=== PATIENT | female | born 1960 | race Caucasian/White ===

== ENCOUNTER 2024-04-02 13:42 | Outpatient (AMB) | payer MEDICARE, BC, SELFPAY ==
[2024-04-02 13:50] VITALS: BP 130/80; PULSE 114; RESP 14; O2SAT 95; BMI 37.1
--- NOTE | 2024-04-02 13:50 | MHC.PC.OV ---
Vital Signs 04/02/24 13:50 Height 5 ft 7 in Weight 237 lb BMI 37.1 BP 130/80 Blood Pressure Location Lt brachial Position Sitting Respiration 14 Pulse 114 H Pulse Source Pulse Oximeter Pulse Oximetry (%) 95 Oxygen Delivery Method Room Air Intake Visit Reasons: Cough,follow up Intake Note: Patient is here to follow up for her cough/respiratory concern. Patient takes B-12, unknown dose. Patient takes Ketamine 80mg capsule PRN 1-3 daily (from a compound pharmacy). Patient also takes vitamin C, unsure of dose. Magnesium 400mg daily. and iron 45mg daily. 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 Accompanied by: Self / Same As Patient Allergies semaglutide [From Ozempic] Allergy (Severe, Verified 04/02/24 13:55) Rash Tobacco use date assessed: 04/02/24 Fall risk assessment: 2 + Falls in past year Last assessed Fall Risk: 04/02/24 Dental Screening Dental Screen Date: 04/02/24 Did you have a dental visit in the last 12 months?: No Did you have a dental problem in the last 6 months where you did not have access to dental care?: No Was dental information given to patient?: No HPI HPI Comments History of Present Illness Details The patient is a 63-year-old female with a past medical history of type 2 diabetes, hypertension, hyperlipidemia, RSD, spinal stenosis, post herpetic neuralgia, headaches, IBS/GERD/gastroparesis, prolonged QT presenting for cough Reports onset of cough Mar 16. +sinus congestion, +PND, +fatigue. Has turned bronchial. Some intermittent wheezing. Denies recent fevers Type 2 diabetes: On metformin, Basaglar, lisinopril. Multifactorial neuropathy. Up-to-date on eye exams. Follows regularly with Podiatry. Chronic pain: RSD, spinal stenosis, post herpetic neuralgia, diabetic neuropathy, fibromyalgia. Follows with Dr. Neff ongoing transitional medications GI: Constipation, gastroparesis, IBS, nausea, GERD. Feeling fairly well : Follows with Dr. Mclean who is retiring. on prempro. this has been the only effective medication for her signficant post menopausal symptoms ROS see HPI PHYSICAL EXAM: GENERAL: Alert and oriented x 3. NAD EYES: EOMI. Anicteric. HENT: Maxillary sinus tender to palpation bilateral LUNGS: Coarse anterior rhonchi t/o. good air entry. scattered wheezing CARDIOVASCULAR: Regular rate and rhythm. No murmur. No JVD. ABDOMEN: Soft, non-tender +bs EXTREMITIES: No edema. Non-tender. SKIN: No rashes or lesions. Warm. NEUROLOGIC: No focal neurological deficits. CN II-XII grossly intact PSYCHIATRIC: Cooperative. Appropriate mood and affect COUNTS INCLUDE 234 BEDS AT THE [facility] Social History Household Members: Spouse and Children Housing: House 75 years or older and lives alone: No Alcohol intake: never Patient Tobacco Use Status: Never used Tobacco e-Cigarette/Vaping Use: Never Used Use of substances other than those prescribed or required for medical reasons: No Substance Use Type: Marijuana Have you been hit, kicked, punched, or otherwise hurt by someone within the past year? If so, by whom?: No Do you feel safe in your current relationship?: Yes Is there a partner from a previous relationship who is making you feel unsafe now?: No Are you made to feel afraid or neglected: No service: No Current occupational status: disabled Current occupational exposures/hazards: No Cognitive needs: No Hearing needs: Yes (wears hearing aids) Vision needs: Yes (wears glasses) Physical exam (Primary Care) Vital Signs: Last Vital Signs Pulse 114 H 04/02/24 13:50 Resp 14 04/02/24 13:50 BP 130/80 04/02/24 13:50 Pulse Ox 95 04/02/24 13:50 Oxygen Delivery Method Room Air 04/02/24 13:50 BMI result Body Mass Index 37.1 Tobacco/Smoking Status: Tobacco use Status Tobacco use date assessed 04/02/24 04/02/24 14:22 Patient Tobacco Use Status Never used Tobacco 04/02/24 14:22 e-Cigarette/Vaping Use Never Used 04/02/24 14:22 Assessment and Plan Assessment & Plan (1) Controlled diabetes mellitus with diabetic neuropathy, with long-term current use of insulin: Code(s): E11.40 - Type 2 diabetes mellitus with diabetic neuropathy, unspecified; 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 Qualifiers: Diabetes mellitus type: type 2 Qualified Code(s): E11.40 - Type 2 diabetes mellitus with diabetic neuropathy, unspecified; 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 (2) Diabetic neuropathy: Code(s): E11.40 - Type 2 diabetes mellitus with diabetic neuropathy, unspecified Qualifiers: Diabetes mellitus type: type 2 Diabetes mellitus complication detail: diabetic polyneuropathy Qualified Code(s): E11.42 - Type 2 diabetes mellitus with diabetic polyneuropathy (3) Complex regional pain syndrome I: Code(s): G90.50 - Complex regional pain syndrome I, unspecified Qualifiers: Complex regional pain syndrome affected site: lower extremity Laterality: unspecified laterality Qualified Code(s): G90.529 - Complex regional pain syndrome I of unspecified lower limb (4) Asthma: Code(s): J45.909 - Unspecified asthma, uncomplicated Qualifiers: Asthma severity: moderate Asthma persistence: persistent Asthma complication type: with acute exacerbation Qualified Code(s): J45.41 - Moderate persistent asthma with (acute) exacerbation (5) Sinusitis: Code(s): J32.9 - Chronic sinusitis, unspecified Qualifiers: Sinusitis location: maxillary Chronicity: subacute Qualified Code(s): J01.00 - Acute maxillary sinusitis, unspecified Medications: New prednisone 60mg oral once daily for 3 days then 40mg once oral daily for 3 days then 20mg oral once daily for 3 days orally daily; 18 tabs 0RF doxycycline hyclate 100 mg PO Q12H 20 tabs 0RF 10 days conj estrog-medroxyprogest jen 0.3-1.5 mg (Prempro) 1 tab PO BEDTIME 84 tabs 3RF codeine-guaifenesin 10-100 mg/5 mL 10 mL PO Q4-6H PRN 200 mL 0RF cough Coding Level of Care Code Est Pt Level 5 (98596) Diagnoses Controlled type 2 diabetes mellitus with diabetic neuropathy, with long-term current use of insulin E11.40; Z79.4 Diabetes mellitus type: type 2 Diabetic polyneuropathy associated with type 2 diabetes mellitus E11.42 Diabetes mellitus type: type 2 Diabetes mellitus complication detail: diabetic polyneuropathy Complex regional pain syndrome type 1 of lower extremity, unspecified laterality G90.529 Complex regional pain syndrome affected site: lower extremity Laterality: unspecified laterality Moderate persistent asthma with acute exacerbation J45.41 Asthma severity: moderate Asthma persistence: persistent Asthma complication type: with acute exacerbation Subacute maxillary sinusitis J01.00 Sinusitis location: maxillary Chronicity: subacute
== END 2024-04-02 14:39 | disposition home or self-care (01) ==
PROVIDERS: PCP Internal Medicine; Visit Provider Internal Medicine
DX: E11.40 Type 2 diabetes mellitus with diabetic neuropathy, unspecified (principal); Z79.4 Long term (current) use of insulin; E11.42 Type 2 diabetes mellitus with diabetic polyneuropathy; G90.529 Complex regional pain syndrome I of unspecified lower limb; J45.41 Moderate persistent asthma with (acute) exacerbation; J01.00 Acute maxillary sinusitis, unspecified
CPT/HCPCS: 99214

== ENCOUNTER 2024-04-16 11:36 | Outpatient (AMB) | payer MEDICARE, BC, SELFPAY ==
--- NOTE | 2024-04-16 11:38 | AM.OFFWIN_ITS ---
Intake Vital Signs 04/16/24 11:41 Height 5 ft 7 in Weight 237 lb BMI 37.1 BP 130/84 Blood Pressure Location Rt brachial Position Sitting Respiration 12 Pulse 103 H Pulse Source Pulse Oximeter Pulse Oximetry (%) 97 Oxygen Delivery Method Room Air Intake Visit Reasons: bad Cough and ear pain Intake Note: Patient reports antibiotic and prednisone ended this past week and she reports headache, sinus pressure, cough, and bilateral ear pain with right ear being worse. 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 +sinus congestion, +PND, +fatigue. Has turned bronchial. Some intermittent wheezing. Denies recent fevers. Symptoms improved while on the medication, however rebounded after cessation. Still with a lot of reported post nasal drip and cough Type 2 diabetes: On metformin, Basaglar, lisinopril. Multifactorial neuropathy. Up-to-date on eye exams. Follows regularly with Podiatry. Chronic pain: RSD, spinal stenosis, post herpetic neuralgia, diabetic neuropathy, fibromyalgia. Follows with Dr. Neff ongoing transitional medications GI: Constipation, gastroparesis, IBS, nausea, GERD. Feeling fairly well : Follows with Dr. Mclean who is retiring. on prempro. this has been the only effective medication for her signficant post menopausal symptoms ROS see HPI PHYSICAL EXAM: GENERAL: Alert and oriented x 3. NAD EYES: EOMI. Anicteric. HENT: Maxillary sinus tender to palpation bilateral LUNGS: Good air entry. scattered wheezing CARDIOVASCULAR: Regular rate and rhythm. No murmur. No JVD. ABDOMEN: Soft, non-tender +bs EXTREMITIES: No edema. Non-tender. SKIN: No rashes or lesions. Warm. NEUROLOGIC: No focal neurological deficits. CN II-XII grossly intact PSYCHIATRIC: Cooperative. Appropriate mood and affect [facility] Social History Household Members: Spouse and Children Housing: House 75 years or older and lives alone: No Alcohol intake: never Patient Tobacco Use Status: Never used Tobacco e-Cigarette/Vaping Use: Never Used Substance Use Type: Marijuana service: No Current occupational status: disabled Current occupational exposures/hazards: No Cognitive needs: No Hearing needs: Yes (wears hearing aids) Vision needs: Yes (wears glasses) Physical Exam Vital Signs: Last Vital Signs Pulse 103 H 04/16/24 11:41 Resp 12 04/16/24 11:41 BP 130/84 04/16/24 11:41 Pulse Ox 97 04/16/24 11:41 Oxygen Delivery Method Room Air 04/16/24 11:41 BMI result Body Mass Index 37.1 Assessment & Plan Assessment & Plan (1) Subacute sinusitis: Code(s): J01.90 - Acute sinusitis, unspecified Qualifiers: Sinusitis location: maxillary Qualified Code(s): J01.00 - Acute maxillary sinusitis, unspecified Plan: Repeat treatment course Imaging if symptoms persist (2) Asthma: Code(s): J45.909 - Unspecified asthma, uncomplicated Qualifiers: Asthma complication type: with acute exacerbation Asthma persistence: persistent Asthma severity: moderate Qualified Code(s): J45.41 - Moderate pe rsistent asthma with (acute) exacerbation Plan: with exacerbation Repeat recent treatment course Medications: Refilled doxycycline hyclate 100 mg PO Q12H 20 tabs 0RF 10 days prednisone 60mg oral once daily for 3 days then 40mg once oral daily for 3 days then 20mg oral once daily for 3 days orally daily; 18 tabs 0RF Coding Level of Care Code Est Pt Level 4 (35103) Diagnoses Subacute maxillary sinusitis J01.00 Sinusitis location: maxillary Moderate persistent asthma with acute exacerbation J45.41 Asthma complication type: with acute exacerbation Asthma persistence: persistent Asthma severity: moderate
[2024-04-16 11:41] VITALS: BP 130/84; PULSE 103; RESP 12; O2SAT 97; BMI 37.1
== END 2024-04-16 13:04 | disposition home or self-care (01) ==
PROVIDERS: PCP Internal Medicine; Visit Provider Internal Medicine
DX: J01.00 Acute maxillary sinusitis, unspecified (principal); J45.41 Moderate persistent asthma with (acute) exacerbation
CPT/HCPCS: 99214

== ENCOUNTER 2024-05-14 09:32 | Outpatient (AMB) | payer MEDICARE, SELFPAY ==
--- NOTE | 2024-05-14 09:45 | MHC.PC.OV ---
Vital Signs 05/14/24 09:47 Height 5 ft 7 in Weight 233 lb BMI 36.5 BP 143/78 H Blood Pressure Location Rt brachial Position Sitting Respiration 12 Pulse 85 Pulse Source Pulse Oximeter Pulse Oximetry (%) 98 Oxygen Delivery Method Room Air Intake Visit Reasons: [facility]L from [facility] Intake Note: Patient is here to transfer her care from [facility] to [facility]. Patient is requesting refills for Vitamin D, Lisinopril, Metformin HCL, Montelucast, Nitroglycerin, Albuterol inhaler, and flonase. Patient would also like to discuss B12 injections in the office. 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: No Accompanied by: Self / Same As Patient Allergies semaglutide [From Ozempic] Allergy (Severe, Verified 05/14/24 09:52) Rash Jlvcyor-EVI-MzY Reductase Inhibitor Adverse Reaction (Severe, Verified 05/14/24 10:11) myalgia Tobacco use date assessed: 04/02/24 Fall risk assessment: 1 Fall in past year Last assessed Fall Risk: 05/14/24 Dental Screening Dental Screen Date: 04/02/24 HPI HPI Comments History of Present Illness Details The patient is a 63-year-old female with a past medical history of type 2 diabetes, hypertension, hyperlipidemia, RSD, spinal stenosis, post herpetic neuralgia, headaches, IBS/GERD/gastroparesis, prolonged QT presenting for follow up Type 2 diabetes: On metformin, Basaglar, lisinopril. Due for A1C. Has upcoming visit with endocrine. Multifactorial neuropathy. Up-to-date on eye exams. Follows regularly with Podiatry. Patient developed severe myalgia with multiple statins in the past, she believes atorvastatin, rosuvastatin and pravastatin. LDL goal <100. Tried to have praluent sent but not covered by insurance Chronic pain: RSD, spinal stenosis, post herpetic neuralgia, diabetic neuropathy, fibromyalgia. Follows with Dr. Neff ongoing transitional medications GI: Constipation, gastroparesis, IBS, nausea, GERD. Feeling fairly well : Follows with Dr. Mclean who is retiring. On prempro. this has been the only effective medication for her significant post menopausal symptoms ROS see HPI PHYSICAL EXAM: GENERAL: Alert and oriented x 3. NAD EYES: EOMI. Anicteric. HENT: Maxillary sinus tender to palpation bilateral LUNGS: Good air entry. scattered wheezing CARDIOVASCULAR: Regular rate and rhythm. No murmur. No JVD. ABDOMEN: Soft, non-tender +bs EXTREMITIES: No edema. Non-tender. SKIN: No rashes or lesions. Warm. NEUROLOGIC: No focal neurological deficits. CN II-XII grossly intact PSYCHIATRIC: Cooperative. Appropriate mood and affect [facility] Medical History (Updated 05/14/24 @ 10:21 by Nargis Belcher MD) Depression PTSD (post-traumatic stress disorder) Injury of hand, right Right shoulder injury Neck injury Imbalance Memory loss Fatty liver GERD (gastroesophageal reflux disease) IBS (irritable colon syndrome) Thyroid disease Hypercholesterolemia Hammertoe of left foot Controlled diabetes mellitus with diabetic neuropathy, with long-term current use of insulin Diabetic neuropathy Complex regional pain syndrome I Asthma Subacute sinusitis Surgical History (Updated 05/14/24 @ 10:05 by Alicia Ortiz CMA) Hx of foot surgery Family History (Updated 05/14/24 @ 10:29 by Alicia Ortiz CMA) Mother Colon cancer Father Cardiovascular disease Thyroid disorder Throat cancer Alcoholism Psychiatric disorder Maternal Grandmother Asthma Diabetes Cardiovascular disease Maternal Grandfather Cardiovascular disease Paternal Grandfather Cardiovascular disease Sister Cancer of spine Diabetes Social History Household Members: Spouse and Children Housing: House Alcohol intake: never Patient Tobacco Use Status: Never used Tobacco e-Cigarette/Vaping Use: Never Used Substance Use Type: Marijuana service: No Current occupational status: disabled Current occupational exposures/hazards: No Cognitive needs: No Hearing needs: Yes (wears hearing aids) Vision needs: Yes (wears glasses) Questionnaire PHQ-9 Over the last 2 weeks, how often have you been bothered by any of the following problems? 1. Little interest or pleasure in doing things: several days 2. Feeling down, depressed, or hopeless: several days 3. Trouble falling or staying asleep, or sleeping too much: more than half the days 4. Feeling tired or having little energy: several days 5. Poor appetite or overeating: several days 6. Feeling bad about yourself - or that you are a failure or have let yourself or your family down: not at all 7. Trouble concentrating on things, such as reading the newspaper or watching television: several days 8. Moving or speaking so slowly that other people could have noticed. Or the opposite - being so fidgety or restless that you have been moving around a lot more than usual: not at all 9. Thoughts that you would be better off or of hurting yourself in some way: not at all Total score: 7 Depression Screening Interpretation: Positive Depression Screening Follow-up: Existing condition and Declines treatment Depression Screening Done: Yes 48854 - PHQ-9 Billing: Yes Source: Developed by Drs. Tonio Hawkins, Medina Mcdaniel, Bolivar Denis and colleagues, with an educational luz from [employer]. Thrive Questionnaire Date Thrive assessed: 05/14/24 I am a: Patient What is your living situation today?: I have a steady place to live Within the past 12 months, did the food you bought not last and you didn't have the money to get more?: Never true Within the past 12 months, did you worry whether your food would run out before you got money to buy more?: Never true Do you have trouble paying for medicines?: Yes Do you have trouble getting transportation to medical appointments?: Yes Do you have trouble paying your heating and electricity bill?: Yes Do you have trouble taking care of your child, family member or friend?: No Do you have trouble with day-to-day activities such as bathing, preparing meals, shopping, managing finances, etc.?: Yes Are you currently unemployed and looking for a job?: No Are you interested in more education?: No Please select the resources that you would like help with: Food, Paying for medicine, Transportation, Utilities and Daily support Currently or been in a relationship where the following occur: No concerns reported THRIVE Score: 2 AUDIT C Alcohol Use Questionnaire (AUDIT-C) 1. How often do you have a drink containing alcohol?: Never 3. How often do you have six or more drinks on one occasion?: Never Total Score: 0 OLYA-7 AMB Questionnaire OLYA-7 Date OLYA - 7 assessed: 05/14/24 Feeling nervous, anxious, or on edge: 1 = Several days Not being able to stop or control worryin = Several days Worrying too much about different things: 0 = Not at all Trouble relaxin = Several days Being so restless that it is hard to sit still: 0 = Not at all Becoming easily annoyed or irritable: 1 = Several days Feeling afraid as if something awful might happen: 0 = Not at all Total OLYA-7 score (0-4 normal; 5-9 mild; 10-14 moderate; 15-21 severe): 4 Source: Developed by Drs. Tonio Hawkins, Medina Mcdaniel, Bolivar Denis and colleagues, with an educational luz from [employer]. OLYA-7 Assessment Billing OLYA-7 Assessment Tool: OLYA-7 Assessment 20402 Physical exam (Primary Care) Vital Signs: Last Vital Signs Pulse 85 05/14/24 09:47 Resp 12 05/14/24 09:47 BP 143/78 H 05/14/24 09:47 Pulse Ox 98 05/14/24 09:47 Oxygen Delivery Method Room Air 05/14/24 09:47 BMI result Body Mass Index 36.5 Tobacco/Smoking Status: Tobacco use Status Tobacco use date assessed 04/02/24 05/14/24 09:45 Patient Tobacco Use Status Never used Tobacco 05/14/24 09:45 e-Cigarette/Vaping Use Never Used 05/14/24 09:45 PHQ-9: PHQ-9 Score PHQ-9: Total score 7 05/14/24 10:00 Depression Screening Interpretation: Positive Depression Screening Follow-up: Existing condition and Declines treatment Thrive Assessment: Date of Thrive Assessment Date Thrive assessed 05/14/24 05/14/24 10:00 Currently or been in a relationship where the following occur: No concerns reported Assessment and Plan Assessment & Plan (1) Controlled diabetes mellitus with diabetic neuropathy, with long-term current use of insulin: Code(s): E11.40 - Type 2 diabetes mellitus with diabetic neuropathy, unspecified; 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 Due for A1C Multifactorial neuropathy Upcoming visit with endocrinology. Labs ordered today. Patient has not tolerated multiple statins. Repatha ordered today (2) Diabetic neuropathy: Code(s): E11.40 - Type 2 diabetes mellitus with diabetic neuropathy, unspecified Qualifiers: Diabetes mellitus type: type 2 Diabetes mellitus complication detail: diabetic polyneuropathy Qualified Code(s): E11.42 - Type 2 diabetes mellitus with diabetic polyneuropathy (3) Complex regional pain syndrome I: Code(s): G90.50 - Complex regional pain syndrome I, unspecified Qualifiers: Complex regional pain syndrome affected site: lower extremity Laterality: unspecified laterality Qualified Code(s): G90.529 - Complex regional pain syndrome I of unspecified lower limb Plan: Stable continue follow-up with pain management Orders: Orders Lipid Panel Today E11.40 - Type 2 diabetes mellitus with diabetic neuropathy, unspecified, E11.42 - Type 2 diabetes mellitus with diabetic polyneuropathy, 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 of insulin Hemoglobin A1c Today E11.40 - Type 2 diabetes mellitus with diabetic neuropathy, unspecified, E11.42 - Type 2 diabetes mellitus with diabetic polyneuropathy, Z79.4 - halfway (current) use of insulin Referrals Gastroenterology Referral R13.10 - Dysphagia, unspecified Medications: New cyanocobalamin (vitamin B-12) (Vitamin B-12) 1,000 mcg PO DAILY 90 tabs 3RF lisinopril 2.5 mg PO QPM 90 tabs 3RF montelukast 10 mg PO BEDTIME 90 tabs 3RF Repatha SureClick (evolocumab) 140 mg subcut Q2W 2 mL 3RF NS cholecalciferol (vitamin D3) 25 mcg PO QAM 90 caps 3RF nitroglycerin do not exceed 3 doses per episode 0.4 mg sublingual Q5M PRN 30 tabs 3RF chest pain fluticasone propionate 50 mcg/actuation administer into each nostril 1 spray intranasal DAILY 16 grams 3RF albuterol sulfate 90 mcg/actuation 1 inh inhalation .every 4 hours 30 days PRN 8.5 grams 3RF shortness of breath or wheezing Changed From metformin 500 mg PO BID To metformin 1,000 mg (2 x 500 mg) PO BID 360 tabs 3RF Coding Level of Care Code Est Pt Level 4 (87879) Complex EM visit Add On G2211 Diagnoses Controlled type 2 diabetes mellitus with diabetic neuropathy, with long-term current use of insulin E11.40; Z79.4 Diabetes mellitus type: type 2 Diabetic polyneuropathy associated with type 2 diabetes mellitus E11.42 Diabetes mellitus type: type 2 Diabetes mellitus complication detail: diabetic polyneuropathy Complex regional pain syndrome type 1 of lower extremity, unspecified laterality G90.529 Complex regional pain syndrome affected site: lower extremity Laterality: unspecified laterality Additional Codes OLYA-7 Assessment Billing - OLYA-7 Assessment Tool: OLYA-7 Assessment [id number] ([id number])
[2024-05-14 09:47] VITALS: BP 143/78; PULSE 85; RESP 12; O2SAT 98; BMI 36.5
== END 2024-05-14 10:31 | disposition home or self-care (01) ==
PROVIDERS: PCP Internal Medicine; Visit Provider Internal Medicine
DX: E11.40 Type 2 diabetes mellitus with diabetic neuropathy, unspecified (principal); Z79.4 Long term (current) use of insulin; E11.42 Type 2 diabetes mellitus with diabetic polyneuropathy; G90.529 Complex regional pain syndrome I of unspecified lower limb
CPT/HCPCS: 99214; G2211

== ENCOUNTER 2024-05-14 10:39 | Outpatient (REF) | payer MEDICARE, BC, SELFPAY ==
[2024-05-14 15:10] LABS: Alanine Aminotransferase 15 U/L (0-31); Albumin Level 4.1 g/dL (3.5-5.0); Alkaline Phosphatase 44 U/L (39-117); Anion Gap 10 (12-20); Aspartate Amino Transferase 18 U/L (5-31); Bilirubin Total 0.2 mg/dL (0.0-1.0); Blood Urea Nitrogen 9 mg/dL (9-16); Calcium 9.6 mg/dL (8.4-10.2); Carbon Dioxide 28 mmol/L (22-29); Chloride 108 mmol/L (96-108); Cholesterol 244 mg/dL (<200); Estimated Glomerular Filt Rate > 60; Glucose Random 109 mg/dL (60-115); HDL Cholesterol 65 mg/dL (>40); LDL Cholesterol Calculated 153 mg/dL (<100); Potassium 4.3 mmol/L (3.3-5.1); Sodium 142 mmol/L (135-145); Triglycerides 134 mg/dL (<150)
[2024-05-14 15:13] LABS: Microalbum/Creatinine Ratio Ur 7.7 ug/mg cr (<30)
[2024-05-14 15:22] LABS: Total Protein 7.1 g/dL (6.5-8.0)
[2024-05-14 15:34] LABS: Estimated Average Glucose 128 mg/dL; Hemoglobin A1c % 6.1 % (<6.0)
== END 2024-05-14 10:40 | disposition home or self-care (01) ==
LOC: HO.WFDLDS 10:39
PROVIDERS: Visit Provider Internal Medicine
DX: E11.42 Type 2 diabetes mellitus with diabetic polyneuropathy (principal); E11.40 Type 2 diabetes mellitus with diabetic neuropathy, unspecified; Z79.4 Long term (current) use of insulin
CPT/HCPCS: 36415; 80053; 80061; 82043; 82570; 83036

== ENCOUNTER 2024-12-24 14:20 | Outpatient (AMB) | payer MEDICARE, SELFPAY ==
--- NOTE | 2024-12-24 14:27 | MHC.OFFVIS ---
Vital Signs 12/24/24 14:39 Height 5 ft 7 in Weight 242 lb 8.136 oz BMI 38.0 BP 134/79 Blood Pressure Location Lt brachial Position Sitting Pulse 84 Intake Visit Reasons: Dysphagia r/s 10/22 Allergies semaglutide [From Ozempic] Allergy (Severe, Verified 05/14/24 09:52) Rash Gwcsyfn-[id number]-HzM Reductase Inhibitor Adverse Reaction (Severe, Verified 05/14/24 10:11) myalgia Medication List - Last Reconciled 12/24/24 by MICHAEL Daniels albuterol sulfate 90 mcg/actuation 1 inh inhalation .every 4 hours PRN 30 days Basaglar KwikPen U-100 Insulin (insulin glargine) 24 units (0.24 mL) subcut DAILY 90 days NS 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,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,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 (GuideSparkStyle Soheila 3 [place]) As directed 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 sensor (FreeStyle Soheila 3 Sensor device) As directed cholecalciferol (vitamin D3) 25 mcg PO QAM conj estrog-medroxyprogest jen 0.3-1.5 mg (Prempro) 1 tab PO BEDTIME cyanocobalamin (vitamin B-12) (Vitamin B-12) 1,000 mcg PO DAILY cyproheptadine 4 mg PO .PRN PRN duloxetine 120 mg PO BEDTIME estradiol 0.01%(0.1mg/gram) (Estrace) 1 g vaginal 2XW famotidine (Acid Billing Manager (famotidine)) 20 mg PO DAILY PRN famotidine (Acid Billing Manager (famotidine)) 20 mg PO DAILY PRN fluticasone propionate 50 mcg/actuation 1 spray intranasal DAILY insulin glargine 24 units (0.24 mL) subcut DAILY ipratropium-albuterol 18-103 mcg/actuation 1 spray inhalation Q4-6H PRN ketamine in 0.9 % sod chloride 100 mg/10 mL (10 mg/mL) 8 mL PO BID lamotrigine 100 mg PO TID levocetirizine (Xyzal) 5 mg PO BID levocetirizine (Xyzal) 10 mg PO BID levothyroxine (Levo-T) 50 mcg PO DAILY lidocaine 5% 2 patches topical DAILY lidocaine-prilocaine 2.5-2.5 % 30 grams topical Q12H PRN lisinopril 2.5 mg PO QPM loperamide 2 mg PO Q6H PRN meclizine 25 mg PO BID PRN [Medical cannabis PO] metformin 1,000 mg (2 x 500 mg) PO .qd metoclopramide HCl (Reglan) 5 mg PO QIDACHS montelukast 10 mg PO BEDTIME nitroglycerin 0.4 mg sublingual Q5M PRN ondansetron HCl 16 mg PO Q8H PRN oxazepam 1-2 (10mg tablets orally QD PRN; pen needle, diabetic (BD Lisa 2nd Gen Pen Needle) As directed prochlorperazine 25 mg NC BID PRN Repatha SureClick (evolocumab) 140 mg subcut Q2W NS HPI HPI Dysphagia r/s 10/22: Details: 64-year-old female here for initial evaluation of dysphagia. She is referred by Nargis Belcher PMX Asthma Diabetes Complex regional pain syndrome Subacute sinusitis Depression/PTSD Memory loss Fatty liver GERD IBS Thyroid disease High cholesterol gastroparesis * SURGICAL HISTORY Hammertoe foot correction * ALLERGIES Ozempic Statins * [facility] LABS: NONE SINCE 04/2024 [facility] TODAY'S VISIT She has intermittent dysphagia of things like hamburger and rice, but she choked a few mos ago and she had trouble getting it up and out. This has been a problem for years, but it is happening more often (about a couple times a year.). At times even water will come back up but it is more with solids. She always keeps water with ehr to help pass the food. She has had GERD/HB since her early 30's. FHX of tongue and mouth cancer in fathers side, ? of maternal grandmother having dysphagia. SHe has dentures. She cuts all of her food small. She has seen Dr. Amaral at [place] and she had a swallowing study in [facility] past 5 years. She has been having many years of struggles with diarrhea, worsening over the past year, with fecal incontinence. They cut back her metformin and the accidents stopped but she still has mostly looser stools. HEr mother had CRC at age 54 and she survived. She had a barium swallow in 2022 at [facility] and I printed that report. There does not appear to be any esophageal dysmotility at that time. She does not remember having an upper endoscopy and I can not locate any evidence of that in the charts. I think this will be an important procedure to see what is going on with her swallowing. She has gastroparesis but it does not appear she has ever been on metoclopramide in obviously this would greatly worsen her reflux. Since she does have pain in the epigastrium area this could be an important part of her treatment. She tends to treat her heartburn with it famotidine and Kaopectate. Her mother had CRC, her next scope is due next year. Her asthma is well controlled and she has benign angina but no serious cardiac problems. SHe had severe nausea from general anesthesia and fainted after her shoulder surgery, no trouble with colonoscopy sedation. No ID problems. Start reglan 5mg qid for paresis. ROV next available [facility] Medical History (Updated 12/24/24 @ 15:36 by MICHAEL Daniels) Depression PTSD (post-traumatic stress disorder) Injury of hand, right Right shoulder injury Neck injury Imbalance Memory loss Fatty liver GERD (gastroesophageal reflux disease) IBS (irritable colon syndrome) Thyroid disease Hypercholesterolemia Hammertoe of left foot Controlled diabetes mellitus with diabetic neuropathy, with long-term current use of insulin Diabetic neuropathy Complex regional pain syndrome I Asthma Subacute sinusitis Surgical History (Updated 12/24/24 @ 14:49 by JASKARAN Farnsworth) S/P insertion of spinal cord stimulator H/O Spinal surgery History of esophagogastroduodenoscopy (EGD) H/O colonoscopy Hx of foot surgery Family History (Updated 12/24/24 @ 14:50 by JASKARAN Farnsworth) Mother Colon cancer Father Cardiovascular disease Thyroid disorder Throat cancer Alcoholism Psychiatric disorder Maternal Grandmother Asthma Diabetes Cardiovascular disease Maternal Grandfather Cardiovascular disease Paternal Grandfather Cardiovascular disease Sister Cancer of spine Diabetes Brother Tongue cancer Social History Household Members: Spouse and Children Housing: House 75 years or older and lives alone: No Alcohol intake: never Patient Tobacco Use Status: Never used Tobacco e-Cigarette/Vaping Use: Never Used Substance Use Type: Marijuana service: No Current occupational status: disabled Current occupational exposures/hazards: No Cognitive needs: No Hearing needs: Yes (wears hearing aids) Vision needs: Yes (wears glasses) Review of Systems Const Denies fatigue, Denies fever(s), Denies night sweats, Reports poor appetite and Denies weight loss Eyes Details: glasses Reports requires corrective lenses ENT Reports Normal hearing present, Denies dental pain, Reports dysphagia, Denies hearing loss, Denies mouth pain, Reports odynophagia, Denies throat swelling, Denies tongue swelling and Reports other (Dentition adequate) Card Reports no additional complaints Resp Reports no additional complaints GI Details: Denies abdominal pain, Denies melena, Denies bloating, Denies hematochezia, Denies constipation, Denies GI cramping, Reports dysphagia, Denies excessive flatus, Reports early satiety, Denies heartburn, Reports diarrhea, Denies nausea, Reports odynophagia, Denies vomiting and Denies hematemesis Skin/Breast Denies pruritus, Denies lesions, Denies rash and Denies jaundice Neuro Reports Normal hearing present and Denies Abnormal speech present Endo Denies fatigue Aller/Immun Denies throat swelling and Denies tongue swelling Physical Exam Vital Signs: Last Vital Signs Pulse 84 12/24/24 14:39 BP 134/79 12/24/24 14:39 BMI result Body Mass Index 38.0 Const General: cooperative, no acute distress, well developed and well groomed Nutritional Appearance: well nourished and obese Orientation/consciousness: oriented to person, oriented to place and oriented to time Limitations: No language barrier HEENT Head: Yes normocephalic and Yes atraumatic Eyes General: appearance normal, both eyes and all related structures Pupils: Equal, round and reactive pupils present Neck Neck: Yes normal visual inspection and Yes no lymphadenopathy Thyroid: Thyroid normal Resp Effort & Inspection: normal respiratory effort and able to speak in complete sentences Auscultation: clear to auscultation bilaterally Cardio Rate: regular rate Rhythm: regular rhythm Heart sounds: Normal, physiologic split S2 sound present Peripheral pulses: radial pulses present and posterior tibial pulses present GI Inspection: No distended, Yes Abdominal panniculus present and Yes obesity Palpation (GI): Soft to palpation, nontender, no guarding, not rigid and No hepatosplenomegaly present Percussion: Yes normal to percussion Auscultation: normal bowel sounds Rectal Exam - Female: deferred Skin General skin exam: no rashes or lesions noted, turgor normal, skin not dry, no jaundice, No spider nevi and no striae Rashes: no rashes Nails: normal Neuro General: oriented to person, oriented to place and oriented to time Cranial nerves: Yes Equal, round and reactive pupils present and Yes Normal hearing present Speech: No Abnormal speech present Extrem General: Yes normal to inspection, No clubbing, No cyanosis and No edema Psych Appearance: grossly normal and well kempt Mental Status: mental status grossly normal Speech and movement: Normal speech and movement present Affect: normal affect Attitude: cooperative Thought process: Normal thought process present and not confabulating Thought content: Normal thought content present Insight: Limited insight present (Psych) Judgement: Limited judgement present (Psych) Results Reviewed Results Reviewed: Platelet Count *318https://[employer]/Zapproved/[employer]/reports/Teran[employer]_driver?parameters=^MINE^,3442169.0,781212142.0,62369540.0,006205444.0,1121.0,%22MP_REACH%22,%22../../resources/UnifiedContent%22,%22mp_reach_v5%22,9# 12/14/24 15:15 -- -- WBC 6.2https://[employer]/Zapproved/[employer]/reports/[employer]_driver?parameters=^MINE^,7753030.0,532285757.0,88023008.0,044107027.0,1121.0,%22MP_REACH%22,%22../../resources/UnifiedContent%22,%22mp_reach_v5%22,9# 12/14/24 15:15 -- -- -HEMATOLOGY (9) WBC 6.2https://[employer]/Zapproved/[employer]/reports/[employer]_driver?parameters=^MINE^,2498765.0,566593187.0,49469836.0,443596008.0,1121.0,%22MP_REACH%22,%22../../resources/UnifiedContent%22,%22mp_reach_v5%22,9# 12/14/24 15:15 -- -- RBC 4.29https://[employer]/Zapproved/[employer]/reports/mp_unified_driver?parameters=^MINE^,6191209.0,177403067.0,26282684.0,307179369.0,1121.0,%22MP_REACH%22,%22../../resources/UnifiedContent%22,%22mp_reach_v5%22,9# 12/14/24 15:15 -- -- Hgb 12.0https://[employer]/reports/mp_unified_driver?parameters=^MINE^,0752928.0,959112610.0,98197569.0,723893163.0,1121.0,%22MP_REACH%22,%22../../resources/UnifiedContent%22,%22mp_reach_v5%22,9# 12/14/24 15:15 -- -- Hct 37.3https://[employer]/Zapproved/[employer]/reports/mp_unified_driver?parameters=^MINE^,7495376.0,753786033.0,62184901.0,668387222.0,1121.0,%22MP_REACH%22,%22../../resources/UnifiedContent%22,%22mp_reach_v5%22,9# 12/14/24 15:15 -- -- MCV 87https://[employer]/reports/mp_unified_driver?parameters=^MINE^,6645743.0,963634856.0,62135253.0,924949405.0,1121.0,%22MP_REACH%22,%22../../resources/UnifiedContent%22,%22mp_reach_v5%22,9#? 12/14/24 15:15 -- -- MCH 28.0https://[employer]/Zapproved/[employer]/reports/mp_unified_driver?parameters=^MINE^,4856671.0,139320292.0,13168041.0,035648138.0,1121.0,%22MP_REACH%22,%22../../resources/UnifiedContent%22,%22mp_reach_v5%22,9# 12/14/24 15:15 -- -- MCHC 32.2https://[employer]/Zapproved/[employer]/reports/mp_unified_driver?parameters=^MINE^,1216507.0,805117005.0,10272921.0,676025549.0,1121.0,%22MP_REACH%22,%22../../resources/UnifiedContent%22,%22mp_reach_v5%22,9#? 12/14/24 15:15 -- -- Platelet Count *318https://[employer]/Zapproved/[employer]/reports/mp_unified_driver?parameters=^MINE^,0424059.0,710252132.0,65767318.0,631306938.0,1121.0,%22MP_REACH%22,%22../../resources/UnifiedContent%22,%22mp_reach_v5%22,9# 12/14/24 15:15 -- -- RDW 14.3https://[employer]/Zapproved/[employer]/reports/Teranode_unified_driver?parameters=^MINE^,3270135.0,779383742.0,62610552.0,208761668.0,1121.0,%22MP_REACH%22,%22../../resources/UnifiedContent%22,%22mp_reach_v5%22,9# 12/14/24 15:15 -- -- -CHEMISTRY (24) Sodium 137https://[employer]/Zapproved/[employer]/reports/Teranode_unified_driver?parameters=^MINE^,2344072.0,055601706.0,36061385.0,271746669.0,1121.0,%22MP_REACH%22,%22../../resources/UnifiedContent%22,%22mp_reach_v5%22,9# 12/14/24 15:15 -- -- Potassium 4.5https://[employer]/Zapproved/[employer]/reports/[employer]_driver?parameters=^MINE^,6695488.0,621544588.0,26976108.0,007818984.0,1121.0,%22MP_REACH%22,%22../../resources/UnifiedContent%22,%22mp_reach_v5%22,9#? 12/14/24 15:15 -- -- Chloride 102https://[employer]/Zapproved/[employer]/reports/Teranode_unified_driver?parameters=^MINE^,4448678.0,501465964.0,03628864.0,410151724.0,1121.0,%22MP_REACH%22,%22../../resources/UnifiedContent%22,%22mp_reach_v5%22,9# 12/14/24 15:15 -- -- Bicarbonate Level 22https://[employer]/Zapproved/[employer]/reports/Teranode_unified_driver?parameters=^MINE^,2135086.0,416707678.0,75968318.0,394274550.0,1121.0,%22MP_REACH%22,%22../../resources/UnifiedContent%22,%22mp_reach_v5%22,9#? 12/14/24 15:15 -- -- Anion Gap *13.0https://[employer]/Zapproved/[employer]/reports/[employer]_driver?parameters=^MINE^,3800794.0,305618889.0,61997526.0,567766744.0,1121.0,%22MP_REACH%22,%22../../resources/UnifiedContent%22,%22mp_reach_v5%22,9# 12/14/24 15:15 -- -- Hemoglobin A1C (Monitoring) ?*6.9https://[employer]/Zapproved/[employer]/reports/[employer]_driver?parameters=^MINE^,3386459.0,795009307.0,47492298.0,338845945.0,1121.0,%22MP_REACH%22,%22../../resources/UnifiedContent%22,%22mp_reach_v5%22,9# 12/14/24 15:15 -- -- Magnesium *1.9https://[employer]/Zapproved/[employer]/reports/[employer]_driver?parameters=^MINE^,2802515.0,023260556.0,76370988.0,889512163.0,1121.0,%22MP_REACH%22,%22../../resources/UnifiedContent%22,%22mp_reach_v5%22,9#? 12/14/24 15:15 -- -- Protein, Total 6.6https://[employer]approved/[employer]/reports/[employer]_driver?parameters=^MINE^,8276105.0,013836964.0,55550108.0,843050855.0,1121.0,%22MP_REACH%22,%22../../resources/UnifiedContent%22,%22mp_reach_v5%22,9# 12/14/24 15:15 -- -- AST (SGOT) *17https://[employer]/Zapproved/[employer]/reports/[employer]_driver?parameters=^MINE^,3949719.0,076564630.0,82040544.0,430743889.0,1121.0,%22MP_REACH%22,%22../../resources/UnifiedContent%22,%22mp_reach_v5%22,9#? 12/14/24 15:15 -- -- ALT (SGPT) *11https://[employer]/Zapproved/[employer]/reports/[employer]_driver?parameters=^MINE^,5154578.0,664405928.0,88832436.0,963137223.0,1121.0,%22MP_REACH%22,%22../../resources/UnifiedContent%22,%22mp_reach_v5%22,9#? 12/14/24 15:15 -- -- Vitamin B12 Level *876https://[employer]/Zapproved/[employer]/reports/[employer]_driver?parameters=^MINE^,8969092.0,665169766.0,03624547.0,790786758.0,1121.0,%22MP_REACH%22,%22../../resources/UnifiedContent%22,%22mp_reach_v5%22,9# 12/14/24 15:14 -- -- Ferritin Level *33https://[employer]/Zapproved/[employer]/reports/[employer]_driver?parameters=^MINE^,1580194.0,025864214.0,14680950.0,380369452.0,1121.0,%22MP_REACH%22,%22../../resources/UnifiedContent%22,%22mp_reach_v5%22,9# 12/14/24 15:15 -- -- Globulin, Total, SPE 3.2https://[employer]/Zapproved/[employer]/reports/[employer]_driver?parameters=^MINE^,5940588.0,478489240.0,92640074.0,566571433.0,1121.0,%22MP_REACH%22,%22../../resources/UnifiedContent%22,%22mp_reach_v5%22,9# 12/14/24 15:15 -- -- A/G Ratio, SPE 1.1https://[employer]/Zapproved/[employer]/reports/[employer]_driver?parameters=^MINE^,1177744.0,396142471.0,70750109.0,351646212.0,1121.0,%22MP_REACH%22,%22../../resources/UnifiedContent%22,%22mp_reach_v5%22,9# 12/14/24 15:15 -- -- SPE Note: *Commenthttps://[employer]/Zapproved/[employer]/reports/[employer]_driver?parameters=^MINE^,0071540.0,088401249.0,06347952.0,579699178.0,1121.0,%22MP_REACH%22,%22../../resources/UnifiedContent%22,%22mp_reach_v5%22,9# 12/14/24 15:15 -- -- TSH *0.751https://[employer]approved/[employer]/reports/[employer]_driver?parameters=^MINE^,0443344.0,555756100.0,77726424.0,253410904.0,1121.0,%22MP_REACH%22,%22../../resources/UnifiedContent%22,%22mp_reach_v5%22,9# 12/14/24 15:15 Assessment & Plan Assessment & Plan (1) Dysphagia: Code(s): R13.10 - Dysphagia, unspecified Category: Medical (2) Asthma: Code(s): J45.909 - Unspecified asthma, uncomplicated Category: Medical Qualifiers: Asthma complication type: with acute exacerbation Asthma persistence: persistent Asthma severity: moderate Qualified Code(s): J45.41 - Moderate persistent asthma with (acute) exacerbation (3) Controlled diabetes mellitus with diabetic neuropathy, with long-term current use of insulin: Code(s): E11.40 - Type 2 diabetes mellitus with diabetic neuropathy, unspecified; 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 This has been a problem for years, but it is happening more often (about a couple times a year.). At times even water will come back up but it is more with solids. She always keeps water with ehr to help pass the food. She has had GERD/HB since her early 30's. FHX of tongue and mouth cancer in fathers side, ? of maternal grandmother having dysphagia. SHe has dentures. She cuts all of her food small. She has seen Dr. Amaral at [place] and she had a swallowing study in [facility] past 5 years. She has been having many years of struggles with diarrhea, worsening over the past year, with fecal incontinence. They cut back her metformin and the accidents stopped but she still has mostly looser stools. HEr mother had CRC at age 54 and she survived. She had a barium swallow in 2022 at [facility] and I printed that report. There does not appear to be any esophageal dysmotility at that time. She does not remember having an upper endoscopy and I can not locate any evidence of that in the charts. I think this will be an important procedure to see what is going on with her swallowing. She has gastroparesis but it does not appear she has ever been on metoclopramide in obviously this would greatly worsen her reflux. Since she does have pain in the epigastrium area this could be an important part of her treatment. She tends to treat her heartburn with it famotidine and Kaopectate. Her mother had CRC, her next scope is due next year. Her asthma is well controlled and she has benign angina but no serious cardiac problems. SHe had severe nausea from general anesthesia and fainted after her shoulder surgery, no trouble with colonoscopy sedation. No ID problems. Start reglan 5mg qid for paresis. ROV next availabl Orders: Orders EGD - GI Use Only 12/24/24 R13.10 - Dysphagia, unspecified [place] barium swallow 12/24/24 R13.10 - Dysphagia, unspecified Comprehensive Met. Panel 12/24/24 R13.10 - Dysphagia, unspecified Complete Blood Count Auto Diff 12/24/24 R13.10 - Dysphagia, unspecified Medications: New metoclopramide HCl (Reglan) 5 mg PO QIDACHS 120 tabs 6RF K31.84 - Gastroparesis Changed From metformin 1,000 mg (2 x 500 mg) PO BID 360 tabs 3RF To metformin 1,000 mg (2 x 500 mg) PO .qd 360 tabs 3RF Discontinued doxycycline hyclate Discontinued Reason: Doctor's Order 100 mg PO Q12H 10 days 20 tabs 0RF codeine-guaifenesin 10-100 mg/5 mL Discontinued Reason: Doctor's Order 10 mL PO Q4-6H PRN 200 mL 0RF cough prednisone Discontinued Reason: Doctor's Order 60mg oral once daily for 3 days then 40mg once oral daily for 3 days then 20mg oral once daily for 3 days orally daily; 18 tabs 0RF Coding Level of Care Code New Pt Level 3 (31991) Diagnoses Dysphagia R13.10 Moderate persistent asthma with acute exacerbation J45.41 Asthma complication type: with acute exacerbation Asthma persistence: persistent Asthma severity: moderate Controlled type 2 diabetes mellitus with diabetic neuropathy, with long-term current use of insulin E11.40; Z79.4 Diabetes mellitus type: type 2 GERD (gastroesophageal reflux disease) K21.9 Gastroparesis K31.84
--- NOTE | 2024-12-24 14:31 | A.OFFVIS_ITS ---
Vital Signs 12/24/24 14:39 Height 5 ft 7 in Weight 242 lb 8.136 oz BMI 38.0 BP 134/79 Blood Pressure Location Lt brachial Position Sitting Pulse 84 Intake Visit Reasons: Dysphagia r/s 10/22 Intake Note: CC: Patient states that sometimes she can't get food down or chockes .Patient states that this has been going for years on and off. Patient also states that she was having diarrhea all the time, fecal incontinence, abdominal pain, urine incontinence sometimes. Per patient her metformin was lowered recently and she is doing better. She also reports having diverticulosis and gastroperesis. She also gets nausea and vomits sometimes. Allergies semaglutide [From Ozempic] Allergy (Severe, Verified 05/14/24 09:52) Rash Sdhpown-DXK-VtA Reductase Inhibitor Adverse Reaction (Severe, Verified 05/14/24 10:11) myalgia [facility] Medical History Depression PTSD (post-traumatic stress disorder) Injury of hand, right Right shoulder injury Neck injury Imbalance Memory loss Fatty liver GERD (gastroesophageal reflux disease) IBS (irritable colon syndrome) Thyroid disease Hypercholesterolemia Hammertoe of left foot Controlled diabetes mellitus with diabetic neuropathy, with long-term current use of insulin Diabetic neuropathy Complex regional pain syndrome I Asthma Subacute sinusitis Surgical History (Updated 12/24/24 @ 14:49 by JASKARAN Farnsworth) S/P insertion of spinal cord stimulator H/O Spinal surgery History of esophagogastroduodenoscopy (EGD) H/O colonoscopy Hx of foot surgery Family History (Updated 12/24/24 @ 14:50 by JASKARAN Farnsworth) Mother Colon cancer Father Cardiovascular disease Thyroid disorder Throat cancer Alcoholism Psychiatric disorder Maternal Grandmother Asthma Diabetes Cardiovascular disease Maternal Grandfather Cardiovascular disease Paternal Grandfather Cardiovascular disease Sister Cancer of spine Diabetes Brother Tongue cancer Social History Household Members: Spouse and Children Housing: House 75 years or older and lives alone: No Alcohol intake: never Patient Tobacco Use Status: Never used Tobacco e-Cigarette/Vaping Use: Never Used Substance Use Type: Marijuana service: No Current occupational status: disabled Current occupational exposures/hazards: No Cognitive needs: No Hearing needs: Yes (wears hearing aids) Vision needs: Yes (wears glasses) Physical Exam Vital Signs: Last Vital Signs Pulse 84 12/24/24 14:39 BP 134/79 12/24/24 14:39 BMI result Body Mass Index 38.0 Assessment & Plan Assessment & Plan (1) Dysphagia: Code(s): R13.10 - Dysphagia, unspecified Category: Medical (2) Asthma: Code(s): J45.909 - Unspecified asthma, uncomplicated Category: Medical Qualifiers: Asthma complication type: with acute exacerbation Asthma persistence: persistent Asthma severity: moderate Qualified Code(s): J45.41 - Moderate persistent asthma with (acute) exacerbation (3) Controlled diabetes mellitus with diabetic neuropathy, with long-term current use of insulin: Code(s): E11.40 - Type 2 diabetes mellitus with diabetic neuropathy, unspecified; Z79.4 - detention (current) use of insulin Category: Medical Qualifiers: Diabetes mellitus type: type 2 Qualified Code(s): E11.40 - Type 2 diabetes mellitus with diabetic neuropathy, unspecified; Z79.4 - detention (current) use of insulin (4) GERD (gastroesophageal reflux disease): Code(s): K21.9 - Gastro-esophageal reflux disease without esophagitis Category: Medical Coding Diagnoses Dysphagia R13.10 Moderate persistent asthma with acute exacerbation J45.41 Asthma complication type: with acute exacerbation Asthma persistence: persistent Asthma severity: moderate Controlled type 2 diabetes mellitus with diabetic neuropathy, with long-term current use of insulin E11.40; Z79.4 Diabetes mellitus type: type 2 GERD (gastroesophageal reflux disease) K21.9
[2024-12-24 14:39] VITALS: BP 134/79; PULSE 84; BMI 38.0
--- OUTSIDE RECORDS SUMMARY | 2024-12-24 15:56 | XMS_ITS | Data Portability ---
Author Organization [place] - Reggie Pascual [facility], [facility] Address [address] [place] [address] Assessment Encounter Date Assessment Date Assessment LastModified by Organization Details LastModified Time 12/31/2023 12/31/2023 63-year-old fema le with postlaminectomy syndrome status post implantation and explantation of a spinal cord stimulator years ago. Has persistent back pain symptoms radiating to the hips. Previous imaging unremarkable for any surgical lesions and plain radiographs today are as well. No role for surgical intervention. No red flags. Patient reassured in this regard. Recommended facet blocks and possible radiofrequency evaluation which I will arrange. Natural history reviewed and questions answered. Follow-up to be arranged. This patient has debilitating back and radiating leg pain refractory to conservative care, thus far. I have recommended a referral for injection evaluation. Risks and benefits reviewed. I have explained that I do not perform spinal injections and we will refer the patient to a pain management group that does such injections on a routine basis. [email or web address] Not available 12/31/2023 17:35:16 Plan of Treatment Reminders Order Date Submit Date Provider Last Modified By Organization Details Last Modified Time Details Appointments None recorded. Lab None recorded. Referral pain management referral - eval for ? RFA 2023 024 [email or web address] [facility], [address] [place] [address], [place], [address], 11:38:12 Procedures None recorded. Surgeries None recorded. Imaging None recorded. Medication Orders None recorded. Patient TargetsNo targets recorded. Patient InstructionsNo instructions recorded. Reason for Referral Pain Management Referral for Lumbar radiculopathy eval for ? RFA Referring Physician: Tonio Loza, Orthopedic Surgery, [id number] Encounter Date: 12/31/2023 Medical Equipment None Reported. Allergies Allergen ID Allergen Name Allergen Category Reaction Reaction Severity Criticality Documentation Date Start Date Code Code System Note Provider Name and Address Organization Details Recorded Time [id number] Ozempic medicatio n Not available Not available Not available 12/31/2023 RxNorm ILEANA alcala [place] - [facility] 13:20:26 Medications Name Sig Start Date Stop Date Status Note LastModified by Organization Details LastModified Time ketamine 80mg capsule TAKE 1 CAPSULE BY MOUTH 2 TO 3 TIMES A DAY IF NEEDED FOR MODERATELY SEVERE PAIN active Not Available Not Available Not Available slow release iron 45mg tablets TAKE 1 TABLET BY MOUTH DAILY active Not Available Not Available Not Available oxazepam 10 mg capsule TAKE 1 TO 2 CAPSULES BY MOUTH THREE TIMES DAILY NEEDED FOR MUSCLE SPASMS. MAX 4 CAPSULES DAILY active Not Available Not Available No t Available ondansetron HCl 8 mg tablet TAKE 1 TO 2 TABLETS BY MOUTH DAILY IN THE MORNING NEEDED FOR INTRACTABLE NAUSEA OR VOMITING active Not Available Not Available No t Available prednisone 20 mg tablet TAKE 2 TABLETS BY MOUTH DAILY FOR 3 DAYS active Not Available Not Available N ot Available meclizine 12.5 mg tablet TAKE 1 TO 2 TABLETS BY MOUTH FOUR TIMES DAILY NEEDED NAUSEA / VERTIGO active Not Available Not Available No t Available prochlorpera zine 25 mg rectal suppository UNWRAP AND INSERT 1 SUPPOSITORY RECTALLY TWICE DAILY NEEDED FOR NAUSEA OR VOMITING active Not Available Not Available Not Available levothyroxin e 50 mcg tablet TAKE 1 TABLET BY MOUTH DAILY active Not Available Not Available Not Available omeprazole 20 mg capsule,valerie yed release TAKE 2 CAPSULES BY MOUTH EVERY DAY FOR 7 DAYS THEN TAKE 1 CAPSULE BY MOUTH EVERY DAY FOR 7 DAYS active Not Available Not Available No t Available montelukast 10 mg tablet TAKE 1 TABLET BY MOUTH DAILY IN THE EVENING active Not Available Not Available No t Available estradiol 0.01% (0.1 mg/gram) vaginal cream APPLY 1 GRAMS VAGINALLY NIGHTLY FOR 2 WEEKS AND THEN 1 TO 2 NIGHTS A WEEK THEREAFTER active Not Available Not Available N ot Available methylpredni solone 4 mg tablets in a dose pack FOLLOW PACKAGE DIRECTIONS active Not Available Not Available N ot Available albuterol sulfate HFA 90 mcg/actuatio n aerosol inhaler INHALE 1 PUFF BY MOUTH FOUR TIMES DAILY NEEDED FOR WHEEZING active Not Available Not Available No t Available fluticasone propionate 50 mcg/actuatio n nasal spray,suspen adán SHAKE LIQUID AND USE 2 SPRAYS IN EACH NOSTRIL DAILY IN THE MORNING active Not Available Not Available Not Available metformin ER 500 mg tablet,exten ded release 24 hr TAKE 1 TABLET BY MOUTH FOUR TIMES DAILY active Not Available Not Available Not Available lisinopril 2.5 mg tablet TAKE 1 TABLET BY MOUTH DAILY TAKE 1 TABLET BY MOUTH EVERY DAY active Not Available Not Available No t Available phentermine 37.5 mg capsule TAKE 1 CAPSULE BY MOUTH DAILY IN THE MORNING active Not Available Not Available No t Available Vitamin D3 25 mcg (1,000 unit) capsule TAKE 1 CAPSULE BY MOUTH EVERY DAY active Not Available Not Available No t Available Prempro 0.3 mg-1.5 mg tablet TAKE 1 TABLET BY MOUTH DAILY active Not Available Not Available Not Available duloxetine 60 mg capsule,valerie yed release TAKE 2 CAPSULES BY MOUTH DAILY AT BEDTIME active Not Available Not Available N ot Available Basaglar KwikPen U-100 Insulin 100 unit/mL (3 mL) subcutaneous ADMINISTER 24 UNITS UNDER THE SKIN AT BEDTIME DIRECTED active Not Available Not Available No t Available BD Lisa 2nd Gen Pen Needle 32 gauge x /32 USE 2 NEEDLES ONCE DAILY WITH INSULIN active Not Available Not Available No t Available Vitals Date Recorded Body height Body mass index (BMI) Body weight Provider Name and Address Organization Details Last Updated DateTime 12/31/2023 170.18 cm 36 kg/m2 491709.25 g ILEANA SAN [place] - [facility] 12/31/2023 13:20:09 Social History None recorded. Functional Status None recorded. Mental Status None recorded. Family History Nothing Reported. Medical History No medical history recorded. Gynecological HistoryNo gynecological history recorded. Obstetrics History GPAL:G 0 P 0 0 0 0 Past Encounters Encounter ID Performer Location Encounter Start Date Encounter Closed Date Diagnosis/Indication Diagnosis SNOMED-CT Code Diagnosis ICD10 Code Diagnosis Note [id number] Tonio Loza MD [facility] [address] [place] [address] 12/31/2023 12:42:46 01/21/2024 09:30:27 Lumbar radiculopathy 509173872 M54.16 Health Concerns Section Related Observation LastModified by Organization Camilo blanchard LastModified Time None Recorded Concern Status LastModified by Organization Details LastModified Time None Recorded Advance Directives Directive None Recorded Payers Encounter Date Sequence Insurance Name Policy Number Policy Freitas Covered Member ID Freitas Member ID Guarantor Name 12/31/2023 2 [place] [id number] Billie Kelly [id number] Billie Kelly 12/31/2023 1 [place] [email or web address]@ SERVICES Billie Kelly [id number] Billie Kelly Notes Date Note Type Note Provider Name and Address Organization Details Recorded Time 12/31/2023 text/html HPI: 63-year-old female with ongoing back pain since 1991. Status post multiple procedures including implantation and explantation of a spinal cord stimulator. Symptoms confounded by ongoing neuropathy and chronic regional pain syndrome. Pain today is mostly in her back. Radiates to the hips. Pain 5 out of 10. Mechanical in nature. Worse with standing. No new bowel or bladder complaints are described. PFMSH and ROS has been reviewed, updated and is located in the patient? ? ?s chart. TREATMENT: Full course of operative and nonoperative care. MEDICATIONS: Ketamine cannabis products WORK STATUS: Disabled IMAGING: Plain radiographs of [facility] reviewed. Lumbar spine films notable for spondylosis. Spondylolisthesis L4-5 quite small X-RAY REPORT: X-rays ordered, obtained and reviewed at [facility]. Not indicated Tonio Loza MD [address] [place] [address] [address], [place], [address], [facility] - [facility] 12/31/2023 17:35:35 OBGyn Episode No OBEpisode recorded.
--- OUTSIDE RECORDS SUMMARY | 2024-12-24 15:56 | XMS_ITS | Continuity of Care Document ---
Author Organization [facility] [address] [place] [address] Phone [phone] Care Team Providers Care Customer Care Specialist Name Role Phone Nargis Siegel M.D. 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 [phone] Problems Active Problems Provider Date Type 2 diabetes mellitus CHELA Burton Onse t: 12/03/2023 Memory impairment CHELA Burton Onset: 11/20 Carpal tunnel syndrome CHELA Burton Onset: 12/03/2023 Asthma CHELA Burton Onset: 2023 Hyperlipidemia CHELA Burton Onset: 2023 Essential hypertension CHELA Burton Onset: 12/03/2023 Irritable bowel syndrome CHELA Burton Onse t: 12/03/2023 Gastroesophageal reflux disease CHELA Burton Onset: 12/03/2023 Vertigo CHELA Burton Onset: 2023 Posttraumatic stress disorder CHELA Burton Onset: 12/03/2023 Obstructive sleep apnea syndrome CHELA Burton Onset: 12/03/2023 Uses home continuous positiv e airway pressure ventilation supply CHELA Burton Onset: 12/03/2023 Social History Type Date Description Comments Sex Unknown Tobacco Use Start: Unknown Never Smoked Cigarettes ETOH Use Rarely consumes alcohol Allergies and adverse reactions Active Allergies Criticality Reaction Severity Comments Date Ozempic Unable to assess criticality Rash 12/03/2023 Environmental Unable to assess criticality 12/03/2023 Medications Active Medications SIG Qnty Indications Order ing Provider Date Lmvjxxye97rf Capsules Take 1 To 2 Capsules By Mouth Three Times Daily as Needed For Muscle Spasms. Max Unknown Montelukast Ylwbyc62ru Tablets Take 1 Tablet By Mouth Daily In The Evening Nargis Siegel M.D. Duloxetine PSZ95zm Caps DR Part Take 2 Capsules By Mouth Daily AT Bedtime Unknown Basaglar Gonlqzl231Gucr/ML Solution Pen-Inject Administer 24 Units Under The Skin AT Bedtime as Directed Nargis Siegel M.D. Meclizine HCL12.5mg Tablets Take 1 To 2 Tablets By Mouth Four Times Daily as Needed Nausea / Vertigo Unknown Lisinopril2.5mg Tablets Take 1 Tablet By Mouth Daily Take 1 Tablet By Mouth Every Day Nargis Siegel M.D. BD Pen Needle/Lisa 2ND Gen/32G X 5/32 32G X 4 mm Misc Use 2 [place] Once Daily With Insulin Nargis Siegel M.D. Levothyroxine Lwiqgx13oqn Tablets Take 1 Tablet By Mouth Daily Nargis Siegel M.D. Metformin HCL NX653aw Tablets ER 24HR Take 2 Tablet in Am and one in PM Nargis Siegel M.D. Albuterol Sulfate MWZ113(90Base) mcg/Act Aerosol Inhale 1 puff By Mouth Four Times Daily as Needed For Wheezing Nargis Siegel M.D. Nhsikncdstfgadet20bw Suppository Unwrap And Insert 1 Suppository Rectally Twice Daily as Needed For Nausea Or Vom Unknown Repatha Cnwlrkyqw740kx/ml Solution Auto-Inject Administer 140MG Under The Skin Every 2 Weeks Nargis Siegel M.D. Ouizditgiox473us Tablets Take 1 Tablet By Mouth Daily AT Bedtime Use With 25 MG Tablets For Titration Unknown Vital Signs Date Vital Result Comment 11/01/2024 1:15pm BP Systolic 140 mmHg BP Diastolic 86 mmHg Heart Rate 87 /min Height 67 inches 5'7 Weight 238.12 lb BMI (Body Mass Index) 37.3 kg/m2 Results Test Acquired Date Facility Test Result H/L Range N ote Glucose Fingerstick 11/01/2024 Inhouse Glucose Fingerstick 119 Hemoglobin A1c 11/01/2024 Inhouse Hemoglobin A1c 6.6% Glucose Fingerstick 07/01/2024 Inhouse Glucose Fingerstick 166 Glucose Fingerstick 03/12/2024 Inhouse Glucose Fingerstick 129 Hemoglobin A1c 03/12/2024 Inhouse Hemoglobin A1c 5.9% Glucose Fingerstick 12/03/2023 Inhouse Glucose Fingerstick 135 Medical Devices Description No Information Available Encounters Type Date Location Provider Dx Diagnosis Office Visit 11/01/2024 1:15p Main Office CHELA Burton E78.5 Hyperlipidemi a, unspecified Z79.4 half-way (current) use of insulin I10 Essential (primary) hypertension E11.42 Type 2 diabetes win itus with diabetic polyneuropathy E66.9 Obesity, unspecified Assessments Date Code Description Provider 11/01/2024 E78.5 Hyperlipidemia, unspecified CHELA Burton 11/01/2024 Z79.4 half-way (current) use of i nsulin CHELA Burton 11/01/2024 I10 Essential (primary) hyperten adán CHELA Burton 11/01/2024 E11.42 Type 2 diabetes mellitus with diabetic polyneuropathy CHELA Burton 11/01/2024 E66.9 Obesity, unspecified CHELA Burton Plan of Treatment Future Appointment(s):* 03/01/2025 10:15 am - CHELA Burton at Main Office 11/01/2024 - CHELA Burton* E78.5 Hyperlipidemia, unspecified * 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
--- OUTSIDE RECORDS SUMMARY | 2024-12-24 15:56 | XMS_ITS | Patient Health Record ---
Author Organization [employer] [facility] Address [address] [place] [address] Care Team Providers Care Entry Level Electrician Name Role Phone Lulyashia Rachael Unavailable [phone] REASON FOR REFERRAL No Information Encounters Encounter Location Date Provider Diagnosis [phone] [address] 12/08/2024 Rachael Collins PLAN OF TREATMENT No Information Insurance Providers Payer Name Payer Address Payer Phone Subscriber Number Group Number Insured Name Patient Relationship to Insured Coverage Start Date Coverage End Date Medicare Part B J14 [address] [place] [address] [id number] Billie Kelly Self - patient is the insured MEDEX [address] [place] [address] [id number] Billie Kelly Self - patient is the insured
--- OUTSIDE RECORDS SUMMARY | 2024-12-24 15:57 | XMS_ITS ---
Author Organization [facility] Address [address] [place] [address] Care Team Providers Care Operator [employer] Name Role Phone Rachael Collins Unavailable [phone] Encounters Encounter Location Date Provider Diagnosis [address] [address] 12/08/2024 Rachael Collins PLAN OF TREATMENT No Information Progress Notes * Josse HERNANDEZinDOB:1960 (64 yo F)Acc No.[id number]:12/08/2024 Progress Notes Patient:??MITULJosse Cookin Provider:??Rachael Collins PA-C :1960?Age:64 Y?Sex:Fe male Date:12/08/2024 Address:[address] [place], [place] [id number] Subjective: * Chief Complaints: * ? * Medical History:?? Objective: Assessment: Plan: * Treatment: * Images: Billing Information: * Visit Code:?? * Procedure Codes:?? * Sign off status: Pending * Provider:??Rachael Collins PA-C Date:??11/20
== END 2024-12-24 16:00 | disposition home or self-care (01) ==
LOC: HO.HGI 14:20
PROVIDERS: PCP Internal Medicine; Visit Provider Nurse Practitioner
DX: R13.10 Dysphagia, unspecified (principal); J45.41 Moderate persistent asthma with (acute) exacerbation; E11.40 Type 2 diabetes mellitus with diabetic neuropathy, unspecified; Z79.4 Long term (current) use of insulin; K21.9 Gastro-esophageal reflux disease without esophagitis; K31.84 Gastroparesis
CPT/HCPCS: 99203

== ENCOUNTER → 2024-12-24 14:20 | Outpatient (BNVA) | payer MEDICARE, SELFPAY | PROVIDERS: PCP Internal Medicine; Visit Provider Nurse Practitioner | DX: R13.10 Dysphagia, unspecified (principal); K21.9 Gastro-esophageal reflux disease without esophagitis; J45.41 Moderate persistent asthma with (acute) exacerbation; E11.40 Type 2 diabetes mellitus with diabetic neuropathy, unspecified; E11.43 Type 2 diabetes mellitus with diabetic autonomic (poly)neuropathy; K31.84 Gastroparesis; Z79.4 Long term (current) use of insulin | CPT/HCPCS: 99202 ==

== ENCOUNTER 2025-01-18 10:42 | Outpatient (AMB) | payer MEDICARE, SELFPAY ==
--- NOTE | 2025-01-18 10:49 | AM.OFFVISMDC ---
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 HRA reviewed and entered Type 2 diabetes: On metformin, Basaglar, lisinopril. Follows with endocrine Dr Sandhu at [facility] endocrin. Multifactorial neuropathy. Up-to-date on eye exams. Follows regularly with Podiatry, Dr Ibarra. Patient developed severe myalgia with multiple statins in the past, she believes atorvastatin, rosuvastatin and pravastatin. LDL goal <100. Tried to have praluent sent but not covered by insurance Chronic pain: RSD, spinal stenosis, post herpetic neuralgia, diabetic neuropathy, fibromyalgia. Follows with Dr. Neff ongoing transitional medications GI: Constipation, gastroparesis, IBS, nausea, GERD. Feeling fairly well. Follows with [facility] December Gould. Scheduling for upcoming endoscopy : Follows with Ania Nolen in [place]. On prempro. this has been the only effective medication for her significant post menopausal symptoms BH: Stable-follows with [facility] Also follows in allergy/immunology Dr Consuelo Camarillo: Sep 2024 [facility] ROS see HPI PHYSICAL EXAM: GENERAL: Alert and oriented x 3. NAD EYES: EOMI. Anicteric. HENT: Maxillary sinus tender to palpation bilateral LUNGS: Good air entry. scattered wheezing CARDIOVASCULAR: Regular rate and rhythm. No murmur. No JVD. ABDOMEN: Soft, non-tender +bs EXTREMITIES: No edema. Non-tender. SKIN: No rashes or lesions. Warm. NEUROLOGIC: No focal neurological deficits. CN II-XII grossly intact PSYCHIATRIC: Cooperative. Appropriate mood and affect [facility] Medical History Depression PTSD (post-traumatic stress disorder) Injury of hand, right Right shoulder injury Neck injury Imbalance Memory loss Fatty liver GERD (gastroesophageal reflux disease) IBS (irritable colon syndrome) Thyroid disease Hypercholesterolemia Hammertoe of left foot Controlled diabetes mellitus with diabetic neuropathy, with long-term current use of insulin Diabetic neuropathy Complex regional pain syndrome I Asthma Subacute sinusitis Surgical History S/P insertion of spinal cord stimulator H/O Spinal surgery History of esophagogastroduodenoscopy (EGD) H/O colonoscopy Hx of foot surgery Family History Mother Colon cancer Father Cardiovascular disease Thyroid disorder Throat cancer Alcoholism Psychiatric disorder Maternal Grandmother Asthma Diabetes Cardiovascular disease Maternal Grandfather Cardiovascular disease Paternal Grandfather Cardiovascular disease Sister Cancer of spine Diabetes Brother Tongue cancer Social History Household Members: Spouse and Children Housing: House Alcohol intake: never Patient Tobacco Use Status: Never used Tobacco e-Cigarette/Vaping Use: Never Used Substance Use Type: Marijuana service: No Current occupational status: disabled Current occupational exposures/hazards: No Cognitive needs: No Hearing needs: Yes (wears hearing aids) Vision needs: Yes (wears glasses) Questionnaire Medicare Wellness Checkup What [age] What gender do you identify with?: female During the past 4 weeks, how much have you been bothered by emotional problems such as feeling anxious, depressed, irritable, sad or downhearted, and blue?: slightly During the past 4 weeks, has your physical & emotional health limited your social activities with family, friends, neighbors, or groups?: slightly During the past 4 weeks, how much bodily pain have you generally had?: moderate pain During the past 4 weeks, was someone available to help you if you needed & wanted help?: yes, as much as I wanted During the past 4 weeks, what was the hardest physical activity you could do for at least 2 minutes?: light Can you get to places out of walking distance without help? (For eg., can you travel alone on buses, taxis or drive your car?): Yes Can you go shopping for groceries or clothes without someone's help?: No Can you prepare your own meals?: Yes Can you do your housework without help?: Yes Can you handle your own money without help?: Yes During the past 4 weeks, how would you rate your health in general?: fair During the past 4 weeks how have things been going for you?: good & bad parts about equal Are you having difficulties driving your car?: no Do you always fasten your seat belt when you are in a car?: yes, usually During past 4 weeks, have you been bothered by the following: never: Problems using the telephone?, seldom: Falling or dizzy when standing up, Sexual problems?, Trouble eating well? and Tiredness or fatigue? and sometimes: Teeth or denture problems? Have you fallen 2 or more times in the past year?: No Are you afraid of falling?: No Are you a smoker?: no During the past 4 weeks, how many drinks of wine, beer, or other alcoholic beverages did you have?: no alcohol at all Do you exercise for about 20 minutes 3 or more times a week?: no, I usually do not exercise this much Have you been given information to help with the following?: yes: Hazards in your house that might hurt you? and yes: Keeping track of your medications? How often do you have trouble taking medicines the way you have been told to take them?: I always take medicine as prescribed How confident are you that you can control & manage most of your health problems?: very confident What is your race?: White Mini Mental State Exam (MMSE) Orientation What is the (year) (season) (date) (day) (month)?: year (2024), season (spring), date (01/18/2025), day and month Where are we (state) (county) (town or city) (hospital) (floor)?: state ([place]), county ([place]), town or city ([facility] ), hospital/clinic ([facility]) and floor (first) Registration Name of 3 unrelated objects clearly and slowly, then ask patient to repeat all 3 of them. (1st repeat determines score. Make sure they can repeat all three): object 1 (Ball), object 2 (flag) and object 3 (tree) Attention & Calculation (CHOOSE ONE) Spell WORLD backwards (DLROW): 5 letters Recall Ask patient to repeat the 3 items from question #3.: object 2 (ball) Language Show patient a wristwatch & ask what it is. Repeat for pencil.: watch and pencil Ask the patient to repeat the phrase 'No ifs, ands, or buts' after you.: correct Ask the patient to 'take a piece of paper with their right hand' 'fold paper in half' 'place paper on floor': take paper in right hand Print the sentence 'CLOSE YOUR EYES' on a piece. If patient actually closes eyes then score.: followed written direction Give patient a blank piece of paper & ask to write a sentence. Score if it contains a noun & verb.: sentence contains subject and verb Ask patient to copy figure of intersecting pentagons exactly. Score if all 10 angles & 2 intersects are included.: all 10 angles present & 2 are intersected Score Score: 26 Physical Exam Vital Signs: Last Vital Signs Pulse 86 01/18/25 10:58 Resp 14 01/18/25 10:58 BP 124/84 01/18/25 10:58 Pulse Ox 94 01/18/25 10:58 Oxygen Delivery Method Room Air 01/18/25 10:58 BMI result Body Mass Index 40.1 Assessment & Plan Assessment & Plan (1) Encounter for annual wellness visit (AWV) in Medicare patient: Code(s): Z00.00 - Encounter for general adult medical examination without abnormal findings (2) Hypothyroid: Code(s): E03.9 - Hypothyroidism, unspecified Qualifiers: Hypothyroidism type: unspecified Qualified Code(s): E03.9 - Hypothyroidism, unspecified (3) GERD (gastroesophageal reflux disease): Code(s): K21.9 - Gastro-esophageal reflux disease without esophagitis (4) Asthma: Code(s): J45.909 - Unspecified asthma, uncomplicated Qualifiers: Asthma complication type: with acute exacerbation Asthma persistence: persistent Asthma severity: moderate Qualified Code(s): J45.41 - Moderate persistent asthma with (acute) exacerbation (5) Controlled diabetes mellitus with diabetic neuropathy, with long-term current use of insulin: Code(s): E11.40 - Type 2 diabetes mellitus with diabetic neuropathy, unspecified; Z79.4 - care home (current) use of insulin Qualifiers: Diabetes mellitus type: type 2 Qualified Code(s): E11.40 - Type 2 diabetes mellitus with diabetic neuropathy, unspecified; Z79.4 - care home (current) use of insulin Plan AWV-HRA reviewed. 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, G90.529 - Complex regional pain syndrome I of unspecified lower limb, E03.9 - Hypothyroidism, unspecified TSH reflex Free T4 01/18/25 E11.42 - Type 2 diabetes mellitus with diabetic polyneuropathy, K21.9 - Gastro-esophageal reflux disease without esophagitis, E11.40 - Type 2 diabetes mellitus with diabetic neuropathy, unspecified, Z79.4 - care home (current) use of insulin, G90.529 - Complex regional pain syndrome I of unspecified lower limb, E03.9 - Hypothyroidism, unspecified Lipid Panel 01/18/25 E11.42 - Type 2 diabetes mellitus with diabetic polyneuropathy Referrals Orthopedics Referral S89.90XA - Unspecified injury of unspecified lower leg, initial encounter, M25.562 - Pain in left knee Ear/Nose/Throat Referral H65.90 - Unspecified nonsuppurative otitis media, unspecified ear Medications: New omeprazole 20 mg PO DAILY 90 caps 3RF Changed From cyanocobalamin (vitamin B-12) 1,000 mcg PO DAILY 90 tabs 3RF To cyanocobalamin (vitamin B-12) (Vitamin B-12) 1,000 mcg PO DAILY 90 tabs 3RF Refilled cholecalciferol (vitamin D3) 25 mcg PO QAM 90 caps 3RF Coding Level of Care Code Medicare Subsequent (G0439) Diagnoses Encounter for annual wellness visit (AWV) in Medicare patient Z00.00 Hypothyroidism, unspecified type E03.9 Hypothyroidism type: unspecified GERD (gastroesophageal reflux disease) K21.9 Moderate persistent asthma with acute exacerbation J45.41 Asthma complication type: with acute exacerbation Asthma persistence: persistent Asthma severity: moderate Controlled type 2 diabetes mellitus with diabetic neuropathy, with long-term current use of insulin E11.40; Z79.4 Diabetes mellitus type: type 2
[2025-01-18 10:58] VITALS: BP 124/84; PULSE 86; RESP 14; O2SAT 94; BMI 40.1
--- OUTSIDE RECORDS SUMMARY | 2025-01-18 12:25 | XMS_ITS | Patient Health Record ---
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 Cracking Unit Name Role Phone Hellenlillian Rachael Unavailable [phone] REASON FOR REFERRAL No Information Encounters Encounter Location Date Provider Diagnosis [address] [address] 12/08/2024 Rachael Collins PLAN OF TREATMENT No Information Insurance Providers Payer Name Payer Address Payer Phone Subscriber Number Group Number Insured Name Patient Relationship to Insured Coverage Start Date Coverage End Date Medicare Part B J14 [address] [place] [address] [id number] Billie Kelly Self - patient is the insured MEDEX [address] [place] [address] [phone] [id number] Billie Kelly Self - patient is the insured
--- OUTSIDE RECORDS SUMMARY | 2025-01-18 12:25 | XMS_ITS ---
Author Organization [facility] Address [address] [place] [address] Care Team Providers Care Migration Agent Name Role Phone Rachael Collins Unavailable [phone] Encounters Encounter Location Date Provider Diagnosis [phone] [address] 12/08/2024 Rachael Collins PLAN OF TREATMENT No Information Progress Notes * Josse HERNANDEZinDOB:1960 (64 yo F)Acc No.[id number]:12/08/2024 Progress Notes Patient:??DAVIDJossein Provider:??Rachael Collins PA-C :1960?Age:64 Y?Sex:Fe male Date:12/08/2024 Address:[address] [place], [place] [id number] Subjective: * Chief Complaints: * ? * Medical History:?? Objective: Assessment: Plan: * Treatment: * Images: Billing Information: * Visit Code:?? * Procedure Codes:?? * Sign off status: Pending * Provider:??Rachael Collins PA-C Date:??11/20
--- OUTSIDE RECORDS SUMMARY | 2025-01-18 12:25 | XMS_ITS | Data Portability ---
Author Organization [place] - Reggie Pascual [facility], [facility] Address [address] [place] [address] Assessment Encounter Date Assessment Date Assessment LastModified [...] - eval for ? RFA 2023 024 [email or web address] [facility], [address] [place] [address], [place], [address], 11:38:12 Procedures None recorded. Surgeries None recorded. Imaging None recorded. Medication Orders None recorded. Patient TargetsNo targets recorded. Patient InstructionsNo instructions recorded. Reason for Referral Pain Management Referral for Lumbar radiculopathy eval for ? RFA Referring Physician: Tonio Loza, Orthopedic Surgery, [id number] Encounter Date: 12/31/2023 Medical Equipment None Reported. Allergies Allergen ID Allergen Name Allergen Category Reaction Reaction Severity Criticality Documentation Date Start Date Code Code System Note Provider Name and Address Organization Details Recorded Time [id number] Ozempic medicatio n Not available Not available Not available 12/31/2023 RxNorm ILEANA lacala [place] - [facility] 13:20:26 Medications Name Sig Start Date Stop [...] Updated DateTime 12/31/2023 170.18 cm 36 kg/m2 789486.25 g ILEANA SAN [place] - [facility] 12/31/2023 13:20:09 Social History None recorded. Functional Status None recorded. Mental Status None recorded. Family History Nothing Reported. Medical History No medical history recorded. Gynecological HistoryNo gynecological history recorded. Obstetrics History GPAL:G 0 P 0 0 0 0 Past Encounters Encounter ID Performer Location Encounter Start Date Encounter Closed Date Diagnosis/Indication Diagnosis SNOMED-CT Code Diagnosis ICD10 Code Diagnosis Note [id number] Tonio Loza MD [address] [place] [address] 12/31/2023 12:42:46 01/21/2024 09:30:27 Lumbar radiculopathy 354042714 M54.16 Health Concerns Section Related Observation LastModified by Organization Camilo blanchard LastModified Time None Recorded Concern Status LastModified by Organization Details LastModified Time None Recorded Advance Directives Directive None Recorded Payers Encounter Date Sequence Insurance Name Policy Number Policy Freitas Covered Member ID Freitas Member ID Guarantor Name 12/31/2023 2 [place] [id number] Billie Kelly [id number] Billie Kelly 12/31/2023 1 [place] [facility] Billie Kelly [id number] Billie Kelly Notes Date Note Type [...] WORK STATUS: Disabled IMAGING: Plain radiographs of [facility] reviewed. Lumbar spine films notable for spondylosis. Spondylolisthesis L4-5 quite small X-RAY REPORT: X-rays ordered, obtained and reviewed at [facility]. Not indicated Tonio Loza MD [address] [place] [address] [address], [place], [address], [facility] - [facility] 12/31/2023 17:35:35 OBGyn Episode No OBEpisode recorded.
== END 2025-01-18 11:51 | disposition home or self-care (01) ==
LOC: HO.HMCFM 10:43
PROVIDERS: PCP Internal Medicine; Visit Provider Internal Medicine
DX: Z00.00 Encounter for general adult medical examination without abnormal findings (principal); E11.40 Type 2 diabetes mellitus with diabetic neuropathy, unspecified; Z79.4 Long term (current) use of insulin; E03.9 Hypothyroidism, unspecified; K21.9 Gastro-esophageal reflux disease without esophagitis; J45.41 Moderate persistent asthma with (acute) exacerbation

== ENCOUNTER → 2025-01-18 10:42 | Outpatient (BNVA) | payer MEDICARE, SELFPAY | PROVIDERS: PCP Internal Medicine; Visit Provider Internal Medicine | DX: Z13.89 Encounter for screening for other disorder (principal) ==

== ENCOUNTER 2025-02-18 14:24 | Outpatient (AMB) | payer MEDICARE, SELFPAY ==
--- NOTE | 2025-02-18 14:26 | MHC.OFFVIS ---
Vital Signs 02/18/25 14:39 Height 5 ft 7 in Weight 241 lb BMI 37.7 BP 128/82 Blood Pressure Location Rt brachial Position Sitting Pulse 95 Pulse Source Pulse Oximeter Pulse Oximetry (%) 94 Oxygen Delivery Method Room Air Intake Visit Reasons: Dysphagia Intake Note: Patient follow up for dysphagia, lab and Barium swallow results. Patient cc: C.O. GERD persistence which prompts pt to inquire as to whether or not she should add omeprazole to her Rx list. Pt has questions about side / adverse effects of taking PPI. Pt also inquiring pertaining to possible EGD in the near future. Diaper Machine Tender Required: No Accompanied by: Spouse Allergies semaglutide [From Ozempic] Allergy (Severe, Verified 02/18/25 14:26) Rash Vqzculm-SDI-TxS Reductase Inhibitor Adverse Reaction (Severe, Verified 02/18/25 14:26) myalgia HPI HPI Dysphagia: Details: Assessment & Plan (1) Dysphagia: Code(s): R13.10 - Dysphagia, unspecified Category: Medical (2) Asthma: Code(s): J45.909 - Unspecified asthma, uncomplicated Category: Medical Qualifiers: Asthma complication type: with acute exacerbation Asthma persistence: persistent Asthma severity: moderate Qualified Code(s): J45.41 - Moderate persistent asthma with (acute) exacerbation (3) Controlled diabetes mellitus with diabetic neuropathy, with long-term current use of insulin: Code(s): E11.40 - Type 2 diabetes mellitus with diabetic neuropathy, unspecified; Z79.4 - FDC (current) use of insulin Category: Medical Qualifiers: Diabetes mellitus type: type 2 Qualified Code(s): E11.40 - Type 2 diabetes mellitus with diabetic neuropathy, unspecified; 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 This has been a problem for years, but it is happening more often (about a couple times a year.). At times even water will come back up but it is more with solids. She always keeps water with ehr to help pass the food. She has had GERD/HB since her early 30's. FHX of tongue and mouth cancer in fathers side, ? of maternal grandmother having dysphagia. SHe has dentures. She cuts all of her food small. She has seen Dr. Amaral at [place] [facility] and she had a swallowing study in [facility] past 5 years. She has been having many years of struggles with diarrhea, worsening over the past year, with fecal incontinence. They cut back her metformin and the accidents stopped but she still has mostly looser stools. HEr mother had CRC at age 54 and she survived. She had a barium swallow in 2022 at [facility] and I printed that report. There does not appear to be any esophageal dysmotility at that time. She does not remember having an upper endoscopy and I can not locate any evidence of that in the charts. I think this will be an important procedure to see what is going on with her swallowing. She has gastroparesis but it does not appear she has ever been on metoclopramide in obviously this would greatly worsen her reflux. Since she does have pain in the epigastrium area this could be an important part of her treatment. She tends to treat her heartburn with it famotidine and Kaopectate. Her mother had CRC, her next scope is due next year. Her asthma is well controlled and she has benign angina but no serious cardiac problems. SHe had severe nausea from general anesthesia and fainted after her shoulder surgery, no trouble with colonoscopy sedation. No ID problems. Start reglan 5mg qid for paresis. ROV next availabl Orders: Orders EGD - GI Use Only 12/24/24 R13.10 - Dysphagia, unspecified FL barium swallow 12/24/24 R13.10 - Dysphagia, unspecified Comprehensive Met. Panel 12/24/24 R13.10 - Dysphagia, unspecified Complete Blood Count Auto Diff 12/24/24 R13.10 - Dysphagia, unspecified Medications: New metoclopramide HCl (Reglan) 5 mg PO QIDACHS 120 tabs 6RF K31.84 - Gastroparesis Changed From metformin 1,000 mg (2 x 500 mg) PO BID 360 tabs 3RF To metformin 1,000 mg (2 x 500 mg) PO .qd 360 tabs 3RF Discontinued doxycycline hyclate Discontinued Reason: Doctor's Order 100 mg PO Q12H 10 days 20 tabs 0RF codeine-guaifenesin 10-100 mg/5 mL Discontinued Reason: Doctor's Order 10 mL PO Q4-6H PRN 200 mL 0RF cough prednisone Discontinued Reason: Doctor's Order 60mg oral once daily for 3 days then 40mg once oral daily for 3 days then 20mg oral once daily for 3 days orally daily; 18 tabs 0RF LABS: Not yet obtained BARIUM SWALLOW EGD BIOPSY TODAY'S VISIT She is here today with her who is quiet but supportive. She is doing well with the reglan, but was unsure if she should take the omeprazole - I encourage her to continue with this since she has a strong FHX of esophageal cancer. She has had absolutely no adverse effects from the Reglan. She is having diarrhea with any fibrous foods and fruits, mostly green leafy - not with meat potatoes etc. Will trial Creon, if this not helpful then consider further allergy etc work up. (some of this was mediated with cutting metformin dose). She has upcoming barium swallow 04/28, rov after this. She has not yet heard to schedule the upper endoscopy but this is not unusual as I know our scheduling team is behind. [facility] Medical History (Updated 02/18/25 @ 15:04 by MICHAEL Daniels) Encounter for annual wellness visit (AWV) in Medicare patient Depression PTSD (post-traumatic stress disorder) Injury of hand, right Right shoulder injury Neck injury Imbalance Memory loss Fatty liver GERD (gastroesophageal reflux disease) IBS (irritable colon syndrome) Thyroid disease Hypercholesterolemia Hammertoe of left foot Controlled diabetes mellitus with diabetic neuropathy, with long-term current use of insulin Diabetic neuropathy Complex regional pain syndrome I Asthma Subacute sinusitis Surgical History S/P insertion of spinal cord stimulator H/O Spinal surgery History of esophagogastroduodenoscopy (EGD) H/O colonoscopy Hx of foot surgery Family History Mother Colon cancer Father Cardiovascular disease Thyroid disorder Throat cancer Alcoholism Psychiatric disorder Maternal Grandmother Asthma Diabetes Cardiovascular disease Maternal Grandfather Cardiovascular disease Paternal Grandfather Cardiovascular disease Sister Cancer of spine Diabetes Brother Tongue cancer Social History Household Members: Spouse and Children Housing: House 75 years or older and lives alone: No Alcohol intake: never Patient Tobacco Use Status: Never used Tobacco e-Cigarette/Vaping Use: Never Used Substance Use Type: Marijuana service: No Current occupational status: disabled Current occupational exposures/hazards: No Cognitive needs: No Hearing needs: Yes (wears hearing aids) Vision needs: Yes (wears glasses) Review of Systems Const Denies fatigue, Denies fever(s), Denies night sweats, Denies poor appetite and Denies weight loss Eyes Details: glasses Reports requires corrective lenses ENT Reports Normal hearing present, Denies dental pain, Reports dysphagia, Denies hearing loss, Denies mouth pain, Denies odynophagia, Denies throat swelling, Denies tongue swelling and Reports other (Dentition adequate) Card Reports no additional complaints Resp Reports no additional complaints GI Details: Denies abdominal pain, Denies melena, Denies bloating, Denies hematochezia, Denies constipation, Denies GI cramping, Reports dysphagia, Denies excessive flatus, Denies early satiety, Reports heartburn, Reports diarrhea, Denies nausea, Denies odynophagia, Denies vomiting and Denies hematemesis Skin/Breast Denies pruritus, Denies lesions, Denies rash and Denies jaundice Neuro Reports Normal hearing present and Denies Abnormal speech present Endo Denies fatigue Aller/Immun Denies throat swelling and Denies tongue swelling Physical Exam Vital Signs: Last Vital Signs Pulse 95 02/18/25 14:39 BP 128/82 02/18/25 14:39 Pulse Ox 94 02/18/25 14:39 Oxygen Delivery Method Room Air 02/18/25 14:39 BMI result Body Mass Index 37.7 Const General: cooperative, no acute distress, well developed and well groomed Nutritional Appearance: well nourished and obese Orientation/consciousness: oriented to person, oriented to place and oriented to time Limitations: No language barrier HEENT Head: Yes normocephalic and Yes atraumatic Eyes General: appearance normal, both eyes and all related structures Pupils: Equal, round and reactive pupils present Neck Neck: Yes normal visual inspection and Yes no lymphadenopathy Thyroid: Thyroid normal Resp Effort & Inspection: normal respiratory effort and able to speak in complete sentences Auscultation: clear to auscultation bilaterally Cardio Rate: regular rate Rhythm: regular rhythm Heart sounds: Normal, physiologic split S2 sound present Peripheral pulses: radial pulses present and posterior tibial pulses present GI Inspection: No distended, Yes Abdominal panniculus present and Yes obesity Palpation (GI): Soft to palpation, nontender, no guarding, not rigid and No hepatosplenomegaly present Percussion: Yes normal to percussion Auscultation: normal bowel sounds Rectal Exam - Female: deferred Skin General skin exam: no rashes or lesions noted, turgor normal, skin not dry, no jaundice, No spider nevi and no striae Rashes: no rashes Nails: normal Neuro General: oriented to person, oriented to place and oriented to time Cranial nerves: Yes Equal, round and reactive pupils present and Yes Normal hearing present Speech: No Abnormal speech present Extrem General: Yes normal to inspection, No clubbing, No cyanosis and No edema Psych Appearance: grossly normal and well kempt Mental Status: mental status grossly normal Speech and movement: Normal speech and movement present Affect: normal affect Attitude: cooperative Thought process: Normal thought process present and not confabulating Thought content: Normal thought content present Insight: Fair insight present (Psych) Judgement: Fair judgement present (Psych) Assessment & Plan Assessment & Plan (1) Diarrhea: Code(s): R19.7 - Diarrhea, unspecified Category: Medical (2) Gastroparesis: Code(s): K31.84 - Gastroparesis Category: Medical (3) GERD (gastroesophageal reflux disease): Code(s): K21.9 - Gastro-esophageal reflux disease without esophagitis Category: Medical (4) Dysphagia: Code(s): R13.10 - Dysphagia, unspecified Category: Medical (5) Odynophagia: Code(s): R13.10 - Dysphagia, unspecified Category: Medical Plan She is here today with her who is quiet but supportive. She is doing well with the reglan, but was unsure if she should take the omeprazole - I encourage her to continue with this since she has a strong FHX of esophageal cancer. She has had absolutely no adverse effects from the Reglan. She is having diarrhea with any fibrous foods and fruits, mostly green leafy - not with meat potatoes etc. Will trial Creon, if this not helpful then consider further allergy etc work up. (some of this was mediated with cutting metformin dose). She has upcoming barium swallow 04/28, rov after this. She has not yet heard to schedule the upper endoscopy but this is not unusual as I know our scheduling team is behind. LABS: Not yet obtained BARIUM SWALLOW EGD BIOPSY Medications: New nswhyn-vyqrpfkg-ruhcbzf 36,000-114,000- 180,000 unit (Creon) administer with meals and/or snacks 2 caps PO BID 120 caps 6RF R19.7 - Diarrhea, unspecified Coding Level of Care Code Est Pt Level 3 (44435) Diagnoses Diarrhea R19.7 Gastroparesis K31.84 GERD (gastroesophageal reflux disease) K21.9 Dysphagia R13.10 Odynophagia R13.10
[2025-02-18 14:39] VITALS: BP 128/82; PULSE 95; O2SAT 94; BMI 37.7
== END 2025-02-18 15:12 | disposition home or self-care (01) ==
LOC: HO.HGI 14:25
PROVIDERS: PCP Internal Medicine; Visit Provider Nurse Practitioner
DX: R19.7 Diarrhea, unspecified (principal); K31.84 Gastroparesis; K21.9 Gastro-esophageal reflux disease without esophagitis; R13.10 Dysphagia, unspecified
CPT/HCPCS: 99213

== ENCOUNTER 2025-02-18 14:24 | Outpatient (REF) | payer MEDICARE, SELFPAY ==
[2025-02-18 15:39] LABS: MANUAL DIFF FLAG NO
[2025-02-18 15:53] LABS: Basophils Absolute Auto 0.1 X10*3/uL (0.0-0.2); Basophils Percent Auto 0.8 % (0-2); Eosinophils Absolute Auto 0.1 X10*3/uL (0.0-0.4); Eosinophils Percent Auto 1.6 % (0-4); Hematocrit 38.6 % (37.0-47.0); Hemoglobin 12.7 g/dl (12.0-16.0); Imm Gran Abs Auto 0.02 X10*3/uL (0.00-0.03); Imm Gran Pct Auto 0.3 % (0.0-0.4); Lymphocytes Absolute Auto 1.9 X10*3/uL (1.2-4.9); Lymphocytes Percent Auto 24.1 % (20-40); Mean Corpuscular HGB Conc 32.9 g/dl (31.0-35.0); Mean Corpuscular Hemoglobin 27.5 pg (27.0-33.0); Mean Corpuscular Volume 83.7 fL (80.0-98.0); Mean Platelet Volume 9.6 fL (9.4-12.3); Monocytes Absolute Auto 0.7 X10*3/uL (0.1-1.2); Monocytes Percent Auto 8.3 % (2-11); Neutrophils Absolute Auto 5.2 x10*3/uL (2.0-8.3); Neutrophils Percent Auto 64.9 % (45-73); Platelet Count 318 X10*3/uL (160-400); Red Blood Count 4.61 X10*6/uL (4.20-5.50); Red Cell Distribution Width 15.1 % (11.0-16.0)
[2025-02-18 17:18] LABS: Alanine Aminotransferase 15 U/L (0-31); Albumin Level 4.2 g/dL (3.5-5.0); Alkaline Phosphatase 62 U/L (39-117); Anion Gap 16 (12-20); Aspartate Amino Transferase 22 U/L (5-31); Bilirubin Total 0.2 mg/dL (0.0-1.0); Blood Urea Nitrogen 13 mg/dL (9-16); Calcium 9.9 mg/dL (8.4-10.2); Carbon Dioxide 22 mmol/L (22-29); Chloride 107 mmol/L (96-108); Cholesterol 242 mg/dL (<200); Estimated Glomerular Filt Rate > 60; Glucose Random 115 mg/dL (60-115); HDL Cholesterol 66 mg/dL (>40); LDL Cholesterol Calculated 152 mg/dL (<100); Potassium 4.5 mmol/L (3.3-5.1); Sodium 140 mmol/L (135-145); Total Protein 7.6 g/dL (6.5-8.0); Triglycerides 120 mg/dL (<150)
[2025-02-18 19:31] LABS: TSH reflex Free T4 1.03 uIU/mL (0.32-4.0)
== END 2025-02-18 14:25 | disposition home or self-care (01) ==
LOC: HO.LAB 14:24
PROVIDERS: Absent Provider Internal Medicine; PCP Internal Medicine; Visit Provider Nurse Practitioner
DX: R13.10 Dysphagia, unspecified (principal); J45.41 Moderate persistent asthma with (acute) exacerbation; E11.40 Type 2 diabetes mellitus with diabetic neuropathy, unspecified; E11.42 Type 2 diabetes mellitus with diabetic polyneuropathy; K21.9 Gastro-esophageal reflux disease without esophagitis; G31.84 Mild cognitive impairment of uncertain or unknown etiology; R19.7 Diarrhea, unspecified; E03.9 Hypothyroidism, unspecified; Z79.4 Long term (current) use of insulin
CPT/HCPCS: 36415; 80053; 80061; 84443; 85025; 99212

== ENCOUNTER → 2025-04-28 08:53 | Outpatient (BNV) | payer MEDICARE, SELFPAY | PROVIDERS: PCP Internal Medicine; Visit Provider Radiology Diagnostic Radiology | DX: R13.10 Dysphagia, unspecified (principal) | CPT/HCPCS: 74220 ==

== ENCOUNTER 2025-04-28 08:54 | Outpatient (REF) | payer MEDICARE, SELFPAY ==
--- NOTE | ~2025-04-28 | FL_ITS ---
EXAMINATION: XR BARIUM SWALLOW CLINICAL INFORMATION: Dysphagia COMPARISON: None available. TECHNIQUE: Routine barium swallow with thick barium and saltine crackers is done in upright view and different positions. Thin barium was administered in prone lying position. FINDINGS: Following oral administration of thick barium in upright view there is normal propagation bolus from the oral cavity through the pharynx, esophagus into stomach without obstruction, narrowing or stricture. The course, caliber and peristalsis throughout the esophagus is normal. No extrinsic compression seen. On oral administration of saltine coated barium paste there is normal oral mastication with propagation of bolus from the oral cavity through the pharynx, esophagus into stomach. There is slow propagation of solid food the mid and distal esophagus. Slight clearance was seen following oral administration of thin barium. Following oral administration of thin barium in prone lying position there is normal esophageal distention without intraluminal filling defect. Is small sliding hiatal hernia with mild distal reflux is seen. FLUOROSCOPY TIME: 2 minutes 43 seconds DOSE AREA PRODUCT: 2631 uGy-m2 (microgray-meter squared) FL/FL barium swallow IMPRESSION: Sluggish peristalsis in the mid and distal esophagus with solid food. But no obstruction or extrinsic compression. No intraluminal filling defect. Small sliding hiatal hernia with mild gastroesophageal reflux in supine position. Electronically signed by: Efrain Bacon MD 04/28/2025 01:30 PM EDT
--- OUTSIDE RECORDS SUMMARY | 2025-04-28 09:15 | XMS_ITS | Patient Health Record ---
Author Organization [facility] Address [address] [place] [address] Care Team Providers Care Windows Admin Name Role Phone Rachael Collins Unavailable [phone] Reason For Referral No Information Plan Of Treatment No Information Insurance Providers Payer Name Payer Address Payer Phone Subscriber Number Group Number Insured Name Patient Relationship to Insured Coverage Start Date Coverage End Date Medicare Part B J14 [address] [place], [place] [id number] Billie Kelly Self - patient is the insured MEDEX [address] [place] [address] [id number] Billie Kelly Self - patient is the insured
--- OUTSIDE RECORDS SUMMARY | 2025-04-28 09:15 | XMS_ITS | Continuity of Care Document ---
Author Organization [facility] [address] [place] [address] Phone [phone] Care Team Providers Care Consulting Database Administrator Name Role Phone Nargis Siegel M.D. Care Team Information Stippler [phone] Problems Active Problems Provider Date Type 2 [...] Social History Type Date Description Comments Sex Female Sex Unknown Tobacco Use Start: Unknown Never Smoked Cigarettes ETOH Use Rarely consumes alcohol Allergies and adverse reactions Active Allergies Criticality Reaction Severity Comments Date Ozempic Unable to assess criticality Rash 12/03/2023 Environmental Unable to assess criticality 12/03/2023 Medications Active Medications SIG Qnty Indications Order ing Provider Date [id number] Capsules Take 1 To 2 Capsules By Mouth Three Times Daily as Needed For Muscle Spasms. Max Unknown Montelukast Cnoxrg24na Tablets Take 1 Tablet By Mouth Daily In The Evening Nargis Siegel M.D. Duloxetine NOP40su Caps DR Part Take 2 Capsules By Mouth Daily AT Bedtime Unknown Basaglar Taqdmti535Ahyn/ML Solution Pen-Inject Administer 24 Units Under The [...] 32G X 4 mm Misc Use 2 [place] Once Daily With Insulin Nargis Siegel M.D. Levothyroxine Ohmyak51zee Tablets Take 1 Tablet By Mouth Daily Nargis Siegel M.D. Metformin HCL YU431do Tablets ER 24HR Take 2 Tablet in Am and one in PM Nargis Siegel M.D. Albuterol Sulfate MPC580(90Base) mcg/Act Aerosol Inhale 1 puff By Mouth Four Times Daily as Needed For Wheezing Nargis Siegel M.D. Efmhkhkjecxuaqbt26ps Suppository Unwrap And Insert 1 Suppository Rectally Twice Daily as Needed For Nausea Or Vom Unknown Repatha Wgzptvkyp070iu/ml Solution Auto-Inject Administer 140 MG Under The Skin Every 2 Weeks 2ml Christi Arredondo CNP Aozcckgjkms208zy Tablets Take 1 Tablet By Mouth Daily AT Bedtime Use With 25 MG Tablets For Titration Unknown Vital Signs Date Vital Result Comment 03/01/2025 10:13am BP Systolic 136 mmHg BP Diastolic 92 mmHg Heart Rate 80 /min Height 67 inches 5'7 Weight 248.00 lb BMI (Body Mass Index) 38.8 kg/m2 Results Test Acquired Date Facility Test Result H/L Range N ote Glucose Fingerstick 03/01/2025 Inhouse Glucose Fingerstick 133 Hemoglobin A1c 03/01/2025 Inhouse Hemoglobin A1c 6.6% Glucose Fingerstick 11/01/2024 Inhouse Glucose Fingerstick 119 Hemoglobin A1c 11/01/2024 Inhouse Hemoglobin A1c 6.6% Glucose Fingerstick 07/01/2024 Inhouse Glucose Fingerstick 166 Glucose Fingerstick 03/12/2024 Inhouse Glucose Fingerstick 129 Hemoglobin A1c 03/12/2024 Inhouse Hemoglobin A1c 5.9% Glucose Fingerstick 12/03/2023 Inhouse Glucose Fingerstick 135 Medical Devices Description No Information Available Encounters Type Date Location Provider Dx Diagnosis Office Visit 03/01/2025 10:15a Main Office CHELA Burton E11.42 Type 2 diabetes mellitus with diabetic polyneuropathy E66.9 Obesity, unspecified Z79.4 longterm (current) use of insulin E78.5 Hyperlipidemia, unsp ecified Z68.38 Body mass index [BMI ] 38.0-38.9, adult Assessments Date Code Description Provider 03/01/2025 E11.42 Type 2 diabetes mellitus with diabetic polyneuropathy CHELA Burton 03/01/2025 E66.9 Obesity, unspecified CHELA Burton 03/01/2025 Z79.4 longterm (current) use of i nsulin CHELA Burton 03/01/2025 E78.5 Hyperlipidemia, unspecified CHELA Burton 03/01/2025 Z68.38 Body mass index [BMI] 38.0-3 8.9, adult CHELA Burton Plan of Treatment Future Appointment(s):* 07/01/2025 9:00 am - Christi Arredondo CNP at Main Office 03/01/2025 - [facility] Burton* E11.42 Type 2 diabetes mellitus with diabetic polyneuropathy * E66.9 Obesity, unspecified * Z79.4 longterm (current) use of insulin * E78.5 Hyperlipidemia, unspecified * Z68.38 Body mass index [BMI] 38.0-38.9, adult Functional Status Description No Information Available Mental Status Description No Information Available Referrals Description No Information Available
== END 2025-04-28 08:55 | disposition home or self-care (01) ==
LOC: HO.XRAY 08:54
PROVIDERS: PCP Internal Medicine; Visit Provider Nurse Practitioner
DX: R13.10 Dysphagia, unspecified (principal)
CPT/HCPCS: 74220

== ENCOUNTER 2025-04-29 15:35 | Outpatient (AMB) | payer MEDICARE, SELFPAY ==
--- OUTSIDE RECORDS SUMMARY | 2025-04-29 15:38 | XMS_ITS | Patient Health Record ---
Author Organization [facility] Address [address] [place] [address] Care Team Providers Care Claims Technician Name Role Phone Rachael Collins Unavailable [phone] Reason For Referral No Information Plan Of Treatment No Information Insurance Providers Payer Name Payer Address Payer Phone Subscriber Number Group Number Insured Name Patient Relationship to Insured Coverage Start Date Coverage End Date Medicare Part B J14 [address] [place], [place] [id number] Billie Kelly Self - patient is the insured MEDEX [address] [place] [address] [id number] Billie Kelly Self - patient is the insured
--- NOTE | 2025-04-29 15:42 | A.OFFPC_ITS ---
Vital Signs 04/29/25 15:48 Height 5 ft 7 in Weight 245 lb 2 oz BMI 38.4 BP 110/76 Blood Pressure Location Lt brachial Position Sitting Respiration 14 Pulse 80 Pulse Source Pulse Oximeter Temp 98.6 F Temp Source Oral Pulse Oximetry (%) 94 Oxygen Delivery Method Room Air Intake Visit Reasons: Sore throat Intake Note: Fluttering in chest on the right side. Thouht is might be muscle spasms. Acls Specialist Required: No Allergies semaglutide (From Ozempic) Allergy (Severe, Verified 04/29/25 15:46) Rash Roqthpp-UTZ-StN Reductase Inhibitor Adverse Reaction (Severe, Verified 04/29/25 15:46) myalgia Tobacco use date assessed: 04/29/25 Fall risk assessment: No Falls in past year Last assessed Fall Risk: 04/29/25 Dental Screening Dental Screen Date: 04/29/25 Did you have a dental visit in the last 12 months?: No Did you have a dental problem in the last 6 months where you did not have access to dental care?: No Was dental information given to patient?: Patient declined (no teeth) HPI HPI Comments History of Present Illness Details The patient is a 64-year-old female with a past medical history of type 2 diabetes, hypertension, hyperlipidemia, RSD, spinal stenosis, post herpetic neuralgia, headaches, IBS/GERD/gastroparesis, prolonged QT presenting for follow up Patient has been feeling heart pound out of chest recently. At rest or with exertion. Not having symptoms currently. EKG is normal. This is happening multiple times per week She has chronic pain, right arm pain but recently has felt discomfort pain in the right breast and axilla and has a feeling of fullness in the right axilla. Type 2 diabetes: On metformin, Basaglar, lisinopril. Follows with endocrine Dr Sandhu at [facility] endocrin. Multifactorial neuropathy. Up-to-date on eye exams. Follows regularly with Podiatry, Dr Ibarra. Patient developed severe myalgia with multiple statins in the past, she believes atorvastatin, rosuvastatin and pravastatin. LDL goal <100. Tried to have praluent sent but not covered by insurance Chronic pain: RSD, spinal stenosis, post herpetic neuralgia, diabetic neuropathy, fibromyalgia. Follows with Dr. Neff ongoing transitional medications GI: Constipation, gastroparesis, IBS, nausea, GERD. Feeling fairly well. Follows with [facility] December Luis Fernando. Scheduling for upcoming endoscopy : Follows with Ania Nolen in [place]. On prempro. this has been the only effective medication for her significant post menopausal symptoms BH: Stable-follows with Do BRIZUELA Also follows in allergy/immunology Dr Consuelo Camarillo: Sep 2024 [facility] ROS see HPI PHYSICAL EXAM: GENERAL: Alert and oriented x 3. NAD EYES: EOMI. Anicteric. HENT: Maxillary sinus tender to palpation bilateral LUNGS: Good air entry. scattered wheezing CARDIOVASCULAR: Regular rate and rhythm. No murmur. No JVD. ABDOMEN: Soft, non-tender +bs EXTREMITIES: No edema. Non-tender. SKIN: Right axillary fullness No rashes or lesions. Warm. NEUROLOGIC: No focal neurological deficits. CN II-XII grossly intact PSYCHIATRIC: Cooperative. Appropriate mood and affect [facility] Medical History (Updated 04/29/25 @ 16:08 by Nargis Belcher MD) Encounter for annual wellness visit (AWV) in Medicare patient Depression PTSD (post-traumatic stress disorder) Injury of hand, right Right shoulder injury Neck injury Imbalance Memory loss Fatty liver GERD (gastroesophageal reflux disease) IBS (irritable colon syndrome) Thyroid disease Hypercholesterolemia Hammertoe of left foot Controlled diabetes mellitus with diabetic neuropathy, with long-term current use of insulin Diabetic neuropathy Complex regional pain syndrome I Asthma Subacute sinusitis Surgical History S/P insertion of spinal cord stimulator H/O Spinal surgery History of esophagogastroduodenoscopy (EGD) H/O colonoscopy Hx of foot surgery Family History Mother Colon cancer Father Cardiovascular disease Thyroid disorder Throat cancer Alcoholism Psychiatric disorder Maternal Grandmother Asthma Diabetes Cardiovascular disease Maternal Grandfather Cardiovascular disease Paternal Grandfather Cardiovascular disease Sister Cancer of spine Diabetes Brother Tongue cancer Social History (Updated 04/29/25 @ 15:51 by Myra Garduno CMA) Household Members: Spouse and Children Housing: House 75 years or older and lives alone: No Alcohol intake: never Patient Tobacco Use Status: Never used Tobacco e-Cigarette/Vaping Use: Never Used Use of substances other than those prescribed or required for medical reasons: Yes Substance Use Type: Marijuana service: No Current occupational status: disabled Current occupational exposures/hazards: No Cognitive needs: No Hearing needs: Yes (wears hearing aids) Vision needs: Yes (wears glasses) Questionnaire PHQ-9 Over the last 2 weeks, how often have you been bothered by any of the following problems? 1. Little interest or pleasure in doing things: not at all 2. Feeling down, depressed, or hopeless: not at all 3. Trouble falling or staying asleep, or sleeping too much: more than half the days 4. Feeling tired or having little energy: several days 5. Poor appetite or overeating: several days 6. Feeling bad about yourself - or that you are a failure or have let yourself or your family down: not at all 7. Trouble concentrating on things, such as reading the newspaper or watching television: several days 8. Moving or speaking so slowly that other people could have noticed. Or the opposite - being so fidgety or restless that you have been moving around a lot more than usual: not at all 9. Thoughts that you would be better off or of hurting yourself in some way: not at all Total score: 5 Depression Screening Interpretation: Positive Depression Screening Follow-up: Existing condition Depression Screening Done: Yes 93067 - PHQ-9 Billing: Yes Source: Developed by Drs. Tonio Hawkins, Medina Mcdaniel, Bolivar Denis and colleagues, with an educational luz from [employer]. Thrive Questionnaire Date Thrive assessed: 04/27/25 I am a: Patient What is your living situation today?: I have a place to live, but I am worried about losing it in the future Within the past 12 months, did the food you bought not last and you didn't have the money to get more?: Sometimes True Within the past 12 months, did you worry whether your food would run out before you got money to buy more?: Sometimes True Do you have trouble paying for medicines?: No Do you have trouble getting transportation to medical appointments?: Yes Do you have trouble paying your heating and electricity bill?: Yes Do you have trouble taking care of your child, family member or friend?: Yes Do you have trouble with day-to-day activities such as bathing, preparing meals, shopping, managing finances, etc.?: Yes Are you currently unemployed and looking for a job?: I choose not to answer this question Are you interested in more education?: Yes Please select the resources that you would like help with: Housing/Fpc, Food, Paying for medicine, Transportation, Utilities, Care for elder or disabled and Daily support Currently or been in a relationship where the following occur: No concerns reported THRIVE Score: 5 AUDIT C Alcohol Use Questionnaire (AUDIT-C) 1. How often do you have a drink containing alcohol?: Never 3. How often do you have six or more drinks on one occasion?: Never Total Score: 0 OLYA-7 AMB Questionnaire OLYA-7 Date OLYA - 7 assessed: 05/14/24 Feeling nervous, anxious, or on edge: 1 = Several days Not being able to stop or control worryin = Several days Worrying too much about different things: 1 = Several days Trouble relaxin = Several days Being so restless that it is hard to sit still: 1 = Several days Becoming easily annoyed or irritable: 1 = Several days Feeling afraid as if something awful might happen: 0 = Not at all Total OLYA-7 score (0-4 normal; 5-9 mild; 10-14 moderate; 15-21 severe): 6 Source: Developed by Drs. Tonio Hawkins, Medina Mcdaniel, Bolivar Denis and colleagues, with an educational luz from [employer]. Physical exam (Primary Care) Vital Signs: Last Vital Signs Temp 98.6 F 04/29/25 15:48 Pulse 80 04/29/25 15:48 Resp 14 04/29/25 15:48 BP 110/76 04/29/25 15:48 Pulse Ox 94 04/29/25 15:48 Oxygen Delivery Method Room Air 04/29/25 15:48 BMI result Body Mass Index 38.4 Tobacco/Smoking Status: Tobacco use Status Tobacco use date assessed 04/29/25 04/29/25 15:51 Patient Tobacco Use Status Never used Tobacco 04/29/25 15:51 e-Cigarette/Vaping Use Never Used 04/29/25 15:51 PHQ-9: PHQ-9 Score PHQ-9: Total score 5 04/29/25 16:05 Depression Screening Interpretation: Positive Depression Screening Follow-up: Existing condition Thrive Assessment: Date of Thrive Assessment Date Thrive assessed 04/27/25 04/29/25 15:42 Currently or been in a relationship where the following occur: No concerns reported Coding Level of Care Code Est Pt Level 4 (07444) Diagnoses Breast pain, right N64.4 Palpitations R00.2 Additional Codes PHQ-9 - 77930 - PHQ-9 Billing: Yes ([id number]) Assessment & Plan Assessment & Plan (1) Breast pain, right: Code(s): N64.4 - Mastodynia Category: Medical (2) Palpitations: Code(s): R00.2 - Palpitations Category: Medical Plan Right breast pain, axillary fullness-us ordered. mammo utd Palpitation-EKG normal. Holter ordered Orders: Orders US breast RT complete 04/29/25 N64.4 - Mastodynia, R22.31 - Localized swelling, mass and lump, right upper limb ECG holter monitor 48 hour 04/29/25 R00.2 - Palpitations
[2025-04-29 15:48] VITALS: BP 110/76; PULSE 80; RESP 14; TEMP 37; O2SAT 94; BMI 38.4
== END 2025-04-29 16:20 | disposition home or self-care (01) ==
LOC: HO.HMCFM 15:36
PROVIDERS: PCP Internal Medicine; Visit Provider Internal Medicine
DX: N64.4 Mastodynia (principal); R00.2 Palpitations

== ENCOUNTER → 2025-04-29 15:35 | Outpatient (BNVA) | payer MEDICARE, SELFPAY | PROVIDERS: PCP Internal Medicine; Visit Provider Internal Medicine | DX: N64.4 Mastodynia (principal); R00.2 Palpitations; I10 Essential (primary) hypertension; E11.40 Type 2 diabetes mellitus with diabetic neuropathy, unspecified; G89.29 Other chronic pain; K58.1 Irritable bowel syndrome with constipation; K31.84 Gastroparesis; E11.43 Type 2 diabetes mellitus with diabetic autonomic (poly)neuropathy; K21.9 Gastro-esophageal reflux disease without esophagitis; Z79.84 Long term (current) use of oral hypoglycemic drugs; Z79.4 Long term (current) use of insulin; Z79.899 Other long term (current) drug therapy; Z13.31 Encounter for screening for depression | CPT/HCPCS: 96127; 99212 ==

== ENCOUNTER → 2025-05-12 11:06 | Outpatient (REF) | payer MEDICARE, SELFPAY ==
--- OUTSIDE RECORDS SUMMARY | 2024-12-08 07:15 | XMS_ITS ---
Author Organization [facility] [address] Address [address] [place] [address] Care Team Providers Care Manager Of Care Name Role Phone Rachael Collins Unavailable [phone] Encounters Encounter Location Date Provider Diagnosis [facility] [address] [address] 12/08/2024 Rachael Collins Plan Of Treatment No Information Progress Notes * KERRIADJosse AnginDOB:1960 (64 yo F)Acc No.[id number]:12/08/2024 Progress Notes Patient: Billie COSTELLO Provider: Abigail Collins PA-C :1960 A ge:64 Y S ex:Female Date:12/08/2024 Address:[address] [place], [place] [id number] Subjective: * Chief Complaints: * * Medical History: Objective: * Vitals: Assessment: Plan: * Treatment: * Images: Billing Information: * Visit Code: * Procedure Codes: * Electronic signature of Rachael Collins PA-C on 05/12/2025 at 12:43 PM EDT Sign off status: Pending * Provider: Abigail Collins PA-C Date: 12/08/2024 Generated for James silva/Dimas/eTterranceitting on: 0 05/12/2025 12:43 PM EDT
--- NOTE | 2025-05-12 11:09 | HM_ITS ---
* Total monitoring time 2 days. * Underlying rhythm is sinus with an average rate of 88/Min. * Rare supraventricular ectopy. * Rare ventricular ectopy. * No significant pauses or high-grade AV blocks. * No patient markers or diary events. MTDD
--- OUTSIDE RECORDS SUMMARY | 2025-05-12 12:43 | XMS_ITS | Encounter Summary ---
Author Organization [facility] Address [address] [place] [address] Care Team Providers Care Steel Chipper Name Role Phone Nargis Siegel MD Primary Care Provider Unavaila libia [facility], Pcp Primary Care Provider UnavailDaphney Ghotra MD Unavailable [phone] Nargis Siegel MD Primary Care Provider Unavaila ble [facility], Pcp Primary Care Provider Unavailabl e Nargis Siegel MD Primary Care Provider Unavaila [facility], Pcp Primary Care Provider Unavailabl e [facility], Pcp Primary Care Provider Unavailabl e Encounter Details Date Type Department Care Team Description 09/04/2017 Business Intelligence Manager Report Medical Records [address] [place] [id number] Services, [facility] [address] [address] Social History Tobacco Use Types Packs/Day Years Used Date Smoking Tobacco: Never Smokeless Tobacco: Never Alcohol Use Standard Drinks/Week Comments No 0 (1 standard drink = 0.6 oz pur e alcohol) Sex Assigned at Date Recorded Not on file Job Start Date Occupation Industry Not on file Not on file Not on file documented as of this encounter Plan of Treatment Not on file documented as of this encounter Visit Diagnoses Not on filedocumented in this encounter Care Teams Steel Chipper Relationship Specialty Start Date End Date Nargis Siegel MD PCP - General Internal Medicine 07/28/15 12/18/20 [facility], Pcp PCP - General Internal Medicine 12/19/20 01/03/21 Nargis Siegel MD PCP - General Internal Medicine 01/04/21 02/19/21 [facility], Pcp PCP - General Internal Medicine 02/20/21 05/24/21 Nargis Siegel MD PCP - General Internal Medicine 05/25/21 08/05/21 [facility], Pcp PCP - General Internal Medicine 08/06/21 12/03/21 [facility], Pcp PCP - General Internal Medicine 12/18/21 Daphney Velázquez MD Specialist Cardiology 12/28/20 documented as of this encounter
--- OUTSIDE RECORDS SUMMARY | 2025-05-12 12:44 | XMS_ITS | Continuity of Care Document ---
Author Organization [facility] [address] [place] [address] Phone [phone] Care Team Providers Care Business Architect Name Role Phone Nargis Siegel M.D. Care Team Information Button Bradder [phone] Problems Active Problems Provider Date Type 2 [...] SIG Qnty Indications Order ing Provider Date Rkmzcnvr37br Capsules Take 1 To 2 Capsules By Mouth Three Times Daily as Needed For Muscle Spasms. Max Unknown Montelukast Gvlczg28oq Tablets Take 1 Tablet By Mouth Daily In The Evening Nargis Siegel M.D. Duloxetine ERW82tk Caps DR Part Take 2 Capsules By Mouth Daily AT Bedtime Unknown Basaglar Xhqzhef475Mval/ML Solution Pen-Inject Administer 24 Units Under The [...] 32G X 4 mm Misc Use 2 [place] Once Daily With Insulin Nargis Siegel M.D. Levothyroxine Mmwcrz44iyk Tablets Take 1 Tablet By Mouth Daily Nargis Siegel M.D. Metformin HCL PC535fa Tablets ER 24HR Take 2 Tablet in Am and one in PM Nargis Siegel M.D. Albuterol Sulfate NAB383(90Base) mcg/Act Aerosol Inhale 1 puff By Mouth Four Times Daily as Needed For Wheezing Nargis Siegel M.D. Kddoqoxcenzttsyc78pe Suppository Unwrap And Insert 1 Suppository Rectally Twice Daily as Needed For Nausea Or Vom Unknown Repatha Rbcntcxeu393oo/ml Solution Auto-Inject Administer 140 MG Under The Skin Every 2 Weeks 2ml Christi Arredondo CNP Ksbqiiucfue724sc Tablets Take 1 Tablet By Mouth Daily [...] with diabetic polyneuropathy E66.9 Obesity, unspecified Z79.4 care home (current) use of insulin E78.5 Hyperlipidemia, unsp ecified Z68.38 Body mass index [BMI ] 38.0-38.9, adult Assessments Date Code Description Provider 03/01/2025 E11.42 Type 2 diabetes mellitus with diabetic polyneuropathy CHELA Burton 03/01/2025 E66.9 Obesity, unspecified CHELA Burton 03/01/2025 Z79.4 care home (current) use of i nsulin CHELA Burton 03/01/2025 E78.5 Hyperlipidemia, unspecified CHELA Burton 03/01/2025 Z68.38 Body mass index [BMI] 38.0-3 8.9, adult CHELA Burton Plan of Treatment Future Appointment(s):* 07/01/2025 9:00 am - Christi Arredondo CNP at Main Office 03/01/2025 - CHELA Burton* E11.42 Type 2 diabetes mellitus with diabetic polyneuropathy * E66.9 Obesity, unspecified * Z79.4 care home (current) use of insulin * E78.5 Hyperlipidemia, unspecified * Z68.38 Body mass index [BMI] 38.0-38.9, adult Functional Status Description No Information Available Mental Status Description No Information Available Referrals Description No Information Available
== END ==
LOC: HO.CARD 11:06
PROVIDERS: Visit Provider Internal Medicine
DX: R00.2 Palpitations (principal)
CPT/HCPCS: 93225

== ENCOUNTER → 2025-05-12 11:09 | Outpatient (BNV) | payer MEDICARE, SELFPAY | PROVIDERS: Visit Provider Internal Medicine | DX: I47.10 Supraventricular tachycardia, unspecified (principal); I49.3 Ventricular premature depolarization | CPT/HCPCS: 93227 ==

== ENCOUNTER 2025-05-31 07:55 | Outpatient (REF) | payer MEDICARE, SELFPAY ==
--- OUTSIDE RECORDS SUMMARY | 2024-12-08 07:15 | XMS_ITS ---
Author Organization [facility] [address] Address [address] [place] [address] Care Team Providers Care Barrel Charrer Helper Name Role Phone Rachael Collins Unavailable [phone] Encounters Encounter Location Date Provider Diagnosis [facility] [address] [address] 12/08/2024 Rachael Collins Plan Of Treatment No Information Progress Notes * KERRIADJosse AnginDOB:1960 (64 yo F)Acc No.[id number]:12/08/2024 Progress Notes Patient: Billie COSTELLO Provider: Abigail Collins PA-C :1960 A ge:64 Y S ex:Female Date:12/08/2024 Address:[address] [place], [place] [phone] Subjective: * Chief Complaints: * * Medical History: Objective: * Vitals: Assessment: Plan: * Treatment: * Images: Billing Information: * Visit Code: * Procedure Codes: * Electronic signature of Rachael Collins PA-C on 05/31/2025 at 08:02 AM EDT Sign off status: Pending * Provider: Abigail Collins PA-C Date: 12/08/2024 Generated for James silva/Dimas/Shajiitting on: 05/31/2025 08:02 AM EDT
--- NOTE | ~2025-05-31 | MM_ITS ---
EXAMINATION(S): 1. MM DIAGNOSTIC DIGITAL BREAST TOMOSYNTHESIS, BILATERAL 2. Targeted ultrasound of the right breast 3. Targeted ultrasound of the left breast CLINICAL INFORMATION: Per requisition: MASTODYNIA; RT AXILLARY FULLNESS Per patient: Previously felt lump has resolved. Pain all over the side of the breast. COMPARISON: Studies obtained at [facility] on September 30, 2024 and June 21, 2022. TECHNIQUE: Digital breast tomosynthesis is performed in both the mediolateral oblique and craniocaudal views along with computer-aided detection (CAD). Synthesized 2D images are generated from the tomosynthesis. Spot compression tomosynthesis images of the left breast were also obtained. FINDINGS: BREAST COMPOSITION: There are scattered areas of fibroglandular density (ACR BI-RADS breast composition Category b). RIGHT BREAST: No significant masses, suspicious calcifications or other abnormalities are seen. Targeted ultrasound of the right breast was performed at the location of the axillary fullness. No suspicious sonographic findings. Targeted ultrasound of the right breast was performed at the location of the pain as indicated by the patient. The survey performed along the 9-11:00 axis did not reveal suspicious sonographic findings. LEFT BREAST: -There is an approximately 1.0 cm focal asymmetry in the lower outer quadrant at about 11 cm from the nipple that is pliable with spot compression (spot CC 19/53 and spot ML 90 degrees 37/72). Targeted ultrasound was performed at the location of the mammographic finding. The survey throughout the lower outer quadrant did not reveal suspicious sonographic correlate. -No suspicious calcifications or other abnormalities are seen. MM/MM tomosynthesis diagnostic BI IMPRESSION: RIGHT BREAST: Negative, no evidence of malignancy. Clinical follow-up is recommended for the clinical concerns. Otherwise, normal interval follow-up mammogram is recommended in 12 months. LEFT BREAST: Pliable focal asymmetry in the lower outer quadrant in the middle/posterior depth, without definite sonographic correlate. Probably benign. A 6-month follow-up mammogram is recommended. ASSESSMENT: BI-RADS 3 - Probably benign finding(s) - 6 month follow-up suggested RECOMMENDATION: 6 Month F/U Results were provided to the patient at time of visit by the technologist. This patient's information was entered into a reminder system with a target due date for their next mammogram. Electronically signed by: Tevin Reese MD 05/31/2025 09:43 AM EDT
--- OUTSIDE RECORDS SUMMARY | 2025-05-31 08:02 | XMS_ITS | Patient Health Record ---
Author Organization [facility] Address [address] [place] [address] Care Team Providers Care Ribbon Tier Name Role Phone Rachael Collins Unavailable [phone] Reason For Referral No Information Plan Of Treatment No Information Insurance Providers Payer Name Payer Address Payer Phone Subscriber Number Group Number Insured Name Patient Relationship to Insured Coverage Start Date Coverage End Date Medicare Part B J14 [address] [place], [place] [id number] Billie Kelly Self - patient is the insured [employer] [address] [place] [address] [phone] [id number] Billie Kelly Self - patient is the insured
--- OUTSIDE RECORDS SUMMARY | 2025-05-31 08:02 | XMS_ITS | Continuity of Care Document ---
Author Organization [facility] [address] [place] [address] Phone [phone] Care Team Providers Care Shot Hole Shooter Name Role Phone Nargis Siegel M.D. Care Team Information Manager Of Hospital [phone] Problems Active Problems Provider Date Type 2 [...] SIG Qnty Indications Order ing Provider Date Gdkemwfg21cy Capsules Take 1 To 2 Capsules By Mouth Three Times Daily as Needed For Muscle Spasms. Max Unknown Montelukast Aksqxr99zp Tablets Take 1 Tablet By Mouth Daily In The Evening Nargis Siegel M.D. Duloxetine EOO21qq Caps DR Part Take 2 Capsules By Mouth Daily AT Bedtime Unknown Basaglar Jfxsokk840Lyhg/ML Solution Pen-Inject Administer 24 Units Under The [...] 32G X 4 mm Misc Use 2 [place] Once Daily With Insulin Nargis Siegel M.D. Levothyroxine Hioplx02zla Tablets Take 1 Tablet By Mouth Daily Nargis Siegel M.D. Metformin HCL OJ305ba Tablets ER 24HR Take 2 Tablet in Am and one in PM Nargis Siegel M.D. Albuterol Sulfate YGH070(90Base) mcg/Act Aerosol Inhale 1 puff By Mouth Four Times Daily as Needed For Wheezing Nargis Siegel M.D. 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 E78.5 Hyperlipidemia, unsp ecified Z68.38 Body mass index [BMI ] 38.0-38.9, adult Assessments Date Code Description Provider 03/01/2025 E11.42 Type 2 diabetes mellitus with diabetic polyneuropathy CHELA Burton 03/01/2025 E66.9 Obesity, unspecified CHELA Burton 03/01/2025 Z79.4 termite exterminator (current) use of i nsulin CHELA Burton 03/01/2025 E78.5 Hyperlipidemia, unspecified CHELA Burton 03/01/2025 Z68.38 Body mass index [BMI] 38.0-3 8.9, adult CHELA Burton Plan of Treatment Future Appointment(s):* 07/01/2025 9:00 am - Christi Arredondo CNP at Main Office 03/01/2025 - CHELA Burton* E11.42 Type 2 diabetes mellitus with diabetic polyneuropathy * E66.9 Obesity, unspecified * Z79.4 termite exterminator (current) use of insulin * E78.5 Hyperlipidemia, unspecified * Z68.38 Body mass index [BMI] 38.0-38.9, adult Functional Status Description No Information Available Mental Status Description No Information Available Referrals Description No Information Available
== END 2025-05-31 07:56 | disposition home or self-care (01) ==
LOC: HO.MAMMO 07:55
PROVIDERS: PCP Internal Medicine; Visit Provider Internal Medicine
DX: R92.8 Other abnormal and inconclusive findings on diagnostic imaging of breast (principal)
CPT/HCPCS: 76642; 77062; 77066

== ENCOUNTER → 2025-05-31 08:00 | Outpatient (BNV) | payer MEDICARE, SELFPAY | PROVIDERS: PCP Internal Medicine; Visit Provider Radiology Body Imaging | DX: R92.8 Other abnormal and inconclusive findings on diagnostic imaging of breast (principal) | CPT/HCPCS: 76642; 77066; G0279 ==

== ENCOUNTER 2025-07-08 15:13 | Outpatient (AMB) | payer MEDICARE, SELFPAY ==
--- OUTSIDE RECORDS SUMMARY | 2024-12-08 07:15 | XMS_ITS ---
Author Organization [facility] [address] Address [address] [place] [address] Care Team Providers Care Dermatology Teacher Name Role Phone Rachael Collins Unavailable [phone] Encounters Encounter Location Date Provider Diagnosis [facility] [address] [address] 12/08/2024 Rachael Collins Plan Of Treatment No Information Progress Notes * KERRIADJosse AnginDOB:1960 (64 yo F)Acc No.[id number]:12/08/2024 Progress Notes Patient: Billie COSTELLO Provider: Abigail Collins PA-C :1960 A ge:64 Y S ex:Female Date:12/08/2024 Address:[address] [place], [place] [phone] Subjective: * Chief Complaints: * * Medical History: Objective: * Vitals: Assessment: Plan: * Treatment: * Images: Billing Information: * Visit Code: * Procedure Codes: * Electronic signature of Rachael Collins PA-C on 07/08/2025 at 05:42 PM EDT Sign off status: Pending * Provider: Abigail Collins PA-C Date: 0 12/08/2024 Generated for James silva/Dimas/Shajiitting on: 1 05:42 PM EDT
--- NOTE | 2025-07-08 15:15 | A.OFFVIS_ITS ---
Vital Signs 07/08/25 15:17 Height 5 ft 7 in Weight 240 lb BMI 37.6 Intake Visit Reasons: Discuss Barium swallow results Intake Note: Billie presents in follow up for barium swallow results. Patient reports denies having any new GI symptoms today. [employer] Crewmember Required: No Accompanied by: Spouse Allergies semaglutide (From Ozempic) Allergy (Severe, Verified 07/08/25 15:27) Rash Fxnpnks-YAH-WkT Reductase Inhibitor Adverse Reaction (Severe, Verified 07/08/25 15:27) myalgia HPI HPI Discuss Barium swallow results: Details: Assessment & Plan (1) Diarrhea: Code(s): R19.7 - Diarrhea, unspecified Category: Medical (2) Gastroparesis: Code(s): K31.84 - Gastroparesis Category: Medical (3) GERD (gastroesophageal reflux disease): Code(s): K21.9 - Gastro-esophageal reflux disease without esophagitis Category: Medical (4) Dysphagia: Code(s): R13.10 - Dysphagia, unspecified Category: Medical (5) Odynophagia: Code(s): R13.10 - Dysphagia, unspecified Category: Medical Plan She is here today with her who is quiet but supportive. She is doing well with the reglan, but was unsure if she should take the omeprazole - I encourage her to continue with this since she has a strong FHX of esophageal cancer. She has had absolutely no adverse effects from the Reglan. She is having diarrhea with any fibrous foods and fruits, mostly green leafy - not with meat potatoes etc. Will trial Creon, if this not helpful then consider further allergy etc work up. (some of this was mediated with cutting metformin dose). She has upcoming barium swallow 04/28, rov after this. She has not yet heard to schedule the upper endoscopy but this is not unusual as I know our scheduling team is behind. LABS: Laboratory Tests 02/18/25 15:37 WBC 8.0 Hgb 12.7 Hct 38.6 Plt Count 318 Estimated GFR > 60 Total Bilirubin 0.2 AST 22 ALT 15 Alkaline Phosphatase 62 TSH 1.03 BARIUM SWALLOW 04/28/2025 IMPRESSION: Sluggish peristalsis in the mid and distal esophagus with solid food. But no obstruction or extrinsic compression. No intraluminal filling defect. Small sliding hiatal hernia with mild gastroesophageal reflux in supine position. EGD 07/28/2025 BIOPSY Medications: New toafkn-jwpcmkzs-mfbtmzu 36,000-114,000- 180,000 unit (Creon) administer with meals and/or snacks 2 caps PO BID 120 caps 6RF R19.7 - Diarrhea, unspecified PFSH Medical History Encounter for annual wellness visit (AWV) in Medicare patient Depression PTSD (post-traumatic stress disorder) Injury of hand, right Right shoulder injury Neck injury Imbalance Memory loss Fatty liver GERD (gastroesophageal reflux disease) IBS (irritable colon syndrome) Thyroid disease Hypercholesterolemia Hammertoe of left foot Controlled diabetes mellitus with diabetic neuropathy, with long-term current use of insulin Diabetic neuropathy Complex regional pain syndrome I Asthma Subacute sinusitis Surgical History S/P insertion of spinal cord stimulator H/O Spinal surgery History of esophagogastroduodenoscopy (EGD) H/O colonoscopy Hx of foot surgery Family History Mother Colon cancer Father Cardiovascular disease Thyroid disorder Throat cancer Alcoholism Psychiatric disorder Maternal Grandmother Asthma Diabetes Cardiovascular disease Maternal Grandfather Cardiovascular disease Paternal Grandfather Cardiovascular disease Sister Cancer of spine Diabetes Brother Tongue cancer Social History Household Members: Spouse and Children Housing: House 75 years or older and lives alone: No Alcohol intake: never Patient Tobacco Use Status: Never used Tobacco e-Cigarette/Vaping Use: Never Used Substance Use Type: Marijuana service: No Current occupational status: disabled Current occupational exposures/hazards: No Cognitive needs: No Hearing needs: Yes (wears hearing aids) Vision needs: Yes (wears glasses) Review of Systems Const Denies fatigue, Denies fever(s), Denies night sweats, Denies poor appetite and Denies weight loss ENT Reports Normal hearing present, Denies dental pain, Reports dysphagia, Denies hearing loss, Denies mouth pain, Denies odynophagia, Denies throat swelling, Denies tongue swelling and Reports other (Dentition adequate) Card Reports no additional complaints Resp Reports no additional complaints GI Details: Denies abdominal pain, Denies melena, Denies bloating, Denies hematochezia, Denies constipation, Denies GI cramping, Reports dysphagia, Denies excessive flatus, Denies early satiety, Reports heartburn, Denies diarrhea, Denies nausea, Denies odynophagia, Denies vomiting and Denies hematemesis Skin/Breast Denies pruritus, Denies lesions, Denies rash and Denies jaundice Neuro Reports Normal hearing present and Denies Abnormal speech present Endo Denies fatigue Aller/Immun Denies throat swelling and Denies tongue swelling Physical Exam Vital Signs: BMI result Body Mass Index 37.6 Const General: cooperative, no acute distress, well developed and well groomed Nutritional Appearance: well nourished and obese Orientation/consciousness: oriented to person, oriented to place and oriented to time Limitations: No language barrier HEENT Head: Yes normocephalic and Yes atraumatic Eyes General: appearance normal, both eyes and all related structures Pupils: Equal, round and reactive pupils present Neck Neck: Yes normal visual inspection and Yes no lymphadenopathy Thyroid: Thyroid normal Resp Effort & Inspection: normal respiratory effort and able to speak in complete sentences Auscultation: clear to auscultation bilaterally Cardio Rate: regular rate Rhythm: regular rhythm Heart sounds: Normal, physiologic split S2 sound present Peripheral pulses: radial pulses present and posterior tibial pulses present GI Inspection: No distended, Yes Abdominal panniculus present and Yes obesity Palpation (GI): Soft to palpation, nontender, no guarding, not rigid and No hepatosplenomegaly present Percussion: Yes normal to percussion Auscultation: normal bowel sounds Rectal Exam - Female: deferred Skin General skin exam: no rashes or lesions noted, turgor normal, skin not dry, no jaundice, No spider nevi and no striae Rashes: no rashes Nails: normal Neuro General: oriented to person, oriented to place and oriented to time Cranial nerves: Yes Equal, round and reactive pupils present and Yes Normal hearing present Speech: No Abnormal speech present Extrem General: Yes normal to inspection, No clubbing, No cyanosis and No edema Psych Appearance: grossly normal and well kempt Mental Status: mental status grossly normal Speech and movement: Normal speech and movement present Affect: normal affect Attitude: cooperative Thought process: Normal thought process present and not confabulating Thought content: Normal thought content present Insight: Fair insight present (Psych) Judgement: Fair judgement present (Psych) Results Reviewed Results Reviewed: Laboratory Tests 02/18/25 15:37 WBC 8.0 Hgb 12.7 Hct 38.6 Plt Count 318 Estimated GFR > 60 Total Bilirubin 0.2 AST 22 ALT 15 Alkaline Phosphatase 62 TSH 1.03 BARIUM SWALLOW 04/28/2025 IMPRESSION: Sluggish peristalsis in the mid and distal esophagus with solid food. But no obstruction or extrinsic compression. No intraluminal filling defect. Small sliding hiatal hernia with mild gastroesophageal reflux in supine position. Assessment & Plan Assessment & Plan (1) GERD (gastroesophageal reflux disease): Code(s): K21.9 - Gastro-esophageal reflux disease without esophagitis Category: Medical (2) Dysphagia: Code(s): R13.10 - Dysphagia, unspecified Category: Medical (3) Odynophagia: Code(s): R13.10 - Dysphagia, unspecified Category: Medical (4) Gastroparesis: Code(s): K31.84 - Gastroparesis Category: Medical (5) Diarrhea: Code(s): R19.7 - Diarrhea, unspecified Category: Medical Plan Her current GI regimen consists of omeprazole, Reglan and Creon. She isn't find the Creon particularly helpful with her IBS symptoms, however she seems to think that diarrhea has lessened on its own, so to lessen her pill burden we are going to discontinue it. Barium swallow shows sluggish peristalsis that likely is presbyesophagus which is difficult to treat except for implementing safe swallowing precautions. We discuss these thoroughly during this visit to prevent choking. At least for now she feels that her heartburn is well controlled on her omeprazole. She has her endoscopy coming up so we will keep her appointment that is already scheduled after this procedure. EGD 07/28/2025 BIOPSY Coding Level of Care Code Est Pt Level 3 (29324) Diagnoses GERD (gastroesophageal reflux disease) K21.9 Dysphagia R13.10 Odynophagia R13.10 Gastroparesis K31.84 Diarrhea R19.7
[2025-07-08 15:17] VITALS: BMI 37.6
--- OUTSIDE RECORDS SUMMARY | 2025-07-08 17:42 | XMS_ITS | Patient Health Record ---
Author [facility] Address [address] [place] [address] Care Team Providers Care Net Technical Architect Name Role Phone Rachael Collins Unavailable [phone] Reason For Referral No Information Plan Of Treatment No Information Insurance Providers Payer Name Payer Address Payer Phone Subscriber Number Group Number Insured Name Patient Relationship to Insured Coverage Start Date Coverage End Date Medicare Part B [id number] [address] [place], [place] [id number] Billie Kelly Self - patient is the insured MEDEX [address] [place] [address] [id number] Billie Kelly Self - patient is the insured
--- OUTSIDE RECORDS SUMMARY | 2025-07-08 17:43 | XMS_ITS | Data Portability ---
Author Organization [place] - [facility], [facility] Address [address] [address] Care Team Providers Care Interventional Radiologist Name Role Phone AlbertoSEKOU BYRD Primary Care Provider Assessment Encounter Date Assessment Date Assessment LastModified by Organization Details LastModified Time 02/02/2025 02/02/2025 Follow up with referring provider. [email or web address] Not available 02/02/2025 10:54:41 02/02/2025 02/02/2025 Physical [...] she should continue to follow-up with her superintendent distribution at [facility] for hearing aid maintenance. Recommended against use of Q-tips to mitigate itchiness symptoms. Not available 02/02/2025 11:29:52 Plan of Treatment [...] Sensorine ural hearing loss of bilateral ears 851280191 Active 2019 Sensorine ural hearing loss, bilateral ; Note: Date Diagnosed : 05/24/2020 2:38 PM (H90.3) Not Available [facility] 4 03:18:14 Pharyngea l dysphagia 79155449118 105 Active 2022 Dysphagia , pharyngea l phase; Note: Date Diagnosed : 05/23/2023 12:17 PM (R13.13) Not Available [facility] 4 03:18:15 Bilateral tinnitus 88594800937 02 Active 2022 Tinnitus, bilateral ; Note: Date Diagnosed : 05/23/2023 12:16 PM (H93.13) Not Available [facility] 4 03:18:14 Referred otalgia of right ear 87488074784 26175 Active 2024 REGINALD AUGUSTIN MD [address] [facility],[place] [address], [place], [address] , [facility] - [facility] [place] 10:34:41 Chronic sore throat 836021978 Active 2024 REGINALD AUGUSTIN MD [address] [facility],[place] [address], [place], [address] , [facility] - [facility] [place] 5 10:35:26 Excessive gastric reflux 797990406 Active 2024 REGINALD AUGUSTIN MD [address] [facility],[place] [address], [place], [address] , [facility] - [facility] [place] 5 10:35:35 Problem Notes None recorded. Procedures Surgical History Date Name Laterality Status Provider Name and Address Organization Details Recorded Time 02/02/2025 Air & Speech Audio with Tymps - 61144, 19780 & 70504 completed Alexander VELAZQUEZ [address] [facility],[address], [place], [address], [facility] - [facility] [place] 02/02/2025 10:54:41 Imaging Results None recorded. Procedure Notes None recorded. Medical Equipment None Reported. Allergies Allergen ID Allergen Name Allergen Category Reaction Reaction Severity Criticality Documentation Date Start Date Code Code System Note Provider Name and Address Organization Details Recorded Time [id number] contact metal agent environme nt Not available Not available Not available 02/02/2025 Simran alcala [place] [facility] 5 10:05:12 [id number] Ozempic medicatio n Not available Not available Not available 02/02/2025 07 RxNorm Simran alcala [facility] 5 10:12:46 Medications Name Sig Start Date [...] mg tablet 02/02 completed Medicati on ID: [id number] D uration Value: 90 Brand Name: gabapent in Send Method: E-Prescr ibed Sub s Allowed: subs OK Medic ationGen ericName : gabapent in Not Available Not Available Not Available metoprolo l succinate ER 50 mg tablet,ex tended release 24 hr 02/02 completed Medicati on ID: [id number] D uration Value: 90 Brand Name: metoprol [...] 24 hr 02/02 completed Medicati on ID: [id number] D uration Value: 90 Brand Name: glipizid [...] topical cream 02/02 completed Medicati on ID: [id number] D uration Value: 30 Brand Name: lidocain [...] tended release 02/02 completed Medicati on ID: [id number] D uration Value: 28 Brand Name: morphine [...] release tablet 02/02 completed Medicati on ID: [id number] D uration Value: 14 Brand Name: morphine [...] topical patch 02/02 completed Medicati on ID: [id number] D uration Value: 30 Brand Name: lidocain [...] mg capsule 02/02 completed Medicati on ID: [id number] D uration Value: 20 Brand Name: Marinol [...] mg tablet 02/02 completed Medicati on ID: [id number] D uration Value: 90 Brand Name: rosuvast [...] History Nothing Reported. Medical History Condition Response Diabetes Y Allergies/Hayfever Y High Cholesterol Y Liver Disease Y Migraines Y Thyroid Problems Y Hypertension Y Depression Y Asthma Y Kidney Disease Y Gynecological HistoryNo gynecological history recorded. Obstetrics History GPAL:G 0 P 0 0 0 0 Past Encounters Encounter ID Performer Location Encounter Start Date Encounter Closed Date Diagnosis/Indication Diagnosis SNOMED-CT Code Diagnosis ICD10 Code Diagnosis IMO Codes Diagnosis Note [id number] REGINALD AUGUSTIN MD [facility] [address] [address] 02/02/2025 09:39:21 02/02/2025 11:30:21 Referred otalgia of right ear [id number] 598655 H92.01 M26.621 M79.11 The patient complains of [...] be considered . Chronic sore throat 2754 91614 J31.2 2579 Patient with chronic sore throat and intermitte nt hoarseness in the context of poorly controlled gastroesop hageal reflux disease. LPR brochure discussed with patient. Recommend follow-up with her gastroente rologist for better control of her reflux symptoms. Excessive gastric reflux 928497419 K21.9 5322709018 Sensorineu ral hearing loss of bilateral ears 046761014 H90.3 Audiologic al evaluation results: Right ear: Normal hearing from 250 through 1000 Hz sloping to a moderately severe sensorineu ral hearing loss with excellent word recognitio n. Left ear: Normal hearing from 250 through 1500 Hz sloping to a moderately severe sensorineu ral hearing loss with excellent word recognitio n. Tympanomet ry: Right Ear:Type A Left Ear:Type A [id number] Alexander VELAZQUEZ [facility] [address] [address] 02/02/2025 10:54:26 02/03/2025 11:11:49 Sensorineural hearing loss of bilateral ears 020757666 H90.3 Audiologic al evaluation results: Right ear: [...] ID Guarantor Name 02/02/2025 2 [place] [facility] Billie Kelly [id number] Billie Kelly 02/02/2025 2 [place] [id number] Billie Kelly [id number] Billie Kelly 02/02/2025 1 [place]: [facility] Billie Kelly [id number] Billie Kelly Notes Date Note Type Note Provider Name and Address Organization Details Recorded Time 02/02/2025 text/html Patient previously seen by Dr. Renee back in May 2023 for evaluation of fluctuating nonpulsatile bilateral tinnitus in the context of mid and high-frequency sensorineural hearing loss. Amplification recommended to mitigate the hearing loss and tinnitus. Patient did get binaural amplification dispensed at [facility].Patient reports chronic dry soreness in her throat. She has gastroesophageal reflux disease and is seeing a construction site crossing guard for this. She has no nasal congestion.Patient also reports intermittent right sided periauricular discomfort which refers into her jaw and yazdanism area. She is currently using dentures which do not fit very well. She has an appointment coming up with her dentist. Patient notices intermittent ear blockage sensation. She was told by her primary care physician that there was fluid in her ears. REGINALD AUGUSTIN MD [address], [address], [facility] - [facility] 02/02/2025 11:30:11 02/02/2025 text/html Audiological Teresa luation HPIReported by PatientHearing LossFor hearing loss perceived, patient reportshearing loss in both ears (no differences noted between ears).Use of amplification or other hearing devicesFor use of amplification or other hearing devices, patient reportshearing aid use in both ears. Alexander VELAZQUEZ 100 [facility],[address], [address], [facility] - [facility] 02/02/2025 11:08:20 OBGyn Episode No OBEpisode recorded.
== END 2025-07-08 18:55 | disposition home or self-care (01) ==
LOC: HO.HGI 15:13
PROVIDERS: PCP Internal Medicine; Visit Provider Nurse Practitioner
DX: K21.9 Gastro-esophageal reflux disease without esophagitis (principal); R13.10 Dysphagia, unspecified; K31.84 Gastroparesis; R19.7 Diarrhea, unspecified
CPT/HCPCS: 99213

== ENCOUNTER → 2025-07-08 15:13 | Outpatient (BNVA) | payer MEDICARE, SELFPAY | PROVIDERS: PCP Internal Medicine; Visit Provider Nurse Practitioner | DX: K21.9 Gastro-esophageal reflux disease without esophagitis (principal); R13.10 Dysphagia, unspecified; R19.7 Diarrhea, unspecified; K31.84 Gastroparesis | CPT/HCPCS: 99212 ==

== ENCOUNTER 2025-07-25 09:00 | Outpatient (REF) | payer MEDICARE, SELFPAY ==
[2025-07-25 12:13] LABS: Alanine Aminotransferase 15 U/L (0-31); Albumin Level 4.2 g/dL (3.5-5.0); Alkaline Phosphatase 73 U/L (39-117); Anion Gap 11 (12-20); Aspartate Amino Transferase 20 U/L (5-31); Blood Urea Nitrogen 14 mg/dL (9-16); Calcium 9.4 mg/dL (8.4-10.2); Carbon Dioxide 30 mmol/L (22-29); Chloride 103 mmol/L (96-108); Cholesterol 206 mg/dL (<200); Estimated Glomerular Filt Rate > 60; HDL Cholesterol 59 mg/dL (>40); Potassium 4.1 mmol/L (3.3-5.1); Sodium 140 mmol/L (135-145); Total Protein 7.5 g/dL (6.5-8.0); Triglycerides 101 mg/dL (<150)
--- OUTSIDE RECORDS SUMMARY | 2025-07-25 12:23 | XMS_ITS | Data Portability ---
Author Organization [place] - [facility], Allergy Address [address] [address] Care Team Providers Care Refining Supervisor Name Role Phone AlbertoSEKOU BYRD Primary Care Provider Assessment Encounter Date Assessment Date Assessment LastModified by Organization Details LastModified Time 02/02/2025 02/02/2025 Follow up with referring provider. [email or web address] Not available 02/02/2025 10:54:41 02/02/2025 02/02/2025 Physical [...] she should continue to follow-up with her computer systems engineer at [facility] audiology for hearing aid maintenance. Recommended against use of Q-tips to mitigate itchiness symptoms. [email or web address] Not available 02/02/2025 11:29:52 Plan of Treatment [...] Sensorine ural hearing loss of bilateral ears 685014534 Active 2019 Sensorine ural hearing loss, bilateral ; Note: Date Diagnosed : 05/24/2020 2:38 PM (H90.3) Not Available [facility] 4 03:18:14 Pharyngea l dysphagia 12404437200 105 Active 2022 Dysphagia , pharyngea l phase; Note: Date Diagnosed : 05/23/2023 12:17 PM (R13.13) Not Available [facility] 4 03:18:15 Bilateral tinnitus 00739157865 02 Active 2022 Tinnitus, bilateral ; Note: Date Diagnosed : 05/23/2023 12:16 PM (H93.13) Not Available [facility] 4 03:18:14 Referred otalgia of right ear [id number] 98570 Active 2024 REGINALD AUGUSTIN MD 100 [facility],[place] [address], [facility] [place], [address] , [facility] - [facility] [place] 10:34:41 Chronic sore throat 063664109 Active 2024 REGINALD AUGUSTIN MD [address] [facility],[place] [address], [place], [address] , [facility] - [facility] 5 10:35:26 Excessive gastric reflux 675332415 Active 2024 REGINALD AUGUSTIN MD [address] [facility],[place] [address], [place], [address] , [facility] - [facility] 5 10:35:35 Problem Notes None recorded. Procedures Surgical History Date Name Laterality Status Provider Name and Address Organization Details Recorded Time 02/02/2025 Air & Speech Audio with Tymps - 99545, 78307 & 32881 completed Alexander VELAZQUEZ [address] [facility],[address], [place], [address], [facility] - [facility] 02/02/2025 10:54:41 Imaging Results None recorded. Procedure Notes None recorded. Medical Equipment None Reported. Allergies Allergen ID Allergen Name Allergen Category Reaction Reaction Severity Criticality Documentation Date Start Date Code Code System Note Provider Name and Address Organization Details Recorded Time 13860323 contact metal agent environme nt Not available Not available Not available 02/02/2025 Simran alcala [place] [facility] 5 10:05:12 557301 Ozempic medicatio n Not available Not available Not available 02/02/2025 07 RxNorm Simran alcala [facility] 5 10:12:46 Medications Name Sig Start Date [...] mg tablet 02/02 completed Medicati on ID: [id number] D uration Value: 90 Brand Name: gabapent in Send Method: E-Prescr ibed Sub s Allowed: subs OK Medic ationGen ericName : gabapent in Not Available Not Available Not Available metoprolo l succinate ER 50 mg tablet,ex tended release 24 hr 02/02 completed Medicati on ID: [id number] D uration Value: 90 Brand Name: metoprol [...] 24 hr 02/02 completed Medicati on ID: [id number] D uration Value: 90 Brand Name: glipizid [...] topical cream 02/02 completed Medicati on ID: [id number] D uration Value: 30 Brand Name: lidocain [...] tended release 02/02 completed Medicati on ID: [id number] D uration Value: 28 Brand Name: morphine [...] release tablet 02/02 completed Medicati on ID: [id number] D uration Value: 14 Brand Name: morphine [...] topical patch 02/02 completed Medicati on ID: [id number] D uration Value: 30 Brand Name: lidocain [...] mg capsule 02/02 completed Medicati on ID: [id number] D uration Value: 20 Brand Name: Marinol [...] mg tablet 02/02 completed Medicati on ID: [id number] D uration Value: 90 Brand Name: rosuvast [...] ICD10 Code Diagnosis IMO Codes Diagnosis Note [id number] REGINALD AUGUSTIN MD [facility] [address] [address] 02/02/2025 09:39:21 02/02/2025 11:30:21 Referred otalgia of right ear [id number] 604588 H92.01 M26.621 M79.11 The patient complains of [...] be considered . Chronic sore throat 2754 38987 J31.2 2579 Patient with chronic sore throat and intermitte nt hoarseness in the context of poorly controlled gastroesop hageal reflux disease. LPR brochure discussed with patient. Recommend follow-up with her gastroente rologist for better control of her reflux symptoms. Excessive gastric reflux 130823507 K21.9 0598707615 Sensorineu ral hearing loss of bilateral ears 658381460 H90.3 Audiologic al evaluation results: Right ear: Normal hearing from 250 through 1000 Hz sloping to a moderately severe sensorineu ral hearing loss with excellent word recognitio n. Left ear: Normal hearing from 250 through 1500 Hz sloping to a moderately severe sensorineu ral hearing loss with excellent word recognitio n. Tympanomet ry: Right Ear:Type A Left Ear:Type A [id number] Alexander VELAZQUEZ [facility] [address] [address] 02/02/2025 10:54:26 02/03/2025 11:11:49 Sensorineural hearing loss of bilateral ears 576585460 H90.3 Audiologic al evaluation results: Right ear: [...] ID Guarantor Name 02/02/2025 2 [place] [facility] Billie Kelly [id number] Billie Kelly 02/02/2025 2 [place] [id number] Billie Kelly [id number] Billie Kelly 02/02/2025 1 MEDICARE B-[place]: [facility] Billie Kelly [id number] Billie Kelly Notes Date Note Type Note Provider Name and Address Organization Details Recorded Time 02/02/2025 text/html Patient previously seen by Dr. Renee back in May 2023 for evaluation of fluctuating nonpulsatile bilateral tinnitus in the context of mid and high-frequency sensorineural hearing loss. Amplification recommended to mitigate the hearing loss and tinnitus. Patient did get binaural amplification dispensed at [facility] audiology.Patient reports chronic dry soreness in her throat. She has gastroesophageal reflux disease and is seeing a parts assembler for this. She has no nasal congestion.Patient also reports intermittent right sided periauricular discomfort which refers into her jaw and confucianism area. She is currently using dentures which do not fit very well. She has an appointment coming up with her dentist. Patient notices intermittent ear blockage sensation. She was told by her primary care physician that there was fluid in her ears. REGINALD AUGUSTIN MD [address], [address], [facility] - [facility] 02/02/2025 11:30:11 02/02/2025 text/html Audiological Teresa luation HPIReported by PatientHearing LossFor hearing loss perceived, patient reportshearing loss in both ears (no differences noted between ears).Use of amplification or other hearing devicesFor use of amplification or other hearing devices, patient reportshearing aid use in both ears. Alexander VELAZQUEZ 100 [facility],[address], [address], [facility] - [facility] 02/02/2025 11:08:20 OBGyn Episode No OBEpisode recorded.
--- OUTSIDE RECORDS SUMMARY | 2025-07-25 12:23 | XMS_ITS | Data Portability ---
Author Organization [facility] Reggie Pascual [facility], [facility] Address [address] [place] [address] Assessment Encounter Date Assessment Date Assessment LastModified [...] eval for ? RFA 2023 04 024 [email or web address] [facility], [address] [place] [address], [place], [address], 11:38:12 Procedures None recorded. Surgeries None recorded. Imaging None recorded. Medication Orders None recorded. Patient TargetsNo targets recorded. Patient InstructionsNo instructions recorded. Reason for Referral Pain Management Referral for Lumbar radiculopathy eval for ? RFA Referring Physician: Tonio Loza, Orthopedic Surgery, [id number] Encounter Date: 12/31/2023 Medical Equipment None Reported. Allergies Allergen ID Allergen Name Allergen Category Reaction Reaction Severity Criticality Documentation Date Start Date Code Code System Note Provider Name and Address Organization Details Recorded Time 609810 Ozempic medicatio n Not available Not available Not available 12/31/2023 RxNorm ILEANA alcala [place] - [facility] 13:20:26 Medications Name Sig Start [...] Updated DateTime 12/31/2023 170.18 cm 36 kg/m2 689046.25 g ILEANA SAN [place] - [facility] 12/31/2023 13:20:09 Social History None [...] ICD10 Code Diagnosis IMO Codes Diagnosis Note [id number] Tonio Loza MD [place] [address] [place] [address] 12/31/2023 12:42:46 01/21/2024 09:30:27 Lumbar radiculopathy 415400160 M54.16 Health Concerns Section Related Observation LastModified by Organization Detai ls LastModified Time None Recorded Concern Status LastModified by Organization Details LastModified Time None Recorded Advance Directives Directive None Recorded Payers Insurance Date Sequence Insurance Name Policy Number Policy Freitas Covered Member ID Freitas Member ID Guarantor Name 01/21/2024 2 [place] [id number] Billie Cardosonack [id number] Billie Cardosonacashia 12/31/2023 3 [place] Billie Cardosonack [id number] Billie Cardosonack 01/21/2024 1 [place] B[place] [employer] Billie Cardosonacashia [id number] Billie Cardosonacashia Notes Date Note Type Note [...] WORK STATUS: Disabled IMAGING: Plain radiographs of [facility] reviewed. Lumbar spine films notable for spondylosis. Spondylolisthesis L4-5 quite small X-RAY REPORT: X-rays ordered, obtained and reviewed at [facility]. Not indicated Tonio Loza MD [address] [facility] [address], [place], [address], [facility] - [facility] 12/31/2023 17:35:35 OBGyn Episode No OBEpisode recorded.
== END 2025-07-25 09:01 | disposition home or self-care (01) ==
LOC: HO.WFDLDS 09:00
PROVIDERS: PCP Internal Medicine; Visit Provider Internal Medicine
DX: E11.43 Type 2 diabetes mellitus with diabetic autonomic (poly)neuropathy (principal); R00.2 Palpitations; K58.1 Irritable bowel syndrome with constipation; K31.84 Gastroparesis; K21.9 Gastro-esophageal reflux disease without esophagitis; E03.9 Hypothyroidism, unspecified; G90.529 Complex regional pain syndrome I of unspecified lower limb; Z23 Encounter for immunization; Z79.4 Long term (current) use of insulin; Z79.84 Long term (current) use of oral hypoglycemic drugs
CPT/HCPCS: 36415; 80053; 80061; 90471; 90656; 99212

== ENCOUNTER 2025-07-25 09:00 | Outpatient (AMB) | payer MEDICARE, SELFPAY ==
--- OUTSIDE RECORDS SUMMARY | 2024-12-08 06:15 | XMS_ITS ---
Author Organization [facility] [address] Address [address] [place] [address] Care Team Providers Care Divinity Professor Name Role Phone Rachael Collins Unavailable [phone] Encounters Encounter Location Date Provider Diagnosis [facility] [phone] [address] 12/08/2024 Rachael Collins Plan Of Treatment No Information Progress Notes * KERRIADJosse AnginDOB:1960 (64 yo F)Acc No.[id number]:12/08/2024 Progress Notes Patient: Billie COSTELLO Provider: Abigail Collins PA-C :1960 A ge:64 Y S ex:Female Date:12/08/2024 Address:[address] [place], [place] [id number] Subjective: * Chief Complaints: * * Medical History: Objective: * Vitals: Assessment: Plan: * Treatment: * Images: Billing Information: * Visit Code: * Procedure Codes: * Electronic signature of Rachael Collins PA-C on 07/25/2025 at 09:50 AM EST Sign off status: Pending * Provider: Abigail Collins PA-C Date: 0 12/08/2024 Generated for James silva/Dimas/Shajiitting on: 1 09/24/2024 09:50 AM EST
--- NOTE | 2025-07-25 09:06 | MHC.PC.OV ---
Vital Signs 07/25/25 09:13 Height 5 ft 7 in Weight 239 lb 8 oz BMI 37.5 BP 134/86 Blood Pressure Location Rt brachial Position Sitting Respiration 14 Pulse 89 Pulse Source Pulse Oximeter Pulse Oximetry (%) 96 Oxygen Delivery Method Room Air Intake Visit Reasons: follow up 1/2 h Intake Note: Follow up. Having endoscopy Assembly Loader Required: No Allergies semaglutide (From Ozempic) Allergy (Severe, Verified 07/25/25 09:10) Rash Tlobcsn-AYD-WnF Reductase Inhibitor Adverse Reaction (Severe, Verified 07/25/25 09:10) myalgia Tobacco use date assessed: 07/25/25 Dental Screening Dental Screen Date: 04/29/25 HPI HPI Comments History of Present Illness Details The patient is a 64-year-old female with a past medical history of type 2 diabetes, hypertension, hyperlipidemia, RSD, spinal stenosis, post herpetic neuralgia, headaches, IBS/GERD/gastroparesis, prolonged QT presenting for follow up Type 2 diabetes: On metformin, Basaglar, lisinopril. Follows with endocrine Dr Sandhu at [facility] endocrine. A1C 6.4%. Multifactorial neuropathy. Up-to-date on eye exams. Follows regularly with Podiatry, Dr Ibarra. Patient developed severe myalgia with multiple statins in the past, she believes atorvastatin, rosuvastatin and pravastatin. LDL goal <100. She is on repatha Chronic pain: RSD, spinal stenosis, post herpetic neuralgia, diabetic neuropathy, fibromyalgia. Follows with Dr. Neff ongoing transitional medications. Reports that her middle finger has been triggering recently and its bothersome to her. GI: Constipation, gastroparesis, IBS, nausea, GERD. Feeling fairly well. Follows with [facility] December Luis Fernando. Scheduling for upcoming endoscopy : Follows with Ania Nolen in [place]. On prempro. this has been the only effective medication for her significant post menopausal symptoms BH: Stable-follows with [employer] Also follows in allergy/immunology Dr Cordero Mammo: Sep 2024 [facility]. Recent diagnostic mammo and ultrasound was reassuring for right breast fullness and discomfort She will get flu vaccination today ROS see HPI PHYSICAL EXAM: GENERAL: Alert and oriented x 3. NAD EYES: EOMI. Anicteric. HENT: Maxillary sinus tender to palpation bilateral LUNGS: Good air entry. scattered wheezing CARDIOVASCULAR: Regular rate and rhythm. No JVD. ABDOMEN: Soft, non-tender +bs EXTREMITIES: No edema. Non-tender. SKIN: Right axillary fullness No rashes or lesions. Warm. NEUROLOGIC: No focal neurological deficits. CN II-XII grossly intact PSYCHIATRIC: Cooperative. Appropriate mood and affect [facility] Medical History Encounter for annual wellness visit (AWV) in Medicare patient Depression PTSD (post-traumatic stress disorder) Injury of hand, right Right shoulder injury Neck injury Imbalance Memory loss Fatty liver GERD (gastroesophageal reflux disease) IBS (irritable colon syndrome) Thyroid disease Hypercholesterolemia Hammertoe of left foot Controlled diabetes mellitus with diabetic neuropathy, with long-term current use of insulin Diabetic neuropathy Complex regional pain syndrome I Asthma Subacute sinusitis Surgical History S/P insertion of spinal cord stimulator H/O Spinal surgery History of esophagogastroduodenoscopy (EGD) H/O colonoscopy Hx of foot surgery Family History Mother Colon cancer Father Cardiovascular disease Thyroid disorder Throat cancer Alcoholism Psychiatric disorder Maternal Grandmother Asthma Diabetes Cardiovascular disease Maternal Grandfather Cardiovascular disease Paternal Grandfather Cardiovascular disease Sister Cancer of spine Diabetes Brother Tongue cancer Social History Household Members: Spouse and Children Housing: House 75 years or older and lives alone: No Alcohol intake: never Patient Tobacco Use Status: Never used Tobacco e-Cigarette/Vaping Use: Never Used Substance Use Type: Marijuana service: No Current occupational status: disabled Current occupational exposures/hazards: No Cognitive needs: No Hearing needs: Yes (wears hearing aids) Vision needs: Yes (wears glasses) Questionnaire Thrive Questionnaire Date Thrive assessed: 04/27/25 I am a: Patient What is your living situation today?: I have a place to live, but I am worried about losing it in the future Within the past 12 months, did the food you bought not last and you didn't have the money to get more?: Sometimes True Within the past 12 months, did you worry whether your food would run out before you got money to buy more?: Sometimes True Do you have trouble paying for medicines?: No Do you have trouble getting transportation to medical appointments?: Yes Do you have trouble paying your heating and electricity bill?: Yes Do you have trouble taking care of your child, family member or friend?: Yes Do you have trouble with day-to-day activities such as bathing, preparing meals, shopping, managing finances, etc.?: Yes Are you currently unemployed and looking for a job?: I choose not to answer this question Are you interested in more education?: Yes Currently or been in a relationship where the following occur: No concerns reported THRIVE Score: 5 AUDIT C Alcohol Use Questionnaire (AUDIT-C) 1. How often do you have a drink containing alcohol?: Never 3. How often do you have six or more drinks on one occasion?: Never Total Score: 0 OLYA-7 AMB Questionnaire OLYA-7 Date OLYA - 7 assessed: 05/14/24 Source: Developed by Drs. Tonio Hawkins, Medina Mcdaniel, Bolivar Denis and colleagues, with an educational luz from [employer]. Physical exam (Primary Care) Vital Signs: Last Vital Signs Pulse 89 07/25/25 09:13 Resp 14 07/25/25 09:13 BP 134/86 07/25/25 09:13 Pulse Ox 96 07/25/25 09:13 Oxygen Delivery Method Room Air 07/25/25 09:13 BMI result Body Mass Index 37.5 Tobacco/Smoking Status: Tobacco use Status Tobacco use date assessed 07/25/25 07/25/25 09:15 Patient Tobacco Use Status Never used Tobacco 07/25/25 09:06 e-Cigarette/Vaping Use Never Used 07/25/25 09:06 Thrive Assessment: Date of Thrive Assessment Date Thrive assessed 04/27/25 07/25/25 09:06 Currently or been in a relationship where the following occur: No concerns reported Office Procedures Flu Questionnaire Does the patient have a severe egg allergy?: No Does the patient have severe life threatening allergies?: No Does the patient have a fever or illness today?: No Has the patient ever had Guillain-Frisco Syndrome?: No Has the patient ever had any past reaction to a flu shot?: No Immunizations Fluarix (PF) 45 mcg (15 mcg x 3)/0.5 mL IM syringe Performing Provider: Nargis Belcher MD Performing Location: [facility] Family Medicine Administered by: Myra Garduno CMA on 07/25/25 10:36 Dose Route Admin Location Dispensed Lot Number Expiration Date NDC [employer] Worker 0.5 mL IM Right Deltoid 0.5 mL [id number] 03/21/26 [id number] [employer] VIS Given Date VIS Provided VIS Publication Date 07/25/25 Single Vaccine 24 Eligibility Eligibility Date Funding Source Not [facility] Eligible 07/25/25 Private Coding Level of Care Code Est Pt Level 4 (25463) Complex EM visit Add On G2211 Diagnoses Controlled type 2 diabetes mellitus with diabetic neuropathy, with long-term current use of insulin E11.40; Z79.4 Diabetes mellitus type: type 2 Hypothyroidism, unspecified type E03.9 Hypothyroidism type: unspecified Gastroesophageal reflux disease, unspecified whether esophagitis present K21.9 Esophagitis presence: esophagitis presence not specified Complex regional pain syndrome type 1 of lower extremity, unspecified laterality G90.529 Complex regional pain syndrome affected site: lower extremity Laterality: unspecified laterality Assessment & Plan Assessment & Plan (1) Controlled diabetes mellitus with diabetic neuropathy, with long-term current use of insulin: Code(s): E11.40 - Type 2 diabetes mellitus with diabetic neuropathy, unspecified; Z79.4 - termite control representative (current) use of insulin Category: Medical Qualifiers: Diabetes mellitus type: type 2 Qualified Code(s): E11.40 - Type 2 diabetes mellitus with diabetic neuropathy, unspecified; Z79.4 - care home (current) use of insulin (2) Hypothyroid: Code(s): E03.9 - Hypothyroidism, unspecified Category: Medical Qualifiers: Hypothyroidism type: unspecified Qualified Code(s): E03.9 - Hypothyroidism, unspecified (3) GERD (gastroesophageal reflux disease): Code(s): K21.9 - Gastro-esophageal reflux disease without esophagitis Category: Medical Qualifiers: Esophagitis presence: esophagitis presence not specified Qualified Code(s): K21.9 - Gastro-esophageal reflux disease without esophagitis (4) Complex regional pain syndrome I: Code(s): G90.50 - Complex regional pain syndrome I, unspecified Category: Medical Qualifiers: Complex regional pain syndrome affected site: lower extremity Laterality: unspecified laterality Qualified Code(s): G90.529 - Complex regional pain syndrome I of unspecified lower limb Plan 64 year old female presenting for follow up Diabetes is well controlled. continues endocrine follow up Trigger finger-referral ortho Chronic pain-continue follow up with pain management. Orders: Orders Lipid Panel Today E11.40 - Type 2 diabetes mellitus with diabetic neuropathy, unspecified, E11.42 - Type 2 diabetes mellitus with diabetic polyneuropathy, R00.2 - Palpitations, Z79.4 - care home (current) use of insulin Comprehensive Met. Panel Today E11.40 - Type 2 diabetes mellitus with diabetic neuropathy, unspecified, E11.42 - Type 2 diabetes mellitus with diabetic polyneuropathy, R00.2 - Palpitations, Z79.4 - termite control representative (current) use of insulin Influenza [id number] Immunization Today Z23 - Encounter for immunization Referrals Orthopedics Referral M65.30 - Trigger finger, unspecified finger
[2025-07-25 09:13] VITALS: BP 134/86; PULSE 89; RESP 14; O2SAT 96; BMI 37.5
--- OUTSIDE RECORDS SUMMARY | 2025-07-25 09:51 | XMS_ITS | Data Portability ---
Author Organization [place] - [facility], Allergy Address [address] [address] Care Team Providers Care Stave Log Ripsaw Operator Name Role Phone AlbertoSEKOU BYRD Primary Care Provider Assessment Encounter Date Assessment Date Assessment LastModified by Organization Details LastModified Time 02/02/2025 02/02/2025 Follow up with referring provider. [email or web address] Not available 02/02/2025 10:54:41 02/02/2025 02/02/2025 Physical [...] she should continue to follow-up with her hand packer at [facility] audiology for hearing aid maintenance. Recommended against [...] Sensorine ural hearing loss of bilateral ears 120994193 Active 2019 Sensorine ural hearing loss, bilateral ; Note: Date Diagnosed : 05/24/2020 2:38 PM (H90.3) Not Available [facility] 4 03:18:14 Pharyngea l dysphagia 04146640633 105 Active 2022 Dysphagia , pharyngea l phase; Note: Date Diagnosed : 05/23/2023 12:17 PM (R13.13) Not Available [facility] 4 03:18:15 Bilateral tinnitus 41805840013 02 Active 2022 Tinnitus, bilateral ; Note: Date Diagnosed : 05/23/2023 12:16 PM (H93.13) Not Available [facility] 4 03:18:14 Referred otalgia of right ear 02155937413 69941 Active 2024 REGINALD AUGUSTIN MD [address] [facility],[place] [address], [place], [address] , [facility] - [facility] 10:34:41 Chronic sore throat 856666645 Active 2024 REGINALD AUGUSTIN MD [address] [facility],[place] [address], [place], [address] , [facility] - [facility] 5 10:35:26 Excessive gastric reflux 268407543 Active 2024 REGINALD AUGUSTIN MD [address] [facility],[place] [address], [place], [address] , [facility] - [facility] 5 10:35:35 Problem Notes None recorded. Procedures Surgical History Date Name Laterality Status Provider Name and Address Organization Details Recorded Time 02/02/2025 Air & Speech Audio with Tymps - 48416, 59579 & 43662 completed Alexander VELAZQUEZ [address] [facility],[address], [place], [address], [facility] - [facility] 02/02/2025 10:54:41 Imaging Results None recorded. Procedure Notes None recorded. Medical Equipment None Reported. Allergies Allergen ID Allergen Name Allergen Category Reaction Reaction Severity Criticality Documentation Date Start Date Code Code System Note Provider Name and Address Organization Details Recorded Time [id number] contact metal agent environme nt Not available Not available Not available 02/02/2025 Simran alcala [place] [facility] 5 10:05:12 [id number] Ozempic medicatio n Not available Not available Not available 02/02/2025 07 RxNorm Simran alcala [facility] 5 10:12:46 Medications Name Sig Start [...] mg tablet 02/02 completed Medicati on ID: [id number] D uration Value: 90 Brand Name: gabapent in Send Method: E-Prescr ibed Sub s Allowed: subs OK Medic ationGen ericName : gabapent in Not Available Not Available Not Available metoprolo l succinate ER 50 mg tablet,ex tended release 24 hr 02/02 completed Medicati on ID: [id number] D uration Value: 90 Brand Name: metoprol [...] 24 hr 02/02 completed Medicati on ID: [id number] D uration Value: 90 Brand Name: glipizid [...] topical cream 02/02 completed Medicati on ID: [id number] D uration Value: 30 Brand Name: lidocain [...] tended release 02/02 completed Medicati on ID: [id number] D uration Value: 28 Brand Name: morphine [...] release tablet 02/02 completed Medicati on ID: [id number] D uration Value: 14 Brand Name: morphine [...] topical patch 02/02 completed Medicati on ID: [id number] D uration Value: 30 Brand Name: lidocain [...] mg capsule 02/02 completed Medicati on ID: [id number] D uration Value: 20 Brand Name: Marinol [...] mg tablet 02/02 completed Medicati on ID: [id number] D uration Value: 90 Brand Name: rosuvast [...] ICD10 Code Diagnosis IMO Codes Diagnosis Note [id number] REGINALD AUGUSTIN MD [facility] [address] [address] 02/02/2025 09:39:21 02/02/2025 11:30:21 Referred otalgia of right ear [id number] 340468 H92.01 M26.621 M79.11 The patient complains of [...] be considered . Chronic sore throat 2754 30359 J31.2 2579 Patient with chronic sore throat and intermitte nt hoarseness in the context of poorly controlled gastroesop hageal reflux disease. LPR brochure discussed with patient. Recommend follow-up with her gastroente rologist for better control of her reflux symptoms. Excessive gastric reflux [id number] K21.9 [id number] Sensorineu ral hearing loss of bilateral ears 293665275 H90.3 Audiologic al evaluation results: Right ear: Normal hearing from 250 through 1000 Hz sloping to a moderately severe sensorineu ral hearing loss with excellent word recognitio n. Left ear: Normal hearing from 250 through 1500 Hz sloping to a moderately severe sensorineu ral hearing loss with excellent word recognitio n. Tympanomet ry: Right Ear:Type A Left Ear:Type A [id number] Alexander VELAZQUEZ [facility] [address] [address] 02/02/2025 10:54:26 02/03/2025 11:11:49 Sensorineural hearing loss of bilateral ears 434579178 H90.3 Audiologic al evaluation results: Right ear: [...] ID Guarantor Name 02/02/2025 2 [place] [facility] Billie Kelly [id number] Billie Kelly 02/02/2025 2 [place] [id number] Billie Kelly [id number] Billie Kelly 02/02/2025 1 [place] B[place] [facility] Billie Kelly [id number] Billie Kelly Notes Date Note Type Note Provider Name and Address Organization Details Recorded Time 02/02/2025 text/html Patient previously seen by Dr. Renee back in May 2023 for evaluation of fluctuating nonpulsatile bilateral tinnitus in the context of mid and high-frequency sensorineural hearing loss. Amplification recommended to mitigate the hearing loss and tinnitus. Patient did get binaural amplification dispensed at [facility] audiology.Patient reports chronic dry soreness in her throat. She has gastroesophageal reflux disease and is seeing a pressroom worker for this. She has no nasal congestion.Patient also reports intermittent right sided periauricular discomfort which refers into her jaw and gnosticism area. She is currently using dentures which do not fit very well. She has an appointment coming up with her dentist. Patient notices intermittent ear blockage sensation. She was told by her primary care physician that there was fluid in her ears. REGINALD AUGUSTIN MD [address], [address], [facility] - [facility] 02/02/2025 11:30:11 02/02/2025 text/html Audiological Teresa luation HPIReported by PatientHearing LossFor hearing loss perceived, patient reportshearing loss in both ears (no differences noted between ears).Use of amplification or other hearing devicesFor use of amplification or other hearing devices, patient reportshearing aid use in both ears. Alexander VELAZQUEZ [address] [facility],[address], [address], [facility] - [facility] 02/02/2025 11:08:20 OBGyn Episode No OBEpisode recorded.
--- OUTSIDE RECORDS SUMMARY | 2025-07-25 09:51 | XMS_ITS | Patient Health Record ---
Author Organization [facility] Address [address] [place] [address] Care Team Providers Care Cell Biologist Name Role Phone Rachael Collins Unavailable [phone] Reason For Referral No Information Plan Of Treatment No Information Insurance Providers Payer Name Payer Address Payer Phone Subscriber Number Group Number Insured Name Patient Relationship to Insured Coverage Start Date Coverage End Date Medicare Part B [id number] [address] [place], [place] [id number] [phone] [id number] Billie Kelly Self - patient is the insured MEDEX [address] [place] [address] [phone] [id number] Billie Kelly Self - patient is the insured
== END 2025-07-25 09:56 | disposition home or self-care (01) ==
LOC: HO.HMCFM 09:01
PROVIDERS: PCP Internal Medicine; Visit Provider Internal Medicine
DX: E11.40 Type 2 diabetes mellitus with diabetic neuropathy, unspecified (principal); Z79.4 Long term (current) use of insulin; E03.9 Hypothyroidism, unspecified; K21.9 Gastro-esophageal reflux disease without esophagitis; G90.529 Complex regional pain syndrome I of unspecified lower limb; Z23 Encounter for immunization

== ENCOUNTER 2025-07-28 06:50 | Day surgery (SDC) | payer MEDICARE, SELFPAY ==
--- OUTSIDE RECORDS SUMMARY | 2024-12-08 07:15 | XMS_ITS ---
Author Organization [facility] [address] Address [address] [place] [address] Care Team Providers Care Beef Tagger Name Role Phone Rachael Collins Unavailable [phone] Encounters Encounter Location Date Provider Diagnosis [facility] [address] [address] 12/08/2024 Rachael Collins Plan Of Treatment No Information Progress Notes * KERRIADJosse AnginDOB:1960 (64 yo F)Acc No.[id number]:12/08/2024 Progress Notes Patient: Billie COSTELLO Provider: Abigail Collins PA-C :1960 A ge:64 Y S ex:Female Date:12/08/2024 Address:[address] [place], [place] [phone] Subjective: * Chief Complaints: * * Medical History: Objective: * Vitals: Assessment: Plan: * Treatment: * Images: Billing Information: * Visit Code: * Procedure Codes: * Electronic signature of Rachael Collins PA-C on 06/28/2025 at 07:30 AM EDT Sign off status: Pending * Provider: Abigail Collins PA-C Date: 0 12/08/2024 Generated for James silva/Dimas/Shajiitting on: 1 07:30 AM EDT
--- OUTSIDE RECORDS SUMMARY | 2025-06-28 07:30 | XMS_ITS | Encounter Summary ---
Author Organization [facility] Address [address] [place] [address] Care Team Providers Care Joy Loading Machine Operator Name Role Phone Nargis Siegel MD Primary Care Provider Unavaila ble [facility], Pcp Primary Care Provider Daphney Velasquez MD Unavailable [phone] Nargis Siegel MD Primary Care Provider Unavaila ble [facility], Pcp Primary Care Provider Unavailabl e Nargis Siegel MD Primary Care Provider Unavaila [facility], Pcp Primary Care Provider Unavailabl e [facility], Pcp Primary Care Provider Unavailabl e Encounter Details Date Type Department Care Team Description 10/23/2017 Clinical Audiologist Report Medical Records [address] [place] [id number] Dorian Neff MD Social History Tobacco Use Types Packs/Day Years [...] on filedocumented in this encounter Care Teams Joy Loading Machine Operator Relationship Specialty Start Date End Date Nargis [...]
--- OUTSIDE RECORDS SUMMARY | 2025-06-28 07:30 | XMS_ITS | Encounter Summary ---
Author Organization [facility] Address [address] [place] [address] Care Team Providers Care Ballistics Laboratory Gunsmith Name Role Phone Nargis Siegel MD Primary Care Provider Unavaila ble [facility], Pcp Primary Care Provider Unavailabl e Daphney Velázquez MD Unavailable [phone] Nargis Siegel MD Primary Care Provider Unavaila ble [facility], Pcp Primary Care Provider Unavailabl e Nargis Siegel MD Primary Care Provider Unavaila [facility], Pcp Primary Care Provider Unavailabl e [facility], Pcp Primary Care Provider Unavailabl e Reason for Referral * EXTERNAL (Urgent) - Authorized/Booked Specialty Diagnoses / Procedures Referred By Sindy paredes Referred To Contact Optometry / OPTOMETRY Procedures REFERRAL TO EYE SERVICES Nargis Siegel MD [address] [place] [address] Eugene Hinton, OD 299 [facility] [address] [place] [address] Referral ID Status Reason Start Date Expiration Date V isits Requested Visits Authorized SEE NOTE Authorized/B ooked 07/31/2017 11/01/2017 1 1 Reason for Visit * Reason Onset Date Comments Claim Clinician Feedback 07/31/2017 Dr. Eugene Hinton Encounter Details Date Type Department Care Team Description 07/31/2017 Telephone Medicine/Pediatrics - [address] [phone] Nargis Siegel MD Claim Clinician Feedback (Dr. Eugene Hinton) Social History Tobacco Use Types Packs/Day Years Used Date Smoking Tobacco: Never Smokeless Tobacco: Never Alcohol Use Standard Drinks/Week Comments No 0 (1 standard drink = 0.6 oz pur e alcohol) Sex Assigned at Date Recorded Not on file Job Start Date Occupation Industry Not on file Not on file Not on file documented as of this encounter Miscellaneous Notes * Telephone Encounter - Domitila Sabiha - 07/31/2017 9:21 AM EST Please review this patients new referral request. The referral has been pended. Please complete thefollowing: If approved> sign order If denied>please give instructions and route to your practice nursing pool. Practice nurse should inform referrals and the patient if denied. * Telephone Encounter - Veronica Palumbopenny - 07/31/2017 9:12 AM EST What insurance does the patient have today? BCBS plan Effective 06/22/09: [facility] will not retro referral requests over 90 days. If request is for this please instruct patient to call the 800# on their insurance card to appeal. Do not submit a request. Referrals cannot be processed if the insurance is not accurate. If the insurance listed above in red is NO BILLING INFORMATION FOUND FOR THIS ENCOUTNER The patients correct insurance must be obtained and registered in [facility] or their referral can not be processed. Is this a retro request? NO. If yes for what date of service do you need the retro referral? N/A Who is calling to request this referral? Pt If the caller is not the patient, what is their name? N/A Ask the patient WHO referred them to this specialty: Patient self referred FIRST and LAST NAME of SPECIALIST PATIENT is seeing: Dr. Eugene Hinton What specialty is this? Opthomology DIAGNOSIS Patient is being seen for (Not a body part or a procedure): Diabetic eye exam Have you seen this SPECIALIST for this PROBLEM/DX before?NO If YES, when: Have you checked REVIEW or the APPT DESK to see if this referral has already been done or has visits left? YES Is this visit:Initial Visit Address of Specialist:[address] [place] [address] [place] Phone # of Specialist:[phone] Fax #: (if applicable): Does patient have an appointment scheduled?: YES Date of appointment- (including a retro-request): 08/01 at 2:45 Is this appointment related to: Not MVA, WC or Surgery related documented in this encounter Plan of Treatment Not on file documented as of this encounter Visit Diagnoses Not on filedocumented in this encounter Care Teams Ballistics Laboratory Gunsmith Relationship Specialty Start Date End Date Nargis Siegel MD PCP - General Internal Medicine 07/28/15 12/18/20 [facility], Pcp PCP - General Internal Medicine 12/19/20 01/03/21 Nargis Siegel MD PCP - General Internal Medicine 01/04/21 02/19/21 [facility], Pcp PCP - General Internal Medicine 02/20/21 05/24/21 Nargis Siegel MD PCP - General Internal Medicine 05/25/21 08/05/21 [facility], Pcp PCP - General Internal Medicine 08/06/21 12/03/21 [facility], Pcp PCP - General Internal Medicine 12/18/21 Daphney Velázquez MD Specialist Cardiology 12/28/20 documented as of this encounter
--- OUTSIDE RECORDS SUMMARY | 2025-06-28 07:30 | XMS_ITS | Encounter Summary ---
Author Organization [facility] Address [address] [place] [address] Care Team Providers Care Plan Rep Name Role Phone Nargis Siegel MD Primary Care Provider Unavaila ble [facility], Pcp Primary Care Provider Unavailashly e Daphney Velázquez MD Unavailable Nargis Siegel MD Primary Care Provider Unavaila ble [facility], Pcp Primary Care Provider Unavailabl e Nargis Siegel MD Primary Care Provider Unavaila ble [facility], Pcp Primary Care Provider Unavailabl e [facility], Pcp Primary Care Provider Unavailabl e Reason for Visit * Reason Onset Date Comments Cancelled Procedure 08/09/2020 Encounter Details Date Type Department Care Team Description 08/09/2020 Telephone Gastroenterology - [address] [phone] Basil Snyder MD Cancelled Procedure Social History Tobacco Use Types Packs/Day Years [...] encounter Miscellaneous Notes * Telephone Encounter - Kaitlynn Berkowitz - 08/10/2020 7:54 AM EST Left message to see if patient wanted to reschedule * Telephone Encounter - Ginger Ayala - 08/09/2020 4:57 PM EST Patient is calling to cancel scheduled surgery: Date of Surgery: 08/10/2020 Location of Surgery: [facility] Provider performing Surgery: Dr Snyder Type of Surgery: Colonoscopy Reason for cancellation: Patient is sick Patient wishes to reschedule: YES documented in this encounter Plan of Treatment Not on file documented as of this encounter Visit Diagnoses Not on filedocumented in this encounter Care Teams Plan Rep Relationship Specialty Start Date End Date Nargis Siegel MD PCP - General Internal Medicine 07/28/15 12/18/20 [facility], Pcp PCP - General Internal Medicine 12/19/20 01/03/21 Nargis Siegel MD PCP - General Internal Medicine 01/04/21 02/19/21 [facility], Pcp PCP - General Internal Medicine 02/20/21 05/24/21 Nargis Siegel MD PCP - General Internal Medicine 05/25/21 08/05/21 [facility], Pcp PCP - General Internal Medicine 08/06/21 12/03/21 [facility], Pcp PCP - General Internal Medicine 12/18/21 Daphney Velázquez MD Specialist Cardiology 12/28/20 documented as of this encounter
--- OUTSIDE RECORDS SUMMARY | 2025-06-28 07:30 | XMS_ITS | Encounter Summary ---
Author Organization [facility] Address [address] [place] [address] Care Team Providers Care Manager Cleaning Name Role Phone Nargis Siegel MD Primary Care Provider Unavaila libia [facility], Pcp Primary Care Provider UnavailDaphney Ghotra MD Unavailable [phone] Nargis Siegel MD Primary Care Provider Unavaila ble [facility], Pcp Primary Care Provider Unavailabl e Nargis Siegel MD Primary Care Provider Unavaila [facility], Pcp Primary Care Provider Unavailabl e [facility], Pcp Primary Care Provider Unavailabl e Encounter Details Date Type Department Care Team Description 09/04/2017 Leasing Consultant Report Medical Records [address] [place] [phone] Services, [facility] Pain Management [address] [address] Social History Tobacco Use Types Packs/Day Years [...] on filedocumented in this encounter Care Teams Manager Cleaning Relationship Specialty Start Date End Date Nargis [...]
--- OUTSIDE RECORDS SUMMARY | 2025-06-28 07:30 | XMS_ITS | Encounter Summary ---
Author Organization [facility] Address [address] [place] [address] Care Team Providers Care Signal Wirer Name Role Phone Nargis Siegel MD Primary Care Provider Unavaila ble [facility], Pcp Primary Care Provider Unavailashly e Daphney Velázquez MD Unavailable [phone] Nargis Siegel MD Primary Care Provider Unavaila ble [facility], Pcp Primary Care Provider Unavailabl e Nargis Sigeel MD Primary Care Provider Unavaila ble [facility], Pcp Primary Care Provider Unavailabl e [facility], Pcp Primary Care Provider Unavailabl e Encounter Details Date Type Department Care Team Description 10/22/2017 Hand Endband Cutter Report Medical Records [address] [place] [phone] Natalia David MD [address] [place] [phone] Social History Tobacco Use Types Packs/Day Years [...] on filedocumented in this encounter Care Teams Signal Wirer Relationship Specialty Start Date End Date Nargis Siegel MD PCP - General Internal Medicine 07/28/15 12/18/20 [facility], Pcp PCP - General Internal Medicine 12/19/20 01/03/21 Nargis Siegel MD PCP - General Internal Medicine 01/04/21 02/19/21 [facility], Pcp PCP - General Internal Medicine 02/20/21 05/24/21 Nargis Siegel MD PCP - General Internal Medicine 05/25/21 08/05/21 [facility], Pcp PCP - General Internal Medicine 08/06/21 12/03/21 [facility], Pcp PCP - General Internal Medicine 12/18/21 Daphney Velázquez MD Specialist Cardiology 12/28/20 documented as of this encounter
--- OUTSIDE RECORDS SUMMARY | 2025-06-28 07:30 | XMS_ITS | Encounter Summary ---
Author Organization [facility] Address [address] [place] [address] Care Team Providers Care Vehicle Fuel Systems Converter Name Role Phone Nargis Siegel MD Primary Care Provider Unavaila ble [facility], Pcp Primary Care Provider UnavailDaphney Ghotra MD Unavailable [phone] Nargis Siegel MD Primary Care Provider Unavaila ble [facility], Pcp Primary Care Provider Unavailabl e Nargis Siegel MD Primary Care Provider Unavaila [facility], Pcp Primary Care Provider Unavailabl e [facility], Pcp Primary Care Provider Unavailabl e Encounter Details Date Type Department Care Team Description 09/20/2020 Telephone Adult [address] [address] Kelsie Azevedo PA-C Social History Tobacco Use Types Packs/Day Years Used Date Smoking Tobacco: Never Smokeless Tobacco: Never Alcohol Use Standard Drinks/Week Comments No 0 (1 standard drink = 0.6 oz pur e alcohol) Sex Assigned at Date Recorded Not on file Job Start Date Occupation Industry Not on file Not on file Not on file COVID-19 Exposure Response Date Recorded In the last month, have you been in contact with someone who was confirmed or suspected to have Coronavirus / COVID-19? No / Unsure 09/20/2020 3:40 PM EST documented as of this encounter Miscellaneous Notes * Telephone Encounter - Grecia Bocanegra L.P.N. - 10/09/2020 2:31 PM EST Patient ended up being seen on 10/04 * Telephone Encounter - Grecia Bocanegra L.P.N. - 09/27/2020 5:12 PM EST appt scheduled for 10/04 at 1.30pm. Patient was advised to call and be seen in adult med if she feltshe couldn't wait to see podiatry. * Telephone Encounter - Elena Quintanilla - 09/25/2020 3:35 PM EST Patient called she needs to be seeing soon , her toe is not getting any better and she is in a lot of pain her toe is very red and swollen and there is clear liquid coming out. Please contact patientas soon as can see her. * Telephone Encounter - Grecia Bocanegra L.P.N. - 09/21/2020 9:[address] Chavez, I have no openings for you this coming week.Could you get her on your schedule at your private office. She has Medicare and Medicaid * Telephone Encounter - Kelsie Azevedo PA-C - 09/20/2020 4:31 PM EST Patient had visit with myself today, has evidence of diabetic foot infection. She did have ulceration on exam I ordered x-ray and started on Augmentin. She is normally under the care of Dr. Cahvez, can we try and get her an appointment to be reevaluated within the next 1 to 2 weeks? documented in this encounter Plan of Treatment Not on file documented as of this encounter Visit Diagnoses Not on filedocumented in this encounter Care Teams Vehicle Fuel Systems Converter Relationship Specialty Start Date End Date Nargis Siegel MD PCP - General Internal Medicine 07/28/15 12/18/20 [facility], Pcp PCP - General Internal Medicine 12/19/20 01/03/21 Nargis Siegel MD PCP - General Internal Medicine 01/04/21 02/19/21 [facility], Pcp PCP - General Internal Medicine 02/20/21 05/24/21 Nargis Siegel MD PCP - General Internal Medicine 05/25/21 08/05/21 [facility], Pcp PCP - General Internal Medicine 08/06/21 12/03/21 [facility], Pcp PCP - General Internal Medicine 12/18/21 Daphney Velázquez MD Specialist Cardiology 12/28/20 documented as of this encounter
--- OUTSIDE RECORDS SUMMARY | 2025-06-28 07:30 | XMS_ITS | Encounter Summary ---
Author Organization [facility] Address [address] [place] [address] Care Team Providers Care Absorption Operator Name Role Phone Nargis iSegel MD Primary Care Provider Unavaila [facility], Pcp Primary Care Provider UnavailDaphney Ghotra MD Unavailable [phone] Nargis Siegel MD Primary Care Provider Unavaila [facility], Pcp Primary Care Provider Unavailabl e Nargis Siegel MD Primary Care Provider Unavaila [facility], Pcp Primary Care Provider Unavailabl e [facility], Pcp Primary Care Provider Unavailabl e Encounter Details Date Type Department Care Team Description 09/18/2020 Beef Farmer Report Medical Records [address] [place] [id number] Dorian Neff MD Social History Tobacco Use [...] PM EST documented as of this encounter Plan of Treatment Not on file documented as of this encounter Visit Diagnoses Not on filedocumented in this encounter Care Teams Absorption Operator Relationship Specialty Start Date End Date [...]
--- OUTSIDE RECORDS SUMMARY | 2025-06-28 07:30 | XMS_ITS | Encounter Summary ---
Author Organization [facility] Address [address] [place] [address] Care Team Providers Care Abrasive Grader Helper Name Role Phone Nargis Siegel MD Primary Care Provider Unavaila [facility], Pcp Primary Care Provider UnavailDaphney Ghotra MD Unavailable Nargis Siegel MD Primary Care Provider Unavaila [facility], Pcp Primary Care Provider Unavailabl e Nargis Siegel MD Primary Care Provider Unavaila [facility], Pcp Primary Care Provider Unavailabl e [facility], Pcp Primary Care Provider Unavailabl e Encounter Details Date Type Department Care Team Description 12/05/2020 Bow Tacker Report Medical Records [address] [place] [address] Dorian Neff MD Social History Tobacco Use [...] have Coronavirus / COVID-19? No / Unsure 12/06/2020 2:09 PM EDT documented as of this encounter Plan of Treatment Not on file documented as of this encounter Visit Diagnoses Not on filedocumented in this encounter Care Teams Abrasive Grader Helper Relationship Specialty Start Date End Date Nargis Siegel MD PCP - General Internal Medicine 07/28/15 12/18/20 [facility], Pcp PCP - General Internal Medicine 12/19/20 01/03/21 Nargis Siegel MD PCP - General Internal Medicine 01/04/21 02/19/21 [facility], Pcp PCP - General Internal Medicine 02/20/21 05/24/21 Nargis Siegel MD PCP - General Internal Medicine 05/25/21 08/05/21 [facility], Pcp PCP - General Internal Medicine 08/06/21 12/03/21 [facility], Pcp PCP - General Internal Medicine 12/18/21 Daphney Velázquez MD Specialist Cardiology 12/28/20 documented as of this encounter
--- OUTSIDE RECORDS SUMMARY | 2025-06-28 07:31 | XMS_ITS | Encounter Summary ---
Author Organization [facility] Address [address] [place] [address] Care Team Providers Care Fleet Service Clerk Name Role Phone Nargis Siegel MD Primary Care Provider Unavaila ble [facility], Pcp Primary Care Provider UnavailDaphney Ghotra MD Unavailable [phone] Nargis Siegel MD Primary Care Provider Unavaila ble [facility], Pcp Primary Care Provider Unavailabl e Nargis Siegel MD Primary Care Provider Unavaila [facility], Pcp Primary Care Provider Unavailabl e [facility], Pcp Primary Care Provider Unavailabl e Encounter Details Date Type Department Care Team Description 05/24/2020 Fitness Director Report Medical Records [address] [place] [id number] Zach Thornton MD Social History Tobacco Use Types Packs/Day [...] on filedocumented in this encounter Care Teams Fleet Service Clerk Relationship Specialty Start Date End Date Nargis [...]
--- OUTSIDE RECORDS SUMMARY | 2025-06-28 07:31 | XMS_ITS | Encounter Summary ---
Author Organization [facility] Address [address] [place] [address] Care Team Providers Care Shift Engineer Name Role Phone Basil Zabala MD Primary Care Provider Unavail able Nargis Siegel MD Primary Care Provider Unavaila [facility], Pcp Primary Care Provider Leola e Daphney Velázquez MD Unavailable [phone] Nargis Siegel MD Primary Care Provider Unavaila [facility], Pcp Primary Care Provider UnavailNargis Rahman MD Primary Care Provider Unavaila [facility], Pcp Primary Care Provider Unavailabl e [facility], Pcp Primary Care Provider Unavailabl e Encounter Details Date Type Department Care Team Description 03/22/2010 Mailroom Courier Report Medical Records [address] [place] [id number] Maki, Britt Social History Tobacco Use Types Packs/Day Years Used Date Smoking Tobacco: Never Alcohol Use Standard Drinks/Week Comments [...] on filedocumented in this encounter Care Teams Shift Engineer Relationship Specialty Start Date End Date Basil Zabala MD PCP - General 06/22/1995 07/27/15 Nargis Siegel MD PCP - General Internal [...]
--- OUTSIDE RECORDS SUMMARY | 2025-06-28 07:31 | XMS_ITS | Encounter Summary ---
Author Organization [facility] Address [address] [place] [address] Care Team Providers Care Wood Lathe Operator Name Role Phone Basil Zabala MD Primary Care Provider Unavail able Nargis Siegel MD Primary Care Provider Unavaila [facility], Pcp Primary Care Provider Leola e Daphney Velázquez MD Unavailable [phone] Nargis Siegel MD Primary Care Provider Unavaila [facility], Pcp Primary Care Provider Unavailashly e Nargis Siegel MD Primary Care Provider Unavaila [facility], Pcp Primary Care Provider Unavailabl e [facility], Pcp Primary Care Provider Unavailabl e Encounter Details Date Type Department Care Team Description 03/16/2014 Orders Only Medicine/Pediatrics - [address] [phone] Basil Zabala MD Social History Tobacco Use Types Packs/Day [...] on filedocumented in this encounter Care Teams Wood Lathe Operator Relationship Specialty Start Date End Date Basil Zabala MD PCP - General 06/22/1995 07/27/15 Nargis Siegel MD PCP - General Internal Medicine 07/28/15 12/18/20 [facility], Pcp PCP - General Internal Medicine 12/19/20 [...]
--- OUTSIDE RECORDS SUMMARY | 2025-06-28 07:31 | XMS_ITS | Data Portability ---
Author Organization [place] - [facility], Allergy Address [address] [address] Care Team Providers Care Pneumatic Tester Mechanic Name Role Phone AlbertoSEKOU BYRD Primary Care Provider Assessment Encounter Date Assessment Date Assessment LastModified by Organization Details LastModified Time 02/02/2025 02/02/2025 Follow up with referring provider. [email or web address] Not available 02/02/2025 10:54:41 02/02/2025 02/02/2025 Physical exam of the ears today is normal. She has naturally thickened and slightly scarred tympanic membranes which gives the appearance of middle ear effusion when in fact the middle ear spaces are aerated. Audiometric testing today shows similar sensorineural hearing loss in comparison to her last audiogram a year and a half ago. Normal tympanometry, indicative of aerated middle ear spaces. I gave her reassurance that her hearing is stable and that she should continue to follow-up with her bulb filler at [facility] audiology for hearing aid maintenance. Recommended against use of Q-tips to mitigate itchiness symptoms. [email or web address] Not available 02/02/2025 11:29:52 Plan of Treatment Reminders Order Date Submit Date Provider Last Modified By Organization Details Last Modified Time Details Appointments None record ed. Lab None record ed. Referral None record ed. Procedures None record ed. Surgeries None record ed. Imaging None record ed. Medication Orders None record ed. Patient TargetsNo targets recorded. Patient InstructionsNo instructions recorded. Reason for Referral None Reported. Results Created Date Observation Date Name Description Value Unit Range Abnormal Flag Note LastModifiedBy Organization Detail LastModifiedTime 02/03/20 25 audio gram No observ ation record ed. BARCODE Not Available 2024 12:04:23 Result Notes None recorded. Problems Name Problem SNOMED Code Status Onset Date Resolution Date Notes Provider Name and Address Organization Details Recorded Time Sensorine ural hearing loss of bilateral ears 612017617 Active 2019 Sensorine ural hearing loss, bilateral ; Note: Date Diagnosed : 05/24/2020 2:38 PM (H90.3) Not Available [facility] 4 03:18:14 Pharyngea l dysphagia [id number] 105 Active 2022 Dysphagia , pharyngea l phase; Note: Date Diagnosed : 05/23/2023 12:17 PM (R13.13) Not Available [facility] 4 03:18:15 Bilateral tinnitus 54648490081 02 Active 2022 Tinnitus, bilateral ; Note: Date Diagnosed : 05/23/2023 12:16 PM (H93.13) Not Available [facility] 4 03:18:14 Referred otalgia of right ear 02754424042 62706 Active 2024 REGINALD AUGUSTIN MD [address] [facility],[place] [address], [place], [address] , [facility] - [facility] [place] 10:34:41 Chronic sore throat 409913172 Active 2024 REGINALD AUGUSTIN MD [address] [facility],[place] [address], [place], [address] , [facility] - [facility] [place] 5 10:35:26 Excessive gastric reflux 833634869 Active 2024 REGINALD AUGUSTIN MD [address] [facility],[place] [address], [place], [address] , [facility] - [facility] [place] 5 10:35:35 Problem Notes None recorded. Procedures Surgical History Date Name Laterality Status Provider Name and Address Organization Details Recorded Time 02/02/2025 Air & Speech Audio with Tymps - 14904, 88624 & 16707 completed Alexander VELAZQUEZ [address] [facility],[address], [place], [address], [facility] - [facility] [place] 02/02/2025 10:54:41 Imaging Results None recorded. Procedure Notes None recorded. Medical Equipment None Reported. Allergies Allergen ID Allergen Name Allergen Category Reaction Reaction Severity Criticality Documentation Date Start Date Code Code System Note Provider Name and Address Organization Details Recorded Time [id number] contact metal agent environme nt Not available Not available Not available 02/02/2025 Simran alcala [place] [facility] 5 10:05:12 072428 Ozempic medicatio n Not available Not available Not available 02/02/2025 07 RxNorm Simran alcala [facility] 5 10:12:46 Medications Name Sig Start Date Stop Date Status Note LastModified by Organization Details LastModified Time cyclobenz aprine 10 mg tablet TAKE 1 TABLET BY MOUTH THREE TIMES DAILY NEEDED PAINFUL MUSCLE SPASMS 02/02 completed Not Available Not Available Not Available metformin 500 mg tablet TAKE 2 TABLETS BY MOUTH TWICE DAILY active Not Available Not Available No t Available oxazepam 10 mg capsule TAKE 1 TO 2 CAPSULES BY MOUTH THREE TIMES DAILY NEEDED FOR MUSCLE SPASMS. MAX 4 CAPSULES DAILY 02/02 completed Not Available Not Available Not Available gabapenti n 600 mg tablet 02/02 completed Medicati on ID: [id number] D uration Value: 90 Brand Name: gabapent in Send Method: E-Prescr ibed Sub s Allowed: subs OK Medic ationGen ericName : gabapent in Not Available Not Available Not Available metoprolo l succinate ER 50 mg tablet,ex tended release 24 hr 02/02 completed Medicati on ID: [id number] D uration Value: 90 Brand Name: metoprol ol succinat e Send Method: E-Prescr ibed Sub s Allowed: subs OK Speci al Instruct ion: take 1 tablet by mouth once daily Me dication GenericN emil: metoprol ol succinat e Not Available Not Available Not Available ondansetr on HCl 8 mg tablet TAKE 1 TO 2 TABLETS BY MOUTH DAILY IN THE MORNING NEEDED FOR INTRACTA BLE NAUSEA OR VOMITING 02/02 completed Not Available Not Available Not Available prednison e 20 mg tablet TAKE 3 TABLETS BY MOUTH DAILY FOR 3 DAYS THEN TAKE 2 TABLETS BY MOUTH DAILY FOR 3 DAYS THEN TAKE 1 TABLET BY MOUTH DAILY FOR 3 DAYS 02/02 completed Not Available Not Available Not Available glipizide ER 5 mg tablet, extended release 24 hr 02/02 completed Medicati on ID: [id number] D uration Value: 90 Brand Name: glipizid e Send Method: E-Prescr ibed Sub s Allowed: subs OK Speci al Instruct ion: take 3 tablets by mouth once daily Me dication GenericN emil: glipizid e Not Available Not Available Not Available cyanocoba david (vit B-12) 1,000 mcg tablet TAKE 1 TABLET BY MOUTH DAILY active Not Available Not Available No t Available meclizine 12.5 mg tablet TAKE 1 TO 2 TABLETS BY MOUTH FOUR TIMES DAILY NEEDED NAUSEA / VERTIGO 02/02 completed Not Available Not Available Not Available triamcino lone acetonide 0.1 % topical cream APPLY TOPICALL Y TO THE AFFECTED AREA EVERY DAY 02/02 completed Not Available Not Available Not Available lidocaine -prilocai ne 2.5 %-2.5 % topical cream 02/02 completed Medicati on ID: [id number] D uration Value: 30 Brand Name: lidocain e-priloc meghann Sen d Method: E-Prescr ibed Sub s Allowed: subs OK Medic ationGen ericName : lidocain e-priloc meghann Not Available Not Available Not Available lamotrigi ne 25 mg tablet TAKE 1 TABLET BY MOUTH DAILY FOR 1 WEEK. INCREASE BY 1 TABLET DAILY WEEKLY UNTIL AT 4 TABLET DAILY FOR USE WITH 100 MG TABLET 02/02 completed Not Available Not Available Not Available cyprohept adine 4 mg tablet TAKE 1 TABLET BY MOUTH THREE TIMES DAILY NEEDED FOR ITCHING 02/02 completed Not Available Not Available Not Available metoclopr amide 5 mg tablet TAKE 1 TABLET BY MOUTH FOUR TIMES DAILY BEFORE A MEAL AND BEFORE BEDTIME 02/02 completed Not Available Not Available Not Available morphine ER 60 mg tablet,ex tended release 02/02 completed Medicati on ID: [id number] D uration Value: 28 Brand Name: morphine Send Method: E-Prescr ibed Sub s Allowed: subs OK Medic ationGen ericName : morphine Not Available Not Available Not Available baclofen 10 mg tablet TAKE 1 TABLET BY MOUTH 3 TO 4 TIMES PER DAY. MAY OPT TO TAKE 1 1 2. DO NOT ABRUPTLY . STOP THIS MEDICATI ON active Not Available Not Available No t Available morphine 30 mg immediate release tablet 02/02 completed Medicati on ID: [id number] D uration Value: 14 Brand Name: morphine Send Method: E-Prescr ibed Sub s Allowed: subs OK Medic ationGen ericName : morphine Not Available Not Available Not Available levothyro xine 50 mcg tablet TAKE 1 TABLET BY MOUTH DAILY WITHOUT FOOD active Not Available Not Available No t Available triamcino lone acetonide 0.1 % topical ointment APPLY EXTERNAL LY DAILY 02/02 completed Not Available Not Available Not Available lidocaine 5 % topical patch 02/02 completed Medicati on ID: [id number] D uration Value: 30 Brand Name: lidocain e Send Method: E-Prescr ibed Sub s Allowed: subs OK Medic ationGen ericName : lidocain e Not Available Not Available Not Available nitroglyc anthony 0.4 mg sublingua l tablet ONE TABLET UNDER TONGUE NEEDED FOR CHEST PAIN EVERY 5 MINUTES NEEDED FOR CHEST PAIN. DO NOT EXCEED 3 DOSES PER EPISODE active Not Available Not Available No t Available omeprazol e 20 mg capsule,d elayed release TAKE 1 CAPSULE BY MOUTH DAILY 02/02 completed Not Available Not Available Not Available monteluka st 10 mg tablet TAKE 1 TABLET BY MOUTH AT BEDTIME 02/02 completed Not Available Not Available Not Available codeine 10 mg-guaife nesin 100 mg/5 mL oral liquid TAKE 10 ML BY MOUTH EVERY 4 TO 6 HOURS NEEDED FOR COUGH 02/02 completed Not Available Not Available Not Available Marinol 5 mg capsule 02/02 completed Medicati on ID: [id number] D uration Value: 20 Brand Name: Marinol Send Method: E-Prescr ibed Sub s Allowed: subs OK Medic ationGen ericName : Marinol Not Available Not Available Not Available estradiol 0.01% (0.1 mg/gram) vaginal cream APPLY 1 GRAM VAGINALL Y EVERY NIGHT AT BEDTIME X 2 WEEKS AND THEN 1 TO 2 NIGHTS A WEEK THEREAFT ER active Not Available Not Available No t Available albuterol sulfate HFA 90 mcg/actua tion aerosol inhaler INHALE 1 PUFF BY MOUTH EVERY 4 HOURS NEEDED FOR SHORTNES S OF BREATH OR WHEEZING active Not Available Not Available No t Available fluticaso ne propionat e 50 mcg/actua tion nasal spray,jung pension SHAKE LIQUID AND USE 1 SPRAY IN EACH NOSTRIL DAILY active Not Available Not Available No t Available metformin ER 500 mg tablet,ex tended release 24 hr TAKE 1 TABLET BY MOUTH FOUR TIMES DAILY 02/02 completed Not Available Not Available Not Available lisinopri l 2.5 mg tablet TAKE 1 TABLET BY MOUTH EVERY EVENING 02/02 completed Not Available Not Available Not Available doxycycli ne hyclate 100 mg tablet TAKE 1 TABLET BY MOUTH EVERY 12 HOURS FOR 10 DAYS 02/02 completed Not Available Not Available Not Available lamotrigi ne 100 mg tablet TAKE 1 AND 1/2 TABLETS BY MOUTH TWICE DAILY 02/02 completed Not Available Not Available Not Available Vitamin D3 25 mcg (1,000 unit) capsule TAKE 1 CAPSULE BY MOUTH EVERY MORNING active Not Available Not Available No t Available rosuvasta tin 5 mg tablet 02/02 completed Medicati on ID: [id number] D uration Value: 90 Brand Name: rosuvast atin Sen d Method: E-Prescr ibed Sub s Allowed: subs OK Speci al Instruct ion: take 1 tablet by mouth once daily Me dication GenericN emil: rosuvast atin Not Available Not Available Not Available Prempro 0.3 mg-1.5 mg tablet TAKE 1 TABLET BY MOUTH AT BEDTIME active Not Available Not Available No t Available memantine 10 mg tablet TAKE 1 TABLET BY MOUTH TWICE DAILY 02/02 completed Not Available Not Available Not Available duloxetin e 60 mg capsule,d elayed release TAKE 2 CAPSULES BY MOUTH DAILY AT BEDTIME active Not Available Not Available No t Available ketamine active Not Available Not Avai lable Not Available Xyzal 5 mg tablet Take 1 tablet every day by oral route. active Not Available Not Available No t Available Repatha SureClick 140 mg/mL subcutane ous pen injector ADMINIST ER 140MG UNDER THE SKIN EVERY 2 WEEKS 02/02 completed Not Available Not Available Not Available Basaglpatricia ByrdikPen U-100 Insulin 100 unit/mL (3 mL) subcutane ous ADMINIST ER 24 UNITS UNDER THE SKIN DAILY active Not Available Not Available No t Available baclofen 5 mg tablet TAKE 1 TABLET BY MOUTH THREE TIMES DAILY PLUS 2 TABLETS AT BEDTIME. BEGINNIN G 01/17 INCREASE TO 6 TABS/DAY . THIS IS A 21 DAY SUPPLY 02/02 completed Not Available Not Available Not Available BD Lisa 2nd Gen Pen Needle 32 gauge x USE 2 NEEDLES ONCE DAILY WITH INSULIN 02/02 completed Not Available Not Available Not Available Vitals None Recorded Social History None recorded. Functional Status None recorded. Mental Status None recorded. Family History Nothing Reported. Medical History Condition Response Allergies/Hayfever Y Diabetes Y High Cholesterol Y Liver Disease Y Migraines Y Thyroid Problems Y Hypertension Y Depression Y Asthma Y Kidney Disease Y Gynecological HistoryNo gynecological history recorded. Obstetrics History GPAL:G 0 P 0 0 0 0 Past Encounters Encounter ID Performer Location Encounter Start Date Encounter Closed Date Diagnosis/Indication Diagnosis SNOMED-CT Code Diagnosis ICD10 Code Diagnosis IMO Codes Diagnosis Note [id number] REGINALD AUGUSTIN MD [facility] [address] [address] 02/02/2025 09:39:21 02/02/2025 11:30:21 Referred otalgia of right ear [id number] 681025 H92.01 M26.621 M79.11 The patient complains of intermitte nt right-side d periauricu lar discomfort . Physical exam reveals no identifiab le source of these symptoms involving the auricle, external auditory canal, or tympanic membrane. Audiometri c testing and tympanomet ry are similarly unrevealin g. Furthermor e, examinatio n was positive for crepitus and tenderness of the right jaw joint and princess-TMJ musculatur e. The patient's periauricu lar discomfort is most likely consistent with intermitte nt inflammati on of the jaw joint or spasm of the surroundin g musculatur e. This is likely exacerbate d by her poorly fitting dentures. I recommende d the patient use light massage, warm compresses and anti-infla mmatories for symptomati c management . Stressed chewing evenly on both sides of the mouth to keep from overworkin g the jaw joint. Use soft food diet as needed. Jaw Joint Program informatio n sheet was shared. If this treatment plan is ineffectiv e, recommend follow up with their dentist. Referral to physical therapist who specialize s in TMJ disorders could also be considered . Chronic sore throat [id number] 42758 J31.2 2579 Patient with chronic sore throat and intermitte nt hoarseness in the context of poorly controlled gastroesop hageal reflux disease. LPR brochure discussed with patient. Recommend follow-up with her gastroente rologist for better control of her reflux symptoms. Excessive gastric reflux [id number] K21.9 [id number] Sensorineu ral hearing loss of bilateral ears 658782804 H90.3 Audiologic al evaluation results: Right ear: Normal hearing from 250 through 1000 Hz sloping to a moderately severe sensorineu ral hearing loss with excellent word recognitio n. Left ear: Normal hearing from 250 through 1500 Hz sloping to a moderately severe sensorineu ral hearing loss with excellent word recognitio n. Tympanomet ry: Right Ear:Type A Left Ear:Type A [id number] Alexander VELAZQUEZ [facility] [address] [address] 02/02/2025 10:54:26 02/03/2025 11:11:49 Sensorineural hearing loss of bilateral ears 586528502 H90.3 Audiologic al evaluation results: Right ear: Normal hearing from 250 through 1000 Hz sloping to a moderately severe sensorineu ral hearing loss with excellent word recognitio n. Left ear: Normal hearing from 250 through 1500 Hz sloping to a moderately severe sensorineu ral hearing loss with excellent word recognitio n. Tympanomet ry: Right Ear:Type A Left Ear:Type A Health Concerns Section Related Observation LastModified by Organization Detai ls LastModified Time None Recorded Concern Status LastModified by Organization Details LastModified Time None Recorded Advance Directives Directive None Recorded Payers Insurance Date Sequence Insurance Name Policy Number Policy Freitas Covered Member ID Freitas Member ID Guarantor Name 02/02/2025 2 [place] [facility] Billie Kelly [id number] Billie Kelly 02/02/2025 2 [place] [id number] Billie Kelly [id number] Billie Kelly 02/02/2025 1 [place] B[place] [facility] Billie Kelly [id number] Billie Kelly Notes Date Note Type Note Provider Name and Address Organization Details Recorded Time 02/02/2025 text/html Patient previously seen by Dr. Renee back in May 2023 for evaluation of fluctuating nonpulsatile bilateral tinnitus in the context of mid and high-frequency sensorineural hearing loss. Amplification recommended to mitigate the hearing loss and tinnitus. Patient did get binaural amplification dispensed at [facility] audiology.Patient reports chronic dry soreness in her throat. She has gastroesophageal reflux disease and is seeing a math specialist for this. She has no nasal congestion.Patient also reports intermittent right sided periauricular discomfort which refers into her jaw and orthodox area. She is currently using dentures which do not fit very well. She has an appointment coming up with her dentist. Patient notices intermittent ear blockage sensation. She was told by her primary care physician that there was fluid in her ears. REGINALD AUGUSTIN MD [address], [address], [facility] - [facility] 02/02/2025 11:30:11 02/02/2025 text/html Audiological Teresa luation HPIReported by PatientHearing LossFor hearing loss perceived, patient reportshearing loss in both ears (no differences noted between ears).Use of amplification or other hearing devicesFor use of amplification or other hearing devices, patient reportshearing aid use in both ears. Alexander VELAZQUEZ [address] [facility],[address], [address], [facility] - [facility] 02/02/2025 11:08:20 OBGyn Episode No OBEpisode recorded.
--- OUTSIDE RECORDS SUMMARY | 2025-06-28 07:31 | XMS_ITS | Encounter Summary ---
Author Organization [facility] Address [address] [place] [address] Care Team Providers Care Pattern Puncher Name Role Phone Basil Zabala MD Primary Care Provider Unavail able Nargis Siegel MD Primary Care Provider Unavaila [facility], Pcp Primary Care Provider Leola e Daphney Velázquez MD Unavailable [phone] Nargis Siegel MD Primary Care Provider Unavaila [facility], Pcp Primary Care Provider Nargis Macdonald MD Primary Care Provider Unavaila [facility], Pcp Primary Care Provider Unavailabl e [facility], Pcp Primary Care Provider Unavailabl e Encounter Details Date Type Department Care Team Description 10/05/2010 Business Doc Medical Records [address] [place] [address] Abstract, Provider Social History Tobacco Use Types Packs/Day Years [...] on filedocumented in this encounter Care Teams Pattern Puncher Relationship Specialty Start Date End Date Basil [...]
--- OUTSIDE RECORDS SUMMARY | 2025-06-28 07:31 | XMS_ITS | Encounter Summary ---
Author Organization [facility] Address [address] [place] [address] Care Team Providers Care Meat Counter Clerk Name Role Phone Basil Zabala MD Primary Care Provider Unavail able Nargis Siegel MD Primary Care Provider Unavaila [facility], Pcp Primary Care Provider Leola e Daphney Velázquez MD Unavailable [phone] Nargis Siegel MD Primary Care Provider Unavaila [facility], Pcp Primary Care Provider Unavailashly e Nargis Siegel MD Primary Care Provider Unavaila [facility], Pcp Primary Care Provider Unavailabl e [facility], Pcp Primary Care Provider Unavailabl e Encounter Details Date Type Department Care Team Description 03/29/2014 Senior Trial Attorney Report Medical Records [address] [place] [id number] Dorian Neff MD Social History Tobacco Use [...] on filedocumented in this encounter Care Teams Meat Counter Clerk Relationship Specialty Start Date End Date Basil Zabala MD PCP - General 06/22/1995 07/27/15 Nargis Siegel MD PCP - General Internal Medicine 07/28/15 12/18/20 [facility], Pcp PCP - General Internal Medicine 12/19/20 [...]
--- OUTSIDE RECORDS SUMMARY | 2025-06-28 07:31 | XMS_ITS | Encounter Summary ---
Author Organization [facility] Address [address] [place] [address] Care Team Providers Care Contact Lens Blocker And Cutter Name Role Phone Nargis Siegel MD Primary Care Provider Unavaila [facility], Pcp Primary Care Provider UnavailDaphney Ghotra MD Unavailable Nargis Siegel MD Primary Care Provider Unavaila [facility], Pcp Primary Care Provider Unavailabl e Nargis Siegel MD Primary Care Provider Unavaila [facility], Pcp Primary Care Provider Unavailabl e [facility], Pcp Primary Care Provider Unavailabl e Encounter Details Date Type Department Care Team Description 06/30/2020 Chemistry Account Manager Report Medical Records [address] [place] [id number] Abstract, Provider Social History Tobacco Use Types [...] have Coronavirus / COVID-19? No / Unsure 06/21/2020 3:54 PM EDT documented as of this encounter Plan of Treatment Not on file documented as of this encounter Visit Diagnoses Not on filedocumented in this encounter Care Teams Contact Lens Blocker And Cutter Relationship Specialty Start Date End Date Nargis [...]
--- OUTSIDE RECORDS SUMMARY | 2025-06-28 07:31 | XMS_ITS | Encounter Summary ---
Author Organization [facility] Address [address] [place] [address] Care Team Providers Care Adjusto Writer Operator Name Role Phone Nargis Siegel MD Primary Care Provider [facility]a [facility], [facility]cp Primary Care Provider UnavailDaphney Ghotra MD Unavailable [phone] Nargis Siegel MD Primary Care Provider Unavaila ble [facility], Pcp Primary Care Provider Unavailabl e Nargis Siegel MD Primary Care Provider Unavaila [facility], Pcp Primary Care Provider Unavailabl e [facility], Pcp Primary Care Provider Unavailabl e Encounter Details Date Type Department Care Team Description 03/16/2020 Electric Well Logging Operator Report Medical Records [address] [place] [id number] Dorian Neff MD Social History Tobacco Use [...] on filedocumented in this encounter Care Teams Adjusto Writer Operator Relationship Specialty Start Date End Date [...]
--- OUTSIDE RECORDS SUMMARY | 2025-06-28 07:31 | XMS_ITS | Continuity of Care Document ---
Author Organization [facility] [address] [place] [address] Phone [phone] Care Team Providers Care Uniform Force Captain Name Role Phone Nargis Siegel M.D. Care Team Information Portable Track Crew Chief [phone] Problems Active Problems Provider Date Type 2 diabetes mellitus CHELA Burton Onse t: 12/03/2023 Memory impairment CHELA Burton Onset: 11/20 Carpal tunnel syndrome CHELA Burton Onset: 12/03/2023 Asthma CHELA Burton Onset: 2023 Hyperlipidemia CHELA Burton Onset: 2023 Essential hypertension CHELA Burton Onset: 12/03/2023 Irritable bowel syndrome CHELA Burton Onse t: 12/03/2023 Gastroesophageal reflux disease CHELA Burton Onset: 12/03/2023 Vertigo CHELA Burtno Onset: 2023 Posttraumatic stress disorder CHELA Burton [...] SIG Qnty Indications Order ing Provider Date [id number] Capsules Take 1 To 2 Capsules By Mouth Three Times Daily as Needed For Muscle Spasms. Max Unknown Montelukast [id number] Tablets Take 1 Tablet By Mouth Daily In The Evening Nargis Siegel M.D. Duloxetine RUY37ig Caps DR Part Take 2 Capsules By Mouth Daily AT Bedtime Unknown Basaglar Illkkxg978Pgnh/ML Solution Pen-Inject Administer 24 Units Under The [...] 32G X 4 mm Misc Use 2 [place] Once Daily With Insulin Nargis Siegel M.D. Levothyroxine Fnhbmk06nxz Tablets Take 1 Tablet By Mouth Daily Nargis Siegel M.D. Metformin HCL YS134rh Tablets ER 24HR Take 2 Tablet in Am and one in PM Nargis Siegel M.D. Albuterol Sulfate LVG719(90Base) mcg/Act Aerosol Inhale 1 puff By Mouth Four Times Daily as Needed For Wheezing Nargis Siegel M.D. 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 2 diabetes mellitus with diabetic polyneuropathy CHELA Burton 03/01/2025 E66.9 Obesity, unspecified CHELA Burton 03/01/2025 Z79.4 snf (current) use of i nsulin CHELA Burton 03/01/2025 E78.5 Hyperlipidemia, unspecified CHELA Burton 03/01/2025 Z68.38 Body mass index [BMI] 38.0-3 8.9, adult CHELA Burton Plan of Treatment Future Appointment(s):* 07/01/2025 9:00 am - Christi Arredondo CNP at Main Office 03/01/2025 - CHELA Burton* E11.42 Type 2 diabetes mellitus with diabetic polyneuropathy * E66.9 Obesity, unspecified * Z79.4 snf (current) use of insulin * E78.5 Hyperlipidemia, unspecified * Z68.38 Body mass index [BMI] 38.0-38.9, adult Functional Status Description No Information Available Mental Status Description No Information Available Referrals Description No Information Available
--- OUTSIDE RECORDS SUMMARY | 2025-06-28 07:31 | XMS_ITS | Encounter Summary ---
Author Organization [facility] Address [address] [place] [address] Care Team Providers Care Director Summer Sessions Name Role Phone Basil Zabala MD Primary Care Provider Unavail able Nargis Siegel MD Primary Care Provider Unavaila ble [facility], Pcp Primary Care Provider Unavailashly e Daphney Velázquez MD Unavailable [phone] Nargis Siegel MD Primary Care Provider Unavaila ble [facility], Pcp Primary Care Provider Unavailashly e Nargis Siegel MD Primary Care Provider Unavaila [facility], Pcp Primary Care Provider Unavailabl e [facility], Pcp Primary Care Provider Unavailabl e Encounter Details Date Type Department Care Team Description 09/07/2010 Fondant Puff Maker Report Medical Records [address] [place] [address] Jay Cortez Social History Tobacco Use Types Packs/Day Years [...] on filedocumented in this encounter Care Teams Director Summer Sessions Relationship Specialty Start Date End Date Basil Zabala MD PCP - General 06/22/1995 07/27/15 Nargis Siegel MD PCP - General Internal Medicine 07/28/15 12/18/20 [facility] PCP - General Internal Medicine 12/19/20 [...]
--- OUTSIDE RECORDS SUMMARY | 2025-06-28 07:31 | XMS_ITS | Encounter Summary ---
Author Organization [facility] Address [address] [place] [address] Care Team Providers Care Fifth Hand Name Role Phone Basil Zabala MD Primary Care Provider Unavail able Nargis Siegel MD Primary Care Provider Unavaila [facility], Pcp Primary Care Provider Leola e Daphney Velázquez MD Unavailable [phone] Nargis Siegel MD Primary Care Provider Unavaila ble [facility], Pcp Primary Care Provider Unavailashly e Nargis Siegel MD Primary Care Provider Unavaila [facility], Pcp Primary Care Provider Unavailabl e [facility], Pcp Primary Care Provider Unavailabl e Encounter Details Date Type Department Care Team Description 07/17/2010 Warehouse Analyst Report Medical Records [address] [place] [address] Maki, Britt Social History Tobacco Use Types [...] on filedocumented in this encounter Care Teams Fifth Hand Relationship Specialty Start Date End Date Basil [...]
--- OUTSIDE RECORDS SUMMARY | 2025-06-28 07:31 | XMS_ITS | Encounter Summary ---
Author Organization [facility] Address [address] [place] [address] Care Team Providers Care Predatory Hunter Name Role Phone Nargis Siegel MD Primary Care Provider Unavaila [facility], [facility]cp Primary Care Provider Unavailashly e Daphney Velázquez MD Unavailable [phone] Nargis Siegel MD Primary Care Provider Unavaila [facility], Pcp Primary Care Provider Unavailabl e Nargis Siegel MD Primary Care Provider Unavaila ble [facility], Pcp Primary Care Provider Unavailabl e [facility], Pcp Primary Care Provider Unavailabl e Encounter Details Date Type Department Care Team Description 07/12/2020 Orders Only Gastroenterology - [address] [place] [address] Butch Gusman MD [address] [place] [address] Dyspepsia and disorder of function of stomach Social History Tobacco Use Types Packs/Day Years [...] PM EDT documented as of this encounter Progress Notes * Jovanni Gusman MD - 07/23/2020 4:32 PM EST Dear Ms. Kelly, The ultrasound did not show anything wrong with your gallbladder. There is evidence of fatty liver which is a common finding today as a result of weight gain. However, please follow-up in the clinic at your convenience. documented in this encounter Plan of Treatment Not on file documented as of this encounter Procedures Procedure Name Priority Date/Time Associated Diagnosis Comments SONO ABDOMEN COMPLETE Routine 07/12/2020 Dyspepsia and disorder of function of stomach documented in this encounter Results * SONO ABDOMEN COMPLETE (07/12/2020) H Luis Alberto Gusman MD ULTRASOUND documented in this encounter Visit Diagnoses Diagnosis Dyspepsia and disorder of function of stomach Dyspepsia and other specified disorders of function of stomach documented in this encounter Care Teams Predatory Hunter Relationship Specialty Start Date End Date Nargis Siegel MD PCP - General Internal Medicine 07/28/15 12/18/20 [facility], Pcp PCP - General Internal Medicine 12/19/20 [...]
--- OUTSIDE RECORDS SUMMARY | 2025-06-28 07:31 | XMS_ITS | Encounter Summary ---
Author Organization [facility] Address [address] [place] [address] Care Team Providers Care Brim Pouncer Name Role Phone Nargis Siegel MD Primary Care Provider Unavaila ble [facility], Pcp Primary Care Provider Unavailashly e Daphney Velázquez MD Unavailable [phone] Nargis Siegel MD Primary Care Provider Unavaila ble [facility], Pcp Primary Care Provider Unavailabl e Nargis Siegel MD Primary Care Provider Unavaila [facility], Pcp Primary Care Provider Unavailabl e [facility], Pcp Primary Care Provider Unavailabl e Reason for Visit * Reason Onset Date Comments Congestion 05/17/2020 Nasal Discharge 05/17/2020 Cough 05/17/2020 Sinus Problem 05/17/2020 Encounter Details Date Type Department Care Team Description 05/17/2020 Telephone Medicine/Pediatrics - [address] [address] Nargis Siegel MD Congestion; Nasal Discharge; Cough; Sinus Problem Social History Tobacco Use Types Packs/Day Years [...] encounter Miscellaneous Notes * Telephone Encounter - Britt Portillo R.N. - 05/17/2020 11:28 AM EDT Spoke with pateint states having cold and ocugh symptoms past five days getting worse would like ronald seen appt. Booked. Has appt in am * Telephone Encounter - Emily Zacarias - 05/17/2020 11:26 AM EDT Symptoms patient is presenting: cough, congestion, nasal discharge For ALL patients calling to schedule any appointment (routine, sick visit, follow up, consult, etc.) in the outpatient setting please ask the following questions: ?? Do you have fever of higher than 101, sore throat with difficulty swallowing or severe shortnessof breath? NO If YES to any of these above symptoms, send a message to triage and do not book. Red dot. If no, an audio or video visit should be booked. ?? Have you had close contact with someone with Coronavirus in the last 14 days? NO ?? Have you traveled abroad? NO ?? Have you traveled recently to another state outside of [place], [place], [place], [place], [place], [place], [place]? NO o If yes, did you quarantine for 14 days or have a negative covid test? NO If yes to any of the above, patient is not to be scheduled in office until after 14 day quarantine or negative covid test. If pain or injury related was it due to an accident at work or from a motor vehicle accident? NO If yes, gather 3rd democrat insurance information Date of accident/Injury: How long has patient had these symptoms?: for the last four days PCP: Nargis Belcher [place] / [place] / Product Type: MED[place]ARE [id number] documented in this encounter Plan of Treatment Not on file documented as of this encounter Visit Diagnoses Not on filedocumented in this encounter Care Teams Brim Pouncer Relationship Specialty Start Date End Date Nargis [...]
--- OUTSIDE RECORDS SUMMARY | 2025-06-28 07:31 | XMS_ITS | Encounter Summary ---
Author Organization [facility] Address [address] [place] [address] Care Team Providers Care Barrel Dedenting Machine Operator Name Role Phone Basil Zabala MD Primary Care Provider Unavail able Nargis Siegel MD Primary Care Provider Unavaila [facility], Pcp Primary Care Provider Leola e Daphney Velázquez MD Unavailable [phone] Nargis Siegel MD Primary Care Provider Unavaila [facility], Pcp Primary Care Provider UnavailNargis Rahman MD Primary Care Provider Unavaila [facility], Pcp Primary Care Provider Unavailabl e [facility], Pcp Primary Care Provider Unavailabl e Encounter Details Date Type Department Care Team Description 04/17/2010 Water Quality Tester Report Medical Records [address] [place] [address] Maki, Britt Social History Tobacco Use Types [...] on filedocumented in this encounter Care Teams Barrel Dedenting Machine Operator Relationship Specialty Start Date End [...]
--- OUTSIDE RECORDS SUMMARY | 2025-06-28 07:31 | XMS_ITS | Encounter Summary ---
Author Organization [facility] Address [address] [place] [address] Care Team Providers Care Architect Intern Name Role Phone Nargis Siegel MD Primary Care Provider Unavaila ble [facility], [facility]cp Primary Care Provider Unavailabl e Daphney Velázquez MD Unavailable [phone] Nargis Siegel MD Primary Care Provider Unavaila [facility], Pcp Primary Care Provider Unavailabl e Nargis Siegel MD Primary Care Provider Unavaila ble [facility], Pcp Primary Care Provider Unavailabl e [facility], Pcp Primary Care Provider Unavailabl e Reason for Visit * Reason Onset Date Comments Consultant Feedback 10/10/2017 Dr. Mae Encounter Details Date Type Department Care Team Description 10/10/2017 Telephone Medicine/Pediatrics - [address] [address] Nargis Siegel MD Consultant Feedback (Dr. Mae) Social History Tobacco Use Types Packs/Day Years [...] encounter Miscellaneous Notes * Telephone Encounter - Aliza Lopez - 10/10/2017 3:52 PM EST Please review this patients new referral request. The referral has been pended. Please complete thefollowing: If approved> sign order If denied>please give instructions and route to your practice nursing pool. Practice nurse should inform referrals and the patient if denied. Thank you, Aliaz Industrial Electrician Journeyman * Telephone Encounter - Kajal Tracy - 10/10/2017 3:47 PM EST What insurance does the patient have today? Pay[place] / Plan[place] / Product Type: MEDICARE [id number] Effective 06/22/09: BCBS will not retro referral requests over 90 [...] insurance must be obtained and registered in [facility] or their referral can not be processed. Is this a retro request? NO. If yes for what date of service do you need the retro referral? N/A Who is calling to request this referral? patient If the caller is not the patient, what is their name? N/A Ask the patient WHO referred them to this specialty: Dr. Belcher FIRST and LAST NAME of SPECIALIST PATIENT is seeing: Dr. Mae What specialty is this? vascular DIAGNOSIS Patient is being seen for (Not a body part or a procedure): left foot swelling Have you seen this SPECIALIST for this PROBLEM/DX before?NO If YES, when: Have you checked REVIEW or the APPT DESK to see if this referral has already been done or has visits left? YES Is this visit:Initial Visit Address of Specialist:[address] [place] [address] Phone # of Specialist:[phone] Fax #: (if applicable) Does patient have an appointment scheduled?: YES Date of appointment- (including a retro-request): 10/22/17 Is this appointment related to: Not MVA, WC or Surgery related documented in this encounter Plan of Treatment Not on file documented as of this encounter Visit Diagnoses Not on filedocumented in this encounter Care Teams Architect Intern Relationship Specialty Start Date End Date Nargis Siegel MD PCP - General Internal Medicine 07/28/15 12/18/20 [facility], Pcp PCP - General Internal Medicine 12/19/20 01/03/21 Nargis Siegel MD PCP - General Internal Medicine 01/04/21 02/19/21 [facility], Pcp PCP - General Internal Medicine 02/20/21 05/24/21 Nargis Siegel MD PCP - General Internal Medicine 05/25/21 08/05/21 [facility], Pcp PCP - General Internal Medicine 08/06/21 12/03/21 [facility], Pcp PCP - General Internal Medicine 12/18/21 Daphney Velázquez MD Specialist Cardiology 12/28/20 documented as of this encounter
--- OUTSIDE RECORDS SUMMARY | 2025-06-28 07:31 | XMS_ITS | Encounter Summary ---
Author Organization [facility] Address [address] [place] [address] Care Team Providers Care Rock Crushing Machine Operator Name Role Phone Basil Zabala MD Primary Care Provider Unavail able Nargis Siegel MD Primary Care Provider Unavaila [facility], Pcp Primary Care Provider Leola e Daphney Velázquez MD Unavailable [phone] Nargis Siegel MD Primary Care Provider Unavaila [facility], Pcp Primary Care Provider Unavailashly e Nargis Siegel MD Primary Care Provider Unavaila [facility], Pcp Primary Care Provider Unavailabl e [facility], Pcp Primary Care Provider Unavailabl e Encounter Details Date Type Department Care Team Description 08/31/2013 Spray Blender Report Medical Records [address] [place] [id number] Dorian Neff MD Social History Tobacco Use [...] on filedocumented in this encounter Care Teams Rock Crushing Machine Operator Relationship Specialty Start Date End Date Basil Zabala MD PCP - General 06/22/1995 07/27/15 Nargis Siegel MD PCP - General Internal Medicine 07/28/15 12/18/20 [facility], Pcp PCP - General Internal Medicine 12/19/20 01/03/21 Nargis Sigeel MD PCP - General Internal Medicine 01/04/21 02/19/21 [facility], Pcp PCP - General Internal Medicine 02/20/21 05/24/21 Nargis Siegel MD PCP - General Internal Medicine 05/25/21 08/05/21 [facility], Pcp PCP - General Internal Medicine 08/06/21 12/03/21 [facility], Pcp PCP - General Internal Medicine 12/18/21 Daphney Velázquez MD Specialist Cardiology 12/28/20 documented as of this encounter
--- OUTSIDE RECORDS SUMMARY | 2025-06-28 07:31 | XMS_ITS | Encounter Summary ---
Author Organization [facility] Address [address] [place] [address] Care Team Providers Care Grinder Tender Name Role Phone Basil Zabala MD Primary Care Provider Unavail able Nargis Siegel MD Primary Care Provider Unavaila [facility], Pcp Primary Care Provider Leola e Daphney Velázquez MD Unavailable [phone] Nargis Siegel MD Primary Care Provider Unavaila [facility], Pcp Primary Care Provider UnavailNargis Rahman MD Primary Care Provider Unavaila [facility], Pcp Primary Care Provider Unavailabl e [facility], Pcp Primary Care Provider Unavailabl e Encounter Details Date Type Department Care Team Description 09/04/2010 Campus Safety Officer Report Medical Records [address] [place] [address] Tonio Loza Social History Tobacco Use Types Packs/Day Years [...] on filedocumented in this encounter Care Teams Grinder Tender Relationship Specialty Start Date End Date Basil [...]
--- OUTSIDE RECORDS SUMMARY | 2025-06-28 07:31 | XMS_ITS | Encounter Summary ---
Author Organization [facility] Address [address] [place] [address] Care Team Providers Care Measurement Supervisor Name Role Phone Nargis Siegel MD Primary Care Provider Unavaila ble [facility], [facility]cp Primary Care Provider UnavailDaphney Ghotra MD Unavailable [phone] Nargis Siegel MD Primary Care Provider Unavaila ble [facility], Pcp Primary Care Provider Unavailabl e Nargis Siegel MD Primary Care Provider Unavaila [facility], Pcp Primary Care Provider Unavailabl e [facility], Pcp Primary Care Provider Unavailabl e Encounter Details Date Type Department Care Team Description 04/24/2020 Securities Teller Report Medical Records [address] [place] [address] Dorian Neff MD Social History Tobacco Use [...] on filedocumented in this encounter Care Teams Measurement Supervisor Relationship Specialty Start Date End Date Nargis [...]
--- OUTSIDE RECORDS SUMMARY | 2025-06-28 07:31 | XMS_ITS | Encounter Summary ---
Author Organization [facility] Address [address] [place] [address] Care Team Providers Care Health Policy Nurse Name Role Phone Nargis Siegel MD Primary Care Provider Unavaila ble [facility], Pcp Primary Care Provider Unavailashly e Daphney Velázquez MD Unavailable [phone] Nargis Siegel MD Primary Care Provider Unavaila [facility], Pcp Primary Care Provider Unavailabl e Nargis Siegel MD Primary Care Provider Unavaila [facility], Pcp Primary Care Provider Unavailabl e [facility], Pcp Primary Care Provider Unavailabl e Reason for Referral * Non XOCHITL (Routine) - Authorized/Booked Specialty Diagnoses / Procedures Referred By Sindy paredes Referred To Contact Gastroenterology Procedures REFERRAL TO GASTROENTEROLOGY Nargis Siegel MD [address] [place] [address] Gastro Spfld/175 175 [facility] [address] [place] [id number] Referral ID Status Reason Start Date Expiration Date V isits Requested Visits Authorized [id number] Authorized/B ooked 07/07/2020 07/07/2021 1 1 Reason for Visit * Reason Onset Date Comments Appointment-Internal Referral 07/07/2020 Mekhi arshad Encounter Details Date Type Department Care Team Description 07/07/2020 Telephone Medicine/Pediatrics - [address] [address] Nargis Siegel MD Appointment-Internal Referral (Gastro ) Social History Tobacco Use Types Packs/Day Years [...] PM EDT documented as of this encounter Miscellaneous Notes * Telephone Encounter - Kae Vizcarra - 07/07/2020 1:[address] Nargis Belcher Please review this patients new referral request. The referral has been pended. Please complete thefollowing: If approved> sign order If denied>please give instructions and route to your practice nursing pool. Practice nurse should inform referrals and the patient if denied. Thank You, Kae Santo Cash Specialist * Telephone Encounter - Veronica Cruz - 07/07/2020 1:34 PM EDT Request for a referral to a [facility] Specialist for a patient with a [facility] PCP. If patient does NOT have a [facility] PCP they must obtain a referral from their PCP before being seen-do not submit request to Referrals department-contact patient. Specialty patient is being referred to: GI Name of Specialist patient is seeing: Dr Snyder Reason/diagnosis for visit: colonoscopy Date of appoinment: TBD If retro, date referral needs to start: Nargis Belcher [place] / Product Type: MED[place]ARE [id number] documented in this encounter Plan of Treatment Not on file documented as of this encounter Visit Diagnoses Not on filedocumented in this encounter Care Teams Health Policy Nurse Relationship Specialty Start Date End Date Nargis Siegel MD PCP - General Internal Medicine 07/28/15 12/18/20 [facility], Pcp PCP - General Internal Medicine 12/19/20 01/03/21 Nargis Siegel MD PCP - General Internal Medicine 01/04/21 02/19/21 [facility], Pcp PCP - General Internal Medicine 02/20/21 05/24/21 Nargis Siegel MD PCP - General Internal Medicine 05/25/21 08/05/21 [facility], Pcp PCP - General Internal Medicine 08/06/21 12/03/21 [facility], Pcp PCP - General Internal Medicine 12/18/21 Daphney Velázquez MD Specialist Cardiology 12/28/20 documented as of this encounter
--- OUTSIDE RECORDS SUMMARY | 2025-06-28 07:32 | XMS_ITS | Encounter Summary ---
Author Organization [facility] Address [address] [place] [address] Care Team Providers Care Dough Scaler And Mixer Name Role Phone Basil Zabala MD Primary Care Provider Unavail able Nargis Siegel MD Primary Care Provider Unavaila [facility], Pcp Primary Care Provider Leola e Daphney Velázquez MD Unavailable [phone] Nargis Siegel MD Primary Care Provider Unavaila [facility], Pcp Primary Care Provider UnavailNargis Rahman MD Primary Care Provider Unavaila [facility], Pcp Primary Care Provider Unavailabl e [facility], Pcp Primary Care Provider Unavailabl e Encounter Details Date Type Department Care Team Description 01/17/2010 Tele Rn Report Medical Records [address] [place] [address] Tonio Loza Social History Tobacco Use Types [...] on filedocumented in this encounter Care Teams Dough Scaler And Mixer Relationship Specialty Start Date End Date Basil Zabala MD PCP - General 06/22/1995 07/27/15 Nargis Siegel MD PCP - General Internal Medicine 07/28/15 12/18/20 [facility], Pcp PCP - General Internal Medicine [...]
--- OUTSIDE RECORDS SUMMARY | 2025-06-28 07:32 | XMS_ITS | Encounter Summary ---
Author Organization [facility] Address [address] [place] [address] Care Team Providers Care Front Desk Specialist Name Role Phone Basil Zabala MD Primary Care Provider Unavail able Nargis Siegel MD Primary Care Provider Unavaila [facility], Pcp Primary Care Provider Leola e Daphney Velázquez MD Unavailable [phone] Nargis Siegel MD Primary Care Provider Unavaila [facility], Pcp Primary Care Provider Unavailashly e Nargis Siegel MD Primary Care Provider Unavaila [facility], Pcp Primary Care Provider Unavailabl e [facility], Pcp Primary Care Provider Unavailabl e Encounter Details Date Type Department Care Team Description 01/23/2010 Resin Coater Report Medical Records [address] [place] [address] Maki, Britt Social History Tobacco Use Types [...] on filedocumented in this encounter Care Teams Front Desk Specialist Relationship Specialty Start Date End Date Basil [...]
--- OUTSIDE RECORDS SUMMARY | 2025-06-28 07:32 | XMS_ITS | Encounter Summary ---
Author Organization [facility] Address [address] [place] [address] Care Team Providers Care It Specialist Name Role Phone Basil Zabala MD Primary Care Provider Unavail able Nargis Siegel MD Primary Care Provider Unavaila [facility], Pcp Primary Care Provider Leola e Daphney Velázquez MD Unavailable Nargis Siegel MD Primary Care Provider Unavaila [facility], Pcp Primary Care Provider UnavailNargis Rahman MD Primary Care Provider Unavaila [facility], Pcp Primary Care Provider Unavailabl e [facility], Pcp Primary Care Provider Unavailabl e Encounter Details Date Type Department Care Team Description 01/24/2010 Electrolog Operator Report Medical Records [address] [place] [address] Tonio Loza Social History Tobacco Use Types [...] on filedocumented in this encounter Care Teams It Specialist Relationship Specialty Start Date End Date Basil Zabala MD PCP - General 06/22/1995 07/27/15 Nargis Siegel MD PCP - General Internal Medicine 07/28/15 12/18/20 [facility], Pcp PCP - General Internal Medicine [...]
--- OUTSIDE RECORDS SUMMARY | 2025-06-28 07:32 | XMS_ITS | Encounter Summary ---
Author Organization [facility] Address [address] [place] [address] Care Team Providers Care Dump Operator Name Role Phone Basil Zabala MD Primary Care Provider Unavail able Nargis Siegel MD Primary Care Provider Unavaila [facility], Pcp Primary Care Provider Leola e Daphney Velázquez MD Unavailable [phone] Nargis Siegel MD Primary Care Provider Unavaila ble [facility], Pcp Primary Care Provider Unavailashly e Nargis Siegel MD Primary Care Provider Unavaila [facility], Pcp Primary Care Provider Unavailabl e [facility], Pcp Primary Care Provider Unavailabl e Encounter Details Date Type Department Care Team Description 01/04/2010 Cocoa Press Operator Report Medical Records [address] [place] [address] Chelsie Sousa Np Social History Tobacco Use Types Packs/Day Years [...] on filedocumented in this encounter Care Teams Dump Operator Relationship Specialty Start Date End Date [...]
--- OUTSIDE RECORDS SUMMARY | 2025-06-28 07:33 | XMS_ITS | Encounter Summary ---
Author Organization [facility] Address [address] [place] [address] Care Team Providers Care Window Systems Administrator Name Role Phone Basil Zabala MD Primary Care Provider Unavail able Nargis Siegel MD Primary Care Provider Unavaila [facility], Pcp Primary Care Provider Leola e Daphney Velázquez MD Unavailable [phone] Nargis Siegel MD Primary Care Provider Unavaila [facility], Pcp Primary Care Provider Unavailashly e Nargis Siegel MD Primary Care Provider Unavaila [facility], Pcp Primary Care Provider Unavailabl e [facility] [place], Pcp Primary Care Provider Unavailabl e Encounter Details Date Type Department Care Team Description 02/27/2015 Scallop Dredger Report Medical Records [address] [place] [address] Dorian Neff MD Social History Tobacco Use [...] on filedocumented in this encounter Care Teams Window Systems Administrator Relationship Specialty Start Date End Date Basil Zabala MD PCP - General 06/22/1995 07/27/15 Nargis Siegel MD PCP - General Internal Medicine 07/28/15 12/18/20 [facility] [place], Pcp PCP - General Internal Medicine 12/19/20 [...]
--- OUTSIDE RECORDS SUMMARY | 2025-06-28 07:33 | XMS_ITS | Encounter Summary ---
Author Organization [facility] Address [address] [place] [address] Care Team Providers Care Conveyor Belt Operator Name Role Phone Basil Zabala MD Primary Care Provider Unavail able Nargis Siegel MD Primary Care Provider Unavaila [facility], Pcp Primary Care Provider Leola e Daphney Velázquez MD Unavailable [phone] Nargis Siegel MD Primary Care Provider Unavaila [facility], Pcp Primary Care Provider Nargis Macdonald MD Primary Care Provider Unavaila [facility], Pcp Primary Care Provider Unavailabl e [facility], Pcp Primary Care Provider Unavailabl e Encounter Details Date Type Department Care Team Description 06/01/2015 Transfer Records Medical Records [address] [place] [address] Abstract, Provider Social History Tobacco Use Types [...] on filedocumented in this encounter Care Teams Conveyor Belt Operator Relationship Specialty Start Date End Date Basil Zabala MD PCP - General 06/22/1995 07/27/15 Nargis Siegel MD PCP - General Internal Medicine 07/28/15 12/18/20 [facility], Pcp PCP - General Internal Medicine 12/19/20 01/03/21 Nargis Siegel MD PCP - General Internal Medicine 01/04/21 02/19/21 [facility], Pcp PCP - General Internal Medicine 02/20/21 05/24/21 Nargis Siegel MD PCP - General Internal Medicine 05/25/21 08/05/21 [facility], Pcp PCP - General Internal Medicine 08/06/21 12/03/21 [facility], Pcp PCP - General Internal Medicine 12/18/21 Daphney Velázquez MD Specialist Cardiology 12/28/20 documented as of this encounter
--- OUTSIDE RECORDS SUMMARY | 2025-06-28 07:33 | XMS_ITS | Encounter Summary ---
Author Organization [facility] Address [address] [place] [address] Care Team Providers Care Milk Hauler Name Role Phone Basil Zabala MD Primary Care Provider Unavail able Nargis Siegel MD Primary Care Provider Unavaila [facility], [facility]cp Primary Care Provider Leola e Daphney Velázquez MD Unavailable [phone] Nargis Siegel MD Primary Care Provider Unavaila [facility]cp Primary Care Provider Unavailashly e Nargis Siegel MD Primary Care Provider Unavaila [facility]cp Primary Care Provider Unavailabl e [facility], Pcp Primary Care Provider Unavailabl e Encounter Details Date Type Department Care Team Description 05/24/2015 Dermatology Nurse Report Medical Records [address] [place] [address] Dorian Neff MD Social History Tobacco Use [...] on filedocumented in this encounter Care Teams Milk Hauler Relationship Specialty Start Date End Date Basil Zabala MD PCP - General 06/22/1995 07/27/15 Nargis Siegel MD PCP - General Internal Medicine 07/28/15 12/18/20 [facility], Pcp PCP - General Internal Medicine 12/19/20 [...]
--- OUTSIDE RECORDS SUMMARY | 2025-06-28 07:33 | XMS_ITS | Encounter Summary ---
Author Organization [facility] Address [address] [place] [address] Care Team Providers Care Social Worker Psychiatric Name Role Phone Basil Zabala MD Primary Care Provider Unavail able Nargis Siegel MD Primary Care Provider Unavaila [facility], Pcp Primary Care Provider Leola e Daphney Velázquez MD Unavailable [phone] Nargis Siegel MD Primary Care Provider Unavaila [facility], Pcp Primary Care Provider Nargis Macdonald MD Primary Care Provider Unavaila [facility], Pcp Primary Care Provider Unavailabl e [facility], Pcp Primary Care Provider Unavailabl e Encounter Details Date Type Department Care Team Description 12/27/2014 Business Doc Medical Records [address] [place] [address] Abstract, Provider Social History Tobacco Use Types [...] on filedocumented in this encounter Care Teams Social Worker Psychiatric Relationship Specialty Start Date End Date Basil Zabala MD PCP - General 06/22/1995 07/27/15 Nargis Siegel MD PCP - General Internal Medicine 07/28/15 12/18/20 [facility], Pcp PCP - General Internal Medicine 12/19/20 01/03/21 Nargis Siegel MD PCP - General Internal Medicine 01/04/21 02/19/21 [facility], Pcp PCP - General Internal Medicine 02/20/21 05/24/21 Nargis Siegel MD PCP - General Internal Medicine 05/25/21 08/05/21 [facility], Pcp PCP - General Internal Medicine 08/06/21 12/03/21 [facility], Pcp PCP - General Internal Medicine 12/18/21 Daphney Velázquez MD Specialist Cardiology 12/28/20 documented as of this encounter
--- OUTSIDE RECORDS SUMMARY | 2025-06-28 07:33 | XMS_ITS | Data Portability ---
Author Organization [facility] Reggie Pascual [facility], [facility] Address [address] [place] [address] Assessment Encounter Date Assessment Date Assessment LastModified [...] referral - eval for ? RFA 2023 04 024 [email or web address] [facility], [address] [place] [address], [place], [address], 11:38:12 Procedures None recorded. Surgeries None recorded. Imaging None recorded. Medication Orders None recorded. Patient TargetsNo targets recorded. Patient InstructionsNo instructions recorded. Reason for Referral Pain Management Referral for Lumbar radiculopathy eval for ? RFA Referring Physician: Tonio Loza, Orthopedic Surgery, [id number] Encounter Date: 12/31/2023 Medical Equipment None Reported. Allergies Allergen ID Allergen Name Allergen Category Reaction Reaction Severity Criticality Documentation Date Start Date Code Code System Note Provider Name and Address Organization Details Recorded Time [id number] Ozempic medicatio n Not available Not available Not available 12/31/2023 RxNorm ILEANA alcala [place] - [facility] 13:20:26 Medications Name Sig Start Date [...] Not Available Not Available N ot Available Basaglpatricia Rao U-100 Insulin 100 unit/mL (3 mL) subcutaneous ADMINISTER 24 UNITS UNDER THE SKIN AT BEDTIME DIRECTED active Not Available Not Available No t Available BD Lisa 2nd Gen Pen Needle 32 gauge x 5/32 USE 2 NEEDLES ONCE DAILY WITH INSULIN active Not Available Not Available No t Available Vitals Date Recorded Body height Body mass index (BMI) Body weight Provider Name and Address Organization Details Last Updated DateTime 12/31/2023 170.18 cm 36 kg/m2 389525.25 g ILEANA SAN [place] - [facility] 12/31/2023 13:20:09 Social History None recorded. Functional Status None recorded. Mental Status None recorded. Family History Nothing Reported. Medical History No medical history recorded. Gynecological HistoryNo gynecological history recorded. Obstetrics History GPAL:G 0 P 0 0 0 0 Past Encounters Encounter ID Performer Location Encounter Start Date Encounter Closed Date Diagnosis/Indication Diagnosis SNOMED-CT Code Diagnosis ICD10 Code Diagnosis IMO Codes Diagnosis Note [id number] Tonio Loza MD [place] [address] [place] [address] 12/31/2023 12:42:46 01/21/2024 09:30:27 Lumbar radiculopathy 051099765 M54.16 Health Concerns Section Related Observation LastModified by Organization Detai ls LastModified Time None Recorded Concern Status LastModified by Organization Details LastModified Time None Recorded Advance Directives Directive None Recorded Payers Insurance Date Sequence Insurance Name Policy Number Policy Freitas Covered Member ID Freitas Member ID Guarantor Name 01/21/2024 2 [place] [id number] Billie Cardosonack [id number] Billie Cardosonacashia 12/31/2023 3 [place] Billie Cardosonack [id number] Billie Cardosonack 01/21/2024 1 [place] [employer] Billie Cardosonacashia [id number] Billie Cardosonacashia Notes Date Note Type Note Provider Name [...] reviewed, updated and is located in the patient s chart. TREATMENT: Full course of operative and nonoperative care. MEDICATIONS: Ketamine cannabis products WORK STATUS: Disabled IMAGING: Plain radiographs of [facility] reviewed. Lumbar spine films notable for spondylosis. Spondylolisthesis L4-5 quite small X-RAY REPORT: X-rays ordered, obtained and reviewed at [facility]. Not indicated Tonio Loza MD [address] [facility] [address], [place], [address], [facility] - [facility] 12/31/2023 17:35:35 OBGyn Episode No OBEpisode recorded.
--- OUTSIDE RECORDS SUMMARY | 2025-06-28 07:33 | XMS_ITS | Encounter Summary ---
Author Organization [facility] Address [address] [place] [address] Care Team Providers Care Court Assistant Name Role Phone Basil Zabala MD Primary Care Provider Unavail able Nargis Siegel MD Primary Care Provider Unavaila ble [facility], Pcp Primary Care Provider Leola e Daphney Velázquez MD Unavailable [phone] Nargis Siegel MD Primary Care Provider Unavaila ble [facility], Pcp Primary Care Provider Unavailashly e Nargis Siegel MD Primary Care Provider Unavaila [facility], Pcp Primary Care Provider Unavailabl e [facility], Pcp Primary Care Provider Unavailabl e Encounter Details Date Type Department Care Team Description 06/10/2011 Heel Emery Buffer Report Medical Records [address] [place] [address] Monty Ventura MD Social History Tobacco Use Types Packs/Day [...] on filedocumented in this encounter Care Teams Court Assistant Relationship Specialty Start Date End Date Basil [...]
--- OUTSIDE RECORDS SUMMARY | 2025-06-28 07:33 | XMS_ITS | Encounter Summary ---
Author Organization [facility] Address [address] [place] [address] Care Team Providers Care Ground Wood Supervisor Name Role Phone Basil Zabala MD Primary Care Provider Unavail able Nargis Siegel MD Primary Care Provider Unavaila [facility], Pcp Primary Care Provider Leola e Daphney Velázquez MD Unavailable [phone] Nargis Siegel MD Primary Care Provider Unavaila [facility], Pcp Primary Care Provider Nargis Macdonald MD Primary Care Provider Unavaila [facility], Pcp Primary Care Provider Unavailabl e [facility], Pcp Primary Care Provider Unavailabl e Encounter Details Date Type Department Care Team Description 04/28/2014 Transfer Records Medical Records [address] [place] [phone] Abstract, Provider Social History Tobacco Use Types [...] on filedocumented in this encounter Care Teams Ground Wood Supervisor Relationship Specialty Start Date End Date Basil Zabala MD PCP - General 06/22/1995 07/27/15 Nargis Siegel MD PCP - General Internal Medicine 07/28/15 12/18/20 [facility], Pcp PCP - General Internal Medicine 12/19/20 01/03/21 Nargis Siegel MD PCP - General Internal Medicine 01/04/21 02/19/21 [facility], Pcp PCP - General Internal Medicine 02/20/21 05/24/21 Nargis Siegel MD PCP - General Internal Medicine 05/25/21 08/05/21 [facility], Pcp PCP - General Internal Medicine 08/06/21 12/03/21 [facility], Pcp PCP - General Internal Medicine 12/18/21 Daphney Velázquez MD Specialist Cardiology 12/28/20 documented as of this encounter
--- OUTSIDE RECORDS SUMMARY | 2025-06-28 07:33 | XMS_ITS | Encounter Summary ---
Author Organization [facility] Address [address] [place] [address] Care Team Providers Care Manager Installation Name Role Phone Basil Zabala MD Primary Care Provider Unavail able Nargis Siegel MD Primary Care Provider Unavaila [facility], Pcp Primary Care Provider Leola e Dpahney Velázquez MD Unavailable [phone] Nargis Siegel MD Primary Care Provider Unavaila [facility], Pcp Primary Care Provider Unavailashly e Nargis Siegel MD Primary Care Provider Unavaila [facility], Pcp Primary Care Provider Unavailabl e [facility], Pcp Primary Care Provider Unavailabl e Encounter Details Date Type Department Care Team Description 07/04/2015 Computer Systems Hardware Analyst Report Medical Records [address] [place] [address] Dorian Neff MD Social History Tobacco Use [...] filedocumented in this encounter Care Teams Manager Installation Relationship Specialty Start Date End Date Basil [...]
--- OUTSIDE RECORDS SUMMARY | 2025-06-28 07:33 | XMS_ITS | Encounter Summary ---
Author Organization [facility] Address [address] [place] [address] Care Team Providers Care Temporary Help Agency Referral Clerk Name Role Phone Basil Zabala MD Primary Care Provider Unavail able Nargis Siegel MD Primary Care Provider Unavaila [facility], Pcp Primary Care Provider Leola e Daphney Velázquez MD Unavailable [phone] Nargis Siegel MD Primary Care Provider Unavaila [facility], Pcp Primary Care Provider Unavailashly e Nargis Siegel MD Primary Care Provider Unavaila [facility], Pcp Primary Care Provider Unavailabl e [facility], Pcp Primary Care Provider Unavailabl e Encounter Details Date Type Department Care Team Description 09/27/2014 Patch Finisher Report Medical Records [address] [place] [address] Dorian Neff MD Social History Tobacco Use [...] on filedocumented in this encounter Care Teams Temporary Help Agency Referral Clerk Relationship Specialty Start Date End Date [...]
--- OUTSIDE RECORDS SUMMARY | 2025-06-28 07:34 | XMS_ITS | Clinical Summary ---
Author Organization [facility] Address [address] [place] [address] Care Team Providers Care Weaving Instructor Name Role Phone Daphney Velázquez MD Unavailable [phone] Community, Pcp Primary Care Provider Unavailabl e Allergies Active Allergy Reactions Severity Noted Date Comments Fentanyl Rash/Dermatitis 02/12/2006 allergic to a specific brand Hydralazine Medium 06/23/2017 Nausea, vomiting, fatigue Medications Medication Sig Dispensed Refills Start Date End Date Status MARINOL 5 MG OR CAPS Prn 1-5 daily 0 A ctive Blood Glucose Calibration (OT ULTRA/FASTTK CNTRL SOLN) SOLN USE as directed 1 DROP DAILY NEEDED 1 Each 6 04/06/2012 Active ondansetron (ZOFRAN) 8 MG tablet Take 16 mg by mouth daily as needed. 0 Active clotrimazole-betamet hasone (LOTRISONE) cream Apply to area sparingly twice a day for up to two weeks 1 Tube 1 12/18/2012 Active lidocaine-prilocaine (EMLA) cream Apply topically as needed. bid 0 Active oxazepam (SERAX) 10 MG capsule Take 10 mg by mouth 3 times daily. 1-6 nightly 0 Active Spacer/Aero-Holding Chambers (BREATHERITE MAY SPACER ADULT) MISC Inhale 1 Device into the lungs as needed (wheezing or cough - use with inhaler). 1 Each 0 06/16/2014 Active lidocaine (LIDODERM) 5 % Place 1 Patch onto the skin every 24 hours. Apply for no more than 12 hours in any 24 hour period. PRN 0 Active Medical MarijuanaIndications :Reflex sympathetic dystrophy of left upper extremity 0 Active ONE TOUCH ULTRASOFT LANCETS Misc Test blood sugar three times a day as directed 100 Each 5 05/31/2016 Active Solwlhg-Soobxrvbkw-Z enthol (VICKS VAPORUB) 4.7-1.2-2.6 % Ointment Apply 1 g topically daily. 60 g 0 02/20/2017 Active Diclofenac Sodium (VOLTAREN) 1 % Gel Place 1 g onto the skin daily. 100 g 2 01/19/2018 Active Meclizine HCl (MEDI-MECLIZINE) 25 MG TabIndications:Verti go Take 1-2 Tabs by mouth 3 times daily as needed (dizziness) for up to 360 days. 75 Tab 1 01/27/2018 Active tolnaftate (TINACTIN) 1 % powder apply topical bid as needed 45 g 1 03/05/2018 Active B-D ULTRAFINE III SHORT PEN 31G X 8 MM Misc use as directed once daily 90 Each 0 05/19/2018 Active morphine (MSIR) 30 MG tabletIndications:Hy perlipidemia, unspecified hyperlipidemia type,Essential hypertension, benign,Prolonged QT interval,Chest pain, unspecified type Take 30 mg by mouth 4 times daily. 0 Active albuterol (PROVENTIL) (2.5 MG/3ML) 0.083% nebulizer solution Take 1 Vial by nebulization every 4 hours as needed for Wheezing, Shortness of Breath or Cough. 50 Vial 0 04/19/2019 Active famotidine (PEPCID) 20 MG tablet Take 20 mg by mouth 2 times daily. 0 Active glucose blood test strips (ASCENSIA AUTODISC ,ONE TOUCH ULTRA TEST ) strip TEST as directed three times a day 200 Each 6 04/13/2020 Active BASAGLAR KWIKPEN 100 UNIT/ML Solution Pen-injector Inject 28 Units into the skin at bedtime. 45 mL 5 05/18/2020 Active levothyroxine (SYNTHROID, LEVOTHROID) 50 MCG tablet TAKE 1 TABLET BY MOUTH ONCE DAILY 90 Tab 1 06/17/2020 Active budesonide-formotero l (SYMBICORT) 160-4.5 MCG/ACT inhaler Inhale 2 Puffs into the lungs every 12 hours. rinse, gargle and spit after 2nd inhalation 3 Inhaler 1 08/21/2020 Active montelukast (SINGULAIR) 10 MG tablet Take 1 Tab by mouth at bedtime. 90 Tab 1 08/21/2020 Active fluticasone (FLONASE) 50 MCG/ACT nasal spray Use 2 spray per nostril daily. 3 Bottle 3 08/29/2020 Active ALBUTEROL SULFATE (PROAIR HFA) 108 (90 Base) MCG/ACT Aero Soln Inhale 2 Puffs into the lungs every 4 hours as needed for Cough, Wheezing or Shortness of Breath. 25.5 Inhaler 0 08/29/2020 Active metformin (GLUCOPHAGE-XR) 500 MG 24 hr tablet Take 2 tab po in AM and 2 tab po in PM 120 Tab 5 09/01/2020 Active silver sulfADIAZINE (SILVADENE) 1 % cream Apply to ulcer daily 50 g 0 10/05/2020 Active lisinopril (PRINIVIL,ZESTRIL) 2.5 MG tablet Take 1 Tab by mouth daily. 90 Tab 1 10/13/2020 Active BD PEN NEEDLE LENI 2ND GEN 32G X 4 MM Misc USE ONCE DAILY WITH INSULIN PEN 100 Each 2 10/27/2020 Active hydrOXYzine (ATARAX) 25 MG tablet Take 1 Tab by mouth at bedtime as needed for Itching. 180 Tab 1 11/16/2020 Active nitroGLYCERIN (NITROSTAT) 0.[address] 1 tablet under the tongue every 5 minutes as needed for Chest pain. 1 Bottle 0 01/04/2021 Active Coenzyme Q10 200 MG Cap Take 1 capsule by mouth 2 times daily as needed (nausea, vomiting) for up to 90 days. 60 capsule 2 04/24/2021 Active Riboflavin 100 MG Cap Take 2 Capsules by mouth 2 times daily as needed (nausea, vomiting) for up to 90 days. 60 capsule 2 04/24/2021 Active buprenorphine-naloxo ne (SUBOXONE) 2-0.5 MG SL Tab 0 05/17/2021 Active Cholecalciferol (Vitamin D3) 25 MCG (1000 UT) Tab Take 1 tablet by mouth daily. 0 04/19/2021 Active cholestyramine (QUESTRAN) 4 g packet 0 04/27/2021 Active cyproheptadine (PERIACTIN) 4 MG tablet 0 04/16/2021 Active memantine (NAMENDA) 10 MG tablet 0 05/23/2021 Active prochlorperazine (COMPAZINE) 25 MG suppository UNWRAP AND INSERT 1 SUPPOSITORY RECTALLY TWICE DAILY NEEDED FOR NAUSEA OR VOMITING 0 04/19/2021 Active cyanocobalamin 1000 MCG/ML injection Inject 100 mcg into the muscle every 30 days. 0 Active estrogen, conjugated,-medroxyp rogesterone (Prempro) 0.3-1.5 MG per tablet Take 1 Tablet by mouth daily. 90 Tablet 3 12/15/2023 Active estradiol (ESTRACE VAGINAL) 0.1 MG/GM vaginal cream Apply 1g PV nightly for 2 weeks and then 1-2 nights a week thereafter 382.5 g 5 02/12/2024 Active Active Problems Patient Care Coordination No te Formatting of this note is d ifferent from the original. Checking Your Blood Sugars Please check your blood sugars Please check your sugars at the following times of day: before breakfast and before dinner Your Blood Sugar Goals Pre Meal: 90-130 2 hours after meals: 110-160 Bedtime: 110-150 Use the Results Bring your glucometer to every appointment Write your fingerstick blood sugars down on a log sheet or record book. Bring them to your appointment Look for patterns in the numbers. The results help you and your provider make decisions about your diabetes treatment plan. Your Results and your Goals Your Result / Date of Completion Your Goal / How Often to Assess Component Value Date HGBA1C 7.2 04/17/2015 Less than 7%--- 2-4 times per year BP Readings from Last 1 Encounters: 06/28/15 94/70 Less than 130/80--- once per year Component Value Date LDL 56 06/12/2015 LDL less than 100--- once per year Component Value Date MALBUR 0.4 06/12/2015 Less than 30--- once per year Wt Readings from Last 1 Encounters: 06/28/15 253 lb 4 oz (114.873 kg) Your goal weight by next visit: 250--- reassess 2-4 times a year Health Maintenance Due Topic Date Due Baseline Health Exam 40-64 09/04/2011 Diabetes: Annual Foot Exam 06/16/2015 Diabetes: Annual Care Plan 06/16/2015 Your Action Plan Your diabetes is well controlled and no changes are required to your current plan. Check blood glucose as directed and write down all results. Check feet for sores every day Contact me if you experience any barriers to care such as inability to purchase your medication, difficulty getting to your appointments or difficulty understanding your care plan Please get your yearly flu shot When to Call your Healthcare Provider If your blood sugar falls below 70 and you do not know why or you become unconscious If you are sick and unable to take liquids because or nausea or vomiting If you have a fever over 101 If your blood sugar is 300 or higher on greater than 3 separate occasions during the same week If you are just unsure what to do Educational Resources [place] Diabetes Association (www.diabetes.org) Centers for Disease Control and Prevention (www.cdc.gov/diabetes) This care plan was created in collaboration with Billie Kelly on 06/28/2015 Problem Noted Date Prolonged QT interval 05/30/2021 Overview: Prolonged QT interval Chest pain 05/30/2021 Overview: Chest pain Depression 05/30/2021 GERD (gastroesophageal reflux disease) 0 05/30/2021 Vertigo 05/30/2021 Diabetic gastroparesis 05/25/2021 Epidemic vomiting syndrome 05/25/2021 Early satiety 05/25/2021 Diabetic neuropathy 01/02/2021 Onychomycosis 01/02/2021 Carpal tunnel syndrome 01/02/2021 Irritable bowel syndrome (IBS) PTSD (post-traumatic stress disorder) Medical marijuana use 01/02/2021 Post herpetic neuralgia 04/19/2019 Vitamin D deficiency 09/01/2018 Hypothyroidism 09/01/2018 DM (diabetes mellitus), type 2 with neur ological complications 05/19/2018 Chronic pain syndrome 05/19/2018 Charcot foot due to diabetes mellitus History of MRSA infection 05/19/2018 Overview: L foot Cataract 10/24/2016 Chronic headaches 08/30/2015 Sliding hiatal hernia 07/15/2015 Esophageal dysmotility 07/15/2015 Type 2 diabetes mellitus with cataract 0 01/25/2014 Overview: Cataracts noted on outside eye exam Dr. Adams. Hyperlipidemia 08/01/2008 Essential hypertension, benign 8 Fatty liver 06/30/2008 Unspecified sinusitis (chronic) 05/12/20 07 Allergic rhinitis 01/15/2006 Asthma 01/15/2006 Overview: Mild intermittent. Severe obesity (BMI 35.0-39.9) with gabrielle rbidity 01/15/2006 Reflex sympathetic dystrophy of left upp er extremity 10/24/2005 Spinal stenosis Overview: Cervical and lumbar; Dr. Amado Mcnulty. Resolved Problems Problem Noted Date Resolved Date Type II or unspecified type diabetes mellitus without mention of complication, uncontrolled 11/17/2012 12/14/2013 Immunizations Name Administration Dates Next Due COVID-19 (Pfizer) Pt Reported 01/15/2021, 021 Influenza (> 6 Months) 10/26/2019,2016,05/27/2015,07/11,05/26/2013,09/09/2011,08/10/2010 ,09/04/2009,08/01/2008,07/14/2006,02/2003 Influenza H1N1 Pandemic Flu Vaccine 09/04/2009 Influenza Vaccine-preservati ve Free-quadrivalent 4 Years 09/01/2018 Pneumoccoccal(Adult) Polysac charide PPSV23 08/01/2008,07/28/2003 Pneumococcal Conjugate PCV-13 01/03/2015 Shingrix (Recombinant zoster vaccine) 10/26/2019 TETANUS/DIPTHERIA (ADULT) 07/28/2003 Tdap 09/09/2011 Family History Medical History Relation Name Comments Cancer, Other Father at 80, CA BG, throat cancer /bladder cancer, cataract. Cataract Maternal Grandfather Glaucoma Maternal Grandfather CA Breast Maternal Grandmother dx'd age 70 Cancer of the Breast Maternal Grandmother dx'd age 70 Cataract Maternal Grandmother dx'd age 70 Glaucoma Maternal Grandmother dx'd age 70 Cancer of the Colon Mother dx'd age 70 at 70, breast cancer, COPD Cancer, Other Sister 2 spine and nerv ous system age 9 Other Son 2 tourettes Blindness Negative Hx CA Ovarian Negative Hx Macular Degeneration Negative Hx Strabismus Negative Hx Uterine Cancer Negative Hx Relation Name Status Comments Brother 1 Alive well Brother 2 Alive well Brother 3 Alive well Father throat aNd blad julisa cancer, CABG Maternal Grandfather dementi a Maternal Grandmother dx'd age 70 Breast cancer, dementia Mother dx'd age 70 copd - smoker - colon and breast cancer Paternal Grandfather CVA Paternal Grandmother Diverti culits, colon cancer Sister 1 Cancer of spine age 10 Sister 2 Son 1 Alive Toutrettes, anx iety Son 2 Social History Tobacco Use Types Packs/Day Years Used Date Smoking Tobacco: Never Smokeless Tobacco: Never Tobacco Cessation:Counseling Given: Not Answered Alcohol Use Standard Drinks/Week Comments No 0 (1 standard drink = 0.6 oz pur e alcohol) Sex Assigned at Date Recorded Not on file Job Start Date Occupation Industry Not on file Not on file Not on file Last Filed Vital Signs Vital Sign Reading Time Taken Comments Blood Pressure 128/84 11/21/2022 3:21 PM EST Pulse 80 11/21/2022 3:21 PM EST Temperature 36.3 C (97.4 F) 11/22/2020 2:14 PM EST Respiratory Rate 16 10/18/2020 2:23 PM EST Oxygen Saturation 97% 07/30/2021 1:57 PM EST Inhaled Oxygen Concentration - - Weight 101.6 kg (224 lb) 11/21/2022 3:21 PM EST Height 170.2 cm (5' 7 ) 08/07/2021 1:27 PM EST Body Mass Index 35.08 08/07/2021 1:27 PM EST Plan of Treatment Health Maintenance Due Date Last Done Comments DEPRESSION SCREEN 09/11/2019 09/11/2018, , 02/09/2016, Additional history exists DIABETES: ANNUAL FOOT EXAM 12/23/201912/22, 12/11/2016, 02/09/2016, Additional history exists DIABETES: BLOOD SUGAR CONTRO L TEST (HGBA1C) 03/08/2021 12/06/2020, 08/15/2020, 05/18/2020, Additional history exists DIABETES/HEART DISEASE: LAURA AL CHOLESTEROL (LDL) 04/07/2021 04/07/2020, 02/05/2020, 12/07/2018, Additional history exists DIABETES: ANNUAL URINE PROTE IN TEST (MICROALBUMIN) 04/07/2021 04/07/2020, 07/30/2019, 05/15/2018, Additional history exists DIABETES: ANNUAL EYE EXAM 06/28/20212019, 09/01/2017 (External Completion), 09/01/2017, Additional history exists DTAP/TDAP/TD (2 - Td or Tdap) 09/09/2021 09/09/2011 MAMMOGRAM 11/08/2021 11/08/2020, 09/23, 12/23/2014, Additional history exists CERVICAL CANCER SCREENING 09/01/20232017, 12/18/2012, 10/01/2010, Additional history exists BMI CHECK/ADVISE 09/22/2024 11/21/2022, , 04/11/2020, Additional history exists BONE DENSITY SCREENING 11/23/2024 07/07/2007 PNEUMOCOCCAL VACCINE (3 - PP SV23 or PCV20) 11/23/2024 01/03/2015, 08/01/2008, 07/28/2003 Covid-19 Vaccine (2022-10 4 season) 2025 07/23/2021, 01/15/2021, 12/23/2020 INFLUENZA (#1) 2025 10/26/2019 (Exte rnal Completion of Vaccination per patient), 10/26/2019, 09/01/2018, Additional history exists COLON CANCER SCREENING 03/02/2026 , 03/02/2021 (Completed), 11/25/2013, Additional history exists HEPATITIS C SCREENING Completed 09/01/2013 SHINGLES VACCINE Completed 05/06/2020, 10/26/2019 Care Teams Weaving Instructor Relationship Specialty Start Date End Date Community, Pcp PCP - General Internal Medicine 12/18/21 Daphney Velázquez MD Specialist Cardiology 12/28/20
--- OUTSIDE RECORDS SUMMARY | 2025-06-28 07:34 | XMS_ITS | Encounter Summary ---
Author Organization [facility] Address [address] [place] [address] Care Team Providers Care Regional Economic Liaison Name Role Phone Nargis Siegel MD Primary Care Provider Unavaila ble Community, Pcp Primary Care Provider Unavailabl e Daphney Velázquez MD Unavailable Nargis Siegel MD Primary Care Provider Unavaila ble Community, Pcp Primary Care Provider Unavailabl e Nargis Siegel MD Primary Care Provider Unavaila ble [facility], Pcp Primary Care Provider Unavailabl e Community, Pcp Primary Care Provider Unavailabl e Reason for Visit * Reason Onset Date Comments Pre-visit Diabetes Lab Adult Medicine 11/17/201812/01 Encounter Details Date Type Department Care Team Description 11/17/2018 Telephone Medicine/Pediatrics - [address] [id number] Stacey Melgoza PA-C Pre-visit Diabetes Lab Adult Medicine (12/01) Social History Tobacco Use Types Packs/Day Years [...] encounter Miscellaneous Notes * Telephone Encounter - Vianney Guzman - 11/17/2018 9:22 AM EST Sent patient an email advising them to complete diabetic lab work at least three days prior to their upcoming appointment. documented in this encounter Plan of Treatment Not on file documented as of this encounter Visit Diagnoses Not on filedocumented in this encounter Care Teams Regional Economic Liaison Relationship Specialty Start Date End Date Nargis Siegel MD PCP - General Internal Medicine 07/28/15 12/18/20 [facility], Pcp PCP - General Internal Medicine 12/19/20 01/03/21 Nargis Siegel MD PCP - General Internal Medicine 01/04/21 02/19/21 [facility], Pcp PCP - General Internal Medicine 02/20/21 05/24/21 Nargis Siegel MD PCP - General Internal Medicine 05/25/21 08/05/21 [facility], Pcp PCP - General Internal Medicine 08/06/21 12/03/21 [facility], Pcp PCP - General Internal Medicine 12/18/21 Daphney Velázquez MD Specialist Cardiology 12/28/20 documented as of this encounter
--- OUTSIDE RECORDS SUMMARY | 2025-06-28 07:34 | XMS_ITS | Encounter Summary ---
Author Organization [facility] Address [address] [place] [address] Care Team Providers Care Capacity Manager Name Role Phone Daphney Velázquez MD Unavailable [phone] Nargis Siegel MD Primary Care Provider Unavaila ble Community, Pcp Primary Care Provider Unavailabl e [facility], Pcp Primary Care Provider Unavailabl e Reason for Visit * Reason Onset Date Comments Appointment-Internal Referral 06/05/2021 Encounter Details Date Type Department Care Team Description 06/05/2021 Telephone Gastroenterology - [address] [address] Earl Bonner PA-C Appointment-Internal Referral Social History Tobacco Use Types Packs/Day Years [...] have Coronavirus / COVID-19? No / Unsure 05/25/2021 10:36 AM EDT documented as of this encounter Miscellaneous Notes * Telephone Encounter - Lesly Conrad - 06/05/2021 8:57 AM EDT Referral to Nutrition: FYI to referring. Calls made and letter sent. Unable to book at this time. documented in this encounter Plan of Treatment Not on file documented as of this encounter Visit Diagnoses Not on filedocumented in this encounter Care Teams Capacity Manager Relationship Specialty Start Date End Date Nargis Siegel MD PCP - General Internal Medicine 05/25/21 08/05/21 [facility], Pcp PCP - General Internal Medicine 08/06/21 12/03/21 [facility], Pcp PCP - General Internal Medicine 12/18/21 Daphney Velázquez MD Specialist Cardiology 12/28/20 documented as of this encounter
--- OUTSIDE RECORDS SUMMARY | 2025-06-28 07:34 | XMS_ITS | Encounter Summary ---
Author Organization [facility] Address [address] [place] [address] Care Team Providers Care Ice Hockey Coach Name Role Phone Daphney Velázquez MD Unavailable [phone] Community, Pcp Primary Care Provider Unavailabl e Encounter Details Date Type Department Care Team Description 09/10/2022 [facility] [address] [address] [facility]is [facility] [address] [place] [address] Social History Tobacco Use Types Packs/Day Years [...] encounter Miscellaneous Notes * Telephone Encounter - Sophia Chandler - 10/08/2022 1:46 PM EST Prior Authorization for Medication-do not complete and send this encounter unless you have the fax from the pharmacy. Is this a Cover My Meds request: [place] of Medication prempro Dose of Medication 0.3-1.5 mg What is the RX # from the faxed refill? - How does patient take this med? - What Pharmacy did the fax come from: [facility] fax #: [phone] [employer] Information from fax: What Prescription Plan does the patient have? - BIN/PCN if applicable: - Cardholder ID:- Person Code: - Relationship Code: - Help desk phone: - * Telephone Encounter - Natasha Mcdaniel L.P.N. - 09/10/2022 3:05 PM EST Rx request for Prempro 0.3-1.5 mg. Annual manager contract exam scheduled 11/21/22. Thank you. documented in this encounter Plan of Treatment Not on file documented as of this encounter Visit Diagnoses Not on filedocumented in this encounter Care Teams Ice Hockey Coach Relationship Specialty Start Date End Date Community, Pcp PCP - General Internal Medicine 12/18/21 Daphney Velázquez MD Specialist Cardiology 12/28/20 documented as of this encounter
--- OUTSIDE RECORDS SUMMARY | 2025-06-28 07:34 | XMS_ITS | Encounter Summary ---
Author Organization [facility] Address [address] [place] [address] Care Team Providers Care Tenter Name Role Phone Nargis Siegel MD Primary Care Provider Unavaila libia [facility], Pcp Primary Care Provider Daphney Velasquez MD Unavailable Nargis Siegel MD Primary Care Provider Unavaila [facility], Pcp Primary Care Provider Unavailabl e Nargis Siegel MD Primary Care Provider Unavaila [facility], Pcp Primary Care Provider Unavailabl e [facility], Pcp Primary Care Provider Unavailabl e Encounter Details Date Type Department Care Team Description 12/08/2018 Orders Only Medicine/Pediatrics - [address] [phone] Stacey Melgoza PA-C Social History Tobacco Use Types Packs/Day [...] on filedocumented in this encounter Care Teams Tenter Relationship Specialty Start Date End Date Nargis [...]
--- OUTSIDE RECORDS SUMMARY | 2025-06-28 07:34 | XMS_ITS | Encounter Summary ---
Author Organization [facility] Address [address] [place] [address] Care Team Providers Care Industrial Electrical Engineer Name Role Phone Daphney Velázquez MD Unavailable [phone] Nargis Siegel MD Primary Care Provider Unavaila ble [facility], Pcp Primary Care Provider Unavailabl e [facility], Pcp Primary Care Provider Unavailabl e Encounter Details Date Type Department Care Team Description 07/30/2021 Telephone Adult Medicine [address] [address] Seema Azevedo PA-C Social History Tobacco Use Types [...] have Coronavirus / COVID-19? No / Unsure 07/30/2021 10:34 AM EST documented as of this encounter Miscellaneous Notes * Telephone Encounter - Veronica Tejeda - 07/31/2021 9:50 AM EST Lm on for patient to cb to discuss below. * Telephone Encounter - Seema Azevedo PA-C - 07/30/2021 3:32 PM EST Please call patient. Complicated patient with multiple comorbidities. She is still listed under in our EMR. If she has followed Dr. Belcher to her new practice patient needs to advise her specialist providers of the same, and we need to make sure these notes get to that office. She saw both cardiology and gastro today. Thank you documented in this encounter Plan of Treatment Not on file documented as of this encounter Visit Diagnoses Not on filedocumented in this encounter Care Teams Industrial Electrical Engineer Relationship Specialty Start Date End Date Nargis Siegel MD PCP - General Internal Medicine 05/25/21 08/05/21 Community, Pcp PCP - General Internal Medicine 08/06/21 12/03/21 Community, Pcp PCP - General Internal Medicine 12/18/21 Daphney Velázquez MD Specialist Cardiology 12/28/20 documented as of this encounter
--- OUTSIDE RECORDS SUMMARY | 2025-06-28 07:34 | XMS_ITS | Encounter Summary ---
Author Organization [facility] Address [address] [place] [address] Care Team Providers Care Cuff Maker Name Role Phone Nargis Siegel MD Primary Care Provider Unavaila ble Community, Pcp Primary Care Provider Unavailashly e Daphney Velázquez MD Unavailable [phone] Nargis Siegel MD Primary Care Provider Unavaila ble [facility], Pcp Primary Care Provider Unavailabl e Nargis Siegel MD Primary Care Provider Unavaila ble [facility], Pcp Primary Care Provider Unavailabl e Community, Pcp Primary Care Provider Unavailabl e Encounter Details Date Type Department Care Team Description 12/10/2017 Transfer Iron Operator Report Medical Records [address] [place] [id number] Natalia David MD [address] [place] [phone] Social History Tobacco Use Types Packs/Day [...] on filedocumented in this encounter Care Teams Cuff Maker Relationship Specialty Start Date End Date Nargis Siegel MD PCP - General Internal Medicine 07/28/15 12/18/20 [facility], Pcp PCP - General Internal Medicine 12/19/20 01/03/21 Nargis Siegel MD PCP - General Internal Medicine 01/04/21 02/19/21 [facility], Pcp PCP - General Internal Medicine 02/20/21 05/24/21 Nargis Siegel MD PCP - General Internal Medicine 05/25/21 08/05/21 [facility], Pcp PCP - General Internal Medicine 08/06/21 12/03/21 [facility], Pcp PCP - General Internal Medicine 12/18/21 Daphney Velázquez MD Specialist Cardiology 12/28/20 documented as of this encounter
--- OUTSIDE RECORDS SUMMARY | 2025-06-28 07:34 | XMS_ITS | Encounter Summary ---
Author Organization [facility] Address [address] [place] [address] Care Team Providers Care Parking Analyst Name Role Phone Nargis Siegel MD Primary Care Provider Unavaila ble [facility], Pcp Primary Care Provider Daphney Velasquez MD Unavailable [phone] Nargis Siegel MD Primary Care Provider Unavaila ble [facility], Pcp Primary Care Provider Unavailabl e Nargis Siegel MD Primary Care Provider Unavaila [facility], Pcp Primary Care Provider Unavailabl e [facility], Pcp Primary Care Provider Unavailabl e Encounter Details Date Type Department Care Team Description 01/14/2018 Host/Hostess Head Report Medical Records [address] [place] [address] Dorian Neff MD Social History Tobacco Use [...] on filedocumented in this encounter Care Teams Parking Analyst Relationship Specialty Start Date End Date Nargis [...]
--- OUTSIDE RECORDS SUMMARY | 2025-06-28 07:34 | XMS_ITS | Encounter Summary ---
Author Organization [facility] Address [address] [place] [address] Care Team Providers Care Eligibility Technician Name Role Phone Basil Zabala MD Primary Care Provider Unavail able Nargis Siegel MD Primary Care Provider Unavaila [facility], Pcp Primary Care Provider Daphney Velasquez MD Unavailable [phone] Nargis Siegel MD Primary Care Provider Unavaila [facility], Pcp Primary Care Provider Nargis Macdonald MD Primary Care Provider Unavaila [facility], Pcp Primary Care Provider Unavailabl e [facility], Pcp Primary Care Provider Unavailabl e Encounter Details Date Type Department Care Team Description 10/01/2012 Home Health Certification Medical Records [address] [place] [address] Vna Social History Tobacco Use Types Packs/Day Years [...] on filedocumented in this encounter Care Teams Eligibility Technician Relationship Specialty Start Date End Date Basil Zabala MD PCP - General 06/22/1995 07/27/15 Nargis Siegel MD PCP - General Internal Medicine 07/28/15 12/18/20 [facility], Pcp PCP - General Internal Medicine 12/19/20 01/03/21 Nargis Siegel MD PCP - General Internal Medicine 01/04/21 02/19/21 [facility], Pcp PCP - General Internal Medicine 02/20/21 05/24/21 Nargis Siegel MD PCP - General Internal Medicine 05/25/21 08/05/21 [facility], Pcp PCP - General Internal Medicine 08/06/21 12/03/21 [facility], Pcp PCP - General Internal Medicine 12/18/21 Daphney Velázquez MD Specialist Cardiology 12/28/20 documented as of this encounter
--- OUTSIDE RECORDS SUMMARY | 2025-06-28 07:34 | XMS_ITS | Encounter Summary ---
Author Organization [facility] Address [address] [place] [address] Care Team Providers Care Finish Opener Name Role Phone Nargis Siegel MD Primary Care Provider Unavaila ble [facility], Pcp Primary Care Provider UnavailDaphney Ghotra MD Unavailable [phone] Nargis Siegel MD Primary Care Provider Unavaila ble [facility], Pcp Primary Care Provider Unavailabl e Nargis Siegel MD Primary Care Provider Unavaila [facility], Pcp Primary Care Provider Unavailabl e [facility], Pcp Primary Care Provider Unavailabl e Encounter Details Date Type Department Care Team Description 01/12/2018 Business Doc Medical Records [address] [place] [address] Abstract, Provider Social History Tobacco Use Types [...] on filedocumented in this encounter Care Teams Finish Opener Relationship Specialty Start Date End Date Nargis Siegel MD PCP - General Internal Medicine 07/28/15 12/18/20 [facility], Pcp PCP - General Internal Medicine 12/19/20 [...]
--- OUTSIDE RECORDS SUMMARY | 2025-06-28 07:34 | XMS_ITS | Encounter Summary ---
Author Organization [facility] Address [address] [place] [address] Care Team Providers Care Search Engine Marketing Strategist Name Role Phone Daphney Velázquez MD Unavailable [phone] [facility], Pcp Primary Care Provider Unavailabl e Encounter Details Date Type Department Care Team Description 09/10/20[facility] [address] Marylou Mclean DO Social History Tobacco Use Types Packs/Day Years [...] encounter Miscellaneous Notes * Telephone Encounter - Natasha Mcdaniel L.P.N. - 09/10/2022 3:00 PM EST Rx request for Estrace cream. Annual shellfish processing laborer exam scheduled 11/21/22. Thank you. documented in this encounter Plan of Treatment Not on file documented as of this encounter Visit Diagnoses Not on filedocumented in this encounter Care Teams Search Engine Marketing Strategist Relationship Specialty Start Date End Date Community, Pcp PCP - General Internal Medicine 12/18/21 Daphney Velázquez MD Specialist Cardiology 12/28/20 documented as of this encounter
--- OUTSIDE RECORDS SUMMARY | 2025-06-28 07:34 | XMS_ITS | Encounter Summary ---
Author Organization [facility] Address [address] [place] [address] Care Team Providers Care Manufacturing Operations Manager Name Role Phone Nargis Siegel MD Primary Care Provider Unavaila ble [facility], Pcp Primary Care Provider Daphney Velasquez MD Unavailable [phone] Nargis Siegel MD Primary Care Provider Unavaila ble [facility], Pcp Primary Care Provider Unavailabl e Nargis Siegel MD Primary Care Provider Unavaila [facility], Pcp Primary Care Provider Unavailabl e [facility], Pcp Primary Care Provider Unavailabl e Encounter Details Date Type Department Care Team Description 06/16/2018 Pressed Or Blown Glass Worker Report Medical Records [address] [place] [address] Dorian Neff MD Social History Tobacco Use [...] on filedocumented in this encounter Care Teams Manufacturing Operations Manager Relationship Specialty Start Date End Date [...]
--- OUTSIDE RECORDS SUMMARY | 2025-06-28 07:34 | XMS_ITS | Encounter Summary ---
Author Organization [facility] Address [address] [place] [address] Care Team Providers Care Operating System Programmer Name Role Phone Nargis Siegel MD Primary Care Provider Unavaila ble [facility], Pcp Primary Care Provider Unavailabl e Daphney Veláqzuez MD Unavailable [phone] Nargis Siegel MD Primary Care Provider Unavaila ble [facility], Pcp Primary Care Provider Unavailabl e Nargis Siegel MD Primary Care Provider Unavaila ble [facility], Pcp Primary Care Provider Unavailabl e [facility], Pcp Primary Care Provider Unavailabl e Reason for Visit * Reason Onset Date Comments Provider Call Back 04/24/2018 Encounter Details Date Type Department Care Team Description 04/24/2018 Telephone Podiatry - [address] [address] Rc Mcclain, DPM Provider Call Back Social History Tobacco Use Types Packs/Day Years [...] encounter Miscellaneous Notes * Telephone Encounter - Mara Lopez - 04/24/2018 1:44 PM EDT Caller requesting call back from provider: Is the caller the patient? YES If caller is not the patient, what is the callers name? N/A Callers relationship to patient? N/A If person calling is not the patient themselves, is there a verbal release in FYI or permanent comments for this person: NO Reason for call back: Patient still has open wounds, with pus. Medication prescribed will b completed tomorrow. In formed patient Dr Mcclain was on vacation, and would send message to nurse. Also suggested to call her pcp. She understood, and stated she would. Caller offered to speak with the nurse for assistance: YES Response: Patient offered to speak with nurse for assistance and patient agreed. Message forwarded to nurse. documented in this encounter Plan of Treatment Not on file documented as of this encounter Visit Diagnoses Not on filedocumented in this encounter Care Teams Operating System Programmer Relationship Specialty Start Date End Date Nargis Siegel MD PCP - General Internal Medicine 07/28/15 12/18/20 Replaced By [facility], Pcp PCP - General Internal Medicine 12/19/20 01/03/21 Nargis Siegel MD PCP - General Internal Medicine 01/04/21 02/19/21 Replaced By [facility], Pcp PCP - General Internal Medicine 02/20/21 05/24/21 Nargis Siegel MD PCP - General Internal Medicine 05/25/21 08/05/21 Replaced By [facility], Pcp PCP - General Internal Medicine 08/06/21 12/03/21 Replaced By [facility], Pcp PCP - General Internal Medicine 12/18/21 Daphney Velázquez MD Specialist Cardiology 12/28/20 documented as of this encounter
--- OUTSIDE RECORDS SUMMARY | 2025-06-28 07:34 | XMS_ITS | Encounter Summary ---
Author Organization [facility] Address [address] [place] [address] Care Team Providers Care Timber Spotter Name Role Phone Nargis Siegel MD Primary Care Provider Unavaila libia [facility], Pcp Primary Care Provider Daphney Velasquez MD Unavailable [phone] Nargis Siegel MD Primary Care Provider Unavaila [facility], Pcp Primary Care Provider Unavailabl e Nargis Siegel MD Primary Care Provider Unavaila [facility], Pcp Primary Care Provider Unavailabl e [facility], Pcp Primary Care Provider Unavailabl e Encounter Details Date Type Department Care Team Description 04/20/2019 Operations Processor Report Medical Records [address] [place] [address] Daphney Velázquez MD [address] [place] [phone] Social History Tobacco Use Types Packs/Day Years [...] on filedocumented in this encounter Care Teams Timber Spotter Relationship Specialty Start Date End Date Nargis [...]
--- OUTSIDE RECORDS SUMMARY | 2025-06-28 07:34 | XMS_ITS | Encounter Summary ---
Author Organization [facility] Address [address] [place] [address] Care Team Providers Care Frame Maker Name Role Phone Nargis Siegel MD Primary Care Provider Unavaila [facility], Pcp Primary Care Provider Daphney Velasquez MD Unavailable [phone] Nargis Siegel MD Primary Care Provider Unavaila ble [facility], Pcp Primary Care Provider Unavailabl e Nargis Siegel MD Primary Care Provider Unavaila [facility], Pcp Primary Care Provider Unavailabl e [facility], Pcp Primary Care Provider Unavailabl e Encounter Details Date Type Department Care Team Description 01/26/2019 Decorative Greens Cutter Report Medical Records [address] [place] [address] Dorian Neff MD Social History Tobacco Use [...] on filedocumented in this encounter Care Teams Frame Maker Relationship Specialty Start Date End Date [...]
--- OUTSIDE RECORDS SUMMARY | 2025-06-28 07:34 | XMS_ITS | Patient Health Record ---
Author Organization [facility] Address [address] [place] [address] Care Team Providers Care Deputy Probation Officer Name Role Phone Rachael Collins Unavailable [phone] Reason For Referral No Information Plan Of Treatment No Information Insurance Providers Payer Name Payer Address Payer Phone Subscriber Number Group Number Insured Name Patient Relationship to Insured Coverage Start Date Coverage End Date Medicare Part B J14 [address] [place], [place] [phone] [id number] Billie Kelly Self - patient is the insured MED[employer] [address] [place] [address] [phone] [id number] Billie Kelly Self - patient is the insured
--- OUTSIDE RECORDS SUMMARY | 2025-06-28 07:34 | XMS_ITS | Encounter Summary ---
Author Organization [facility] Address [address] [place] [address] Care Team Providers Care Trimming Assembler Name Role Phone Basil Zabala MD Primary Care Provider Unavail able Nargis Siegel MD Primary Care Provider Unavaila [facility], Pcp Primary Care Provider Leola e Daphney Velázquez MD Unavailable [phone] Nargis Siegel MD Primary Care Provider Unavaila [facility], Pcp Primary Care Provider Unavailashly e Nargis Siegel MD Primary Care Provider Unavaila [facility], Pcp Primary Care Provider Unavailabl e [facility], Pcp Primary Care Provider Unavailabl e Encounter Details Date Type Department Care Team Description 09/12/2012 [facility] Medical Records [address] [place] [address] Ricki Long Social History Tobacco Use Types Packs/Day Years [...] on filedocumented in this encounter Care Teams Trimming Assembler Relationship Specialty Start Date End Date Basil Zabala MD PCP - General 06/22/1995 07/27/15 Nargis Siegel MD PCP - General Internal Medicine 07/28/15 12/18/20 [facility], Pcp PCP - General Internal Medicine [...]
--- OUTSIDE RECORDS SUMMARY | 2025-06-28 07:34 | XMS_ITS | Encounter Summary ---
Author Organization [facility] Address [address] [place] [address] Care Team Providers Care Zinc Plate Cutter Name Role Phone Nargis Siegel MD Primary Care Provider Unavaila ble [facility], Pcp Primary Care Provider Daphney Velasquez MD Unavailable [phone] Nargis Siegel MD Primary Care Provider Unavaila ble [facility], Pcp Primary Care Provider Unavailabl e Nargis Siegel MD Primary Care Provider Unavaila [facility], Pcp Primary Care Provider Unavailabl e [facility], Pcp Primary Care Provider Unavailabl e Encounter Details Date Type Department Care Team Description 09/29/2018 Medical Cash Poster Report Medical Records [address] [place] [address] Dorian Neff MD Social History Tobacco Use [...] on filedocumented in this encounter Care Teams Zinc Plate Cutter Relationship Specialty Start Date End Date [...]
--- OUTSIDE RECORDS SUMMARY | 2025-06-28 07:34 | XMS_ITS | Encounter Summary ---
Author Organization [facility] Address [address] [place] [address] Care Team Providers Care Mastic Man Name Role Phone Daphney Velázquez MD Unavailable [phone] [facility], Pcp Primary Care Provider Unavailabl e [facility], Pcp Primary Care Provider Unavailabl e Reason for Visit * Reason Onset Date Comments Prior Authorization 08/08/2021 Encounter Details Date Type Department Care Team Description 08/08/2021 Telephone OBGYN - [address] [address] Marylou Mclean DO Prior Authorization Social History Tobacco Use Types Packs/Day Years [...] have Coronavirus / COVID-19? No / Unsure 08/07/2021 1:15 PM EST documented as of this encounter Miscellaneous Notes * Telephone Encounter - Mayela Jenkins M.A. - 08/09/2021 10:04 AM EST Approval for Prempro 0.3-1.5mg per tablet. Approved from 05/11/2021-08/09/2022. [facility] notified by fax. * Telephone Encounter - Mayela Jenkins M.A. - 08/09/2021 9:32 AM EST Dx:Hot flashes Prior authorization done on CMM to CM for Prempro 0.3-1.5mg tablets. * Telephone Encounter - Cathryn Fuentes - 08/08/2021 2:48 PM EST Prior Authorization for Medication-do not complete and send this encounter unless you have the fax from the pharmacy. Is this a Cover My Meds request: Yes -- [place] Code [id number] Name of Medication estrogen, conjugated,-medroxyprogesterone (Prempro) 0.3-1.5 MG per tablet Dose of Medication 0.3-1.5 What is the RX # from the faxed refill? How does patient take this med? Take 1 tablet by mouth daily for 360 days. - Oral What Pharmacy did the fax come from: [facility] Pharm[facility] fax #: [phone] [employer] Party Information from fax: What Prescription Plan does the patient have? BIN/PCN if applicable: Cardholder ID: Person Code: Relationship Code: Help desk phone: documented in this encounter Plan of Treatment Not on file documented as of this encounter Visit Diagnoses Not on filedocumented in this encounter Care Teams Mastic Man Relationship Specialty Start Date End Date Community, Pcp PCP - General Internal Medicine 08/06/21 12/03/21 [facility], Pcp PCP - General Internal Medicine 12/18/21 Daphney Velázquez MD Specialist Cardiology 12/28/20 documented as of this encounter
--- OUTSIDE RECORDS SUMMARY | 2025-06-28 07:34 | XMS_ITS | Encounter Summary ---
Author Organization [facility] Address [address] [place] [address] Care Team Providers Care Vb Net Programmer Name Role Phone Nargis Siegel MD Primary Care Provider Unavaila ble [facility], Pcp Primary Care Provider UnavailDaphney Ghotra MD Unavailable [phone] Nargis Siegel MD Primary Care Provider Unavaila ble [facility], Pcp Primary Care Provider Unavailabl e Nargis Siegel MD Primary Care Provider Unavaila [facility], Pcp Primary Care Provider Unavailabl e [facility], Pcp Primary Care Provider Unavailabl e Encounter Details Date Type Department Care Team Description 04/02/2016 [facility] Medical Records [address] [place] [address] Pain Management, Sv [address] [place] [address] Social History Tobacco Use Types Packs/Day Years [...] on filedocumented in this encounter Care Teams Vb Net Programmer Relationship Specialty Start Date End Date Nargis Siegel MD PCP - General Internal Medicine 07/28/15 12/18/20 [facility], Pcp PCP - General Internal Medicine 12/19/20 01/03/21 Nargis Siegel MD PCP - General Internal Medicine 01/04/21 02/19/21 [facility], Pcp PCP - General Internal Medicine 02/20/21 05/24/21 Nargis Siegel MD PCP - General Internal Medicine 05/25/21 08/05/21 [facility], Pcp PCP - General Internal Medicine 08/06/21 12/03/21 [facility], Pcp PCP - General Internal Medicine 12/18/21 Daphney Velázquez MD Specialist Cardiology 12/28/20 documented as of this encounter
--- OUTSIDE RECORDS SUMMARY | 2025-06-28 07:34 | XMS_ITS | Encounter Summary ---
Author Organization [facility] Address [address] [place] [address] Care Team Providers Care Mitering Machine Operator Name Role Phone Basil Zabala MD Primary Care Provider Unavail able Nargis Siegel MD Primary Care Provider Unavaila [facility], Pcp Primary Care Provider Leola e Daphney Velázquez MD Unavailable [phone] Nargis Siegel MD Primary Care Provider Unavaila [facility], Pcp Primary Care Provider Unavailashly e Nargis Siegel MD Primary Care Provider Unavaila [facility], Pcp Primary Care Provider Unavailabl e [facility], Pcp Primary Care Provider Unavailabl e Encounter Details Date Type Department Care Team Description 08/15/2014 Automobile Body Worker Report Medical Records [address] [place] [address] Dorian Neff MD Social History Tobacco Use [...] on filedocumented in this encounter Care Teams Mitering Machine Operator Relationship Specialty Start Date End Date Basil Zabala MD PCP - General 06/22/1995 07/27/15 Nargis Siegel MD PCP - General Internal Medicine 07/28/15 12/18/20 [facility], Pcp PCP - General [...]
--- OUTSIDE RECORDS SUMMARY | 2025-06-28 07:34 | XMS_ITS | Encounter Summary ---
Author Organization [facility] Address [address] [place] [address] Care Team Providers Care Vise Hand Name Role Phone Nargis Siegel MD Primary Care Provider Unavaila libia [facility], Pcp Primary Care Provider Daphney Velasquez MD Unavailable [phone] Nargis Siegel MD Primary Care Provider Unavaila ble [facility], Pcp Primary Care Provider Unavailabl e Nargis Siegel MD Primary Care Provider Unavaila [facility], Pcp Primary Care Provider Unavailabl e [facility], Pcp Primary Care Provider Unavailabl e Encounter Details Date Type Department Care Team Description 06/12/2018 Release of Information Medical Records [address] [place] [address] Abstract, Provider Social History Tobacco Use Types [...] on filedocumented in this encounter Care Teams Vise Hand Relationship Specialty Start Date End Date Nargis [...]
--- OUTSIDE RECORDS SUMMARY | 2025-06-28 07:35 | XMS_ITS | Encounter Summary ---
Author Organization [facility] Address [address] [place] [address] Care Team Providers Care Welcome [facility] Agent Name Role Phone Basil Zabala MD Primary Care Provider Unavail able Nargis Siegel MD Primary Care Provider Unavaila [facility], Pcp Primary Care Provider Leola e Daphney Velázquez MD Unavailable [phone] Nargis Siegel MD Primary Care Provider Unavaila [facility], Pcp Primary Care Provider Unavailashly e Nargis Siegel MD Primary Care Provider Unavaila [facility], Pcp Primary Care Provider Unavailabl e [facility], Pcp Primary Care Provider Unavailabl e Encounter Details Date Type Department Care Team Description 05/20/2013 Wastewater Supervisor Report Medical Records [address] [place] [address] Dorian Neff MD Social History Tobacco Use [...] on filedocumented in this encounter Care Teams [facility] Agent Relationship Specialty Start Date End Date Basil Zabala MD PCP - General 06/22/1995 07/27/15 Nargis Siegel MD PCP - General Internal Medicine 07/28/15 12/18/20 [facility], Pcp PCP - General Internal Medicine [...]
--- OUTSIDE RECORDS SUMMARY | 2025-06-28 07:35 | XMS_ITS | Encounter Summary ---
Author Organization [facility] Address [address] [place] [address] Care Team Providers Care Anti Tank Missileman Name Role Phone Melani Zabala MD Primary Care Provider Unavail able Nargis Siegel MD Primary Care Provider Unavaila ble [facility], Pcp Primary Care Provider Unavailabl e Daphney Velázquez MD Unavailable [phone] Nargis Siegel MD Primary Care Provider Unavaila ble [facility], Pcp Primary Care Provider Unavailabl e Nargis Siegel MD Primary Care Provider Unavaila ble [facility], Pcp Primary Care Provider Unavailabl e [facility], Pcp Primary Care Provider Unavailabl e Reason for Visit * Reason Onset Date Comments Railroad Conductor Feedback 01/14/2012 Dr. Dorian Bocanegra Encounter Details Date Type Department Care Team Description 01/14/2012 Telephone Medicine/Pediatrics - [address] [address] Melani Zabala MD Railroad Conductor Feedback (Dr. Dorian Bocanegra) Social History Tobacco Use Types Packs/Day Years [...] encounter Miscellaneous Notes * Telephone Encounter - Tonie Bray - 01/14/2012 2:51 PM EDT Patient: LILLIANA MANNINGADAshia Subscriber Submitter : MELANI ZABALA Submitter Type: Provider Provider Role: Referring : 1960 Provider Specialty: [id number] Health Care Event (#[id number]) Specialty Care Review Type: Initial Certification Status : Certified in total Review Id # : [id number] Service Type : Medical Care Place Of Service : Office Visits : 12 Service Date : 12/18/2011-12/17/2012 Service Providers Provider Name ID Provider Type DORIAN BOCANEGRA NPI : [id number] Service Provider * Telephone Encounter - Annette Ramirez - 01/14/2012 1:29 PM EDT Please verify with the patient now that this is the current/active insurance: [place] Plan[place] Product Type: MEDICARE [id number] Effective 06/22/09: BCBS will not retro referral [...] insurance must be obtained and registered in [facility] or their referral can not be processed. Who is calling to request this referral? Suma If the caller is not the patient, what is their name? [facility] FIRST and LAST NAME of SPECIALIST PATIENT is seeing: Dr. Dorian Bocanegra What specialty is this? Pain management DIAGNOSIS Patient is being seen for (Not a body part or a procedure): low back pain, right hip pain Have you seen this SPECIALIST for this PROBLEM/DX before?YES If YES, when:12/18/11 Have you checked REVIEW or the APPT DESK to see if this referral has already been done or has visits left? YES Who referred the patient to this specialty? Melani Zabala MD Is this visit:Follow Up Address of Specialist:[address] [place] [address] Phone # of Specialist:[phone] Fax #: (if applicable):[phone] Does patient have an appointment scheduled?: YES Date of appointment- (including a retro-request): 12/18/11 x12 Is this appointment related to: Not MVA, WC or Surgery related documented in this encounter Plan of Treatment Not on file documented as of this encounter Visit Diagnoses Not on filedocumented in this encounter Care Teams Anti Tank Missileman Relationship Specialty Start Date End Date Melani Zabala MD PCP - General 06/22/1995 07/27/15 Nargis Siegel MD PCP - General Internal Medicine 07/28/15 12/18/20 [facility], Pcp PCP - General Internal Medicine 12/19/20 01/03/21 Nargis Siegel MD PCP - General Internal Medicine 01/04/21 02/19/21 [facility], Pcp PCP - General Internal Medicine 02/20/21 05/24/21 Nargis Siegel MD PCP - General Internal Medicine 05/25/21 08/05/21 [facility], Pcp PCP - General Internal Medicine 08/06/21 12/03/21 [facility], Pcp PCP - General Internal Medicine 12/18/21 Daphney Velázquez MD Specialist Cardiology 12/28/20 documented as of this encounter
--- OUTSIDE RECORDS SUMMARY | 2025-06-28 07:35 | XMS_ITS | Encounter Summary ---
Author Organization [facility] Address [address] [place] [address] Care Team Providers Care Acoustic Engineer Name Role Phone Nargis Siegel MD Primary Care Provider Unavaila libia [facility], Pcp Primary Care Provider Daphney Velasquez MD Unavailable [phone] Nargis Siegel MD Primary Care Provider Unavaila ble [facility], Pcp Primary Care Provider Unavailabl e Nargis Siegel MD Primary Care Provider Unavaila [facility], Pcp Primary Care Provider Unavailabl e [facility], Pcp Primary Care Provider Unavailabl e Encounter Details Date Type Department Care Team Description 09/19/2015 [facility] Medical Records [address] [place] [address] Dorian Neff MD Social History Tobacco Use [...] on filedocumented in this encounter Care Teams Acoustic Engineer Relationship Specialty Start Date End Date [...]
--- OUTSIDE RECORDS SUMMARY | 2025-06-28 07:35 | XMS_ITS | Encounter Summary ---
Author Organization [facility] Address [address] [place] [address] Care Team Providers Care Applications Engineering Manager Name Role Phone Basil Zabala MD Primary Care Provider Unavail able Nargis Siegel MD Primary Care Provider Unavaila [facility], Pcp Primary Care Provider Leola e Daphney Velázquez MD Unavailable [phone] Nargis Siegel MD Primary Care Provider Unavaila [facility], Pcp Primary Care Provider Nargis Macdonald MD Primary Care Provider Unavaila [facility], Pcp Primary Care Provider Unavailabl e [facility], Pcp Primary Care Provider Unavailabl e Encounter Details Date Type Department Care Team Description 03/24/2013 Transfer Records Medical Records [address] [place] [id number] Abstract, Provider Social History Tobacco Use Types [...] on filedocumented in this encounter Care Teams Applications Engineering Manager Relationship Specialty Start Date End Date Basil Zabala MD PCP - General 06/22/1995 07/27/15 Nargis Siegel MD PCP - General Internal Medicine 07/28/15 12/18/20 [facility], Pcp PCP - General Internal Medicine 12/19/20 01/03/21 Nargis Siegel MD PCP - General Internal Medicine 01/04/21 02/19/21 [facility], Pcp PCP - General Internal Medicine 02/20/21 05/24/21 Nargis Siegel MD PCP - General Internal Medicine 05/25/21 08/05/21 [facility], Pcp PCP - General Internal Medicine 08/06/21 12/03/21 [facility], Pcp PCP - General Internal Medicine 12/18/21 Daphney Velázquez MD Specialist Cardiology 12/28/20 documented as of this encounter
--- OUTSIDE RECORDS SUMMARY | 2025-06-28 07:35 | XMS_ITS | Encounter Summary ---
Author Organization [facility] Address [address] [place] [address] Care Team Providers Care Integrated Campaign Manager Name Role Phone Basil Zabala MD Primary Care Provider Unavail able Nargis Siegel MD Primary Care Provider Unavaila [facility], Pcp Primary Care Provider Leola e Daphney Velázquez MD Unavailable [phone] Nargis Siegel MD Primary Care Provider Unavaila [facility], Pcp Primary Care Provider Nargis Macdonald MD Primary Care Provider Unavaila [facility], Pcp Primary Care Provider Unavailabl e [facility], Pcp Primary Care Provider Unavailabl e Encounter Details Date Type Department Care Team Description 12/18/2012 Business Doc Medical Records [address] [place] [address] Abstract, Provider Social History Tobacco Use Types [...] on filedocumented in this encounter Care Teams Integrated Campaign Manager Relationship Specialty Start Date End Date Basil Zabala MD PCP - General 06/22/1995 07/27/15 Nargis Siegel MD PCP - General Internal Medicine 07/28/15 12/18/20 [facility], Pcp PCP - General Internal Medicine 12/19/20 01/03/21 Nargis Siegel MD PCP - General Internal Medicine 01/04/21 02/19/21 [facility], Pcp PCP - General Internal Medicine 02/20/21 05/24/21 Nargis Siegel MD PCP - General Internal Medicine 05/25/21 08/05/21 [facility], Pcp PCP - General Internal Medicine 08/06/21 12/03/21 [facility], Pcp PCP - General Internal Medicine 12/18/21 Daphney Velázquez MD Specialist Cardiology 12/28/20 documented as of this encounter
--- OUTSIDE RECORDS SUMMARY | 2025-06-28 07:35 | XMS_ITS | Encounter Summary ---
Author Organization [facility] Address [address] [place] [address] Care Team Providers Care Fire Department Marine Engineer Name Role Phone Nargis Siegel MD Primary Care Provider Unavaila libia [facility], Pcp Primary Care Provider Daphney Velasquez MD Unavailable [phone] Nargis Siegel MD Primary Care Provider Unavaila ble [facility], Pcp Primary Care Provider Unavailabl e Nargis Siegel MD Primary Care Provider Unavaila [facility], Pcp Primary Care Provider Unavailabl e [facility], Pcp Primary Care Provider Unavailabl e Encounter Details Date Type Department Care Team Description 09/01/2015 Release of Information Medical Records [address] [place] [id number] Abstract, Provider Social History Tobacco Use Types [...] on filedocumented in this encounter Care Teams Fire Department Marine Engineer Relationship Specialty Start Date End Date Nargis Siegel MD PCP - General Internal Medicine 07/28/15 12/18/20 [facility], Pcp PCP - General Internal Medicine 12/19/20 01/03/21 Nargis Siegel MD PCP - General Internal Medicine 01/04/21 02/19/21 [facility], Pcp PCP - General Internal Medicine 02/20/21 05/24/21 Nargis Siegle MD PCP - General Internal Medicine 05/25/21 08/05/21 [facility], Pcp PCP - General Internal Medicine 08/06/21 12/03/21 [facility], Pcp PCP - General Internal Medicine 12/18/21 Daphney Velázquez MD Specialist Cardiology 12/28/20 documented as of this encounter
--- OUTSIDE RECORDS SUMMARY | 2025-06-28 07:35 | XMS_ITS | Encounter Summary ---
Author Organization [facility] Address [address] [place] [address] Care Team Providers Care Licensed Clinician Name Role Phone Basil Zabala MD Primary Care Provider Unavail able Nargis Siegel MD Primary Care Provider Unavaila [facility], Pcp Primary Care Provider Leola e Daphney Velázquez MD Unavailable [phone] Nargis Siegel MD Primary Care Provider Unavaila [facility], Pcp Primary Care Provider Unavailashly e Nargis Siegel MD Primary Care Provider Unavaila [facility], Pcp Primary Care Provider Unavailabl e [facility], Pcp Primary Care Provider Unavailabl e Encounter Details Date Type Department Care Team Description 05/30/2012 [facility] - [address] [address] Basil Zabala MD Social History Tobacco Use [...] on filedocumented in this encounter Care Teams Licensed Clinician Relationship Specialty Start Date End Date Basil Zabala MD PCP - General 06/22/1995 07/27/15 Nargis Siegel MD PCP - General Internal Medicine 07/28/15 12/18/20 [facility], Pcp PCP - General Internal Medicine [...]
--- OUTSIDE RECORDS SUMMARY | 2025-06-28 07:35 | XMS_ITS | Encounter Summary ---
Author Organization [facility] Address [address] [place] [address] Care Team Providers Care Thermal Cutter Hand Name Role Phone Basil Zabala MD Primary Care Provider Unavail able Nargis Siegel MD Primary Care Provider Unavaila [facility], Pcp Primary Care Provider Leola e Daphney Velázquez MD Unavailable [phone] Nargis Siegel MD Primary Care Provider Unavaila [facility], Pcp Primary Care Provider UnavailNargis Rahman MD Primary Care Provider Unavaila [facility], Pcp Primary Care Provider Unavailabl e [facility], Pcp Primary Care Provider Unavailabl e Encounter Details Date Type Department Care Team Description 05/05/2013 Electrician Maintenance Report Medical Records [address] [place] [address] [address] [place] [address] Social History Tobacco Use Types Packs/Day Years [...] on filedocumented in this encounter Care Teams Thermal Cutter Hand Relationship Specialty Start Date End Date Basil Zabala MD PCP - General 06/22/1995 07/27/15 Nargis Siegel MD PCP - General Internal Medicine 07/28/15 12/18/20 [facility], Pcp PCP - General Internal [...]
--- OUTSIDE RECORDS SUMMARY | 2025-06-28 07:35 | XMS_ITS | Encounter Summary ---
Author Organization [facility] Address [address] [place] [address] Care Team Providers Care Medical Clerical Assistant Name Role Phone Daphney Velázquez MD Unavailable [phone] [facility], Pcp Primary Care Provider Nargis Macdonald MD Primary Care Provider Unavaila ble [facility], Pcp Primary Care Provider Unavailabl e [facility], Pcp Primary Care Provider Unavailabl e Encounter Details Date Type Department Care Team Description 04/12/2021 Display Card Writer Report Medical Records [address] [place] [id number] Nargis Siegel MD Social History Tobacco Use Types Packs/Day [...] on filedocumented in this encounter Care Teams Medical Clerical Assistant Relationship Specialty Start Date End Date [facility], Pcp PCP - General Internal Medicine 02/20/21 05/24/21 Nargis Siegel MD PCP - General Internal Medicine 05/25/21 08/05/21 [facility], Pcp PCP - General Internal Medicine 08/06/21 12/03/21 [facility], Pcp PCP - General Internal Medicine 12/18/21 Daphney Velázquez MD Specialist Cardiology 12/28/20 documented as of this encounter
--- OUTSIDE RECORDS SUMMARY | 2025-06-28 07:35 | XMS_ITS | Encounter Summary ---
Author Organization [facility] Address [address] [place] [address] Care Team Providers Care Instrument Worker Name Role Phone Nargis Siegel MD Primary Care Provider Unavaila ble [facility], Pcp Primary Care Provider Daphney Velasquez MD Unavailable [phone] Nargis Siegel MD Primary Care Provider Unavaila ble [facility], Pcp Primary Care Provider Unavailabl e Nargis Siegel MD Primary Care Provider Unavaila [facility], Pcp Primary Care Provider Unavailabl e [facility], Pcp Primary Care Provider Unavailabl e Encounter Details Date Type Department Care Team Description 11/03/2015 Pet Feeder Report Medical Records [address] [place] [address] Dorian Neff MD Social History Tobacco Use [...] on filedocumented in this encounter Care Teams Instrument Worker Relationship Specialty Start Date End Date Nargis [...]
--- OUTSIDE RECORDS SUMMARY | 2025-06-28 07:35 | XMS_ITS | Encounter Summary ---
Author Organization [facility] Address [address] [place] [address] Care Team Providers Care Data Capture Specialist Name Role Phone Nargis Siegel MD Primary Care Provider Unavaila ble [facility], Pcp Primary Care Provider Daphney Velasquez MD Unavailable [phone] Nargis Siegel MD Primary Care Provider Unavaila ble [facility], Pcp Primary Care Provider Unavailabl e Nargis Siegel MD Primary Care Provider Unavaila [facility], Pcp Primary Care Provider Unavailabl e [facility], Pcp Primary Care Provider Unavailabl e Encounter Details Date Type Department Care Team Description 05/01/2017 [facility] Medical Records [address] [place] [address] Abstract, Provider Social History Tobacco Use Types [...] on filedocumented in this encounter Care Teams Data Capture Specialist Relationship Specialty Start Date End Date Nargis [...] PCP - General Internal Medicine 12/18/21 Daphney Velázqeuz MD Specialist Cardiology 12/28/20 documented as of this encounter
--- OUTSIDE RECORDS SUMMARY | 2025-06-28 07:35 | XMS_ITS | Encounter Summary ---
Author Organization [facility] Address [address] [place] [address] Care Team Providers Care Heat Sealing Machine Operator Name Role Phone Daphney Velázquez MD Unavailable [phone] [facility], Pcp Primary Care Provider Unavailabl e Nargis Siegel MD Primary Care Provider Unavaila ble [facility], Pcp Primary Care Provider Unavailabl e [facility], Pcp Primary Care Provider Unavailabl e Reason for Visit * Reason Onset Date Comments APPOINTMENT 04/24/2021 Encounter Details Date Type Department Care Team Description 04/24/2021 Telephone Gastroenterology - [address] [place] [address] Earl Bonner PA-C APPOINTMENT Social History Tobacco Use Types Packs/Day Years [...] encounter Miscellaneous Notes * Telephone Encounter - Ginger Hinds - 04/24/2021 11:40 AM EDT Received notes from [facility] Verfied insurance, and gave the notes to Deepa ku telehealth appt with Earl Bonner 04/24/2021. documented in this encounter Plan of Treatment Not on file documented as of this encounter Visit Diagnoses Not on filedocumented in this encounter Care Teams Heat Sealing Machine Operator Relationship Specialty Start Date End Date Community, [...]
--- OUTSIDE RECORDS SUMMARY | 2025-06-28 07:35 | XMS_ITS | Encounter Summary ---
Author Organization [facility] Address [address] [place] [address] Care Team Providers Care Poultry Slaughterer Name Role Phone Basil Zabala MD Primary Care Provider Unavail able Nargis Siegel MD Primary Care Provider Unavaila [facility], Pcp Primary Care Provider Leola e Daphney Velázquez MD Unavailable [phone] Nargis Siegel MD Primary Care Provider Unavaila [facility], Pcp Primary Care Provider Nargis Macdonald MD Primary Care Provider Unavaila [facility], Pcp Primary Care Provider Unavailabl e [facility], Pcp Primary Care Provider Unavailabl e Encounter Details Date Type Department Care Team Description 12/17/2012 Business Doc Medical Records [address] [place] [address] Abstract, Provider Social History Tobacco Use Types [...] on filedocumented in this encounter Care Teams Poultry Slaughterer Relationship Specialty Start Date End Date Basil [...]
--- OUTSIDE RECORDS SUMMARY | 2025-06-28 07:35 | XMS_ITS | Encounter Summary ---
Author Organization [facility] Address [address] [place] [address] Care Team Providers Care Car Wash Supervisor Name Role Phone Nargis Siegel MD Primary Care Provider Unavaila ble [facility], Pcp Primary Care Provider Daphney Velasquez MD Unavailable [phone] Nargis Siegel MD Primary Care Provider Unavaila ble [facility], Pcp Primary Care Provider Unavailabl e Nargis Siegel MD Primary Care Provider Unavaila [facility], Pcp Primary Care Provider Unavailabl e [facility], Pcp Primary Care Provider Unavailabl e Encounter Details Date Type Department Care Team Description 04/09/2017 Rn Enterostomal Report Medical Records [address] [place] [address] Dorian Neff MD Social History Tobacco Use [...] on filedocumented in this encounter Care Teams Car Wash Supervisor Relationship Specialty Start Date End Date [...]
--- OUTSIDE RECORDS SUMMARY | 2025-06-28 07:35 | XMS_ITS | Encounter Summary ---
Author Organization [facility] Address [address] [place] [address] Care Team Providers Care Rehab Nurse Name Role Phone Daphney Velázquez MD Unavailable [phone] [facility], Pcp Primary Care Provider Nargis Macdonald MD Primary Care Provider Unavaila ble [facility], Pcp Primary Care Provider Unavailabl e [facility], Pcp Primary Care Provider Unavailabl e Encounter Details Date Type Department Care Team Description 04/10/2021 Hospital Medical Records [address] [place] [address] Social History Tobacco Use Types Packs/Day Years [...] Procedure Name Priority Date/Time Associated Diagnosis Comments OUTSIDE LAB Routine 04/10/2021 documented in this encounter Results * OUTSIDE LAB (04/10/2021) Provider Default LAB documented in this encounter Visit Diagnoses Not on filedocumented in this encounter Care Teams Rehab Nurse Relationship Specialty Start Date End Date Community, Pcp PCP - General Internal Medicine 02/20/21 05/24/21 Nargis Siegel MD PCP - General Internal Medicine 05/25/21 08/05/21 [facility], Pcp PCP - General Internal Medicine 08/06/21 12/03/21 [facility], Pcp PCP - General Internal Medicine 12/18/21 Daphney Velázquez MD Specialist Cardiology 12/28/20 documented as of this encounter
--- OUTSIDE RECORDS SUMMARY | 2025-06-28 07:36 | XMS_ITS | Encounter Summary ---
Author Organization [facility] Address [address] [place] [address] Care Team Providers Care Strainer Mill Operator Name Role Phone Nargis Siegel MD Primary Care Provider Unavaila ble [facility], Pcp Primary Care Provider Unavailabl e Daphney Velázquez MD Unavailable [phone] Nargis Siegel MD Primary Care Provider Unavaila ble [facility], Pcp Primary Care Provider Unavailabl e Nargis Siegel MD Primary Care Provider Unavaila ble [facility], Pcp Primary Care Provider Unavailabl e [facility], Pcp Primary Care Provider Unavailabl e Reason for Visit * Reason Onset Date Comments Gynecological Problem 02/12/2017 Encounter Details Date Type Department Care Team Description 02/12/2017 Telephone OBGYN - [place] [address] [place] [address] Mine Aguilar MD Gynecological Problem Social History Tobacco Use Types Packs/Day [...] encounter Miscellaneous Notes * Telephone Encounter - Yen Gerardo R.N. - 02/14/2017 1:06 PM EDT Letter sent. * Telephone Encounter - Yen Gerardo R.N. - 02/12/2017 3:08 PM EDT Pt needs appt-as per Dr Reid. \Left message to call. * Telephone Encounter - Manuela Reid MD - 02/12/2017 2:57 PM EDT Patient needs appointment for antibiotic rx. * Telephone Encounter - Miriam Sanchez - 02/12/2017 2:15 PM EDT Chief Complaint/problem: Yeast infection due to antibiotics How long has the patient had this problem? 2 days Pt???s [facility] provider: Mine Aguilar M.D. Last menstrual period (LMP) or EDC (due date): N/A Would like prescription for yeast infection. Dr Aguilar usually prescribes something documented in this encounter Plan of Treatment Not on file documented as of this encounter Visit Diagnoses Not on filedocumented in this encounter Care Teams Strainer Mill Operator Relationship Specialty Start Date End Date Nargis Siegel MD PCP - General Internal Medicine 07/28/15 12/18/20 [facility], Pcp PCP - General Internal Medicine 12/19/20 01/03/21 Nargis Siegel MD PCP - General Internal Medicine 01/04/21 02/19/21 [facility], Pcp PCP - General Internal Medicine 02/20/21 05/24/21 Nargis Siegel MD PCP - General Internal Medicine 05/25/21 08/05/21 [facility], Pcp PCP - General Internal Medicine 08/06/21 12/03/21 [facility], Pcp PCP - General Internal Medicine 12/18/21 Daphney Velázquez MD Specialist Cardiology 12/28/20 documented as of this encounter
--- OUTSIDE RECORDS SUMMARY | 2025-06-28 07:36 | XMS_ITS | Encounter Summary ---
Author Organization [facility] Address [address] [place] [address] Care Team Providers Care Welfare Service Aide Name Role Phone Nargis Siegel MD Primary Care Provider Unavaila ble [facility], Pcp Primary Care Provider UnavailDaphney Ghotra MD Unavailable [phone] Nargis Siegel MD Primary Care Provider Unavaila ble [facility], Pcp Primary Care Provider Unavailabl e Nargis Siegel MD Primary Care Provider Unavaila [facility], Pcp Primary Care Provider Unavailabl e [facility], Pcp Primary Care Provider Unavailabl e Encounter Details Date Type Department Care Team Description 03/22/2017 Business Doc Medical Records [address] [place] [address] Abstract, Provider Social History Tobacco Use Types [...] on filedocumented in this encounter Care Teams Welfare Service Aide Relationship Specialty Start Date End Date Nargis Siegel MD PCP - General Internal Medicine 07/28/15 12/18/20 [facility], Pcp PCP - General Internal Medicine [...]
--- OUTSIDE RECORDS SUMMARY | 2025-06-28 07:36 | XMS_ITS | Encounter Summary ---
Author Organization [facility] Address [address] [place] [address] Care Team Providers Care Portal Administrator Name Role Phone Narigs Siegel MD Primary Care Provider Unavaila ble [facility], Pcp Primary Care Provider Unavailashly e Daphney Velázquez MD Unavailable [phone] Nargis Siegel MD Primary Care Provider Unavaila ble [facility], Pcp Primary Care Provider Unavailabl e Nargis Siegel MD Primary Care Provider Unavaila ble [facility], Pcp Primary Care Provider Unavailabl e [facility], Pcp Primary Care Provider Unavailabl e Reason for Visit * Reason Comments E-prescribe Rx Request Encounter Details Date Type Department Care Team Description 03/24/2017 Refill Medicine/Pediatrics - [address] [address] Jake Hu PA-C E-prescribe Rx Request Social History Tobacco Use Types Packs/Day Years [...] Miscellaneous Notes * Telephone Encounter - Veronica Nancy - 03/24/2017 9:45 AM EDT Patient would like script to be: E-PRESCRIBED/FAXED TO PHARMACY WHEN WAS THE PATIENT'S LAST APPOINTMENT IN ADULT MEDICINE? 01/31/17 WHEN WAS THE LAST TIME THE PATIENT SAW THEIR PCP? 10/16/16 Does patient have an upcoming appointment? Yes 05/05/17 (THE MEDICATION REQUESTED IS ON THE MED LIST ABOVE) All of the medications requested were on the CURRENT MEDS list Did you check the Pharmacy information above?: YES Patient wants: 30 -day supply Is this a mail order prescription request ? NO Patients current insurance carrier is: Payor: MEDICARE-[employer] / Plan: MEDICARE-[employer] / Product Type: MEDICARE [id number] documented in this encounter Plan of Treatment Not on file documented as of this encounter Visit Diagnoses Not on filedocumented in this encounter Care Teams Portal Administrator Relationship Specialty Start Date End Date Nargis Siegel MD PCP - General Internal Medicine 07/28/15 12/18/20 [facility], Pcp PCP - General Internal Medicine 12/19/20 01/03/21 Nargis Siegel MD PCP - General Internal Medicine 01/04/21 02/19/21 [facility], Pcp PCP - General Internal Medicine 02/20/21 05/24/21 Nargis Siegel MD PCP - General Internal Medicine 05/25/21 08/05/21 [facility], Pcp PCP - General Internal Medicine 08/06/21 12/03/21 [facility], Pcp PCP - General Internal Medicine 12/18/21 Daphney Velázquez MD Specialist Cardiology 12/28/20 documented as of this encounter
--- OUTSIDE RECORDS SUMMARY | 2025-06-28 07:37 | XMS_ITS | Encounter Summary ---
Author Organization [facility] Address [address] [place] [address] Care Team Providers Care Port Patrol Officer Name Role Phone Nargis Siegel MD Primary Care Provider Unavaila [facility], Pcp Primary Care Provider Unavailabl e Daphney Velázquez MD Unavailable [phone] Nargis Siegel MD Primary Care Provider Unavaila [facility], Pcp Primary Care Provider Unavailabl e Nargis Siegel MD Primary Care Provider Unavaila [facility], Pcp Primary Care Provider Unavailabl e [facility], Pcp Primary Care Provider Unavailabl e Reason for Visit * Reason Onset Date Comments refill request 11/02/2019 endo Encounter Details Date Type Department Care Team Description 11/02/2019 Telephone Chiropractic - [address] [address] Nargis Siegel MD refill request (endo ) Social History Tobacco Use Types Packs/Day [...] encounter Miscellaneous Notes * Telephone Encounter - Christine Gupta M.A. - 11/02/2019 1:07 PM EST Last office visit 10/27/19 Lab Results Component Value Date HGBA1C 7.8 07/30/2019 MALBUR TNP 07/30/2019 MALBCR 2.0 05/15/2018 CHOL 211 12/07/2018 LDL 128 12/07/2018 HDL 45 12/07/2018 TRIG 193 12/07/2018 GLU 190 07/30/2019 CREAT 0.84 07/30/2019 * Telephone Encounter - Monicakierra Gonzalesley - 11/02/2019 12:28 PM EST Patient would like script to be: E-PRESCRIBED/FAXED TO PHARMACY WHEN WAS THE PATIENT'S LAST APPOINTMENT IN ADULT MEDICINE? 09/09/19 WHEN WAS THE LAST TIME THE PATIENT SAW THEIR PCP? Same as above Does patient have an upcoming appointment? No (THE MEDICATION REQUESTED IS ON THE MED LIST ABOVE) All of the medications requested were on the CURRENT MEDS list Did you check the Pharmacy information above?: YES Patient wants: 30 -day supply Is this a mail order prescription request ? NO If the refill is from a FAXED refill request what is the RX # listed on the fax? N/A Patients current insurance carrier is: [place] / [place] / Product Type: MEDICARE [id number] documented in this encounter Plan of Treatment Not on file documented as of this encounter Visit Diagnoses Not on filedocumented in this encounter Care Teams Port Patrol Officer Relationship Specialty Start Date End Date Nargis [...]
--- OUTSIDE RECORDS SUMMARY | 2025-06-28 07:37 | XMS_ITS | Encounter Summary ---
Author Organization [facility] Address [address] [place] [address] Care Team Providers Care Investigative Shopper Name Role Phone Nargis Siegel MD Primary Care Provider Unavaila libia [facility], Pcp Primary Care Provider Daphney Velasquez MD Unavailable [phone] Nargis Siegel MD Primary Care Provider Unavaila ble [facility], Pcp Primary Care Provider Unavailabl e Nargis Siegel MD Primary Care Provider Unavaila [facility], Pcp Primary Care Provider Unavailabl e [facility], Pcp Primary Care Provider Unavailabl e Encounter Details Date Type Department Care Team Description 11/05/2019 Release of Information Medical Records [address] [place] [id number] Abstract, Provider Social History Tobacco Use Types [...] on filedocumented in this encounter Care Teams Investigative Shopper Relationship Specialty Start Date End Date Nargis [...]
--- OUTSIDE RECORDS SUMMARY | 2025-06-28 07:37 | XMS_ITS | Encounter Summary ---
Author Organization [facility] Address [address] [place] [address] Care Team Providers Care Family Practice Physician Assistant Name Role Phone Nargis Siegel MD Primary Care Provider Unavaila ble [facility], Pcp Primary Care Provider UnavailDaphney Ghotra MD Unavailable [phone] Nargis Siegel MD Primary Care Provider Unavaila ble [facility], Pcp Primary Care Provider Unavailabl e Nargis Siegel MD Primary Care Provider Unavaila [facility], Pcp Primary Care Provider Unavailabl e [facility], Pcp Primary Care Provider Unavailabl e Encounter Details Date Type Department Care Team Description 09/19/2016 Sugar Laboratory Assistant Report Medical Records [address] [place] [id number] Dorian Neff MD Social History Tobacco Use [...] on filedocumented in this encounter Care Teams Family Practice Physician Assistant Relationship Specialty Start Date End Date Nargis [...]
--- OUTSIDE RECORDS SUMMARY | 2025-06-28 07:37 | XMS_ITS | Encounter Summary ---
Author Organization [facility] Address [address] [place] [address] Care Team Providers Care Barrel Assembler Helper Name Role Phone Nargis Siegel MD Primary Care Provider Unavaila ble [facility], Pcp Primary Care Provider Unavailashly e Daphney Velázquez MD Unavailable [phone] Nargis Siegel MD Primary Care Provider Unavaila ble [facility], Pcp Primary Care Provider Unavailabl e Nargis Siegel MD Primary Care Provider Unavaila [facility], Pcp Primary Care Provider Unavailabl e [facility], Pcp Primary Care Provider Unavailabl e Encounter Details Date Type Department Care Team Description 05/06/2017 Orders Only Medicine/Pediatrics - [address] [address] Stacey Melgoza PA-C 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
--- OUTSIDE RECORDS SUMMARY | 2025-06-28 07:37 | XMS_ITS | Encounter Summary ---
Author Organization [facility] Address [address] [place] [address] Care Team Providers Care Futures Trader Name Role Phone Nargis Siegel MD Primary Care Provider Unavaila [facility], Pcp Primary Care Provider UnavailDaphney Ghotra MD Unavailable [phone] Nargis Siegel MD Primary Care Provider Unavaila ble [facility], Pcp Primary Care Provider Unavailabl e Nargis Siegel MD Primary Care Provider Unavaila [facility], Pcp Primary Care Provider Unavailabl e [facility], Pcp Primary Care Provider Unavailabl e Encounter Details Date Type Department Care Team Description 07/09/2016 Export Freight Clerk Report Medical Records [address] [place] [address] Dorian Neff MD Social History Tobacco Use [...] on filedocumented in this encounter Care Teams Futures Trader Relationship Specialty Start Date End Date Nargis [...]
--- OUTSIDE RECORDS SUMMARY | 2025-06-28 07:38 | XMS_ITS | Encounter Summary ---
Author Organization [facility] Address [address] [place] [address] Care Team Providers Care Sustainable Design Coordinator Name Role Phone Nargis Siegel MD Primary Care Provider Unavaila ble [facility], Pcp Primary Care Provider UnavailDaphney Ghotra MD Unavailable [phone] Nargis Siegel MD Primary Care Provider Unavaila ble [facility], Pcp Primary Care Provider Unavailabl e Nargis Siegel MD Primary Care Provider Unavaila [facility], Pcp Primary Care Provider Unavailabl e [facility], Pcp Primary Care Provider Unavailabl e Encounter Details Date Type Department Care Team Description 01/09/2017 Physiognomist Report Medical Records [address] [place] [phone] Dorian Neff MD Social History Tobacco Use [...] on filedocumented in this encounter Care Teams Sustainable Design Coordinator Relationship Specialty Start Date End Date Nargis [...]
--- OUTSIDE RECORDS SUMMARY | 2025-06-28 07:38 | XMS_ITS | Encounter Summary ---
Author Organization [facility] Address [address] [place] [address] Care Team Providers Care Electronic Engraver Name Role Phone Nargis Siegel MD Primary Care Provider Unavaila ble [facility], Pcp Primary Care Provider Unavailabl e Daphney Velázquez MD Unavailable [phone] Nargis Siegel MD Primary Care Provider Unavaila ble [facility], Pcp Primary Care Provider Unavailabl e Nargis Siegel MD Primary Care Provider Unavaila ble [facility], Pcp Primary Care Provider Unavailabl e [facility], Pcp Primary Care Provider Unavailabl e Reason for Visit * Reason Onset Date Comments Prior Authorization 01/27/2017 Encounter Details Date Type Department Care Team Description 01/27/2017 Telephone Radiology - [address] [address] Nargis Siegel MD Prior Authorization Social History Tobacco Use Types [...] encounter Miscellaneous Notes * Telephone Encounter - Tonya Bardales - 01/27/2017 3:33 PM EDT No auth required * Telephone Encounter - Janine Jarquin - 01/27/2017 3:18 PM EDT Requesting prior authorization for an echocardiogram. Thank you documented in this encounter Plan of Treatment Not on file documented as of this encounter Visit Diagnoses Not on filedocumented in this encounter Care Teams Electronic Engraver Relationship Specialty Start Date End Date Nargis Siegel MD PCP - General Internal Medicine 07/28/15 12/18/20 [facility], Pcp PCP - General Internal Medicine 12/19/20 01/03/21 Nargis Siegel MD PCP - General Internal Medicine 01/04/21 02/19/21 [facility], Pcp PCP - General Internal Medicine 02/20/21 05/24/21 Nargis Siegel MD PCP - General Internal Medicine 05/25/21 08/05/21 [facility], Pcp PCP - General Internal Medicine 08/06/21 12/03/21 [facility], Pcp PCP - General Internal Medicine 12/18/21 Daphney Velázquez MD Specialist Cardiology 12/28/20 documented as of this encounter
--- OUTSIDE RECORDS SUMMARY | 2025-06-28 07:38 | XMS_ITS | Encounter Summary ---
Author Organization [facility] Address [address] [place] [address] Care Team Providers Care Molasses Coloring Operator Name Role Phone Nargis Siegel MD Primary Care Provider Unavaila ble [facility], Pcp Primary Care Provider Unavailashly e Daphney Velázquez MD Unavailable [phone] Nargis Siegel MD Primary Care Provider Unavaila ble [facility], Pcp Primary Care Provider Unavailabl e Nargis Siegel MD Primary Care Provider Unavaila ble [facility], Pcp Primary Care Provider Unavailabl e [facility], Pcp Primary Care Provider Unavailabl e Reason for Visit * Reason Onset Date Comments medication problems 02/21/2020 Encounter Details Date Type Department Care Team Description 02/21/2020 Telephone Adult Medicine [address] [address] Nargis Siegel MD medication problems Social History Tobacco Use Types Packs/Day Years [...] Miscellaneous Notes * Telephone Encounter - Christine Aviles M.A. - 02/21/2020 11:43 AM EDT Oral [place]cia is not covered. I have pended Naun Hayes for your consideration. Lab Results Component Value Date HGBA1C 10.0 02/05/2020 MALBUR TNP 07/30/2019 MALBCR 2.0 05/15/2018 CHOL 252 02/05/2020 LDL 164 02/05/2020 HDL 44 02/05/2020 TRIG 222 02/05/2020 GLU 237 02/05/2020 CREAT 0.80 02/05/2020 * Telephone Encounter - Jill Goldman - 02/21/2020 10:28 AM EDT Who is calling? The patient Name of the medication Insulin Glargine (LANTUS SOLOSTAR) 100 UNIT/ML Solution Pen-injector What is the specific problem or interaction? Prescription not covered. Alternative is basaglar, patient is asking for a new rx if appropriate. BS last night 307. If the patient is having a problem with taking the med - how long has the problem been going on? N/A documented in this encounter Plan of Treatment Not on file documented as of this encounter Visit Diagnoses Not on filedocumented in this encounter Care Teams Molasses Coloring Operator Relationship Specialty Start Date End Date Nargis Siegel MD PCP - General Internal Medicine 07/28/15 12/18/20 [facility], Pcp PCP - General Internal Medicine 12/19/20 01/03/21 Nargis Siegel MD PCP - General Internal Medicine 01/04/21 02/19/21 [facility], Pcp PCP - General Internal Medicine 02/20/21 05/24/21 Nargis Siegel MD PCP - General Internal Medicine 05/25/21 08/05/21 [facility], Pcp PCP - General Internal Medicine 08/06/21 12/03/21 [facility], Pcp PCP - General Internal Medicine 12/18/21 Daphney Velázquez MD Specialist Cardiology 12/28/20 documented as of this encounter
--- OUTSIDE RECORDS SUMMARY | 2025-06-28 07:39 | XMS_ITS | Encounter Summary ---
Author Organization [facility] Address [address] [place] [address] Care Team Providers Care Production Stage Manager Name Role Phone Nargis Siegel MD Primary Care Provider Unavaila libia [facility], Pcp Primary Care Provider Daphney Velasquez MD Unavailable [phone] Nargis Siegel MD Primary Care Provider Unavaila ble [facility], Pcp Primary Care Provider Unavailabl e Nargis Siegel MD Primary Care Provider Unavaila [facility], Pcp Primary Care Provider Unavailabl e [facility], Pcp Primary Care Provider Unavailabl e Encounter Details Date Type Department Care Team Description 11/20/2016 Release of Information Medical Records [address] [place] [id number] Abstract, Provider Social History Tobacco Use Types [...] on filedocumented in this encounter Care Teams Production Stage Manager Relationship Specialty Start Date End Date [...]
--- NOTE | 2025-07-26 12:19 | HO.ANESPROP2 ---
Documented by User: Caroline Davis NP 07/26/25 12:20 HPI - Anesthesia Eval Consult details Narrative: 64 yr old female for Upper Endoscopy [facility] Active Problems Active Problems: All Active Problems (Updated 07/25/25 @ 15:23 by Nargis Belcher MD) Right trigger finger (Acute) Abnormal screening mammogram (Acute) Palpitations (Acute) Right axillary fullness (Acute) Breast pain, right (Acute) Diarrhea (Acute) Middle ear effusion (Acute) Left knee pain (Acute) Injury of medial collateral ligament (MCL) of knee (Acute) Hypothyroid (Acute) Gastroparesis (Acute) GERD (gastroesophageal reflux disease) (Acute) Odynophagia (Acute) Dysphagia (Acute) Subacute sinusitis (Acute) Asthma (Acute) Complex regional pain syndrome I (Acute) Diabetic neuropathy (Acute) Controlled diabetes mellitus with diabetic neuropathy, with long-term current use of insulin (Acute) Past Medical History Medical History Diabetes Wears dentures Nausea & vomiting Peripheral neuropathy Seasonal allergies Hx of supraventricular tachycardia PONV (postoperative nausea and vomiting) Encounter for annual wellness visit (AWV) in Medicare patient Depression PTSD (post-traumatic stress disorder) Injury of hand, right Right shoulder injury Neck injury Imbalance Memory loss Fatty liver GERD (gastroesophageal reflux disease) IBS (irritable colon syndrome) Thyroid disease Hypercholesterolemia Hammertoe of left foot Controlled diabetes mellitus with diabetic neuropathy, with long-term current use of insulin Diabetic neuropathy Complex regional pain syndrome I Asthma Subacute sinusitis Family History Family History Mother Colon cancer Father Cardiovascular disease Thyroid disorder Throat cancer Alcoholism Psychiatric disorder Maternal Grandmother Asthma Diabetes Cardiovascular disease Maternal Grandfather Cardiovascular disease Paternal Grandfather Cardiovascular disease Sister Cancer of spine Diabetes Brother Tongue cancer Surgical History Surgical History Hx of section (1991) History of arthroscopy of right shoulder (~2000) S/P insertion of spinal cord stimulator H/O Spinal surgery History of esophagogastroduodenoscopy (EGD) H/O colonoscopy Hx of foot surgery Social History Social History Household Members: Spouse and Children Housing: House Alcohol intake: never Patient Tobacco Use Status: Never used Tobacco e-Cigarette/Vaping Use: Never Used Use of substances other than those prescribed or required for medical reasons: No Substance Use Type: Marijuana Have you been hit, kicked, punched, or otherwise hurt by someone within the past year? If so, by whom?: No Are you DNR?: No Advance Directives: No (will look for and bring dos) Advance Directives Information Provided: Yes Advance Directives on File: No service: No Current occupational status: disabled Current occupational exposures/hazards: No Cognitive needs: No Hearing needs: Yes (wears hearing aids) Vision needs: Yes (wears glasses) Meds Allergies Allergy/AdvReac Type Severity Reaction Status Date / Time semaglutide (From Ozempic) Allergy Severe Rash Verified 07/28/25 07:05 [id number] Reductase AdvReac Severe myalgia Verified 07/28/25 07:05 Inhibitor Home Medications ?Medication ?Instructions ?Recorded ?Confirmed ?Last Taken ?Type 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 sensor (PlexxiStyle 04/02/24 Unknown History Soheila 3 Sensor device) 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,medical typist,cont 04/02/24 Unknown History (PlexxiStyle Soheila 3 [place]) cyproheptadine 4 mg tablet 4 mg PO DAILY PRN allergy symptoms 04/02/24 07/26/25 Unknown History duloxetine 60 mg capsule,delayed 120 mg PO BEDTIME 04/02/24 07/26/25 Unknown History release estradiol 0.01% (0.1 mg/gram) 1 g vaginal 2XW 04/02/24 07/26/25 Unknown History vaginal cream (Estrace) ipratropium 18 mcg-albuterol 103 1 spray inhalation Q4-6H PRN Asthma 04/02/24 07/26/25 Unknown History mcg/actuation aerosol inhaler lidocaine 5 % topical patch 2 patch topical DAILY PRN Pain 04/02/24 07/26/25 Unknown History lidocaine-prilocaine 2.5 %-2.5 % 30 g topical Q12H PRN pain 04/02/24 07/26/25 Unknown History topical cream meclizine 12.5 mg tablet 25 mg PO BID PRN Dizziness Or 04/02/24 07/26/25 Unknown History Vertigo ondansetron HCl 8 mg tablet 16 mg PO Q8H PRN nausea and 04/02/24 07/26/25 Unknown History vomiting pen needle, diabetic 32 gauge x 04/02/24 Unknown History (BD Lisa 2nd Gen Pen Needle) prochlorperazine 25 mg rectal 25 mg IN BID PRN nausea and 04/02/24 07/26/25 Unknown History suppository vomiting Medical cannabis PO 12/24/24 12/24/24 Unknown History famotidine 20 mg tablet (Acid 20 mg PO DAILY PRN Reflux 12/24/24 07/26/25 07/28/25 History Tank Stave Assembler (famotidine)) levocetirizine 5 mg tablet (Xyzal) 10 mg PO BID 12/24/24 07/26/25 Unknown History loperamide 2 mg tablet 2 mg PO Q6H PRN Diarrhea 12/24/24 07/26/25 Unknown History baclofen 10 mg tablet 10 mg PO QID 02/18/25 07/26/25 Unknown History triamcinolone acetonide 0.1 % topical DAILY 02/18/25 Unknown History topical ointment ferrous sulfate 325 mg (65 mg 325 mg PO Q OTHER DAY 07/08/25 07/26/25 Unknown History iron) tablet,delayed release insulin glargine 100 unit/mL (3 14 unit subcut BEDTIME 07/08/25 07/26/25 Unknown History mL) subcutaneous pen (Basaglar KwikPen U-100 Insulin) nemolizumab-ilto 30 mg 30 mg subcut Q4W 07/08/25 07/26/25 Unknown History subcutaneous pen injector (Nemluvio) ketamine 100 mg/2 mL (50 mg/mL) 80 mg PO TID PRN Pain 07/26/25 07/26/25 Unknown History intravenous syringe metformin 500 mg tablet 1,000 mg PO DAILY 07/26/25 07/26/25 Unknown History Documented by User: Howie Aguilar MD 07/28/25 07:18 [facility] Past Medical History Medical History Diabetes Wears dentures Nausea & vomiting Peripheral neuropathy Seasonal allergies Hx of supraventricular tachycardia PONV (postoperative nausea and vomiting) Encounter for annual wellness visit (AWV) in Medicare patient Depression PTSD (post-traumatic stress disorder) Injury of hand, right Right shoulder injury Neck injury Imbalance Memory loss Fatty liver GERD (gastroesophageal reflux disease) IBS (irritable colon syndrome) Thyroid disease Hypercholesterolemia Hammertoe of left foot Controlled diabetes mellitus with diabetic neuropathy, with long-term current use of insulin Diabetic neuropathy Complex regional pain syndrome I Asthma Subacute sinusitis Functional capacity: independent ambulation Family History Family History Mother Colon cancer Father Cardiovascular disease Thyroid disorder Throat cancer Alcoholism Psychiatric disorder Maternal Grandmother Asthma Diabetes Cardiovascular disease Maternal Grandfather Cardiovascular disease Paternal Grandfather Cardiovascular disease Sister Cancer of spine Diabetes Brother Tongue cancer Family history of problems with anesthesia: No Surgical History Surgical History Hx of section (1991) History of arthroscopy of right shoulder (~2000) S/P insertion of spinal cord stimulator H/O Spinal surgery History of esophagogastroduodenoscopy (EGD) H/O colonoscopy Hx of foot surgery History of Problems with Anesthesia: No Social History Social History Household Members: Spouse and Children Housing: House Alcohol intake: never Patient Tobacco Use Status: Never used Tobacco e-Cigarette/Vaping Use: Never Used Use of substances other than those prescribed or required for medical reasons: No Substance Use Type: Marijuana Have you been hit, kicked, punched, or otherwise hurt by someone within the past year? If so, by whom?: No Are you DNR?: No Advance Directives: No (will look for and bring dos) Advance Directives Information Provided: Yes Advance Directives on File: No service: No Current occupational status: disabled Current occupational exposures/hazards: No Cognitive needs: No Hearing needs: Yes (wears hearing aids) Vision needs: Yes (wears glasses) Meds Allergies Allergy/AdvReac Type Severity Reaction Status Date / Time semaglutide (From VideoPros) Allergy Severe Rash Verified 07/28/25 07:05 [id number]-[id number]-MwN Reductase AdvReac Severe myalgia Verified 07/28/25 07:05 Inhibitor Home Medications ?Medication ?Instructions ?Recorded ?Confirmed ?Last Taken ?Type 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 sensor (FreeStyle 04/02/24 Unknown History Soheila 3 Sensor device) 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,medical typist,cont 04/02/24 Unknown History (FreeStyle Soheila 3 [place]) cyproheptadine 4 mg tablet 4 mg PO DAILY PRN allergy symptoms 04/02/24 07/26/25 Unknown History duloxetine 60 mg capsule,delayed 120 mg PO BEDTIME 04/02/24 07/26/25 Unknown History release estradiol 0.01% (0.1 mg/gram) 1 g vaginal 2XW 04/02/24 07/26/25 Unknown History vaginal cream (Estrace) ipratropium 18 mcg-albuterol 103 1 spray inhalation Q4-6H PRN Asthma 04/02/24 07/26/25 Unknown History mcg/actuation aerosol inhaler lidocaine 5 % topical patch 2 patch topical DAILY PRN Pain 04/02/24 07/26/25 Unknown History lidocaine-prilocaine 2.5 %-2.5 % 30 g topical Q12H PRN pain 04/02/24 07/26/25 Unknown History topical cream meclizine 12.5 mg tablet 25 mg PO BID PRN Dizziness Or 04/02/24 07/26/25 Unknown History Vertigo ondansetron HCl 8 mg tablet 16 mg PO Q8H PRN nausea and 04/02/24 07/26/25 Unknown History vomiting pen needle, diabetic 32 gauge x 04/02/24 Unknown History (BD Lisa 2nd Gen Pen Needle) prochlorperazine 25 mg rectal 25 mg IN BID PRN nausea and 04/02/24 07/26/25 Unknown History suppository vomiting Medical cannabis PO 12/24/24 12/24/24 Unknown History famotidine 20 mg tablet (Acid 20 mg PO DAILY PRN Reflux 12/24/24 07/26/25 07/28/25 History Tank Stave Assembler (famotidine)) levocetirizine 5 mg tablet (Xyzal) 10 mg PO BID 12/24/24 07/26/25 Unknown History loperamide 2 mg tablet 2 mg PO Q6H PRN Diarrhea 12/24/24 07/26/25 Unknown History baclofen 10 mg tablet 10 mg PO QID 02/18/25 07/26/25 Unknown History triamcinolone acetonide 0.1 % topical DAILY 02/18/25 Unknown History topical ointment ferrous sulfate 325 mg (65 mg 325 mg PO Q OTHER DAY 07/08/25 07/26/25 Unknown History iron) tablet,delayed release insulin glargine 100 unit/mL (3 14 unit subcut BEDTIME 07/08/25 07/26/25 Unknown History mL) subcutaneous pen (Basaglar KwikPen U-100 Insulin) nemolizumab-ilto 30 mg 30 mg subcut Q4W 07/08/25 07/26/25 Unknown History subcutaneous pen injector (Nemluvio) ketamine 100 mg/2 mL (50 mg/mL) 80 mg PO TID PRN Pain 07/26/25 07/26/25 Unknown History intravenous syringe metformin 500 mg tablet 1,000 mg PO DAILY 07/26/25 07/26/25 Unknown History Exam Exam Date and Time: 07/27/2025 Airway Mallampati Class: II TM Dist: >3cm Neck ROM: Limited Denture: Upper Partial: Lower (full) Loose/Missing/Broken Teeth: No Heart: normal Lungs: normal Other: normal Assessment and Plan Assessment Anesthesia Assessment: Anesthesia Plan Discussed Final Anesthetic Review Family History of Problems with Anesthesia: No History of Problems with Anesthesia: No NPO: Yes ASA Class: II Final Preanesthetic Review: No Changes in Pt Med Stat, Meds/Allgs Chart Reviewed, Consent Obtained/Reviewed and Anes Risks/Benef Reviewed Patient Risk: Low Procedure Risk: Low Anesthetic Plan Anesthetic Plan: MAC: Disposition: Standard PACU
[2025-07-26 15:31] VITALS: BMI 37.6
[2025-07-28 07:03] VITALS: BMI 38.0
[2025-07-28 07:21] VITALS: BP 135/66; PULSE 89; RESP 18; TEMP 36.7; O2SAT 99
[2025-07-28] MEDS: Lactated Ringers 1,000 ML 100 ML IVCONT (07:21)
[2025-07-28 07:23] LABS: Glucose, Whole Blood 107 mg/dL (60-115)
--- NOTE | 2025-07-28 07:49 | MHC.SHP ---
Pre-Procedural Eval Section A - 24 Hr Update-Section A only Date of Service: 07/28/25 The patient is an INPATIENT: No The patient has been examined within 24 hours of the surgical procedure. The History & Physical has been completed within 30 days and I have reviewed it.: Yes Section B - Complete if H&P > 30 days Chief Complaint: dysphagia,gerd Allergies: Allergies Allergy/AdvReac Type Severity Reaction Status Date / Time semaglutide (From Ozempic) Allergy Severe Rash Verified 07/28/25 07:05 Ccoboeu-AVK-QfW Reductase AdvReac Severe myalgia Verified 07/28/25 07:05 Inhibitor Plan Diagnosis/Plan: Unchanged I have reviewed the history and physical and performed a pertinent physical examination on my patient. No changes have occurred unless specified. Time Spent With Patient Time: Total time managing care of this patient today ____ minutes.
[2025-07-28 08:17] VITALS: BP 122/65; PULSE 70; RESP 16; TEMP 36.4; O2SAT 96
--- NOTE | 2025-07-28 08:19 | P.OP_ITS ---
Operative Note Operative Note Date of Service: 07/28/25 Narrative: Procedure: Esophagogastroduodenoscopy Endoscopist: Melanie Matson MD Indication: Dysphagia Anesthesia Provider: Dr Aguilar Anesthesia Type: MAC ?? EGD Procedure:?? The procedure, indications, preparation and potential complications were reviewed with the patient, who indicated understanding and gave written informed consent to proceed. A physical exam was performed. The endoscope was introduced through the mouth, and advanced to the second part of duodenum. The mucosa was carefully examined on slow withdrawal of the endoscope. The patient tolerated the procedure well. There were no immediate complications.? ? EGD Findings:? * Esophagus:? Normal mucosa noted in the entire esophagus. The Z line was at 40 cm and displaced by a hiatal hernia with the pinch at 42 cm. The Z line appeared irregular to 38 cm. Cold forceps biopsies were taken from the GE ju nction to rule out Barretts esophagus. Middle esophagus biopsies were taken to rule out eosinophilic esophagitis. * Stomach:? Mild erythema and erosion was noted in the antrum. Retroflexion was performed in the cardia that showed hill grade II hiatal hernia. A few polyps ranging in size 3-6 mm were noted in the fundus and body of the stomach. Cold forceps polypectomy was performed for the larger polyps. Random cold forceps biopsies were taken for histology. * Duodenum:? Normal mucosa was noted in the whole of the examined duodenum. Cold forceps biopsies were taken from duodenal bulb and second portion of the duodenum to rule out celiac sprue. Additional intervention: Soft tip Savary wire was introduced through the biopsy channel of the gastroscope and advanced to the antrum. ?The gastroscope was then backed out. ?Savary Deacon bougie was advanced over the guidewire and the esophagus was dilated to 19 mm without any resistance felt. ?On relook, no heme or tear was noted. ? ? EGD Impressions:? * Normal esophagus (biopsy, dilation) * Hiatal hernia * Gastric polyps (biopsy) * Gastritis (biopsy) * Normal duodenum (biopsy) ?? Recommendations:?? * Follow biopsy results. Our office will call or send a letter with results within 7-10 days. * Continue PPI therapy. * If H pylori +, patient will be prescribed eradication therapy followed by test of cure. * Avoid NSAIDs. * Empiric dilation was performed today, if patient reports symptomatic improvement in swallowing, this can be repeated as needed. * If there is no response to empiric dilation, consider HREM for further evaluation. Above has been reviewed with the patient.
[2025-07-28 08:32] VITALS: BP 129/59; PULSE 73; RESP 16; O2SAT 94
[2025-07-28 08:45] VITALS: BP 148/79; PULSE 73; RESP 16; TEMP 36.3; O2SAT 95
== END 2025-07-28 09:15 | disposition home or self-care (01) ==
PROVIDERS: PCP Internal Medicine; Visit Provider Internal Medicine
PROC: 0DJ08ZZ Inspection of Upper Intestinal Tract, Via Natural or Artificial Opening Endoscopic (ICD-10-PCS; CPT 43235; principal; 2025-07-28 08:30)
DX: K21.9 Gastro-esophageal reflux disease without esophagitis (principal); R13.10 Dysphagia, unspecified; K31.84 Gastroparesis; K31.7 Polyp of stomach and duodenum; K29.70 Gastritis, unspecified, without bleeding; K44.9 Diaphragmatic hernia without obstruction or gangrene
CPT/HCPCS: 43239; 43248; 82947; 88305; 88313; 88342; C1769; J2003; J2704; J3010

== ENCOUNTER → 2025-07-28 06:50 | Outpatient (BNV) | payer MEDICARE, SELFPAY | PROVIDERS: PCP Internal Medicine; Visit Provider Internal Medicine | DX: R13.10 Dysphagia, unspecified (principal); K29.70 Gastritis, unspecified, without bleeding; K31.7 Polyp of stomach and duodenum | CPT/HCPCS: 43239; 43248 ==

== ENCOUNTER 2025-08-11 15:08 | Outpatient (AMB) | payer MEDICARE, SELFPAY ==
--- OUTSIDE RECORDS SUMMARY | 2025-08-07 23:59 | XMS_ITS | Continuity of Care Document ---
Author Organization [facility] Address [address] [place] [phone] Support Name Relationship Address Phone KERRINACK, SATISH Personal Relationship Unknown Un available BARNACK, SATISH Personal Relationship Unknown Un available BARNACK, SATISH Personal Relationship Unknown Un available BARNACK, SATISH Personal Relationship Unknown Un available BARNACK, SATISH Personal Relationship Unknown Un available BARNACK, SATISH spouse Unknown Unavailable BARNACK, SATISH Personal Relationship Unknown Un available BARNACK, SATISH Personal Relationship Unknown Un available BARNACK, SATISH Personal Relationship Unknown Un available BARNACK, SATISH Personal Relationship Unknown Un available BARNACK, SATISH Personal Relationship Unknown Un available BARNACK, SATISH Personal Relationship Unknown Un available MAUREEN, YOBANY unrelated friend Unknown Unavailable BARNACK, SATISH Personal Relationship Unknown Un available BARNACK, SATISH Personal Relationship Unknown Un available BARNACK, SATISH Personal Relationship Unknown Un available BARNACK II, SATISH Personal Relationship Unknown Unavailable BARNACK II, SATISH Personal Relationship Unknown Unavailable BARNACK II, SATISH Personal Relationship Unknown Unavailable BARNACK, SARBJIT child Unknown Unavailable BARNACK, SATISH Personal Relationship Unknown Un available BARNACK II, SATISH Personal Relationship Unknown Unavailable BARNACK, SATISH Personal Relationship Unknown Un available Care Team Providers Care Software Tools Developer Name Role Phone Ye LAUREANO, Nargis Castro Primary Care Physician [place] [facility] [place]): [place]/08[place]25 - 08/07/25 [facility] [address] [place] [id number] Attending Physician: Susan Mcdonald Encounter Type: Triage Allergies, Adverse Reactions, Alerts Substance Criticality Severity Reaction Reaction Severity Status Pollen sinus issues Active Other Environmental Allergy sinus issues Active Ozempic High criticality Moderate Rash Act irwin Immunizations Given and Recorded Vaccine Date Status Refusal Reason influenza virus vaccine, inactivated 07/14/23 Give n influenza virus vaccine, inactivated 07/10/22 Give n influenza virus vaccine, inactivated 10/26/19 Dung rded influenza virus vaccine, inactivated 09/01/18 Dung rded influenza virus vaccine, inactivated 10/16/16 Dung rded influenza virus vaccine, inactivated 05/27/15 Dung rded influenza virus vaccine, inactivated 07/11/14 Dung rded influenza virus vaccine, inactivated 05/26/13 Dung rded influenza virus vaccine, inactivated 09/14/12 Dung rded influenza virus vaccine, inactivated 09/09/11 Dung rded influenza virus vaccine, inactivated 08/10/10 Dung rded influenza virus vaccine, inactivated 09/04/09 Dung rded influenza virus vaccine, inactivated 08/01/08 Dung rded influenza virus vaccine, inactivated 07/14/06 Dung rded influenza virus vaccine, inactivated 07/28/03 Dung rded tetanus/diphtheria/pertussis, acel(Tdap) 03/03/23 Given tetanus/diphtheria/pertussis, acel(Tdap) 09/09/11 Recorded SARS-CoV-2 (COVID-19) mRNA BNT-162b2 vac 07/23/21 Recorded SARS-CoV-2 (COVID-19) mRNA BNT-162b2 vac 01/15/21 Recorded SARS-CoV-2 (COVID-19) mRNA BNT-162b2 vac 12/23/20 Recorded zoster vaccine, inactivated 05/06/20 Recorded zoster vaccine, inactivated 10/26/19 Recorded pneumococcal 13-valent vaccine 01/03/15 Recorded pneumococcal 23-valent vaccine 08/01/08 Recorded pneumococcal 23-valent vaccine 07/28/03 Recorded tetanus-diphtheria toxoids (Td) 07/28/03 Recorded Medications Albuterol (Eqv-Ventolin HFA) 90 mcg/inh inhalation aerosol 1 puffs, Inhalation, 4 times a day, PRN NEEDED FOR WHEEZING, # 18 Gm, 3 Refills, Maintenance, 03/04/23 3:30:00 PM EDT, [facility] #[id number], 50, INHALE 1 PUFF BY MOUTH FOUR TIMES DAILY NEEDED FOR WHEEZING, 169, cm, 03/03/23 9:11:00 EDT, Height, 102.6, kg, 11/05/22 10:56:00 EST, Dry Weight Start Date: 03/04/23 Status: Ordered Medication Dispense Status: Completed Quantity: 18.0 Unit: g Total Allowed Fills: 1 Fills Dispensed: 0 B-D LENI 2ND GEN PEN NDL [id number] B-D LENI 2ND GEN PEN NDL [id number], See Instructions, # 200 each, 3 Refills, Maintenance, USE 2 NEEDLES ONCE DAILY WITH INSULIN, 12/15/23 4:01:00 PM EDT, 169, cm, 10/28/23 9:45:00 EST, Height, 102.6,kg, 11/05/22 10:56:00 EST, Dry Weight Start Date: 12/15/23 Status: Ordered Medication Dispense Status: Completed Quantity: 200.0 Unit: each Total Allowed Fills: 1 Fills Dispensed: 0 B-D LENI 2ND GEN PEN NDL [id number] USE ONCE DAILY WITH INSULIN PEN Start Date: 11/07/22 Status: Ordered Medication Dispense Status: Completed Total Allowed Fills: 1 Fills Dispensed: 0 baclofen 10 mg oral tablet See Instructions, 1-2 tabs po TID to QID to MAX of 5 tabs/day. Do not abruptly stop this medication., # 140 tablet, Refills 2, Tot. Refills 2, Maintenance, 07/11/25 10:20:00 AM EDT, Instructions Replace Required Details, Route to Pharmacy Electronically, [facility] #[id number], 167.5, cm, 07/08/25 10:36:00 EDT, Height, 105.4, kg, 01/21/24 9:38:00 EDT, Dry Weight Start Date: 07/11/25 Status: Ordered Medication Dispense Status: Completed Quantity: 140.0 Unit: tablet Total Allowed Fills: 3 Fills Dispensed: 0 Basaglar KwikPen 100 units/mL subcutaneous solution ADMINISTER 20 UNITS UNDER THE SKIN DAILY Start Date: 11/16/24 Status: Ordered Medication Dispense Status: Completed Total Allowed Fills: 1 Fills Dispensed: 0 Cannabis (Schedule I Substance) 0 Refills, Maintenance, 02/27/15 2:30:18 PM EDT Start Date: 02/27/15 Status: Ordered Medication Dispense Status: Completed Total Allowed Fills: 1 Fills Dispensed: 0 cholecalciferol 1000 intl units oral capsule 1 capsule = 25 mcg, By Mouth, Daily, # 90 capsule, 3 Refills, Maintenance, 02/09/23 1:19:00 PM EDT, Capsule, [facility] #[id number], Partial fill upon patient request if the prescription is for aschedule II opioid drug., 169, cm, 07/10/22 14:40:00 EDT, Height, 100, kg, 04/03/22 16:05:00 EDT, Dry Weight Start Date: 02/09/23 Status: Ordered Medication Dispense Status: Completed Quantity: 90.0 Unit: capsule Total Allowed Fills: 4 Fills Dispensed: 0 cholestyramine 4 gm/5 gm oral powder for reconstitution 1 pack/packet, By Mouth, 3 times a day, 30 min before meals dissolve in water or juice, # 90 each, 1 Refills, Maintenance, 10/19/24 4:49:00 PM EST, REC Powder, [facility] #[id number], 167.5, cm, 10/19/24 8:47:00 EST, Height, 105.4, kg, 01/21/24 9:38:00 EDT, Dry Weight Start Date: 10/19/24 Status: Ordered Medication Dispense Status: Completed Quantity: 90.0 Unit: each Total Allowed Fills: 2 Fills Dispensed: 0 Controlled Substance Agreement Controlled Substance Agreement, See Instructions, # 1 each, Refills 0, Tot. Refills 0, Maintenance,Signed On: 12/05/2020 Updated: 05/17/2024 Pharmacy: [facility] DX: M54.2, neck pain; M79.2 Neuropathic pain, 05/22/23 4:15:00 PM EDT, Supply, 169, cm, 05/22/23 15:41:00 EDT, Height, 102.6, kg, 11/05/22 10:56:00 EST, Dry Weight Start Date: 05/22/23 Status: Ordered Medication Dispense Status: Completed Quantity: 1.0 Unit: each Total Allowed Fills: 1 Fills Dispensed: 0 CPAP Machine See Instructions, # 1 each, Maintenance, AutoCPAP 8-14 cm H20, use Daily when sleeping, 03/10/23 5:07:00 PM EDT, Supply Start Date: 03/10/23 Status: Ordered Medication Dispense Status: Completed Quantity: 1.0 Unit: each Total Allowed Fills: 1 Fills Dispensed: 0 Indications: Psychophysiologic insomnia; Periodic limb movement disorder; Obstructive sleep apnea (adult) (pediatric); cyproheptadine 4 mg oral tablet 4 mg, 1, tablet, By Mouth, 3 times a day, PRN, # 60 tablet, Refills 4, Tot. Refills 4, Maintenance,pruritus, 03/28/25 5:30:00 PM EDT, Route to Pharmacy Electronically, [facility] #[id number], 167.5, cm, 03/28/25 11:30:00 EDT, Height, 105.4, kg, 01/21/24 9:38:00 EDT, Dry Weight Start Date: 03/28/25 Status: Ordered Medication Dispense Status: Completed Quantity: 60.0 Unit: tablet Total Allowed Fills: 5 Fills Dispensed: 0 duloxetine 60 mg oral enteric coated capsule 2 capsule = 120 mg, By Mouth, Daily at bedtime, # 60 capsule, 5 Refills, Maintenance, 03/03/25 10:49:00 PM EDT, [facility] #[id number], 167.5, cm, 02/16/25 14:58:00 EDT, Height, 105.4, kg, 01/21/24 9:38:00 EDT, Dry Weight Start Date: 03/03/25 Status: Ordered Medication Dispense Status: Completed Quantity: 60.0 Unit: capsule Total Allowed Fills: 6 Fills Dispensed: 0 estradiol 0.1 mg/g vaginal cream = 1 Gm, Vaginally, Daily at bedtime, APPLY 1 GM. VAGINALLY NIGHTLY FOR 2 WEEKS AND THEN 1-2 NIGHTS A WEEK THEREAFTER, # 42.5 Gm, 3 Refills, Maintenance, 08/20/24 11:07:00 AM EST, Cream, [facility] #[id number], Partial fill upon patient request if the prescription is for a schedule II opioid drug., 167.5, cm, 08/20/24 10:48:00 EST, Height, 105.4, kg, 01/21/24 9:38:00 EDT, Dry Weight Start Date: 08/20/24 Status: Ordered Medication Dispense Status: Completed Quantity: 42.5 Unit: g Total Allowed Fills: 4 Fills Dispensed: 0 ferrous sulfate 325 mg oral enteric coated tablet 1, tablet, By Mouth, Every other day, WITH VITAMIN-C FOR BETTER ABSORPTION., # 45 tablet, Refills 0, Maintenance, 06/29/25 10:26:00 AM EDT, Route to Pharmacy Electronically, [facility] #[id number], 167.5, cm, 06/02/25 13:44:00 EDT, Height, 105.4, kg, 01/21/24 9:38:00 EDT, Dry Weight Start Date: 06/29/25 Status: Ordered Medication Dispense Status: Completed Quantity: 45.0 Unit: tablet Total Allowed Fills: 1 Fills Dispensed: 0 fluticasone 50 mcg/inh nasal spray 2 sprays, Nares, Both, Daily in AM, # 3 each, 3 Refills, Maintenance, 03/03/23 9:40:00 AM EDT, [place], [facility] #[id number], Partial fill upon patient request if the prescription is for a schedule II opioid drug., 2 sprays Nares, Both Daily in AM, 169, cm, 03/03/23 9:11:00 EDT, Height, 102.6, kg, 11/05/22 10:56:00 EST, Dry Weight Start Date: 03/03/23 Status: Ordered Medication Dispense Status: Completed Quantity: 3.0 Unit: each Total Allowed Fills: 4 Fills Dispensed: 0 FreeStyle Soheila 2 Monitor See Instructions, # 1 each, Maintenance, Use as directed to monitor glucose levels for type 2 diabetes., 07/14/23 2:11:00 PM EDT, Supply, 169, cm, 07/14/23 12:42:00 EDT, Height, 102.6, kg, 11/05/22 10:56:00 EST, Dry Weight Start Date: 07/14/23 Status: Ordered Medication Dispense Status: Completed Quantity: 1.0 Unit: each Total Allowed Fills: 1 Fills Dispensed: 0 Indications: Type 2 diabetes mellitus with other diabetic neurological complication; FreeStyle Soheila 2 Sensors See Instructions, # 2 each, Refills 11, Tot. Refills 11, Maintenance, Use as directed to monitor glucose levels for type 2 diabetes., 07/14/23 2:11:00 PM EDT, Supply, 169, cm, 07/14/23 12:42:00 EDT, Height, 102.6, kg, 11/05/22 10:56:00 EST, Dry Weight Start Date: 07/14/23 Status: Ordered Medication Dispense Status: Completed Quantity: 2.0 Unit: each Total Allowed Fills: 12 Fills Dispensed: 0 Indications: Type 2 diabetes mellitus with other diabetic neurological complication; Freestyle Soheila Monitor See Instructions, # 1 each, Refills 0, Tot. Refills 0, Maintenance, use for continous glucose monitoring, 11/07/22 3:36:00 PM EST, Supply, 169, cm, 11/07/22 14:51:00 EST, Height, 102.6, kg, 11/05/22 10:56:00 EST, Dry Weight Start Date: 11/07/22 Stop Date: 12/07/22 Status: Ordered Medication Dispense Status: Completed Quantity: 1.0 Unit: each Total Allowed Fills: 1 Fills Dispensed: 0 Freestyle Soheila Sensor See Instructions, # 6 each, Refills 3, Tot. Refills 3, Maintenance, use for continuous glucose monitoring with Freestyle soheila 14 day CGM, 11/07/22 3:36:00 PM EST, Supply, 169, cm, 11/07/22 14:51:00 EST, Height, 102.6, kg, 11/05/22 10:56:00 EST, Dry Weight Start Date: 11/07/22 Stop Date: 03/07/23 Status: Ordered Medication Dispense Status: Completed Quantity: 6.0 Unit: each Total Allowed Fills: 4 Fills Dispensed: 0 Imodium A-D 2 mg, By Mouth, Every 4 hours, PRN, Maintenance, as needed for loose stool, 06/23/13 2:24:02 PM EDT Start Date: 06/23/13 Status: Ordered Medication Dispense Status: Completed Total Allowed Fills: 1 Fills Dispensed: 0 ketamine 50 mg/mL injectable solution See Instructions, PRN Pain , Severe, DO NOT DISPENSE IV KETAMINE- -DISPENSE 80mg capsules. 1 cappo BID to TID, # 90 capsule, 3 Refills, Maintenance, 07/11/25 12:40:00 PM EDT, [facility]ounding, Compounding Medically Necessary. NOT for IV use - po only., 167.5, cm, 07/08/25 10:36:00 EDT, Height, 105.4, kg, 01/21/24 9:38:00 EDT, Dry Weight Start Date: 07/11/25 Status: Ordered Medication Dispense Status: Completed Quantity: 90.0 Unit: capsule Total Allowed Fills: 4 Fills Dispensed: 0 Indications: Neuralgia and neuritis, unspecified; levothyroxine 0.05 mg oral tablet 1 tablet, By Mouth, Daily, # 90 tablet, 1 Refills, Maintenance, 10/22/23 11:18:00 AM EST, [facility] #[id number], 169, cm, 09/17/23 9:32:00 EST, Height, 102.6, kg, 11/05/22 10:56:00 EST, Dry Weight Start Date: 10/22/23 Status: Ordered Medication Dispense Status: Completed Quantity: 90.0 Unit: tablet Total Allowed Fills: 1 Fills Dispensed: 0 lidocaine 5% topical film See Instructions, APPLY 1-2 PATCHES TOPICALLY ONCE DAILY IN THE MORNING, # 30 patch, 5 Refills, Maintenance, 11/16/24 2:34:00 PM EST, [facility]/pharmacy #[id number], APPLY 1-2 PATCHES TOPICALLY ONCE DAILY IN THE MORNING, 167.5, cm, 11/16/24 10:35:00 EST, Height, 105.4, kg, 01/21/24 9:38:00 EDT, Dry Weight Start Date: 11/16/24 Status: Ordered Medication Dispense Status: Completed Quantity: 30.0 Unit: patch Total Allowed Fills: 6 Fills Dispensed: 0 Indications: Neuralgia and neuritis, unspecified; lidocaine-prilocaine 2.5%-2.5% topical cream 1 application, Topically, 2 times a day, PRN Pain , Moderate, # 30 Gm, 3 Refills, Soft Stop, 06/11/22 10:50:00 AM EDT, Cream, [facility] # 302, 1 application Topically 2 times a day,PRN:Pain , Moderate, 169, cm, 06/05/22 14:02:00 EDT, Height, 100, kg, 04/03/22 16:05:00 EDT, Dry Weight Start Date: 06/11/22 Status: Ordered Medication Dispense Status: Completed Quantity: 30.0 Unit: g Total Allowed Fills: 4 Fills Dispensed: 0 lisinopril 2.5 mg oral tablet See Instructions, TAKE 1 TABLET BY MOUTH DAILY TAKE 1 TABLET BY MOUTH EVERY DAY, # 90 tablet, Refills 1, Maintenance, 10/22/23 11:18:00 AM EST, Instructions Replace Required Details, Route to PharmacyElectronically, [email or web address] #[id number], 169, cm, 09/17/23 9:32:00 EST, Height, 102.6, kg, 11/05/22 10:56:00 EST, Dry Weight Start Date: 10/22/23 Status: Ordered Medication Dispense Status: Completed Quantity: 90.0 Unit: tablet Total Allowed Fills: 1 Fills Dispensed: 0 MAGNESIUM MAGNESIUM, Refills 0, Maintenance, 08/20/24 10:59:00 AM EST, Supply Start Date: 08/20/24 Status: Ordered Medication Dispense Status: Completed Total Allowed Fills: 1 Fills Dispensed: 0 meclizine 12.5 mg oral tablet 1 OR 2 TABLETS, By Mouth, 4 times a day, PRN nausea/vertigo, # 112 tablet, 5 Refills, Maintenance, 06/21/25 11:27:00 AM EDT, [email or web address] #[id number], 167.5, cm, 06/02/25 13:44:00 EDT, Height, 105.4, kg, 01/21/24 9:38:00 EDT, Dry Weight Start Date: 06/21/25 Status: Ordered Medication Dispense Status: Completed Quantity: 112.0 Unit: tablet Total Allowed Fills: 6 Fills Dispensed: 0 metoclopramide 5 mg oral tablet TAKE 1 TABLET BY MOUTH FOUR TIMES DAILY BEFORE A MEAL AND BEFORE BEDTIME Start Date: 03/28/25 Status: Ordered Medication Dispense Status: Completed Total Allowed Fills: 1 Fills Dispensed: 0 Misc Rx vitamin c and Mg, Refills 0, Maintenance, 01/15/24 9:30:00 AM EDT, Supply Start Date: 01/15/24 Status: Ordered Medication Dispense Status: Completed Total Allowed Fills: 1 Fills Dispensed: 0 montelukast 10 mg oral tablet 1, tablet, By Mouth, Daily in PM, # 90 tablet, Refills 1, Maintenance, 11/19/23 10:45:00 PM EST, Route to Pharmacy Electronically, [facility] #[id number], 169, cm, 10/28/23 9:45:00 EST, Height, 102.6, kg, 11/05/22 10:56:00 EST, Dry Weight Start Date: 11/19/23 Status: Ordered Medication Dispense Status: Completed Quantity: 90.0 Unit: tablet Total Allowed Fills: 1 Fills Dispensed: 0 Narcan 4 mg/0.1 mL nasal spray See Instructions, SPRAY ONCE INTO ONE NOSTRIL MAY REPEAT Q 2 TO 3 MINUTES IN ALTERNATE NOSTRILS IF NO RESPONSE, # 2 each, 0 Refills, Maintenance, 10/25/21 5:34:00 PM EST, [place], [facility], 170, cm, 06/28/21 8:13:00 EDT, Height, 97.1, kg, 04/10/21 17:40:00 EDT, Dry Weight Start Date: 10/25/21 Status: Ordered Medication Dispense Status: Completed Quantity: 2.0 Unit: each Total Allowed Fills: 1 Fills Dispensed: 0 Nemluvio 30 mg subcutaneous injection 0 Refills, Maintenance, 04/25/25 11:29:00 AM EDT, Partial fill upon patient request if the prescription is for a schedule II opioid drug. Start Date: 04/25/25 Status: Ordered Medication Dispense Status: Completed Total Allowed Fills: 1 Fills Dispensed: 0 nitroglycerin 0.[address] 1 TABLET UNDER THE TONGUE EVERY 5 MINUTES NEEDED FOR CHEST PAIN Start Date: 01/22/21 Status: Ordered Medication Dispense Status: Completed Total Allowed Fills: 1 Fills Dispensed: 0 ondansetron 8 mg oral tablet 1-2 tablets, By Mouth, Daily in AM, PRN intractable nausea/vomiting, # 30 tablet, 3 Refills, Maintenance, 10/04/24 6:12:00 PM EST, [facility] #[id number], 167.5, cm, 08/24/24 9:31:00 EST, Height,105.4, kg, 01/21/24 9:38:00 EDT, Dry Weight Start Date: 10/04/24 Status: Ordered Medication Dispense Status: Completed Quantity: 30.0 Unit: tablet Total Allowed Fills: 4 Fills Dispensed: 0 ONE TOUCH ULTRA BLUE TESTST(NEW)100 TEST DIRECTED TID Start Date: 11/07/22 Status: Ordered Medication Dispense Status: Completed Total Allowed Fills: 1 Fills Dispensed: 0 One Touch Ultra Test Strips See Instructions, # 600 each, Refills 11, Tot. Refills 11, Maintenance, use to test 4 times daily, 11/07/22 3:39:00 PM EST, Supply, 169, cm, 11/07/22 14:51:00 EST, Height, 102.6, kg, 11/05/22 10:56:00EST, Dry Weight Start Date: 11/07/22 Stop Date: 10/22/25 Status: Ordered Medication Dispense Status: Completed Quantity: 600.0 Unit: each Total Allowed Fills: 12 Fills Dispensed: 0 Indications: half-way (current) use of insulin; Type 2 diabetes mellitus without complications; One Touch UltraSoft Lancets See Instructions, # 600 each, Refills 2, Maintenance, use as directed for Type 2 Diabetes Mellitus,11/07/22 2:59:00 PM EST, Supply Start Date: 11/07/22 Stop Date: 02/05/23 Status: Ordered Medication Dispense Status: Completed Quantity: 600.0 Unit: each Total Allowed Fills: 1 Fills Dispensed: 0 One Touch UltraSoft Lancets See Instructions, # 600 each, Refills 2, Tot. Refills 2, Maintenance, use 4x daily, 11/07/22 3:40:00PM EST, Supply, 169, cm, 11/07/22 14:51:00 EST, Height, 102.6, kg, 11/05/22 10:56:00 EST, Dry Weight Start Date: 11/07/22 Stop Date: 08/04/23 Status: Ordered Medication Dispense Status: Completed Quantity: 600.0 Unit: each Total Allowed Fills: 3 Fills Dispensed: 0 Indications: half-way (current) use of insulin; Type 2 diabetes mellitus without complications; Pen needles 32G x 5/32 Pen needles 32G x 5/32, See Instructions, # 200 each, Refills 11, Tot. Refills 11, Maintenance, Use2 once daily with insulin, 11/07/22 3:37:00 PM EST, Supply, 169, cm, 11/07/22 14:51:00 EST, Height, 102.6, kg, 11/05/22 10:56:00 EST, Dry Weight Start Date: 11/07/22 Status: Ordered Medication Dispense Status: Completed Quantity: 200.0 Unit: each Total Allowed Fills: 12 Fills Dispensed: 0 Indications: Type 2 diabetes mellitus without complications; Prempro 0.3 mg-1.5 mg oral tablet 1 tablet, By Mouth, Daily, # 90 tablet, 5 Refills, Maintenance, 08/20/24 11:06:00 AM EST, Tablet, [facility] #[id number], Partial fill upon patient request if the prescription is for a schedule II opioid drug., 1 tablet By Mouth Daily, 167.5, cm, 08/20/24 10:48:00 EST, Height, 105.4, kg, 01/21/24 9:38:00 EDT, Dry Weight Start Date: 08/20/24 Status: Ordered Medication Dispense Status: Completed Quantity: 90.0 Unit: tablet Total Allowed Fills: 6 Fills Dispensed: 0 Prilocaine 5%, Bupivicaine 3%, Ketamine 5% in cream base Prilocaine 5%, Bupivicaine 3%, Ketamine 5% in cream base, See Instructions, # 60 Gm, Refills 0, Tot. Refills 0, Maintenance, 1-2cc to painful areas 3-4times/day prn pain.Compounding Med Necessary, 02/24/23 5:43:00 PM EDT, Compound Start Date: 02/24/23 Status: Ordered Medication Dispense Status: Completed Quantity: 60.0 Unit: g Total Allowed Fills: 1 Fills Dispensed: 0 prochlorperazine 25 mg rectal suppository 1 supp = 25 mg, Rectally, 2 times a day, PRN for nausea/vomiting, # 12 supp, 1 Refills, Maintenance, 02/24/25 8:31:00 PM EDT, Suppository, [facility] #[id number], 167.5, cm, 02/16/25 14:58:00 EDT,Height, 105.4, kg, 01/21/24 9:38:00 EDT, Dry Weight Start Date: 02/24/25 Status: Ordered Medication Dispense Status: Completed Quantity: 12.0 Unit: supp Total Allowed Fills: 2 Fills Dispensed: 0 Repatha SureClick 140 mg/mL subcutaneous solution ADMINISTER 140MG UNDER THE SKIN EVERY 2 WEEKS Start Date: 04/29/25 Status: Ordered Medication Dispense Status: Completed Total Allowed Fills: 1 Fills Dispensed: 0 triamcinolone 0.1% topical cream APPLY TOPICALLY TO THE AFFECTED AREA EVERY DAY Start Date: 12/09/24 Status: Ordered Medication Dispense Status: Completed Total Allowed Fills: 1 Fills Dispensed: 0 Vitamin B12 0 Refills, Maintenance, 08/20/24 11:00:00 AM EST, Partial fill upon patient request if the prescription is for a schedule II opioid drug. Start Date: 08/20/24 Status: Ordered Medication Dispense Status: Completed Total Allowed Fills: 1 Fills Dispensed: 0 Xyzal 5 mg oral tablet 1 tablet = 5 mg, By Mouth, 2 times a day, 0 Refills, Maintenance, 08/29/23 3:10:00 PM EST, Partial fill upon patient request if the prescription is for a schedule II opioid drug. Start Date: 08/29/23 Status: Ordered Medication Dispense Status: Completed Total Allowed Fills: 1 Fills Dispensed: 0 Problem List Condition Confirmation Course Effective Dates Status H ealth Status Informant Memory loss Confirmed Active Anticonvulsant causing adverse effect in therapeutic use: ethosuximide 1 Confirmed Active Anticonvulsant causing adverse effect in therapeutic use: tiagabine 2 Confirmed Active Anticonvulsant causing adverse effect in therapeutic use: lamotrigine 3 Confirmed Active Carpal tunnel Confirmed 2005 Active Status post cervical laminoplasty with decompression of spinal cord and reconstruction of posterior bony elements 4 Confirmed 12/04/09 Active ; Cervical myelopathy Confirmed Active Cervical spinal stenosis Confirmed Active Change of medication 5, 6 Confirmed Active Chronic insomnia Confirmed Active Shoulder pain, right, chronic Confirmed Active Diabetes mellitus Confirmed Active Foot pain, left - desiree. 4th toe Confirmed Active Gastro-esophageal reflux disease Confirmed Active Gastroparesis Confirmed Active Increased frequency of headaches Confirmed Active Hip pain, left Confirmed Active Hip pain, right Confirmed Active Hip pain, bilateral Confirmed Active Status post carpal tunnel release Confirmed Active History of gestational diabetes Confirmed Active History of herpes zoster 02/2019, right chest wall, T4- T10 Confirmed Active Status post elbow surgery, right, epicondylectomy Confirmed Active History of 2019 novel coronavirus disease (COVID-19) 05/2021 Confirmed Active History of COVID-19 Aug->Sep & Aug->Sep Confirmed Active Joseph's reflex positive L >R Confirmed Active Hyperlipemia Confirmed Active Hypertension Confirmed 2004 Active Concentration impaired Confirmed Active Balance problems Confirmed Active Status post Implantation of electronic stimulator of spine 7, 8 Confirmed 02/12/05 Active ; Increased thirst Confirmed Active Irritable bowel syndrome (IBS), diarrhea predom Confirmed Active Pruritus Confirmed Active Knee pain, left Confirmed Active Knee pain, right Confirmed Active Lack of Adequate Sleep Confirmed Active Status post laminectomy for implantation of neurostimulator electrodes, spinal cord 9 Confirmed 02/12/05 Active ; Mechanical low back pain Confirmed Active 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 10 Confirmed Active Myofascial pain, regional Confirmed Active Neck pain Confirmed Active Neuropathic pain, upper extremity (right and left), history of complex regional pain syndrome, type II Confirmed Active Neuropathic pain, trunk/torso/perineum and face Confirmed Active Neuropathic pain, lower extremity Confirmed Active Non-alcoholic fatty liver Confirmed Active Obstructive sleep apnea, mild based on polysom 02/19/23 Confirmed Active Opioids causing adverse effect in therapeutic use: oxymorphone 11 Confirmed Active Buttock pain, left Confirmed Active Toe joint pain Confirmed Active Periodic limb movements of sleep Confirmed Active Polysomnography 12 Confirmed 04/09/06 Active Prolonged QT interval: QTc 505 on 06/28/2005 13 Confirmed Active History of pseudoseizures Confirmed 1982 Active ; PTSD - Post-traumatic stress disorder Confirmed Active Radicular syndrome of upper limbs Confirmed Active Restless leg syndrome Confirmed Active Restlessness Confirmed Active Risk assessment: Adverse Childhood Experience(LENY) 14 Confirmed Active Severe obesity (BMI 35.0-39.9) with comorbidity Confirmed Active Muscle spasm in setting of cervical myelopathy on baclofen Confirmed Active Spinal stenosis of lumbar region 15 Confirmed Active Status post arthroscopic surgery of left knee meniscus Confirmed 1996 Active Status post section Confirmed 1991 Active Status post decompression of right ulnar nerve Confirmed 08/2002 Active Limitation due to disability 16, 17, 18, 19, 20, 21, 22, 23, 24, 25, 26, 27 Confirmed Active Vertigo Confirmed Active -09/09/2013: ethosuximide at 250 mg/day caused joint pain,skin sensory changes -11/02/13: to max dose of 6mg/day. Mx AEs incl., insomnia, somnolence, vertigo, balance/cognitive disruptions, headaches, etc. 3Tx w lamotrigine prescribed 08/24/24. Dose incr'd to 300mg/day ->assoc'd w diaphoresis, pruritus & left retroorbital head ache. Tx abandoned 01/11/25. Off tx pruritus resolved, ache in legs cleared & thinking improved. 4posterior, C4-C7 with central line plate fixation; Dr. Loza at [facility] 5Opioids tapered to elimenation 08/2022. 6Opioid taper begun 02/02/2009. Off opioids from about 06/22/2009 to 09/28/2009 - during which time she was on 2 antidepressants & a cholesterol lowering agent and reported high pain levels. 7explanted 03/27/09 [facility] 8at [facility] by Allen Jerome MD 9at [facility], at [facility] by Allen Jerome MD 10Retrial of methadone prescribed 10/23/17. Dose was gently escalated with ecg monitoring. At 25 to 30mg/day in divided dose, had episodes of heart racing; also more pruritus, more muscle spasms, diaphoresis, upset stomach & described feeling emotionally blunted. Pain reduction at 25-30 mg ofmethadone (plus i.r. morphine) was not superior to a higher dose of morphine alone. Methadone tx marcin ndoned 01/14/18. 11Trial oxymorphone associated with spasms, shakiness, shortness of breath, chest pain, nausea and vomiting. Trial aborted 05/21/2015. Polysomnogram at [facility]: No significant sleep-disordered breathing noted with an RDI of4 (Normal < 5) reflecting 8 central apneas, 10 obstructive apneas, 0 mixed apneas and 13 hypopneas with desaturation to as low as 90% and cumulative desaturation of < 88%. 13h/o QTc>480 msec while on methadone 14ACE Score: 7 on 09/04/2017. 15marked central canal stenosis documented on 07/29/[address] [facility] [address] scan at the L5-L6 level related to generalized disc bulging and facet hypertrophy 16Updated Oswestry Disability Index: 38% ( moderate disability ); updated [place] Back Pain DisabilityScale score: 37; both on 06/02/25 17Updated [place]estry Disability Index: 50% ( severe disability ) on 05/17/2024; Updated [place] Disability Index: 52 on 05/17/2024. 18Updated [place] Disability Index: 52% ( severe disability ); updated [place] Back Pain Disability Scale score 59; both on 02/24/23 19Updated [place]estry Disability Index: 60% ( severe disability ); updated [place] Back Pain Disability Scale score: 67; both on 01/21/22 20Updated [place]estry Disability Index: 66% ( crippled ) on 12/05/2020; updated [place] Back Pain Disability Scale score: 73 on 12/05/20 21Updated [place]estry Disability Index: 74% ( crippled ) on 02/02/19. Updated [place] Back Pain DisabilityIndex: 69 on 02/02/19. Updated Neck Disability Index: 84% ( complete disability ) on 02/02/19. 22Updated Oswestry Disability Index: 66% crippled , [place] Back Pain Disability Scale: 85 and Neck Disability Index: 80% crippled on 09/04/2017. 23Updated [place]estry Disability Index: 70% ( crippled ) on 05/23/16; updated [place] Back Pain Disability Scale score: 87 on 05/23/16; initial Neck Disability Index: 82% ( bedbound ) on 05/23/16. 24Updated [place]estry Disability Index: 80% crippled and [place] Back Pain Disability Scale: 90 on 05/09/2015. 25updated [place] Disability Index: 76% ( crippled ) on 03/29/14; updated [place] Back Pain Scale: 81 on03/29/14 26Updated [place] Back Pain Disability Scale: 84. Updated Oswestry Disability Questionnaire: 68% crippling on 08/20/2011 27Initial [place] Back Pain Disability Scale: 89 on 09/05/2009. Social History Social History Type Response Smoking Status Never smoker entered on: 08/31/13 Sexual Orientation Self described orien tation: ; Straight or heterosexual Sex Sex Representation Female (finding) Imaging * Event Display: MRI Spine, Non- BH Authored Date: * Event Display: MRI Spine, Non- BH Authored Date: * Event Display: X-Ray Knee, Non- BH Authored Date: * Event Display: Non BH Radiology Results Authored Date: [id number] Patient Care team information Care Team Personnel Name: Aishwarya Combs MD, Dorian Penn Position: [facility] Anesthesiology MD Member Role: Lifetime Consulting Physician Address: [address] [place] [address]- Telecom: Name: Nargis Belcher MD Position: Reference Physician Member Role: PCP Address: [address] [place] [address] - Telecom: Care Team Related Persons Name: SARBJIT HERNANDEZ Name: SATISH HERNANDEZ Insurance Providers Guarantor name: LILLIANA HERNANDEZ Health Plan Information #: 1 Payer: MEDICARE B Payer Identifier: NA Member Number: [id number] Group Number: NA Subscriber Identifier: NA Relationship to Subscriber: self Coverage Type: NA Coverage Verification Date: NA Telecom: NA Address: NA Health Plan Information #: 2 Payer: MEDEX SECONDARY ONLY Payer Identifier: NA Member Number: [id number] Group Number: NA Subscriber Identifier: NA Relationship to Subscriber: self Coverage Type: Medicare Other Coverage Verification Date: NA Telecom: NA Address:
--- OUTSIDE RECORDS SUMMARY | 2025-08-10 23:59 | XMS_ITS | Continuity of Care Document ---
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 Date(s): 07/11/25 - 08/10/25 [facility] [address] [place] [id number] Encounter Type: Triage Allergies, Adverse Reactions, Alerts Substance Criticality Severity Reaction Reaction Severity Status Pollen sinus issues Active Ozempic High criticality Moderate Rash Act irwin Other Environmental Allergy sinus issues Active Immunizations Given and Recorded Vaccine Date Status Refusal Reason influenza virus vaccine, inactivated 07/14/23 Give n influenza virus vaccine, inactivated 07/10/22 Give n influenza virus vaccine, inactivated 2/4/20 Dung rded influenza virus vaccine, inactivated 09/01/18 [...] 3 Refills, Maintenance, 03/04/23 3:30:00 PM EDT, [facility] #[id number], 50, INHALE 1 PUFF BY MOUTH FOUR TIMES DAILY NEEDED FOR WHEEZING, 169, cm, 03/03/23 9:11:00 EDT, Height, 102.6, kg, 11/05/22 10:56:00 EST, Dry Weight Start Date: 03/04/23 Status: Ordered Medication Dispense Status: Completed Quantity: 18.0 Unit: g Total Allowed Fills: 1 Fills Dispensed: 0 B-D LENI 2ND GEN PEN NDL [id number] B-D LENI 2ND GEN PEN NDL [id number], See Instructions, # 200 each, 3 Refills, Maintenance, USE 2 NEEDLES ONCE DAILY WITH INSULIN, 12/15/23 4:01:00 PM EDT, 169, cm, 10/28/23 9:45:00 EST, Height, 102.6,kg, 11/05/22 10:56:00 EST, Dry Weight Start Date: 12/15/23 Status: Ordered Medication Dispense Status: Completed Quantity: 200.0 Unit: each Total Allowed Fills: 1 Fills Dispensed: 0 B-D LENI 2ND GEN PEN NDL [id number] USE ONCE DAILY WITH INSULIN PEN Start [...] Replace Required Details, [id number], 167.5, cm, 07/08/25 10:36:00 EDT, Height, 105.4, [...] Refills, Maintenance, 02/09/23 1:19:00 PM EDT, Capsule, [facility] #[id number], Partial fill upon patient request if the [...] Maintenance, 10/19/24 4:49:00 PM EST, REC Powder, [facility] #[id number], 167.5, cm, 10/19/24 8:47:00 EST, Height, 105.4, kg, 01/21/24 9:38:00 EDT, Dry Weight Start Date: 10/19/24 Status: Ordered Medication Dispense Status: Completed Quantity: 90.0 Unit: each Total Allowed Fills: 2 Fills Dispensed: 0 Controlled Substance Agreement Controlled Substance Agreement, See Instructions, # 1 each, Refills 0, Tot. Refills 0, Maintenance,Signed On: 12/05/2020 Updated: 05/17/2024 Pharmacy: [facility] DX: M54.2, neck pain; M79.2 Neuropathic pain, [...] 5:30:00 PM EDT, Route to Pharmacy Electronically, [facility] #[id number], 167.5, cm, 03/28/25 11:30:00 EDT, Height, 105.4, kg, 01/21/24 9:38:00 EDT, Dry Weight Start Date: 03/28/25 Status: Ordered Medication Dispense Status: Completed Quantity: 60.0 Unit: tablet Total Allowed Fills: 5 Fills Dispensed: 0 duloxetine 60 mg oral enteric coated capsule 2 capsule = 120 mg, By Mouth, Daily at bedtime, # 60 capsule, 5 Refills, Maintenance, 03/03/25 10:49:00 PM EDT, [facility] #[id number], 167.5, cm, 02/16/25 14:58:00 EDT, Height, 105.4, [...] Refills, Maintenance, 08/20/24 11:07:00 AM EST, Cream, [facility] #[id number], Partial fill upon patient request if the [...] 10:26:00 AM EDT, Route to Pharmacy Electronically, [facility] #[id number], 167.5, cm, 06/02/25 13:44:00 EDT, Height, 105.4, kg, 01/21/24 9:38:00 EDT, Dry Weight Start Date: 06/29/25 Status: Ordered Medication Dispense Status: Completed Quantity: 45.0 Unit: tablet Total Allowed Fills: 1 Fills Dispensed: 0 fluticasone 50 mcg/inh nasal spray 2 sprays, Nares, Both, Daily in AM, # 3 each, 3 Refills, Maintenance, 03/03/23 9:40:00 AM EDT, [place], [facility] #[id number], Partial fill upon patient request if the [...] 3 Refills, Maintenance, 07/11/25 12:40:00 PM EDT, [facility] Compounding, Compounding Medically Necessary. NOT for [...] 1 Refills, Maintenance, 10/22/23 11:18:00 AM EST, [facility] #[id number], 169, cm, 09/17/23 9:32:00 EST, Height, 102.6, kg, 11/05/22 10:56:00 EST, Dry Weight Start Date: 10/22/23 Status: Ordered Medication Dispense Status: Completed Quantity: 90.0 Unit: tablet Total Allowed Fills: 1 Fills Dispensed: 0 lidocaine 5% topical film See Instructions, APPLY 1-2 PATCHES TOPICALLY ONCE DAILY IN THE MORNING, # 30 patch, 5 Refills, Maintenance, 11/16/24 2:34:00 PM EST, [facility]/pharmacy #[id number], APPLY 1-2 PATCHES TOPICALLY ONCE DAILY [...] Soft Stop, 06/11/22 10:50:00 AM EDT, Cream, [facility] # 302, 1 application Topically 2 [...] Instructions Replace Required Details, Route to PharmacyElectronically, [facility] #[id number], 169, cm, 09/17/23 9:32:00 EST, Height, 102.6, [...] 5 Refills, Maintenance, 06/21/25 11:27:00 AM EDT, [facility] #[id number], 167.5, cm, 06/02/25 13:44:00 EDT, Height, 105.4, [...] 10:45:00 PM EST, Route to Pharmacy Electronically, [facility] #[id number], 169, cm, 10/28/23 9:45:00 EST, Height, 102.6, [...] 0 Refills, Maintenance, 10/25/21 5:34:00 PM EST, [place], [facility], 170, cm, 06/28/21 8:13:00 EDT, Height, [...] 3 Refills, Maintenance, 10/04/24 6:12:00 PM EST, [facility] #[id number], 167.5, cm, 08/24/24 9:31:00 EST, Height,105.4, kg, [...] Allowed Fills: 12 Fills Dispensed: 0 Indications: residential (current) use of insulin; Type 2 diabetes [...] Allowed Fills: 3 Fills Dispensed: 0 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 3Tx w lamotrigine prescribed 12/3/24. Dose incr'd to 300mg/day ->assoc'd w diaphoresis, pruritus & left retroorbital head ache. Tx abandoned 01/11/25. Off tx pruritus resolved, ache in legs cleared & thinking improved. 4posterior, C4-C7 with central line plate fixation; Dr. Loza at [facility] 5Opioids tapered to elimenation 08/2022. 6Opioid taper begun 02/02/2009. Off opioids from about 06/22/2009 to 09/28/2009 - during which time she was on 2 antidepressants & a cholesterol lowering agent and reported high pain levels. 7explanted 03/27/09 [facility] 8at [facility] by Allen Jerome MD 9at [facility], at [facility] by Allen Jerome MD 10Retrial of [...] and vomiting. Trial aborted 05/21/2015. Polysomnogram at [facility]: No significant sleep-disordered breathing noted with an RDI of4 (Normal < 5) reflecting 8 central apneas, 10 obstructive apneas, 0 mixed apneas and 13 hypopneas with desaturation to as low as 90% and cumulative desaturation of < 88%. 13h/o QTc>480 msec while on methadone 14ACE Score: 7 on 09/04/2017. 15marked central canal stenosis documented on 07/29/[address] [facility] [address] scan at the L5-L6 level related to generalized disc bulging and facet hypertrophy 16Updated Oswestry Disability Index: 38% ( moderate disability ); updated [place] Back Pain DisabilityScale score: 37; both on 06/02/25 17Updated Oswestry Disability Index: 50% ( severe disability ) on 05/17/2024; Updated [place] Disability Index: 52 on 05/17/2024. 18Updated Oswestry Disability Index: 52% ( severe disability ); updated [place] Back Pain Disability Scale score 59; both on 02/24/23 19Updated Oswestry Disability Index: 60% ( severe disability ); updated [place] Pain Disability Scale score: 67; both on 01/21/22 20Updated Oswestry Disability Index: 66% ( crippled ) on 12/05/2020; updated [place] Pain Disability Scale score: 73 on 12/05/20 21Updated Oswestry Disability Index: 74% ( crippled ) on 02/02/19. Updated [place] Back Pain DisabilityIndex: 69 on 02/02/19. Updated Neck Disability Index: 84% ( complete disability ) on 02/02/19. 22Updated Oswestry Disability Index: 66% crippled , [place] Back Pain Disability Scale: 85 and Neck Disability Index: 80% crippled on 09/04/2017. 23Updated Oswestry Disability Index: 70% ( crippled ) on 05/23/16; updated [place] Back Pain Disability Scale score: 87 on 05/23/16; initial Neck Disability Index: 82% ( bedbound ) on 05/23/16. 24Updated Oswestry Disability Index: 80% crippled and [place] Pain Disability Scale: 90 on 05/09/2015. 25updated [place] Disability Index: 76% ( crippled ) on 03/29/14; updated [place] Back Pain Scale: 81 on03/29/14 26Updated [place] Back Pain Disability Scale: 84. Updated Oswestry Disability Questionnaire: 68% crippling on 08/20/2011 27Initial [place] Back Pain Disability Scale: 89 on 09/05/2009. Social History Social History Type Response Smoking Status Never smoker entered on: 08/31/13 Sexual Orientation Self described orien tation: ; Straight or heterosexual Sex Sex Representation Female (finding) Patient Care team information Care Team Personnel Name: Aishwarya Combs MD, Dorian Penn Position: S Anesthesiology MD Member Role: Lifetime Consulting Physician Address: [address] [place] [id number] Telecom: Name: Nargis Belcher MD Position: Reference Physician Member Role: PCP Address: [address] [place] [address], [place] [address]- [place] Telecom: Care Team Related Persons Name: SARBJIT HERNANDEZ Name: SATISH HERNANDEZ Insurance Providers Guarantor name: LILLIANA HERNANDEZ Health Plan Information #: 1 Payer: MEDICARE B Payer Identifier: NA Member Number: [id number] Group Number: NA Subscriber Identifier: NA Relationship to Subscriber: self Coverage Type: NA Coverage Verification Date: NA Telecom: NA Address: NA Health Plan Information #: 2 Payer: MEDEX SECONDARY ONLY Payer Identifier: NA Member Number: [id number] Group Number: NA Subscriber Identifier: NA Relationship to Subscriber: self Coverage Type: Medicare Other Coverage Verification Date: NA Telecom: NA Address: NA
--- OUTSIDE RECORDS SUMMARY | 2025-08-10 23:59 | XMS_ITS | Continuity of Care Document ---
Author Organization [facility] Address [address] [place] [id number]- [facility] Name Relationship Address Phone KERRINACK, SATISH Personal Relationship Unknown Un available BARNACK, SATISH Personal Relationship Unknown Un available BARNACK, SATISH Personal Relationship Unknown Un available BARNACK, SATISH Personal Relationship Unknown Un available BARNACK, SATISH Personal Relationship Unknown Un available BARNACK, SATSIH spouse Unknown Unavailable BARNACK, SATISH Personal Relationship [...] Unknown Un available Care Team Providers Care Education Director Name Role Phone Ye LAUREANO, Nargis Castro Primary Care Physician [place] [facility] [place]10/[facility] [address] [place] [id number] Encounter Type: Triage Allergies, Adverse [...] 3 Refills, Maintenance, 03/04/23 3:30:00 PM EDT, [facility] #[id number], 50, INHALE 1 PUFF BY MOUTH FOUR TIMES DAILY NEEDED FOR WHEEZING, 169, cm, 03/03/23 9:11:00 EDT, Height, 102.6, kg, 11/05/22 10:56:00 EST, Dry Weight Start Date: 03/04/23 Status: Ordered Medication Dispense Status: Completed Quantity: 18.0 Unit: g Total Allowed Fills: 1 Fills Dispensed: 0 B-D LENI 2ND GEN PEN NDL [id number] B-D LENI 2ND GEN PEN NDL [id number], See Instructions, # 200 each, 3 Refills, Maintenance, USE 2 NEEDLES ONCE DAILY WITH INSULIN, 12/15/23 4:01:00 PM EDT, 169, cm, 10/28/23 9:45:00 EST, Height, 102.6,kg, 11/05/22 10:56:00 EST, Dry Weight Start Date: 12/15/23 Status: Ordered Medication Dispense Status: Completed Quantity: 200.0 Unit: each Total Allowed Fills: 1 Fills Dispensed: 0 B-D LENI 2ND GEN PEN NDL [id number] USE ONCE DAILY WITH INSULIN PEN Start [...] Replace Required Details, [facility] to [id number], 167.5, cm, 07/08/25 10:36:00 EDT, Height, 105.4, [...] Refills, Maintenance, 02/09/23 1:19:00 PM EDT, Capsule, [facility] #[id number], Partial fill upon patient request if the [...] Maintenance, 10/19/24 4:49:00 PM EST, REC Powder, [facility] #00510, 167.5, cm, 10/19/24 8:47:00 EST, Height, 105.4, kg, 01/21/24 9:38:00 EDT, Dry Weight Start Date: 10/19/24 Status: Ordered Medication Dispense Status: Completed Quantity: 90.0 Unit: each Total Allowed Fills: 2 Fills Dispensed: 0 Controlled Substance Agreement Controlled Substance Agreement, See Instructions, # 1 each, Refills 0, Tot. Refills 0, Maintenance,Signed On: 12/05/2020 Updated: 05/17/2024 Pharmacy: [facility] DX: M54.2, neck pain; M79.2 Neuropathic [...] 5:30:00 PM EDT, Route to Pharmacy Electronically, [facility] #[id number], 167.5, cm, 03/28/25 11:30:00 EDT, Height, 105.4, kg, 01/21/24 9:38:00 EDT, Dry Weight Start Date: 03/28/25 Status: Ordered Medication Dispense Status: Completed Quantity: 60.0 Unit: tablet Total Allowed Fills: 5 Fills Dispensed: 0 duloxetine 60 mg oral enteric coated capsule 2 capsule = 120 mg, By Mouth, Daily at bedtime, # 60 capsule, 5 Refills, Maintenance, 03/03/25 10:49:00 PM EDT, [facility] #[id number], 167.5, cm, 02/16/25 14:58:00 EDT, Height, 105.4, [...] Refills, Maintenance, 08/20/24 11:07:00 AM EST, Cream, [facility] #[id number], Partial fill upon patient request if the [...] 10:26:00 AM EDT, Route to Pharmacy Electronically, [facility] #[id number], 167.5, cm, 06/02/25 13:44:00 EDT, Height, 105.4, kg, 01/21/24 9:38:00 EDT, Dry Weight Start Date: 06/29/25 Status: Ordered Medication Dispense Status: Completed Quantity: 45.0 Unit: tablet Total Allowed Fills: 1 Fills Dispensed: 0 fluticasone 50 mcg/inh nasal spray 2 sprays, Nares, Both, Daily in AM, # 3 each, 3 Refills, Maintenance, 03/03/23 9:40:00 AM EDT, [place], [facility] #[id number], Partial fill upon patient request if the [...] 3 Refills, Maintenance, 07/11/25 12:40:00 PM EDT, [facility] Compounding, Compounding Medically Necessary. NOT for IV [...] 1 Refills, Maintenance, 10/22/23 11:18:00 AM EST, [facility] #[id number], 169, cm, 09/17/23 9:32:00 EST, Height, 102.6, kg, 11/05/22 10:56:00 EST, Dry Weight Start Date: 10/22/23 Status: Ordered Medication Dispense Status: Completed Quantity: 90.0 Unit: tablet Total Allowed Fills: 1 Fills Dispensed: 0 lidocaine 5% topical film See Instructions, APPLY 1-2 PATCHES TOPICALLY ONCE DAILY IN THE MORNING, # 30 patch, 5 Refills, Maintenance, 11/16/24 2:34:00 PM EST, [facility]/pharmacy #1972, APPLY 1-2 PATCHES TOPICALLY ONCE DAILY [...] Soft Stop, 06/11/22 10:50:00 AM EDT, Cream, [facility] # 302, 1 application Topically 2 [...] Instructions Replace Required Details, Route to PharmacyElectronically, [facility] #[id number], 169, cm, 09/17/23 9:32:00 EST, Height, 102.6, [...] 5 Refills, Maintenance, 06/21/25 11:27:00 AM EDT, [facility] #[id number], 167.5, cm, 06/02/25 13:44:00 EDT, Height, 105.4, [...] 10:45:00 PM EST, Route to Pharmacy Electronically, [facility] #[id number], 169, cm, 10/28/23 9:45:00 EST, Height, 102.6, [...] 0 Refills, Maintenance, 10/25/21 5:34:00 PM EST, [place], [facility], 170, cm, 06/28/21 8:13:00 EDT, [...] 3 Refills, Maintenance, 10/04/24 6:12:00 PM EST, [facility] #[id number], 167.5, cm, 08/24/24 9:31:00 EST, Height,105.4, kg, [...] Allowed Fills: 12 Fills Dispensed: 0 Indications: retirement (current) use of insulin; Type 2 diabetes [...] Allowed Fills: 3 Fills Dispensed: 0 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 Loza at [facility] 5Opioids tapered to elimenation 08/2022. 6Opioid taper begun 02/02/2009. Off opioids from about 06/22/2009 to 09/28/2009 - during which time she was on 2 antidepressants & a cholesterol lowering agent and reported high pain levels. 7explanted 03/27/09 [facility] 8at [facility] by Allen Jerome MD 9at C6-C7, at [facility] by Allen Jerome MD 10Retrial of methadone [...] and vomiting. Trial aborted 05/21/2015. Polysomnogram at [facility]: No significant sleep-disordered breathing noted with an RDI of4 (Normal < 5) reflecting 8 central apneas, 10 obstructive apneas, 0 mixed apneas and 13 hypopneas with desaturation to as low as 90% and cumulative desaturation of < 88%. 13h/o QTc>480 msec while on methadone 14ACE Score: 7 on 09/04/2017. 15marked central canal stenosis documented on 07/29/[address] [facility] [address] scan at the L5-L6 level related to generalized disc bulging and facet hypertrophy 16Updated Oswestry Disability Index: 38% ( moderate disability ); updated [place] Back Pain DisabilityScale score: 37; both on 06/02/25 17Updated Oswestry Disability Index: 50% ( severe disability ) on 05/17/2024; Updated [place] Disability Index: 52 on 05/17/2024. 18Updated [place]estry Disability Index: 52% ( severe disability ); updated [place] Back Pain Disability Scale score 59; both on 02/24/23 19Updated [place]estry Disability Index: 60% ( severe disability ); updated [place] Back Pain Disability Scale score: 67; both on 01/21/22 20Updated Oswestry Disability Index: 66% ( crippled ) on 12/05/2020; updated [place] Back Pain Disability Scale score: 73 on 12/05/20 21Updated Oswestry Disability Index: 74% ( crippled ) on 02/02/19. Updated [place] Back Pain DisabilityIndex: 69 on 02/02/19. Updated Neck Disability Index: 84% ( complete disability ) on 02/02/19. 22Updated Oswestry Disability Index: 66% crippled , [place] Back Pain Disability Scale: 85 and Neck Disability Index: 80% crippled on 09/04/2017. 23Updated Oswestry Disability Index: 70% ( crippled ) on 05/23/16; updated [place] Back Pain Disability Scale score: 87 on 05/23/16; initial Neck Disability Index: 82% ( bedbound ) on 05/23/16. 24Updated Oswestry Disability Index: 80% crippled and [place] Back Pain Disability Scale: 90 on 05/09/2015. 25updated [place] Disability Index: 76% ( crippled ) on 03/29/14; updated [place] Back Pain Scale: 81 on03/29/14 26Updated [place] Back Pain Disability Scale: 84. Updated Oswestry Disability Questionnaire: 68% crippling on 08/20/2011 27Initial [place] Back Pain Disability Scale: 89 on 09/05/2009. Social History Social History Type Response Smoking Status Never smoker entered on: 08/31/13 Sexual Orientation Self described orien tation: ; Straight or heterosexual Sex Sex Representation Female (finding) Patient Care team information Care Team Personnel Name: Dorian Neff Jr, MD Position: S Anesthesiology MD Member Role: Lifetime Consulting Physician Address: [address] [place] [id number] Telecom: Name: Nargis Belcher MD Position: Reference Physician Member Role: PCP Address: [address] [place] [address] [place] [address]- [place] Telecom: Care Team Related Persons Name: SARBJIT HERNANDEZ Name: SATISH HERNANDEZ Insurance Providers Guarantor name: LILLIANA HERNANDEZ Health Plan Information #: 1 Payer: MEDICARE B Payer Identifier: NA Member Number: [id number] Group Number: NA Subscriber Identifier: NA Relationship to Subscriber: self Coverage Type: NA Coverage Verification Date: NA Telecom: NA Address: NA Health Plan Information #: 2 Payer: MEDEX SECONDARY ONLY Payer Identifier: NA Member Number: [id number] Group Number: NA Subscriber Identifier: NA Relationship to Subscriber: self Coverage Type: Medicare Other Coverage Verification Date: NA Telecom: NA Address: NA
--- OUTSIDE RECORDS SUMMARY | 2025-08-10 23:59 | XMS_ITS | Continuity of Care Document ---
Author Organization [facility] Address [address] [place] [address] [facility] Name Relationship Address Phone KERRINACK, SATISH [...] Unknown Un available Care Team Providers Care Leather Coverer Name Role Phone Ye LAUREANO, Nargis Castro Primary Care Physician Encounter [facility] [place] Date(s): 07/11/25 - 08/10/25 [facility] [address] [place] [id number] Encounter Type: Triage Allergies, Adverse Reactions, Alerts [...] 3 Refills, Maintenance, 03/04/23 3:30:00 PM EDT, [facility] #[id number], 50, INHALE 1 PUFF BY MOUTH FOUR TIMES DAILY NEEDED FOR WHEEZING, 169, cm, 03/03/23 9:11:00 EDT, Height, 102.6, kg, 11/05/22 10:56:00 EST, Dry Weight Start Date: 03/04/23 Status: Ordered Medication Dispense Status: Completed Quantity: 18.0 Unit: g Total Allowed Fills: 1 Fills Dispensed: 0 B-D LENI 2ND GEN PEN NDL [id number] B-D LENI 2ND GEN PEN NDL [id number], See Instructions, # 200 each, 3 Refills, Maintenance, USE 2 NEEDLES ONCE DAILY WITH INSULIN, 12/15/23 4:01:00 PM EDT, 169, cm, 10/28/23 9:45:00 EST, Height, 102.6,kg, 11/05/22 10:56:00 EST, Dry Weight Start Date: 12/15/23 Status: Ordered Medication Dispense Status: Completed Quantity: 200.0 Unit: each Total Allowed Fills: 1 Fills Dispensed: 0 B-D LENI 2ND GEN PEN NDL [id number] USE ONCE DAILY WITH INSULIN PEN Start [...] Replace Required Details, [id number], 167.5, cm, 07/08/25 10:36:00 EDT, Height, 105.4, [...] Refills, Maintenance, 02/09/23 1:19:00 PM EDT, Capsule, [facility] #10371, Partial fill upon patient request if the [...] Maintenance, 10/19/24 4:49:00 PM EST, REC Powder, [facility] #[id number], 167.5, cm, 10/19/24 8:47:00 EST, Height, 105.4, kg, 01/21/24 9:38:00 EDT, Dry Weight Start Date: 10/19/24 Status: Ordered Medication Dispense Status: Completed Quantity: 90.0 Unit: each Total Allowed Fills: 2 Fills Dispensed: 0 Controlled Substance Agreement Controlled Substance Agreement, See Instructions, # 1 each, Refills 0, Tot. Refills 0, Maintenance,Signed On: 12/05/2020 Updated: 05/17/2024 Pharmacy: [facility] DX: M54.2, neck pain; M79.2 Neuropathic [...] 5:30:00 PM EDT, Route to Pharmacy Electronically, [facility] #00616, 167.5, cm, 03/28/25 11:30:00 EDT, Height, 105.4, kg, 01/21/24 9:38:00 EDT, Dry Weight Start Date: 03/28/25 Status: Ordered Medication Dispense Status: Completed Quantity: 60.0 Unit: tablet Total Allowed Fills: 5 Fills Dispensed: 0 duloxetine 60 mg oral enteric coated capsule 2 capsule = 120 mg, By Mouth, Daily at bedtime, # 60 capsule, 5 Refills, Maintenance, 03/03/25 10:49:00 PM EDT, [facility] #28579, 167.5, cm, 02/16/25 14:58:00 EDT, Height, 105.4, [...] Refills, Maintenance, 08/20/24 11:07:00 AM EST, Cream, [facility] #34611, Partial fill upon patient request if the [...] 10:26:00 AM EDT, Route to Pharmacy Electronically, [facility] #[id number], 167.5, cm, 06/02/25 13:44:00 EDT, Height, 105.4, kg, 01/21/24 9:38:00 EDT, Dry Weight Start Date: 06/29/25 Status: Ordered Medication Dispense Status: Completed Quantity: 45.0 Unit: tablet Total Allowed Fills: 1 Fills Dispensed: 0 fluticasone 50 mcg/inh nasal spray 2 sprays, Nares, Both, Daily in AM, # 3 each, 3 Refills, Maintenance, 03/03/23 9:40:00 AM EDT, [place], [facility] #45611, Partial fill upon patient request if the [...] 3 Refills, Maintenance, 07/11/25 12:40:00 PM EDT, [facility] Compounding, Compounding Medically Necessary. NOT for [...] 1 Refills, Maintenance, 10/22/23 11:18:00 AM EST, [facility] #63585, 169, cm, 09/17/23 9:32:00 EST, Height, 102.6, kg, 11/05/22 10:56:00 EST, Dry Weight Start Date: 10/22/23 Status: Ordered Medication Dispense Status: Completed Quantity: 90.0 Unit: tablet Total Allowed Fills: 1 Fills Dispensed: 0 lidocaine 5% topical film See Instructions, APPLY 1-2 PATCHES TOPICALLY ONCE DAILY IN THE MORNING, # 30 patch, 5 Refills, Maintenance, 11/16/24 2:34:00 PM EST, [facility]/pharmacy #1972, APPLY 1-2 PATCHES TOPICALLY ONCE DAILY [...] Soft Stop, 06/11/22 10:50:00 AM EDT, Cream, [facility] # 302, 1 application Topically 2 [...] Instructions Replace Required Details, Route to PharmacyElectronically, [facility] #[id number], 169, cm, 09/17/23 9:32:00 EST, Height, 102.6, [...] 5 Refills, Maintenance, 06/21/25 11:27:00 AM EDT, [facility] #61830, 167.5, cm, 06/02/25 13:44:00 EDT, Height, 105.4, [...] 10:45:00 PM EST, Route to Pharmacy Electronically, [facility] #64425, 169, cm, 10/28/23 9:45:00 EST, Height, 102.6, [...] 0 Refills, Maintenance, 10/25/21 5:34:00 PM EST, [place], [facility], 170, cm, 06/28/21 8:13:00 [...] 3 Refills, Maintenance, 10/04/24 6:12:00 PM EST, [facility] #12098, 167.5, cm, 08/24/24 9:31:00 EST, Height,105.4, kg, [...] Allowed Fills: 12 Fills Dispensed: 0 Indications: halfway (current) use of insulin; Type 2 diabetes [...] Allowed Fills: 3 Fills Dispensed: 0 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 Loza at [facility] 5Opioids tapered to elimenation 08/2022. 6Opioid taper begun 02/02/2009. Off opioids from about 06/22/2009 to 09/28/2009 - during which time she was on 2 antidepressants & a cholesterol lowering agent and reported high pain levels. 7explanted 03/27/09 [facility] 8at [facility] by Allen Jerome MD 9at C6-C7, at [facility] by Allen Jerome MD 10Retrial of [...] and vomiting. Trial aborted 05/21/2015. Polysomnogram at [facility]: No significant sleep-disordered breathing noted with an RDI of4 (Normal < 5) reflecting 8 central apneas, 10 obstructive apneas, 0 mixed apneas and 13 hypopneas with desaturation to as low as 90% and cumulative desaturation of < 88%. 13h/o QTc>480 msec while on methadone 14ACE Score: 7 on 09/04/2017. 15marked central canal stenosis documented on 07/29/[address] [facility] [address] scan at the L5-L6 level related to generalized disc bulging and facet hypertrophy 16Updated Oswestry Disability Index: 38% ( moderate disability ); updated [place] Back Pain DisabilityScale score: 37; both on 06/02/25 17Updated Oswestry Disability Index: 50% ( severe disability ) on 05/17/2024; Updated [place] Disability Index: 52 on 05/17/2024. 18Updated Oswestry Disability Index: 52% ( severe disability ); updated [place] Back Pain Disability Scale score 59; both on 02/24/23 19Updated Oswestry Disability Index: 60% ( severe disability ); updated [place] Back Pain Disability Scale score: 67; both on 01/21/22 20Updated Oswestry Disability Index: 66% ( crippled ) on 12/05/2020; updated [place] Back Pain Disability Scale score: 73 on 12/05/20 21Updated Oswestry Disability Index: 74% ( crippled ) on 02/02/19. Updated [place] Back Pain DisabilityIndex: 69 on 02/02/19. Updated Neck Disability Index: 84% ( complete disability ) on 02/02/19. 22Updated Oswestry Disability Index: 66% crippled , [place] Back Pain Disability Scale: 85 and Neck Disability Index: 80% crippled on 09/04/2017. 23Updated Oswestry Disability Index: 70% ( crippled ) on 05/23/16; updated [place] Back Pain Disability Scale score: 87 on 05/23/16; initial Neck Disability Index: 82% ( bedbound ) on 05/23/16. 24Updated Oswestry Disability Index: 80% crippled and [place] Back Pain Disability Scale: 90 on 05/09/2015. 25updated [place] Disability Index: 76% ( crippled ) on 03/29/14; updated [place] Back Pain Scale: 81 on03/29/14 26Updated [place] Back Pain Disability Scale: 84. Updated Oswestry Disability Questionnaire: 68% crippling on 08/20/2011 27Initial [place] Back Pain Disability Scale: 89 on 09/05/2009. Social History Social History Type Response Smoking Status Never smoker entered on: 08/31/13 Sexual Orientation Self described orien tation: ; Straight or heterosexual Sex Sex Representation Female (finding) Patient Care team information Care Team Personnel Name: Dorian Neff Jr, MD Position: S Anesthesiology MD Member Role: Lifetime Consulting Physician Address: [address] [place] [id number] Telecom: Name: Nargis Belcher MD Position: Reference Physician Member Role: PCP Address: [address] [place] [address] [place] [address]- [place] Telecom: Care Team Related Persons Name: SARBJIT HERNANDEZ Name: SATISH HERNANDEZ Insurance Providers Guarantor name: LILLIANA HERNANDEZ Health Plan Information #: 1 Payer: MEDICARE B Payer Identifier: NA Member Number: [id number] Group Number: NA Subscriber Identifier: NA Relationship to Subscriber: self Coverage Type: NA Coverage Verification Date: NA Telecom: NA Address: NA Health Plan Information #: 2 Payer: MEDEX SECONDARY ONLY Payer Identifier: NA Member Number: [id number] Group Number: NA Subscriber Identifier: NA Relationship to Subscriber: self Coverage Type: Medicare Other Coverage Verification Date: NA Telecom: NA Address: NA
[2025-08-11 15:18] VITALS: BP 140/85; PULSE 90; BMI 37.5
--- NOTE | 2025-08-11 15:18 | A.OFFVIS_ITS ---
Vital Signs 08/11/25 15:18 Height 5 ft 7 in Weight 239 lb 6.752 oz BMI 37.5 BP 140/85 H Blood Pressure Location Lt brachial Position Sitting Pulse 90 Intake Visit Reasons: post op Intake Note: Billie returns to in office today s/p EGD. CC: Patient states that she had irritation from her throat for about a week after procedure that has now resolved. Denies other GI sympoms or concerns today. Tobacco Sizer Required: No Allergies semaglutide (From Ozempic) Allergy (Severe, Verified 07/28/25 07:05) Rash Jigsuuz-DHO-SvJ Reductase Inhibitor Adverse Reaction (Severe, Verified 07/28/25 07:05) myalgia HPI HPI post op: Details: ssessment & Plan (1) GERD (gastroesophageal reflux disease): Code(s): K21.9 - Gastro-esophageal reflux disease without esophagitis Category: Medical (2) Dysphagia: Code(s): R13.10 - Dysphagia, unspecified Category: Medical (3) Odynophagia: Code(s): R13.10 - Dysphagia, unspecified Category: Medical (4) Gastroparesis: Code(s): K31.84 - Gastroparesis Category: Medical (5) Diarrhea: Code(s): R19.7 - Diarrhea, unspecified Category: Medical Plan Her current GI regimen consists of omeprazole, Reglan and Creon. She isn't find the Creon particularly helpful with her IBS symptoms, however she seems to think that diarrhea has lessened on its own, so to lessen her pill burden we are going to discontinue it. Barium swallow shows sluggish peristalsis that likely is presbyesophagus which is difficult to treat except for implementing safe swallowing precautions. We discuss these thoroughly during this visit to prevent choking. At least for now she feels that her heartburn is well controlled on her omeprazole. She has her endoscopy coming up so we will keep her appointment that is already scheduled after this procedure. EGD EGD Findings:? * Esophagus:? Normal mucosa noted in the entire esophagus. The Z line was at 40 cm and displaced by a hiatal hernia with the pinch at 42 cm. The Z line appeared irregular to 38 cm. Cold forceps biopsies were taken from the GE junction to rule out Barretts esophagus. Middle esophagus biopsies were taken to rule out eosinophilic esophagitis. * Stomach:? Mild erythema and erosion was noted in the antrum. Retroflexion was performed in the cardia that showed hill grade II hiatal hernia. A few polyps ranging in size 3-6 mm were noted in the fundus and body of the stomach. Cold forceps polypectomy was performed for the larger polyps. Random cold forceps biopsies were taken for histology. * Duodenum:? Normal mucosa was noted in the whole of the examined duodenum. Cold forceps biopsies were taken from duodenal bulb and second portion of the duodenum to rule out celiac sprue. Additional intervention: Soft tip Savary wire was introduced through the biopsy channel of the gastroscope and advanced to the antrum. ?The gastroscope was then backed out. ?Savary Deacon bougie was advanced over the guidewire and the esophagus was dilated to 19 mm without any resistance felt. ?On relook, no heme or tear was noted. ? ? EGD Impressions:? * Normal esophagus (biopsy, dilation) * Hiatal hernia * Gastric polyps (biopsy) * Gastritis (biopsy) * Normal duodenum (biopsy)?? Recommendations:?? * Follow biopsy results. Our office will call or send a letter with results within 7-10 days. * Continue PPI therapy. * If H pylori +, patient will be prescribed eradication therapy followed by test of cure. * Avoid NSAIDs. * Empiric dilation was performed today, if patient reports symptomatic improvement in swallowing, this can be repeated as needed. * If there is no response to empiric dilation, consider HREM for further evaluation. BIOPSY Received: 07/28/25 ADDENDUM REPORT Addendum Addendum #1 Further studies: Focal foveolar metaplasia is present in A, indicating a degree of chronic injury (e.g. peptic) and no metaplastic changes are seen in B, C and D supported by AB/PAS stains; no Helicobacter organisms are seen, supported by H. pylori immunostain (A). The diagnosis for part A is revised to, Chronic inactive duodenitis. No other changes are made. Electronically Signed By: Jay Leon MD 08/02/25 6713 Diagnosis A. Duodenum, biopsy: Duodenal mucosa within normal limits. B. Stomach, random, biopsy: Antral-type and oxyntic mucosa with moderate chronic, focally active, inflammation; no Helicobacter organisms seen. C. Stomach, polypectomies: Clinically polypoid oxyntic mucosa with some features of fundic gland polyps and mild chronic inactive inflammation; no Helicobacter organism seen. D. EG junction, biopsy: - Cardiac-type mucosa with mild chronic inactive inflammation; no intestinal metaplasia seen. - Squamous epithelium within normal limits. E. Esophagus, middle, biopsy: Squamous epithelium within normal limits; no inflammation seen. Comment: Ancillary studies including for H. pylori will be addended. TODAY'S VISIT [facility] Medical History Diabetes Wears dentures Nausea & vomiting Peripheral neuropathy Seasonal allergies Hx of supraventricular tachycardia PONV (postoperative nausea and vomiting) Encounter for annual wellness visit (AWV) in Medicare patient Depression PTSD (post-traumatic stress disorder) Injury of hand, right Right shoulder injury Neck injury Imbalance Memory loss Fatty liver GERD (gastroesophageal reflux disease) IBS (irritable colon syndrome) Thyroid disease Hypercholesterolemia Hammertoe of left foot Controlled diabetes mellitus with diabetic neuropathy, with long-term current use of insulin Diabetic neuropathy Complex regional pain syndrome I Asthma Subacute sinusitis Surgical History Hx of section (1991) History of arthroscopy of right shoulder (~2000) S/P insertion of spinal cord stimulator H/O Spinal surgery History of esophagogastroduodenoscopy (EGD) H/O colonoscopy Hx of foot surgery Family History Mother Colon cancer Father Cardiovascular disease Thyroid disorder Throat cancer Alcoholism Psychiatric disorder Maternal Grandmother Asthma Diabetes Cardiovascular disease Maternal Grandfather Cardiovascular disease Paternal Grandfather Cardiovascular disease Sister Cancer of spine Diabetes Brother Tongue cancer Social History Household Members: Spouse and Children Housing: House Are you a primary team primary care physician to a significant other at home: No Do you presently have visiting nurse or other home services: No 75 years or older and lives alone: No Alcohol intake: never Patient Tobacco Use Status: Never used Tobacco e-Cigarette/Vaping Use: Never Used Substance Use Type: Marijuana service: No Current occupational status: disabled Current occupational exposures/hazards: No Cognitive needs: No Hearing needs: Yes (wears hearing aids) Vision needs: Yes (wears glasses) Review of Systems Const Denies fatigue, Denies fever(s), Denies night sweats, Denies poor appetite and Denies weight loss ENT Details: Dry throat Reports Normal hearing present, Denies dental pain, Reports dysphagia, Reports dry mouth, Denies hearing loss, Denies mouth pain, Denies odynophagia, Reports post nasal drip, Denies throat swelling, Denies tongue swelling and Reports other (Dentition adequate) Card Reports no additional complaints Resp Reports no additional complaints GI Details: Denies abdominal pain, Denies melena, Denies bloating, Denies hematochezia, Denies constipation, Denies GI cramping, Reports dysphagia, Denies excessive flatus, Denies early satiety, Reports heartburn, Denies diarrhea, Denies nausea, Denies odynophagia, Denies vomiting and Denies hematemesis Skin/Breast Denies pruritus, Denies lesions, Denies rash and Denies jaundice Neuro Reports Normal hearing present and Denies Abnormal speech present Endo Denies fatigue Aller/Immun Denies throat swelling and Denies tongue swelling Physical Exam Vital Signs: Last Vital Signs Pulse 90 08/11/25 15:18 BP 140/85 H 08/11/25 15:18 BMI result Body Mass Index 37.5 Const General: cooperative, no acute distress, well developed and well groomed Nutritional Appearance: well nourished and obese Orientation/consciousness: oriented to person, oriented to place and oriented to time Limitations: No language barrier HEENT Head: Yes normocephalic and Yes atraumatic Eyes General: appearance normal, both eyes and all related structures Pupils: Equal, round and reactive pupils present Neck Neck: Yes normal visual inspection and Yes no lymphadenopathy Thyroid: Thyroid normal Resp Effort & Inspection: normal respiratory effort and able to speak in complete sentences Auscultation: clear to auscultation bilaterally Cardio Rate: regular rate Rhythm: regular rhythm Heart sounds: Normal, physiologic split S2 sound present Peripheral pulses: radial pulses present and posterior tibial pulses present GI Inspection: No distended, No Abdominal panniculus present and Yes obesity Palpation (GI): Soft to palpation, nontender, no guarding, not rigid and No hepatosplenomegaly present Percussion: Yes normal to percussion Auscultation: normal bowel sounds Rectal Exam - Female: deferred Skin General skin exam: no rashes or lesions noted, turgor normal, skin not dry, no jaundice, No spider nevi and no striae Rashes: no rashes Nails: normal Neuro General: oriented to person, oriented to place and oriented to time Cranial nerves: Yes Equal, round and reactive pupils present and Yes Normal hearing present Speech: No Abnormal speech present Extrem General: Yes normal to inspection, No clubbing, No cyanosis and No edema Psych Appearance: grossly normal and well kempt Mental Status: mental status grossly normal Speech and movement: Normal speech and movement present Affect: normal affect Attitude: cooperative Thought process: Normal thought process present and not confabulating Thought content: Normal thought content present Insight: Good insight present (Psych) Judgement: Good judgement present (Psych) Assessment & Plan Assessment & Plan (1) GERD (gastroesophageal reflux disease): Code(s): K21.9 - Gastro-esophageal reflux disease without esophagitis Category: Medical Qualifiers: Esophagitis presence: esophagitis presence not specified Qualified Code(s): K21.9 - Gastro-esophageal reflux disease without esophagitis (2) Dysphagia: Code(s): R13.10 - Dysphagia, unspecified Category: Medical (3) Gastroparesis: Code(s): K31.84 - Gastroparesis Category: Medical (4) Gastritis: Code(s): K29.70 - Gastritis, unspecified, without bleeding Category: Medical Plan HER CURRENT GI REGIMEN CONSISTS of omeprazole 20 mg daily and Reglan 5 mg 4 times a day. Subjective Follow-up after recent upper endoscopy for chronic sore throat. Post-procedure throat soreness occurred transiently and has improved. She continues to have a persistent sore throat localized high in the throat and around the vocal cord area. Reports year?round postnasal drip with allergies and significant dryness/xerostomia despite high water intake; feels fluid does not adequately coat the back of the throat unless she tilts her head back when swallowing. Prior nausea and vomiting have resolved. Rare use of prochlorperazine suppository and ondansetron as needed. ?Slow gut? symptoms have been well controlled on metoclopramide. Relevant Past Medical, Social, and Family History - Recurrent bronchitis per history. - Allergies with chronic postnasal drip. - History of slow gastrointestinal motility treated with metoclopramide. Objective - Upper endoscopy: Esophagus appeared normal; biopsies from lower esophagus normal. Stomach with focal active irritation on biopsy. Esophageal dilation was performed. Biopsies negative for Amarilis and eosinophilic esophagitis. Assessment & Plan Chronic sore throat: Persistent throat pain localized to upper throat/vocal cord area. GI evaluation, including EGD with esophageal biopsies, was unrevealing for an esophageal source. Xerostomia and chronic postnasal drip may be contributing. Possible GERD component; trial of escalated acid suppression is reasonable. Recommend renewed evaluation by a different ENT for laryngeal/pharyngeal etiologies. - Increase omeprazole to 40 mg. - Recommend second-opinion ENT referral for comprehensive evaluation of laryngeal/pharyngeal causes and allergy/postnasal drip management. - Trial of dry mouth mouthwash for symptomatic relief of xerostomia. - Call sooner for worsening symptoms or new alarm features. Gastric irritation (gastritis) on biopsy: Focal active gastric irritation noted. No evidence of Amarilis or eosinophilic esophagitis. - Increase omeprazole to 40 mg for gastric mucosal protection. - Monitor for dyspepsia, GI bleeding, or alarm symptoms; seek care if these occur. Slow gut (gastroparesis/slow GI motility), stable: Symptoms well controlled. - Continue metoclopramide as currently prescribed. Follow-up: Return in 6 months, or earlier if symptoms persist or worsen. Medications: New omeprazole 40 mg PO DAILY 30 caps 6RF 30 days K21.9 - Gastro-esophageal reflux disease without esophagitis, K29.70 - Gastritis, unspecified, without bleeding Discontinued omeprazole Discontinued Reason: Doctor's Order 20 mg PO DAILY 90 caps 3RF Coding Level of Care Code Est Pt Level 3 (76971) Diagnoses Gastroesophageal reflux disease, unspecified whether esophagitis present K21.9 Esophagitis presence: esophagitis presence not specified Dysphagia R13.10 Gastroparesis K31.84 Gastritis K29.70
--- OUTSIDE RECORDS SUMMARY | 2025-08-11 20:28 | XMS_ITS | Data Portability ---
Author Organization [facility] Reggie Pascual Tnlnea [facility], [facility] Address [address] [place] [address] Assessment Encounter Date Assessment Date Assessment LastModified [...] eval for ? RFA 2023 04 024 [email or web address] [facility], [address] [place] [address], [place], [address], 11:38:12 Procedures None recorded. Surgeries None recorded. Imaging None recorded. Medication Orders None recorded. Patient TargetsNo targets recorded. Patient InstructionsNo instructions recorded. Reason for Referral Pain Management Referral for Lumbar radiculopathy eval for ? RFA Referring Physician: Tonio Loza, Orthopedic Surgery, [id number] Encounter Date: 12/31/2023 Medical Equipment None Reported. Allergies Allergen ID Allergen Name Allergen Category Reaction Reaction Severity Criticality Documentation Date Start Date Code Code System Note Provider Name and Address Organization Details Recorded Time 722028 Ozempic medicatio n Not available Not available Not available 12/31/2023 RxNorm ILEANA alcala [place] - [facility] 13:20:26 [...] Updated DateTime 12/31/2023 170.18 cm 36 kg/m2 523237.25 g ILEANA SAN [place] - [facility] 12/31/2023 [...] ICD10 Code Diagnosis IMO Codes Diagnosis Note [id number] Tonio Loza MD [place] [address] [place] [address] 12/31/2023 12:42:46 01/21/2024 09:30:27 Lumbar radiculopathy 977008884 M54.16 Health Concerns Section Related Observation LastModified by Organization Detai ls LastModified Time None Recorded Concern Status LastModified by Organization Details LastModified Time None Recorded Advance Directives Directive None Recorded Payers Insurance Date Sequence Insurance Name Policy Number Policy Freitas Covered Member ID Freitas Member ID Guarantor Name 01/21/2024 2 [place] [id number] Billie Cardosonack [id number] Billie Cardosonacashia 12/31/2023 3 [place] Billie Cardosonack [id number] Billie Cardosonack 01/21/2024 1 [place] [employer] Billie Cardosonacashia [id number] Billie Cardosonacashia Notes Date Note Type Note [...] WORK STATUS: Disabled IMAGING: Plain radiographs of [facility] reviewed. Lumbar spine films notable for spondylosis. Spondylolisthesis L4-5 quite small X-RAY REPORT: X-rays ordered, obtained and reviewed at [facility]. Not indicated Tonio Loza MD [address] [facility] [address], [place], [address], [facility] - [facility] 12/31/2023 17:35:35 OBGyn Episode No OBEpisode recorded.
--- OUTSIDE RECORDS SUMMARY | 2025-08-11 20:28 | XMS_ITS | Data Portability ---
Author Organization [place] [facility], Allergy Address [address] [address] Care Team Providers Care Car Varnisher Name Role Phone AlbertoSEKOU BYRD Primary Care Provider Assessment Encounter Date Assessment Date Assessment LastModified by Organization Details LastModified Time 02/02/2025 02/02/2025 Follow up with referring provider. [email or web address] Not available 02/02/2025 10:54:41 02/02/2025 02/02/2025 Physical [...] she should continue to follow-up with her behavioral specialist at [facility] audiology for hearing aid maintenance. Recommended [...] Sensorine ural hearing loss of bilateral ears 752461232 Active 2019 Sensorine ural hearing loss, bilateral ; Note: Date Diagnosed : 05/24/2020 2:38 PM (H90.3) Not Available [facility] 4 03:18:14 Pharyngea l dysphagia 58145852585 105 Active 2022 Dysphagia , pharyngea l phase; Note: Date Diagnosed : 05/23/2023 12:17 PM (R13.13) Not Available [facility] 4 03:18:15 Bilateral tinnitus 48339086321 02 Active 2022 Tinnitus, bilateral ; Note: Date Diagnosed : 05/23/2023 12:16 PM (H93.13) Not Available [facility] 4 03:18:14 Referred otalgia of right ear 55518398179 46796 Active 2024 REGINALD AUGUSTIN MD [address] [facility],[place] [address], [facility] [place], [address] , [facility] - [facility] [place] 10:34:41 Chronic sore throat 599152120 Active 2024 REGINALD AUGUSTIN MD [address] [facility],[place] [address], [place], [address] , [facility] - [facility] [place] 5 10:35:26 Excessive gastric reflux 802871304 Active 2024 REGINALD AUGUSTIN MD [address] [facility],[place] [address], [place], [address] , [facility] - [facility] [place] 5 10:35:35 Problem Notes None recorded. Procedures Surgical History Date Name Laterality Status Provider Name and Address Organization Details Recorded Time 02/02/2025 Air & Speech Audio with Tymps - 79134, 50170 & 29749 completed Alexander VELAZQUEZ [address] [facility],[address], [place], [address], [facility] - [facility] 02/02/2025 10:54:41 Imaging Results None recorded. Procedure Notes None recorded. Medical Equipment None Reported. Allergies Allergen ID Allergen Name Allergen Category Reaction Reaction Severity Criticality Documentation Date Start Date Code Code System Note Provider Name and Address Organization Details Recorded Time 13860323 contact metal agent environme nt Not available Not available Not available 02/02/2025 Simran alcala [place] [facility] 5 10:05:12 166357 Ozempic medicatio n Not available Not available Not available 02/02/2025 07 RxNorm Simran alcala [facility] 5 10:12:46 Medications Name Sig Start [...] mg tablet 02/02 completed Medicati on ID: [id number] D uration Value: 90 Brand Name: gabapent in Send Method: E-Prescr ibed Sub s Allowed: subs OK Medic ationGen ericName : gabapent in Not Available Not Available Not Available metoprolo l succinate ER 50 mg tablet,ex tended release 24 hr 02/02 completed Medicati on ID: [id number] D uration Value: 90 Brand Name: metoprol [...] 24 hr 02/02 completed Medicati on ID: [id number] D uration Value: 90 Brand Name: glipizid [...] topical cream 02/02 completed Medicati on ID: [id number] D uration Value: 30 Brand Name: lidocain [...] tended release 02/02 completed Medicati on ID: [id number] D uration Value: 28 Brand Name: morphine [...] release tablet 02/02 completed Medicati on ID: [id number] D uration Value: 14 Brand Name: morphine [...] topical patch 02/02 completed Medicati on ID: [id number] D uration Value: 30 Brand Name: lidocain [...] mg capsule 02/02 completed Medicati on ID: [id number] D uration Value: 20 Brand Name: Marinol [...] mg tablet 02/02 completed Medicati on ID: [id number] D uration Value: 90 Brand Name: rosuvast [...] History Condition Response Allergies/Hayfever Y Diabetes Y Migraines Y Thyroid Problems Y Depression Y Asthma Y High Cholesterol Y Liver Disease Y Hypertension Y Kidney Disease Y Gynecological HistoryNo gynecological history recorded. Obstetrics History GPAL:G 0 P 0 0 0 0 Past Encounters Encounter ID Performer Location Encounter Start Date Encounter Closed Date Diagnosis/Indication Diagnosis SNOMED-CT Code Diagnosis ICD10 Code Diagnosis IMO Codes Diagnosis Note [id number] REGINALD AUGUSTIN MD [facility] [address] [address] 02/02/2025 09:39:21 02/02/2025 11:30:21 Referred otalgia of right ear [id number] 471602 H92.01 M26.621 M79.11 The patient complains of [...] be considered . Chronic sore throat 2754 04914 J31.2 2579 Patient with chronic sore throat and intermitte nt hoarseness in the context of poorly controlled gastroesop hageal reflux disease. LPR brochure discussed with patient. Recommend follow-up with her gastroente rologist for better control of her reflux symptoms. Excessive gastric reflux 803699014 K21.9 9104164403 Sensorineu ral hearing loss of bilateral ears 314496091 H90.3 Audiologic al evaluation results: Right ear: Normal hearing from 250 through 1000 Hz sloping to a moderately severe sensorineu ral hearing loss with excellent word recognitio n. Left ear: Normal hearing from 250 through 1500 Hz sloping to a moderately severe sensorineu ral hearing loss with excellent word recognitio n. Tympanomet ry: Right Ear:Type A Left Ear:Type A [id number] Alexander VELAZQUEZ [facility] [address] [address] 02/02/2025 10:54:26 02/03/2025 11:11:49 Sensorineural hearing loss of bilateral ears 435615879 H90.3 Audiologic al evaluation results: Right ear: [...] ID Guarantor Name 02/02/2025 2 [place] [facility] Billie Kelly [id number] Billie Kelly 02/02/2025 2 [place] [id number] Billie Kelly [id number] Billie Kelly 02/02/2025 1 [place] [facility] Billie Kelly [id number] Billie Kelly Notes Date Note Type Note Provider Name and Address Organization Details Recorded Time 02/02/2025 text/html Patient previously seen by Dr. Renee back in May 2023 for evaluation of fluctuating nonpulsatile bilateral tinnitus in the context of mid and high-frequency sensorineural hearing loss. Amplification recommended to mitigate the hearing loss and tinnitus. Patient did get binaural amplification dispensed at [facility] audiology.Patient reports chronic dry soreness in her throat. She has gastroesophageal reflux disease and is seeing a metalizer for this. She has no nasal congestion.Patient also reports intermittent right sided periauricular discomfort which refers into her jaw and presybeterian area. She is currently using dentures which do not fit very well. She has an appointment coming up with her dentist. Patient notices intermittent ear blockage sensation. She was told by her primary care physician that there was fluid in her ears. REGINALD AUGUSTIN MD [address], [address], [facility] - [facility] 02/02/2025 11:30:11 02/02/2025 text/html Audiological Teresa luation HPIReported by PatientHearing LossFor hearing loss perceived, patient reportshearing loss in both ears (no differences noted between ears).Use of amplification or other hearing devicesFor use of amplification or other hearing devices, patient reportshearing aid use in both ears. Alexander VELAZQUEZ [address] [facility],[address], [address], [facility] - [facility] 02/02/2025 11:08:20 OBGyn Episode No OBEpisode recorded.
== END 2025-08-11 15:56 | disposition home or self-care (01) ==
LOC: HO.HGI 15:09
PROVIDERS: PCP Internal Medicine; Visit Provider Nurse Practitioner
DX: K21.9 Gastro-esophageal reflux disease without esophagitis (principal); R13.10 Dysphagia, unspecified; K31.84 Gastroparesis; K29.70 Gastritis, unspecified, without bleeding
CPT/HCPCS: 99213

== ENCOUNTER → 2025-08-11 15:08 | Outpatient (BNVA) | payer MEDICARE, SELFPAY | PROVIDERS: PCP Internal Medicine; Visit Provider Nurse Practitioner | DX: K21.9 Gastro-esophageal reflux disease without esophagitis (principal); R13.10 Dysphagia, unspecified; K31.84 Gastroparesis; R19.7 Diarrhea, unspecified; K29.70 Gastritis, unspecified, without bleeding | CPT/HCPCS: 99212 ==